=== PATIENT | female | born 1985 | race Caucasian/White ===

== ENCOUNTER 2019-04-22 07:46 | Outpatient (CLI) | payer MEDICAID, SELFPAY ==
--- NOTE | 2019-04-22 08:00 | MR_ITS ---
WS: [id number] MRI LUMBAR SPINE WITH CONTRAST TECHNIQUE: Sagittal T1, T2 and STIR imaging. Axial T1 and T2 imaging. Post gadolinium imaging was obt ained. CLINICAL INFORMATION: Low back pain COMPARISON: MRI March 15, 2016 FINDINGS: Mild lumbar curve. No acute compression. No high-grade central canal stenosis. Prior postoperative ch anges hemilaminectomy left L4-5. L1-L2: Normal. L2-L3: Normal. L3-L4: Mild annular bulging. Small right foraminal protrusion with mild right and no significant left foraminal narrowing. Mild facet arthropathy. L4-L5: Postoperative changes left L4-5 hemilaminectomy. Resection of the previously described disc ex trusion. Enhancing granulation tissue in the left subarticular recess. Residual peripheral enhancing minimal disc bulging slightly narrows the subarticular recess and traversing left L5 nerve root. Mild left foraminal narrowing. This has improved from previous. No significant recurrent disc extrusion. L5-S1: Mild annular bulging with slight effacement of ventral thecal sac. Narrowing of the subarticul ar recess bilaterally. Slight contact of the traversing S1 nerve roots. Mild central canal stenosis. Mild left and no significant right foraminal narrowing. Mild facet arthropathy. Visualized pelvic bony structures: Normal. Paravertebral soft tissues: Normal. MR/MR lumbar spine wo/w con [id number] IMPRESSION: 1. Interval resection of the left L4-5 disc extrusion with minimal residual na rrowing of the left subarticular recess. Slight encroachment traversing left L5 nerve root. Associated Enhancing granulation tissue. No significant recurrent disc extrusion. 2. Mild left L4-5 foraminal narrowing. 3. Mild central canal stenosis L5-S1 with broad-based shallow central disc pro trusion and tiny annular fissure. Slight contact of the S1 nerve roots. Mild le ft L5-S1 foraminal narrowing. 4. Small right foraminal protrusion L3-4 with mild right foraminal narrowing.
--- NOTE | 2019-04-22 08:45 | XR_ITS ---
WS: [id number] LUMBAR SPINE FLEXION AND EXTENSION TECHNIQUE: 3 views of the lumbar spine: Lateral neutral, flexion, and extension views. CLINICAL INFORMATION: low back pain COMPARISON: None. FINDINGS: Normal lumbar alignment on the neutral view. No instability on the flexion and extension views. Disc space narrowing worse at L4-L5 and L5-S1. XR/XR lumbar spine f/e only [id number] IMPRESSION: No instability on flexion-extension
== END 2019-04-22 07:47 | disposition home or self-care (01) ==
LOC: RADWPI 07:49
PROVIDERS: Family Provider Family Medicine; PCP Family Medicine; Visit Provider Licensed Practical Nurse
DX: M96.1 Postlaminectomy syndrome, not elsewhere classified (principal); M48.07 Spinal stenosis, lumbosacral region; M51.26 Other intervertebral disc displacement, lumbar region
CPT/HCPCS: 72120; 72158; A9579

== ENCOUNTER → 2019-05-21 07:43 | Outpatient (BNVA) | payer MEDICAID, SELFPAY | PROVIDERS: Family Provider Family Medicine; PCP Family Medicine; Referring Provider Licensed Practical Nurse; Visit Provider Psychiatry & Neurology Neurology | DX: M54.17 Radiculopathy, lumbosacral region (principal); F17.210 Nicotine dependence, cigarettes, uncomplicated | CPT/HCPCS: 95886; 95908 ==

== ENCOUNTER 2019-07-01 10:47 | Outpatient (RCR) | payer MEDICAID, SELFPAY | END 2019-07-13 23:59 | disposition home or self-care (01) | LOC: SPT 10:47 | PROVIDERS: PCP Family Medicine; Referring Provider Specialist; Visit Provider Specialist | DX: G89.29 Other chronic pain (principal); M54.9 Dorsalgia, unspecified | CPT/HCPCS: 97110; 97161 ==

== ENCOUNTER 2019-07-14 06:00 | Outpatient (RCR) | payer MEDICAID, SELFPAY | END 2019-08-12 23:59 | disposition home or self-care (01) | LOC: SPT 06:00 | PROVIDERS: PCP Family Medicine; Referring Provider Specialist; Visit Provider Specialist | DX: G89.29 Other chronic pain (principal); M54.9 Dorsalgia, unspecified | CPT/HCPCS: 97110 ==

== ENCOUNTER 2019-08-13 06:00 | Outpatient (RCR) | payer MEDICAID, SELFPAY | END 2019-09-12 23:59 | disposition home or self-care (01) | LOC: SPT 06:00 | PROVIDERS: PCP Family Medicine; Referring Provider Specialist; Visit Provider Specialist | DX: G89.29 Other chronic pain (principal); M54.9 Dorsalgia, unspecified | CPT/HCPCS: 97110 ==

== ENCOUNTER 2019-09-13 06:00 | Outpatient (RCR) | payer MEDICAID, SELFPAY | END 2019-10-10 12:00 | disposition home or self-care (01) | LOC: SPT 06:00 | PROVIDERS: PCP Family Medicine; Referring Provider Specialist; Visit Provider Specialist | DX: G89.29 Other chronic pain (principal); M54.9 Dorsalgia, unspecified | CPT/HCPCS: 97110 ==

== ENCOUNTER → 2019-10-22 11:24 | Outpatient (BNVA) | payer MEDICAID, SELFPAY | PROVIDERS: PCP Family Medicine; Visit Provider Nurse Practitioner Family | DX: J06.9 Acute upper respiratory infection, unspecified (principal); Z20.828 Contact with and (suspected) exposure to other viral communicable diseases | CPT/HCPCS: 87635 ==

== ENCOUNTER 2020-03-14 16:01 | Emergency (ER) | payer MEDICAID, SELFPAY ==
[2020-03-14 17:07] VITALS: BP 121/80; PULSE 114; RESP 16; TEMP 36.3; O2SAT 97; BMI 32.2
--- NOTE | 2020-03-14 17:12 | XRR_ITS ---
PROCEDURE INFORMATION: Exam: XR Lumbosacral Spine, 2 or 3 Views Exam date and time: 03/14/2020 5:13 PM Age: 35 years old Clinical indication: Injury or trauma; Fall; Blunt trauma (contusions or hematomas) TECHNIQUE: Imaging protocol: XR of the lumbosacral spine, 2 or 3 views. COMPARISON: CR Hip 2-3v LEFT wwo Pelv* [id number] 04/09/2014 1:21 PM FINDINGS: Bones/joints: No fractures. Unremarkable alignment. Severe disc height loss L4-L5 and L5-S1. Sclerosis of L5-S1 facet joints. Soft tissues: Unremarkable. XR/XR lumbar spine 2-3V* [id number] IMPRESSION: Negative for acute lumbar spine abnormality.
--- NOTE | 2020-03-14 19:12 | ED_ITS ---
HPI - Back Pain/Injury General: Chief Complaint: Back Pain/Injury Stated Complaint: Fall/Back Pain Time Seen by Provider: 03/14/20 19:02 Source: patient Mode of arrival: ambulatory Limitations: no limitations History of Present Illness: HPI Narrative: 35-year-old female who states she had a discectomy in her lumbar spine and January. She states that she fell in the bathtub last night and landed on her right lower back has had right lower back pain since then. States pain is worsened today. States it is worse with movement and improved with rest. States currently a 6 out of 10. She denies any bowel or bladder incontinence. Denies any fever. MD elicited complaint: back pain Associated symptoms: Deny abdominal pain, chills, dysuria, fever(s), nausea or vomiting Review of Systems Const: Denies: fever(s), chills, body aches or change in appetite Eyes: Denies: blurry vision or eye discomfort ENMT: Denies: throat pain or dental pain Card: Denies: chest pain Resp: Denies: dyspnea GI: Denies: abdominal pain, nausea, vomiting or diarrhea : Denies: dysuria Musc: Reports: back pain; Denies: neck pain Skin/Breast: Denies: rash Neuro: Denies: headache(s) Psych: Denies: depression Patricio/Lymph: Denies: easy bruising All/Imm: Denies: urticaria PFSH ED PFSH: Medical History Asthma Lumbar disc disease Lumbar post-laminectomy syndrome Surgical History History of adenoidectomy Tonsillectomy and adenoidectomy done at the age of 19 History of eye surgery Strabismus 2010 History of lumbar surgery 07/27/2016 left L4-L5 reexploration. 06/2010 Left L4-L5 History of tubal ligation 11/2014: precedure done via umbilicus. Performed in [place], [place]. Family History Father Hypertension Diabetes Mother Heart disease Social History Smoking and tobacco status: former smoker Alcohol intake: current Alcohol intake frequency: holidays/special occasions only Substance/Drug Use: never Marital status: Current occupational status: disabled History of recent travel: No Physical Exam Const: COMMON NORMALS: no acute distress, patient oriented x3 and healthy appearing HENMT: COMMON NORMALS: normocephalic and atraumatic HEAD & SCALP: normocephalic and atraumatic Eye: COMMON NORMALS: Equal, round and reactive pupils present and EOMs intact bilaterally PUPIL: Yes Equal, round and reactive pupils present Neck/C-Spine: COMMON NORMALS: full ROM and supple Chest: COMMONS NORMALS: normal inspection of the chest and normal palpation of entire chest wall Resp: COMMON NORMALS: normal respiratory effort, No retractions, No use of ac cessory muscles and clear to auscultation bilaterally AUSCULTATION: clear to auscultation bilaterally Cardio: COMMON NORMALS: regular rate, regular rhythm and No murmurs present (Cardio) RATE: regular rate RHYTHM: regular rhythm GI: COMMON NORMALS: Normal to inspection, nondistended, normoactive bowel sounds present, Soft to palpation, non-tender and no masses PALPATION: Yes Soft to palpation Back/Pelvis: OTHER: Tender over right lower back no midline tenderness no saddle anesthesia 5 out of 5 strength bilateral lower extremities Extremity: COMMON NORMALS: normal to inspection and full ROM Neuro: COMMON NORMALS: patient oriented x3, moves all extremities and no focal motor deficits Psych: COMMON NORMALS: mental status grossly normal, Normal thought process present and cooperative THOUGHT PROCESS: Normal thought process present Skin: COMMON NORMALS: no rashes or lesions noted and no wounds GENERAL SKIN EXAM: no rashes or lesions noted Course Vital Signs: Vital signs: Vital Signs Temperature 97.3 F L 03/14/20 17:07 Pulse Rate 114 H 03/14/20 17:07 Respiratory Rate 16 03/14/20 17:07 Blood Pressure 121/80 03/14/20 17:07 Pulse Oximetry 97 03/14/20 17:07 MDM - Back Pain/Injury MDM Narrative: Medical decision making narrative: Mandy presents with back pain likely contusion from her fall. Her x-ray here is normal and her exam is benign. She is following up with her neurosurgeon on Sunday and I feel she is stable for discharge and is to follow-up then. She is to take her pain meds at home and ice. She understands and agrees to plan. Imaging Data^: Other Xray: Radiologist's impression: [address] [place] [address] XRay Report Signed Patient: Mandy Turner Unit #: [id number] : [id number] Age/Sex: 35 / F ADM Date: 03/14/20 Loc: ER Room/Bed: Attending Dr: Ordering Provider/Ordering MD: Miguel Melchor Sr, [facility]- Date of Service: 03/14/20 Procedure(s): XR lumbar spine 2-3V* [id number] Accession Number(s): [id number] Report Number: [id number] PROCEDURE INFORMATION: Exam: XR Lumbosacral Spine, 2 or 3 Views Exam date and time: 03/14/2020 5:13 PM Age: 35 years old Clinical indication: Injury or trauma; Fall; Blunt trauma (contusions or hematomas) TECHNIQUE: Imaging protocol: XR of the lumbosacral spine, 2 or 3 views. COMPARISON: CR Hip 2-3v LEFT wwo Pelv* [id number] 04/09/2014 1:21 PM FINDINGS: Bones/joints: No fractures. Unremarkable alignment. Severe disc height loss L4-L5 and L5-S1. Sclerosis of L5-S1 facet joints. Soft tissues: Unremarkable. XR/XR lumbar spine 2-3V* [id number] IMPRESSION: Negative for acute lumbar spine abnormality. Discharge Plan Discharge Patient Disposition: Home Clinical Impression: Low back pain Qualifiers: Chronicity: acute Back pain laterality: right Sciatica presence: without sciatica Qualified Code(s): M54.5 - Low back pain Condition: Stable Prescriptions: No Action Excedrin Migraine 250-250-65 mg tablet 1 tab PO Q6H PRNRF: 0 hydrocodone-acetaminophen 10-325 mg tablet 1 tab PO BID PRNRF: 0 albuterol sulfate [ProAir HFA] 90 mcg/actuation HFA aerosol inhaler 2 puff INHALATION Q6H PRNRF: 0 pregabalin [Lyrica] 50 mg capsule 50 mg PO BID RF: 0 Discharge Orders: Discharge ED (Routine); Ordered 03/14/20 Ordered By: Flaco Gonzalez Referrals: Ludwin Watson MD [Primary Care Provider] - 1-3 days Discharge Diet: Advance as tolerated Discharge Activity: Resume usual activity Patient Instructions: Back Pain (ED) Coding Level of Care Code ED Insurance Account Specialist for Aubrie Cardona
[2020-03-14 19:57] VITALS: RESP 18
[2020-03-14] MEDS: morphine 4 mg/mL SDV 1 mL IM (19:57)
[2020-03-14 20:07] VITALS: BP 121/80; PULSE 106; RESP 20; O2SAT 97
== END 2020-03-14 20:08 | disposition home or self-care (01) ==
PROVIDERS: Emergency Provider Emergency Medicine; PCP Family Medicine
DX: M54.5 Low back pain (principal); Z87.891 Personal history of nicotine dependence
CPT/HCPCS: 12345; 72100; 96372; 99281; 99283; J2270

== ENCOUNTER 2020-06-16 08:25 | Outpatient (CLI) | payer MEDICAID, SELFPAY ==
[2020-06-29 05:40] LABS: Miscellaneous Test See Scanned Lab Rpt
== END 2020-06-16 08:26 | disposition home or self-care (01) ==
LOC: LAB 08:26
PROVIDERS: PCP Family Medicine; Visit Provider Specialist
DX: L72.0 Epidermal cyst (principal)
CPT/HCPCS: 87015; 87070; 87102; 87116; 87176; 87205; 87206; 87801; 88184; 88185; 88307

== ENCOUNTER 2020-06-22 19:50 | Emergency (ER) | payer MEDICAID, SELFPAY ==
--- NOTE | 2020-06-22 19:51 | XRR_ITS ---
PROCEDURE INFORMATION: Exam: XR Left Foot Exam date and time: 06/22/2020 7:53 PM Age: 35 years old Clinical indication: Pain; Foot; Left; Additional info: Injury TECHNIQUE: Imaging protocol: XR Left foot. Views: 3 or more views. COMPARISON: No relevant prior studies available. FINDINGS: Bones/joints: Normal. Soft tissues: Normal. XR/XR foot LT min 3V* [id number] IMPRESSION: No acute findings.
--- NOTE | 2020-06-22 19:51 | XRR_ITS ---
PROCEDURE INFORMATION: Exam: XR Left Ankle Exam date and time: 06/22/2020 7:53 PM Age: 35 years old Clinical indication: Pain; Ankle; Left; Additional info: Injury TECHNIQUE: Imaging protocol: XR Left ankle. Views: 3 or more views. COMPARISON: No relevant prior studies available. FINDINGS: Bones/joints: Normal. Soft tissues: Normal. XR/XR ankle LT min 3V* [id number] IMPRESSION: No acute findings.
[2020-06-22 19:55] VITALS: BP 127/81; PULSE 104; RESP 18; TEMP 36.8; O2SAT 99; BMI 32.8
[2020-06-22] MEDS: HYDROcodone-acetaminophen 5-325 mg Tablet 1 TAB PO (21:15)
--- NOTE | 2020-06-22 21:20 | W.ED.EXTPRO ---
HPI - Extremity Problem General: Chief complaint: Extremity Injury, Lower Stated complaint: right foot injury Time Seen by Provider: 06/22/20 20:16 History of Present Illness: Associated symptoms: Deny chest pain, fever(s) or rash Review of Systems Const: Denies: fever(s), chills, body aches, change in appetite, change in weight, fatigue, malaise or diaphoresis Eyes: Denies: change in vision, blurry vision, blind spots, photophobia, eye discomfort, eye discharge, eye redness, floaters or seeing flashes ENMT: Denies: throat pain, uvular edema, enlarged tonsils, odynophagia, hoarseness, mouth pain, swelling of lips/tongue, oral sores, bleeding gums, dental pain, dry mouth, ear or mastoid pain, ear discharge, change in hearing, tinnitus, disequilibrium, nasal discharge, nasal congestion, post nasal drip or sinus pain Card: Denies: chest pain, palpitations, irregular heart rhythm, edema, swelling of feet/ankles, lightheadedness, syncope, pre-syncope, dyspnea on exertion, orthopnea, leg pain with exertion or acrocyanosis Resp: Denies: dyspnea, productive cough, non-productive cough, wheezing, stridor, pain on inspiration, change in phlegm color, hemoptysis or chest congestion GI: Denies: abdominal pain, nausea, vomiting, hematemesis, dysphagia, diarrhea, constipation, GI cramping, change in bowel habits or rectal pain : Denies: flank pain, difficulty voiding, dysuria, urinary frequency, urinary urgency, urinary hesitancy or hematuria Musc: Reports: extremity pain; Denies: neck pain, back pain, extremity swelling, joint pain, joint swelling, joint redness, joint warmth or deformity Skin/Breast: Denies: rash, pruritus, erythema, sores, new lesions, changes in skin color or dry skin Neuro: Denies: headache(s), numbness in extremities, weakness in extremities, sensory changes, lack of coordination, difficulty walking, frequent falls, dizziness, vertigo, confusion, behavioral changes, Slurred speech present, difficulty communicating thoughts or seizure-like activity Psych: Denies: anxiety, depression, suicidal ideation or homicidal ideation Endo: Denies: polyuria, polydipsia, tired all the time, cold intolerance, excessive sweating, flushing, hot flashes or heat intolerance Patricio/Lymph: Denies: easy bruising, easy bleeding, petechiae, purpura, enlarged lymph nodes or tender lymph nodes All/Imm: Denies: urticaria, throat swelling, tongue swelling, facial swelling, acute wheezing or itchy eyes PFSH ED PFSH: Medical History Asthma Lumbar disc disease Lumbar post-laminectomy syndrome Surgical History History of adenoidectomy Tonsillectomy and adenoidectomy done at the age of 19 History of eye surgery Strabismus 2010 History of lumbar surgery 07/27/2016 left L4-L5 reexploration. 06/2010 Left L4-L5 History of tubal ligation 11/2014: precedure done via umbilicus. Performed in [place], [place]. Family History Father Hypertension Diabetes Mother Heart disease Social History Smoking and tobacco status: former smoker Alcohol intake: current Alcohol intake frequency: holidays/special occasions only Marital status: Current occupational status: disabled History of recent travel: No Physical Exam Const: COMMON NORMALS: no acute distress, average body habitus, patient oriented x3, no limitations, healthy appearing, alert and well nourished HENMT: THROAT: no uvular edema Extremity: LEFT LOWER EXTREMITY: Yes foot & digits (pain to 2nd and third digit pt is NVI no obvious deformity) Neuro: COMMON NORMALS: patient oriented x3 SENSORIUM/ORIENTATION: Yes alert Course Vital Signs: Vital signs: Vital Signs Temperature 98.2 F 06/22/20 19:55 Pulse Rate 104 H 06/22/20 19:55 Respiratory Rate 18 06/22/20 19:55 Blood Pressure 127/81 06/22/20 19:55 Pulse Oximetry 99 06/22/20 19:55 MDM - Extremity (Nontraumatic) MDM Narrative: Medical decision making narrative: Pt is well appearing non toxic and in no acute distress. pain to 2nd and third digit pt is NVI no obvious deformity xray does not reveal any acute fractures or dislocation 2nd 3rd digit ingris tapped. Pt was advised to wear hard sole shoes return precautions discussed Discharge Plan Discharge Patient Disposition: Home Clinical Impression: Sprain of toe Qualifiers: Encounter type: initial encounter Qualified Code(s): S93.509A - Unspecified sprain of unspecified toe(s), initial encounter Condition: Stable Prescriptions: No Action Excedrin Migraine 250-250-65 mg tablet 1 tab PO Q6H PRNRF: 0 hydrocodone-acetaminophen 10-325 mg tablet 1 tab PO BID PRNRF: 0 albuterol sulfate [ProAir HFA] 90 mcg/actuation HFA aerosol inhaler 2 puff INHALATION Q6H PRNRF: 0 pregabalin [Lyrica] 50 mg capsule 50 mg PO BID RF: 0 amoxicillin-pot clavulanate [Augmentin] 875-125 mg tablet 1 tab PO Q12H 7 Days Qty: 14 RF: 0 Discharge Orders: Discharge ED (Routine); Ordered 06/22/20 Ordered By: Delia Mcginnis Referrals: Ludwin Watson MD [Primary Care Provider] - Discharge Diet: Advance as tolerated Discharge Activity: Increase activity as tolerated Patient Instructions: Opioid Safety Activity Restrictions/Additional Instructions: Ingris tape as needed Return to er with any worsening of pain Coding Level of Care Code ED Extension Edger for Aubrie Cardona
--- NOTE | 2020-06-22 21:35 | PC.NURSE ---
Patient 2nd and 3rd toe on left foot ingris taped together.
[2020-06-22 21:39] VITALS: BP 106/59; PULSE 92; RESP 15; TEMP 36.8; O2SAT 96
== END 2020-06-22 21:40 | disposition home or self-care (01) ==
PROVIDERS: Emergency Provider Registered Nurse; PCP Family Medicine
DX: S93.509A Unspecified sprain of unspecified toe(s), initial encounter (principal); Z87.891 Personal history of nicotine dependence; X58.XXXA Exposure to other specified factors, initial encounter
CPT/HCPCS: 73610; 73630; 99283

== ENCOUNTER 2021-01-22 11:52 | Emergency (ER) | payer MEDICAID, SELFPAY ==
[2021-01-22 12:02] VITALS: BP 107/68; PULSE 90; RESP 18; TEMP 36.6; O2SAT 97; BMI 31.4
--- NOTE | 2021-01-22 12:07 | XRR_ITS ---
PROCEDURE INFORMATION: Exam: XR Left Ankle Exam date and time: 01/22/2021 12:07 PM Age: 36 years old Clinical indication: Injury or trauma; Other: Twisted; Sprain or strain; Ankle; Left TECHNIQUE: Imaging protocol: XR Left ankle. Views: 3 or more views. COMPARISON: CR (LOW EXM, ) 06/22/2020 8:18 PM FINDINGS: Bones/joints: Bones intact and normally aligned. Soft tissues: Normal. XR/XR ankle LT min 3V* [id number] IMPRESSION: No acute findings.
--- NOTE | 2021-01-22 12:09 | ED_ITS ---
HPI - Extremity Problem General: Chief complaint: Extremity Injury, Lower Stated complaint: L ANKLE SWELLING & PAIN Time Seen by Provider: 01/22/21 12:01 History of Present Illness: HPI Narrative: Complains of left ankle pain after stepping in a hole last night. Complaint: joint pain Onset (ago): hour(s) Pain Consistency: constant Location: left and lower extremity Severity scale (1-10): 2 Quality: aching Radiation: none Relieving factors: immobilization Exacerbating factors: range of motion and weight bearing Associated symptoms: Reports no associated symptoms; Deny fever(s) Review of Systems Const: Denies: fever(s) or chills Musc: Reports: joint pain (Left ankle) Psych: Denies: anxiety PFSH ED PFSH: Medical History (Updated 06/30/20 @ 00:00 by ) Asthma Lumbar disc disease Lumbar post-laminectomy syndrome Surgical History History of adenoidectomy Tonsillectomy and adenoidectomy done at the age of 19 History of eye surgery Strabismus 2010 History of lumbar surgery 07/27/2016 left L4-L5 reexploration. 06/2010 Left L4-L5 History of tubal ligation 11/2014: precedure done via umbilicus. Performed in [place], [place]. Family History Father Hypertension Diabetes Mother Heart disease Social History Smoking and tobacco status: former smoker Alcohol intake: current Alcohol intake frequency: holidays/special occasions only Marital status: Current occupational status: disabled History of recent travel: No Physical Exam 2 Const: COMMON NORMALS: no acute distress GENERAL APPEARANCE: cooperative Resp: COMMON NORMALS: normal respiratory effort Extremity: LEFT LOWER EXTREMITY: Yes ankle joint (Tenderness to lateral and medial aspect of the ankle. No swelling noted no ) Psych: COMMON NORMALS: mental status grossly normal Course Vital Signs: Vital signs: Vital Signs Temperature 97.8 F 01/22/21 12:02 Pulse Rate 90 01/22/21 12:02 Respiratory Rate 18 01/22/21 12:02 Blood Pressure 107/68 01/22/21 12:02 Pulse Oximetry 97 01/22/21 12:02 Discharge Plan Discharge Prescriptions: No Action Excedrin Migraine 250-250-65 mg tablet 1 tab PO Q6H PRNRF: 0 hydrocodone-acetaminophen 10-325 mg tablet 1 tab PO BID PRNRF: 0 albuterol sulfate [ProAir HFA] 90 mcg/actuation HFA aerosol inhaler 2 puff INHALATION Q6H PRNRF: 0 pregabalin [Lyrica] 50 mg capsule 50 mg PO BID RF: 0 amoxicillin-pot clavulanate [Augmentin] 875-125 mg tablet 1 tab PO Q12H 7 Days Qty: 14 RF: 0 Coding Level of Care Code ED Road Service Locksmith for Aubrie Cardona
== END 2021-01-22 13:11 | disposition home or self-care (01) ==
PROVIDERS: Emergency Provider Nurse Practitioner Family; PCP Family Medicine
DX: M25.572 Pain in left ankle and joints of left foot (principal); Z87.891 Personal history of nicotine dependence
CPT/HCPCS: 73610; 99282

== ENCOUNTER 2021-03-06 08:17 | Emergency (ER) | payer MEDICAID, SELFPAY ==
[2021-03-06 08:39] VITALS: BP 114/79; PULSE 92; RESP 18; TEMP 36.8; O2SAT 96; BMI 30.6
--- NOTE | 2021-03-06 08:49 | ED_ITS ---
HPI - Headache General: Chief Complaint: Headache Stated Complaint: headache Time Seen by Provider: 03/06/21 08:45 History of Present Illness: HPI Narrative: Patient complains of sinus headache. Has been taking Claritin which helped last few days and then feels like she is got pressure in sinuses now and is caused her to have a headache. She denies migrainous type symptoms. Denies fever chills cough cold or body aches either. MD elicited complaint: headache Onset (ago): hour(s) Onset description: gradually Location: frontal Severity: mild Quality & Timing: aching Associated symptoms: Reports no associated symptoms; Deny chest pain, fever(s), nausea, rash or vomiting Review of Systems Const: Denies: fever(s), chills or body aches Eyes: Denies: change in vision or blurry vision ENMT: Reports: sinus pain and other; Denies: throat pain or nasal congestion Card: Denies: chest pain or dyspnea on exertion Resp: Denies: dyspnea, productive cough or non-productive cough GI: Denies: abdominal pain, nausea or vomiting Musc: Denies: extremity pain Skin/Breast: Denies: rash Neuro: Reports: headache(s) Psych: Denies: anxiety or depression Patricio/Lymph: Denies: easy bruising PFSH ED PFSH: Medical History (Updated 03/06/21 @ 08:48 by BRET Eden) Asthma Lumbar disc disease Lumbar post-laminectomy syndrome Surgical History History of adenoidectomy Tonsillectomy and adenoidectomy done at the age of 19 History of eye surgery Strabismus 2010 History of lumbar surgery 07/27/2016 left L4-L5 reexploration. 06/2010 Left L4-L5 History of tubal ligation 11/2014: precedure done via umbilicus. Performed in [place], [place]. Family History Father Hypertension Diabetes Mother Heart disease Social History Smoking and tobacco status: former smoker Alcohol intake: current Alcohol intake frequency: holidays/special occasions only Marital status: Current occupational status: disabled History of recent travel: No Physical Exam Const: COMMON NORMALS: no acute distress, average body habitus and patient oriented x3 HENMT: COMMON NORMALS: normocephalic HEAD & SCALP: normal to inspection and normocephalic FACE & SINUS: sinus tenderness frontal, sphenoid, ethmoid and maxillary Eye: COMMON NORMALS: conjunctivae normal GENERAL EYE: appearance normal, both eyes and all related structures CONJUNCTIVA: Yes conjunctivae normal Neck/C-Spine: COMMON NORMALS: no JVD Chest: COMMONS NORMALS: normal inspection of the chest Resp: COMMON NORMALS: normal respiratory effort and clear to auscultation bilaterally AUSCULTATION: clear to auscultation bilaterally Cardio: COMMON NORMALS: no JVD, regular rate and regular rhythm RATE: regular rate RHYTHM: regular rhythm GI: COMMON NORMALS: Normal to inspection, nondistended, normoactive bowel sounds present Extremity: COMMON NORMALS: normal to inspection and full ROM Neuro: COMMON NORMALS: patient oriented x3 Course Vital Signs: Vital signs: Vital Signs Temperature 98.2 F 03/06/21 08:39 Pulse Rate 92 03/06/21 08:39 Respiratory Rate 18 03/06/21 08:39 Blood Pressure 114/79 03/06/21 08:39 Pulse Oximetry 96 03/06/21 08:39 Discharge Plan Discharge Patient Disposition: Home Clinical Impression: Sinus headache Condition: Stable Prescriptions: New Bactrim DS 800-160 mg tablet 1 tab PO BID 10 Days Qty: 20 RF: 0 Celebrex 100 mg capsule 100 mg PO BID Qty: 20 RF: 0 No Action Excedrin Migraine 250-250-65 mg tablet 1 tab PO Q6H PRNRF: 0 hydrocodone-acetaminophen 10-325 mg tablet 1 tab PO BID PRNRF: 0 albuterol sulfate [ProAir HFA] 90 mcg/actuation HFA aerosol inhaler 2 puff INHALATION Q6H PRNRF: 0 pregabalin [Lyrica] 50 mg capsule 50 mg PO BID RF: 0 amoxicillin-pot clavulanate [Augmentin] 875-125 mg tablet 1 tab PO Q12H 7 Days Qty: 14 RF: 0 Discharge Orders: Discharge ED (Routine); Ordered 03/06/21 Ordered By: Piotr Melchor Referrals: Ludwin Watson MD [Primary Care Provider] - Discharge Diet: Usual diet Discharge Activity: Increase activity as tolerated Activity Restrictions/Additional Instructions: Follow-up with medical provider as directed. Take medications as prescribed. Return to the ER or your medical provider if condition worsens. Please read and understand discharge instructions. If any questions ask please. Take the Bactrim DS for sinus infection. And take the Celebrex as needed for headache. And continue your Claritin that you have. Coding Level of Care Code ED Winding Operator for Aubrie Cardona
[2021-03-06 09:04] VITALS: BP 114/79; PULSE 92; RESP 18; TEMP 36.8; O2SAT 98
== END 2021-03-06 09:06 | disposition home or self-care (01) ==
LOC: ER 08:51
PROVIDERS: Emergency Provider Nurse Practitioner Family; PCP Family Medicine
DX: G44.89 Other headache syndrome (principal); Z87.891 Personal history of nicotine dependence
CPT/HCPCS: 99282

== ENCOUNTER 2021-04-12 19:41 | Emergency (ER) | payer MEDICAID, SELFPAY ==
[2021-04-12 20:07] VITALS: BP 136/92; PULSE 112; RESP 16; TEMP 36.8; O2SAT 99; BMI 27.4
--- NOTE | 2021-04-12 20:14 | ED_ITS ---
HPI - Extremity Problem General: Chief complaint: Extremity Injury, Lower Stated complaint: Pain Left Leg and Bottom Time Seen by Provider: 04/12/21 20:14 History of Present Illness: 36-year-old female comes in today with complaints of low back pain radiating into her left lower leg. Patient reports that usually she will have some low back pain with some mild radiation to her left lower extremity but it seems to have worsened. Patient does have a history of a surgery done 1 year ago to her low back. Patient is alert and oriented. Patient denies any falls or injury. Patient appears some mild pain. Review of Systems General: Reports: 10 or more systems reviewed and unremarkable except in HPI and below Musc: Reports: back pain [facility] ED PFSH: Medical History (Updated 04/12/21 @ 20:26 by BRET Vera) Asthma Lumbar disc disease Lumbar post-laminectomy syndrome Surgical History History of adenoidectomy Tonsillectomy and adenoidectomy done at the age of 19 History of eye surgery Strabismus 2010 History of lumbar surgery 07/27/2016 left L4-L5 reexploration. 06/2010 Left L4-L5 History of tubal ligation 11/2014: precedure done via umbilicus. Performed in [place], [place]. Family History Father Hypertension Diabetes Mother Heart disease Social History Smoking and tobacco status: former smoker Alcohol intake: current Alcohol intake frequency: holidays/special occasions only Marital status: Current occupational status: disabled History of recent travel: No Physical Exam Const: COMMON NORMALS: alert Neck/C-Spine: COMMON NORMALS: full ROM Resp: COMMON NORMALS: normal respiratory effort and clear to auscultation bilaterally AUSCULTATION: clear to auscultation bilaterally Cardio: COMMON NORMALS: regular rate and regular rhythm RATE: regular rate RHYTHM: regular rhythm Back/Pelvis: COMMON NORMALS: thoraco-lumbar ROM normal Extremity: RIGHT LOWER EXTREMITY: Yes lower leg Right lower leg: Yes inspection and Yes palpation LEFT LOWER EXTREMITY: Yes lower leg Left lower leg: Yes inspection and Yes palpation Neuro: SENSORIUM/ORIENTATION: Yes alert Psych: COMMON NORMALS: cooperative Course Vital Signs: Vital signs: Vital Signs Temperature 98.2 F 04/12/21 20:07 Pulse Rate 112 H 04/12/21 20:07 Respiratory Rate 16 04/12/21 20:07 Blood Pressure 136/92 04/12/21 20:07 Pulse Oximetry 99 04/12/21 20:07 MDM - Extremity (Nontraumatic) Medical Decision Making Patient comes in with pain radiating from her low back down her left extremity to her ankle. Patient has a history of a spinal fusion 1 year ago. Patient reports the pain been worse over the last 2 to 3 days. Patient reports this is new pain for her. On exam patient has no sign of redness or inflammation or swelling to the left lower extremity. Pulses are intact. Negative Homans' sign. Differential diagnosis includes lumbar radiculitis, muscle strain, DVT. No sign of DVT was noted. Believe the patient probably has some lumbar radiculopathy secondary to her chronic back pain. Patient was given a dose of ketorolac 30 mg, 10 mg of dexamethasone, and 60 mg orphenadrine. Patient was recommended to follow-up with primary care for further evaluation and treatment. Patient may also is to follow-up with her spinal surgeon. There was no signs of serious illness or injury noted today. No sign of cauda equina syndrome was noted today. Patient reported no problems with bowel or bladder movement. Discharge Plan Discharge Patient Disposition: Home Clinical Impression: Left lumbar radiculitis Condition: Stable Prescriptions: No Action Excedrin Migraine 250-250-65 mg tablet 1 tab PO Q6H PRN0RF hydrocodone-acetaminophen 10-325 mg tablet 1 tab PO BID PRN0RF albuterol sulfate [ProAir HFA] 90 mcg/actuation HFA aerosol inhaler 2 puff INHALATION Q6H PRN0RF pregabalin [Lyrica] 50 mg capsule 50 mg PO BID 0RF amoxicillin-pot clavulanate [Augmentin] 875-125 mg tablet 1 tab PO Q12H 7 Days Qty: 14 0RF Celebrex 100 mg capsule 100 mg PO BID Qty: 20 0RF Discharge Orders: Discharge ED (Routine); Ordered 04/12/21 Ordered By: Olu Rangel Referrals: Ludwin Watson MD [Primary Care Provider] - Discharge Diet: Usual diet Discharge Activity: Increase activity as tolerated Patient Instructions: Back Pain (ED), Opioid Safety Activity Restrictions/Additional Instructions: Continue with routine medications. Activity as tolerated. Drink plenty of water with medication. Follow-up with spinal surgeon for further evaluation and treatment. Return to ER for new concerns or worsening symptoms. Coding Level of Care Code ED Micropaleontologist for Aubrie Cardona
[2021-04-12] MEDS: dexamethasone 10 mg/mL INJ IM (20:40)
[2021-04-12 20:41] VITALS: PULSE 98; RESP 16; O2SAT 99
[2021-04-12] MEDS: ketorolac 30 mg/mL INJ IM (20:41)
[2021-04-12] MEDS: orphenadrine 30 mg/mL Inj 2 mL 60 MG IM (20:41)
== END 2021-04-12 20:43 | disposition home or self-care (01) ==
PROVIDERS: Emergency Provider Nurse Practitioner Family; PCP Family Medicine
DX: M54.16 Radiculopathy, lumbar region (principal); Z87.891 Personal history of nicotine dependence
CPT/HCPCS: 96372; 99283; J1100; J1885; J2360

== ENCOUNTER 2021-04-30 20:24 | Emergency (ER) | payer MEDICAID, SELFPAY ==
[2021-04-30 20:38] VITALS: BP 110/65; PULSE 97; RESP 18; TEMP 36.5; O2SAT 97; BMI 26.2
--- NOTE | 2021-04-30 20:58 | ED_ITS ---
HPI - Headache General: Chief Complaint: Headache Stated Complaint: Migraine Headache Time Seen by Provider: 04/30/21 20:42 History of Present Illness: Patient is a 36-year-old female comes to the ED with migraine. Patient has a history of migraines. She says this migraine is like all her past migraines. It started approximately 3 days ago. She endorses having nausea, but no episodes of emesis. Bright lights and loud noises make headache worse. She rates her current headache an 8 out of 10. Headache is located behind left eye and radiates to right side of head. She is taking Tylenol, Excedrin and ibuprofen to try to help headache over the past 3 days and headache did not improve. Denies any fever, head trauma, vision changes, numbness tingling or weakness to 1 side of her body or face. Associated symptoms: Reports nausea; Deny chest pain, fever(s), rash or vomiting Review of Systems Const: Denies: fever(s), chills or fatigue Eyes: Reports: photophobia; Denies: change in vision or eye discomfort ENMT: Denies: throat pain, odynophagia, nasal discharge or nasal congestion Card: Denies: chest pain, palpitations, edema, swelling of feet/ankles, dyspnea on exertion or orthopnea Resp: Denies: dyspnea, productive cough or non-productive cough GI: Reports: nausea; Denies: abdominal pain, vomiting, diarrhea, constipation or hematochezia : Denies: flank pain, dysuria or hematuria Musc: Denies: neck pain, back pain or extremity swelling Skin/Breast: Denies: rash or new lesions Neuro: Reports: headache(s); Denies: numbness in extremities or weakness in extremities PFSH ED PFSH: Medical History Asthma Lumbar disc disease Lumbar post-laminectomy syndrome Migraine Surgical History History of adenoidectomy Tonsillectomy and adenoidectomy done at the age of 19 History of eye surgery Strabismus 2010 History of lumbar surgery 07/27/2016 left L4-L5 reexploration. 06/2010 Left L4-L5 History of tubal ligation 11/2014: precedure done via umbilicus. Performed in [place], [place]. Family History Father Hypertension Diabetes Mother Heart disease Social History Smoking and tobacco status: former smoker Alcohol intake: current Alcohol intake frequency: holidays/special occasions only Marital status: Current occupational status: disabled History of recent travel: No Physical Exam Const: COMMON NORMALS: no acute distress, patient oriented x3 and alert GENERAL APPEARANCE: cooperative and comfortable HENMT: COMMON NORMALS: normocephalic HEAD & SCALP: normocephalic MOUTH: Normal oral and palatal mucosa present THROAT: posterior oropharynx normal and uvula midline Eye: COMMON NORMALS: Equal, round and reactive pupils present, EOMs intact bilaterally and conjunctivae normal CONJUNCTIVA: Yes conjunctivae normal PUPIL: Yes Equal, round and reactive pupils present Neck/C-Spine: COMMON NORMALS: supple GENERAL: Yes normal visual inspection Resp: COMMON NORMALS: normal respiratory effort, No retractions, No use of accessory muscles and clear to auscultation bilaterally AUSCULTATION: clear to auscultation bilaterally Cardio: COMMON NORMALS: regular rate, regular rhythm, S1 normal heart sound present, S2 normal heart sound present, No gallops present (Cardio), No clicks present (Cardio), No murmurs present (Cardio) and Peripheral pulses 2+ throughout RATE: regular rate RHYTHM: regular rhythm HEART SOUNDS: S1 normal heart sound present and S2 normal heart sound present PERIPHERAL PULSES: Peripheral pulses 2+ throughout GI: COMMON NORMALS: Normal to inspection, nondistended, normoactive bowel sounds present, Soft to palpation, non-tender and no masses PALPATION: Yes Soft to palpation : COMMON NORMALS: Yes no CVA tenderness BLADDER/KIDNEY EXAM: Yes no CVA tenderness Back/Pelvis: COMMON NORMALS: no CVA tenderness Extremity: COMMON NORMALS: normal to inspection Neuro: COMMON NORMALS: patient oriented x3, CN's II-XII intact bilaterally, moves all extremities, no focal motor deficits and no sensory deficits noted SENSORIUM/ORIENTATION: Yes alert COORDINATION/BALANCE: [id number] test normal SPEECH: speech normal SENSORY EXAM: Yes extremities (intact) MOTOR EXAM: 5/5 motor strength present throughout COORDINATION: [id number] test normal Skin: GENERAL SKIN EXAM: dry skin Course Reevaluation(s): Reevaluation #1: After patient received migraine meds her symptoms improved greatly. She says her migraine is now rated a 4 out of 10 and it is manageable. Patient is ready to be discharged home and rest. Time: 21:40 Vital Signs: Vital signs: Vital Signs Temperature 97.7 F 04/30/21 20:38 Pulse Rate 97 04/30/21 20:38 Respiratory Rate 18 04/30/21 20:38 Blood Pressure 110/65 04/30/21 20:38 Pulse Oximetry 97 04/30/21 20:38 MDM - Headache Medical Decision Making Patient is a 36-year-old female comes to the ED with a migraine. She has a history of migraines says this migraine is similar to all her previous migraines. Vital stable. Exam is benign. Patient was given IV migraine cocktail and her symptoms improved. Patient felt migraine was manageable and was ready to be discharged home. Patient diagnosed with migraine discharged home. Told to follow-up with her PCP in 7 to 10 days for reevaluation. Return to ED precautions given. Patient understood and agree with plan. Discharge Plan Discharge Patient Disposition: Home Clinical Impression: Migraine Qualifiers: Migraine type: without aura Status migrainosus presence: without status migrainosus Intractability: not intractable Qualified Code(s): G43.009 - Migraine without aura, not intractable, without status migrainosus Condition: Stable Prescriptions: No Action Excedrin Migraine 250-250-65 mg tablet 1 tab PO Q6H PRN0RF hydrocodone-acetaminophen 10-325 mg tablet 1 tab PO BID PRN0RF albuterol sulfate [ProAir HFA] 90 mcg/actuation HFA aerosol inhaler 2 puff INHALATION Q6H PRN0RF pregabalin [Lyrica] 50 mg capsule 50 mg PO BID 0RF amoxicillin-pot clavulanate [Augmentin] 875-125 mg tablet 1 tab PO Q12H 7 Days Qty: 14 0RF Celebrex 100 mg capsule 100 mg PO BID Qty: 20 0RF Discharge Orders: Discharge ED (Routine); Ordered 04/30/21 Ordered By: Blayne Crowder Referrals: Ludwin Watson MD [Primary Care Provider] - Discharge Diet: Regular Discharge Activity: Increase activity as tolerated Patient Instructions: Migraine Headache (ED) Activity Restrictions/Additional Instructions: Follow-up with medical provider as directed in the next 7 to 10 days reevaluation. Continue taking all home medications as previously prescribed. Return to the ER or your medical provider if condition worsens. Please read and understand discharge instructions. Thank you for choosing [facility] for your healthcare needs today. Please realize this is an emergency room and that we are providing you with a medical screening exam and this may not be complete and all inclusive of all the testing and or work up that you may need to determine your ailment or severity of your illness. It is very important that you follow up as instructed or that you return to the Emergency Department should you have concerns or if your condition changes or worsens in any way. Coding Level of Care Code ED Mold Construction Supervisor for Aubrie Cardona Exam Comprehensive
[2021-04-30] MEDS: metoclopramide 5 mg/mL SDV 2 mL 10 MG IVP (21:08)
[2021-04-30] MEDS: dexamethasone 10 mg/mL INJ IVP (21:08)
[2021-04-30] MEDS: ketorolac 30 mg/mL INJ IVP (21:08)
[2021-04-30] MEDS: diphenhydrAMINE 50 mg/mL SDV 1mL 25 MG IVP (21:09)
[2021-04-30] MEDS: sodium chloride 0.9% 500 ML 999 ML IV (21:09)
[2021-04-30 21:52] VITALS: BP 110/76; PULSE 83; RESP 16; O2SAT 96
== END 2021-04-30 21:53 | disposition home or self-care (01) ==
PROVIDERS: Emergency Provider Physician Assistant; PCP Family Medicine
DX: G43.009 Migraine without aura, not intractable, without status migrainosus (principal); Z87.891 Personal history of nicotine dependence
CPT/HCPCS: 96374; 96375; 99283; J1100; J1200; J1885; J2765; J7040

== ENCOUNTER 2021-05-21 19:51 | Emergency (ER) | payer MEDICAID, SELFPAY ==
[2021-05-21 19:59] VITALS: BP 124/87; PULSE 114; RESP 18; TEMP 36.8; O2SAT 98; BMI 31.1
--- NOTE | 2021-05-21 20:29 | W.ED.GENADLT ---
HPI - General Adult General: Chief complaint: Headache Stated complaint: headache Time Seen by Provider: 05/21/21 19:55 History of Present Illness: Patient is a 36-year-old female with history of migraines presenting to the emergency with complaints of left-sided headache x1 week. Patient says that the headache is gradual onset and since a week ago has been bringing progressively worse. Patient reports headache with neck pain on the left side. Patient reports photophobia, nausea one episode of vomiting. Patient denies any focal neurological deficits including weakness, facial droop, slurring of speech, amaurosis fugax, numbness, or difficulty walking. Since 3 days ago, patient also complaints of diffuse abdominal pain. Patient has been having cramping/sharp abdominal pain. Pain is not worse with p.o. intake. Patient denies any nausea or vomiting after eating. Patient has no other abdominal complaints including melena/hematochezia, or diarrhea. Patient denies any urinary complaints at this time. Patient denies any new vaginal discharge. Patient denies of this the worst headache that she has had in her life. Patient denies any sudden onset of headache or maximal intensity at onset or family hx of aneurysms. Onset:1 week of headache, 3 days of abd pain Duration:ongoing Location:home Severity:moderate Associated symptoms: Reports headache(s) and nausea; Deny chest pain, dyspnea, rash, palpitations or vomiting Review of Systems Const: Denies: fever(s) or chills Eyes: Denies: change in vision ENMT: Denies: mouth pain Card: Denies: chest pain or palpitations Resp: Denies: dyspnea or non-productive cough GI: Reports: abdominal pain and nausea; Denies: vomiting or diarrhea : Denies: dysuria Musc: Denies: extremity pain Skin/Breast: Denies: rash or new lesions Neuro: Reports: headache(s); Denies: weakness in extremities Psych: Reports: other (Normal mood) Patricio/Lymph: Denies: easy bruising PFSH ED PFSH: Medical History Asthma Lumbar disc disease Lumbar post-laminectomy syndrome Migraine Surgical History History of adenoidectomy Tonsillectomy and adenoidectomy done at the age of 19 History of eye surgery Strabismus 2010 History of lumbar surgery 07/27/2016 left L4-L5 reexploration. 06/2010 Left L4-L5 History of tubal ligation 11/2014: precedure done via umbilicus. Performed in [place], [place]. Family History Father Hypertension Diabetes Mother Heart disease Social History Smoking and tobacco status: former smoker Alcohol intake: current Alcohol intake frequency: holidays/special occasions only Marital status: Current occupational status: disabled History of recent travel: No Physical Exam Const: COMMON NORMALS: alert HENMT: COMMON NORMALS: atraumatic HEAD & SCALP: atraumatic MOUTH: moist mucous membranes not abnormal Eye: COMMON NORMALS: EOMs intact bilaterally and conjunctivae normal CONJUNCTIVA: Yes conjunctivae normal Neck/C-Spine: COMMON NORMALS: full ROM and supple OTHER: +no nuchal rigidity Resp: COMMON NORMALS: normal respiratory effort and clear to auscultation bilaterally AUSCULTATION: clear to auscultation bilaterally Cardio: RATE: tachycardic GI: COMMON NORMALS: Soft to palpation and non-tender PALPATION: Yes Soft to palpation OTHER: No focal TTP. NO guarding rebound, guarding, rigidity. No CVA tenderness to percussion. Neg Robles/Neg McBurney's point tenderness, no suprabupic tenderness to palpation. Extremity: COMMON NORMALS: full ROM Neuro: SENSORIUM/ORIENTATION: Yes alert MOTOR EXAM: No Abnormal motor strength present and Other motor observations present (no focal motor deficits) Psych: COMMON NORMALS: speech normal SPEECH: Yes normal speech MOOD & AFFECT: Yes euthymic mood Course Vital Signs: Vital signs: Vital Signs Temperature 98.1 F 05/21/21 22:54 Pulse Rate 98 05/21/21 22:54 Respiratory Rate 18 05/21/21 19:59 Blood Pressure 108/77 05/21/21 22:54 Pulse Oximetry 98 05/21/21 22:54 [facility] - General Adult Medical Decision Making 36-year-old female history migraine presenting to the emergency room with left-sided headache and neck pain. On exam, patient has no nuchal rigidity. Patient is afebrile, neuro exam is grossly intact. Abdominal exam is negative for any acute tenderness to palpation, involuntary guarding or rebound tenderness. Initially, patient was tachycardic however heart rate without any intervention. Given presentation I do not suspect a subarachnoid hemorrhage given presentation and symptoms. However, given patient's history of migraine, will treat empirically. In addition, will evaluate for any abdominal pathologies with blood work. Patient received Reglan, IVF, Tylenol, Benadryl, and magnesium sulfate with significant improvement in headache. Received GI cocktail with significant abdominal improvement. Patient is now able to tolerate p.o. without any difficulty. Considered intraabdominal pathologies but have no suspicion for other acute intra-abdominal pathology including SBO, biliary pathology, appendicitis, diverticulitis, or other emergent condition requiring surgery. Rx tylenol PRN abd pain, maalox/pepcid PRN dyspepsia, and zofran PRN nausea/vomiting Disposition: Discharge. Patient counseled regarding diagnostic impression, treatment plan. Patient given ED strict return precautions to return for continuation, worsening, or development of new symptoms. Instructed to f/u w/ PCP regarding symptoms today. Patient verbalized understanding. Lab Data : 05/21/21 21:17 05/21/21 21: Laboratory Results WBC 9.6 10^3/uL (4.0-10.0) 05/21/21: RBC 4.48 10^6/uL (4.1-5.3) 05/21/21 21: Hgb 13.2 g/dL (11.5-15.3) 05/21/21 21: Hct 40.0 % (37.0-47.0) 05/21/21: MCV 89.3 fl (81-99) 05/21/21 21: MCH 29.5 pg (28.0-34.0) 05/21/21 21: MCHC 33.0 g/dL (30.0-36.0) 05/21/21: RDW 13.8 % (12.1-15.1) 05/21/21 21: Plt Count 278 10^3/cmm (130-400) 05/21/21 21: MPV 10.2 fL (7.4-10.4) 05/21/21: Neut % (Auto) 75.8 % 05/21/21 21:17 Lymph % (Auto) 16.2 % 05/21/21 21:17 [place] % (Auto) 4.4 % 05/21/21 21:17 Eos % (Auto) 2.9 % 05/21/21 21:17 Baso % (Auto) 0.5 % 05/21/21 21:17 Neut # (Auto) 7.29 10^3/uL (1.8-7.7) 05/21/21 21:17 Lymph # (Auto) 1.6 10^3/uL (0.8-4.8) 05/21/21 21:17 [place] # (Auto) 0.4 10^3/uL (0.2-0.9) 05/21/21 21:17 Eos # (Auto) 0.3 10^3/uL (0.0-0.8) 05/21/21 21:17 Baso # (Auto) 0.1 10^3/uL (0.0-0.1) 05/21/21 21:17 Nucleated RBC % (auto) 0 % 05/21/21 21:17 Nucleated RBCs # 0.0 /100WBC 05/21/21 21:17 Sodium 136 mmol/L (136-145) 05/21/21 21:17 Potassium 3.7 mmol/L (3.5-5.1) 05/21/21 21:17 Chloride 102 mmol/L (98-107) 05/21/21 21:17 Carbon Dioxide 24 mmol/L (22-29) 05/21/21 21:17 Anion Gap 13.7 (5-19) 05/21/21 21:17 BUN 15 mg/dL (6-20) 05/21/21 21:17 Creatinine 0.5 mg/dL (0.5-0.9) 05/21/21 21:17 GFR Calculation 138.8 mL/min (90-130) H 05/21/21 21:17 Glucose 93 mg/dL (65-115) 05/21/21 21:17 Calculated Osmolality 283 mOsm/kg (285-295) L 05/21/21 21:17 Calcium 9.2 mg/dL (8.5-10.5) 05/21/21 21:17 Total Bilirubin 0.4 mg/dL (0.15-1.2) 05/21/21 21:17 AST 14 U/L (0-32) 05/21/21 21:17 ALT 13 U/L (0-33) 05/21/21 21:17 Alkaline Phosphatase 138 IU/L (35-105) H 05/21/21 21:17 Total Protein 7.2 g/dL (6.6-8.7) 05/21/21 21:17 Albumin 4.3 g/dL (3.5-5.2) 05/21/21 21:17 Globulin 2.9 g/dL (1.3-4.6) 05/21/21 21:17 Lipase 25 U/L (13-60) 05/21/21 21:17 HCG, Qual Negative (Negative) 05/21/21 21:17 Discharge Plan Discharge Clinical Impression: Abdominal pain, Headache, Nausea Condition: Stable Prescriptions: New acetaminophen 500 mg tablet 500 mg PO Q6H PRN (Reason: pain) 5 Days Qty: 20 0RF Pepcid 20 mg tablet 20 mg PO BID PRN (Reason: abdominal pain) 10 Days Qty: 20 0RF Reglan 5 mg tablet 5 mg PO BID PRN (Reason: nausea and vomiting) 5 Days Qty: 10 0RF Maalox Advanced 1,000-60 mg tablet,chewable 1 tab PO TID PRN (Reason: abdominal pain) 7 Days Qty: 21 0RF No Action Excedrin Migraine 250-250-65 mg tablet 1 tab PO Q6H PRN0RF hydrocodone-acetaminophen 10-325 mg tablet 1 tab PO BID PRN0RF albuterol sulfate [ProAir HFA] 90 mcg/actuation HFA aerosol inhaler 2 puff INHALATION Q6H PRN0RF pregabalin [Lyrica] 50 mg capsule 50 mg PO BID 0RF amoxicillin-pot clavulanate [Augmentin] 875-125 mg tablet 1 tab PO Q12H 7 Days Qty: 14 0RF Celebrex 100 mg capsule 100 mg PO BID Qty: 20 0RF Discharge Orders: Discharge ED (Routine); Ordered 05/21/21 Ordered By: Natali Garrido Referrals: Ludwin Watson MD [Primary Care Provider] - Discharge Diet: Advance as tolerated Discharge Activity: Increase activity as tolerated Patient Instructions: Acute Headache (ED), Abdominal Pain (ED) Activity Restrictions/Additional Instructions: Please come back to the emergency room you have any fever chills, worsening headache, focal weakness, nausea/vomiting, inability to perform daily activity, or any new concerning complaints. Please come back if you have any worsening abdominal pain, fever or chills, nausea or vomiting, diarrhea, blood in the stool, inability hold down liquid or solids, or any new concerning complaints. Coding Level of Care Code ED Floor Steward/Stewardess for Chg Fwd Exam Comprehensive
[2021-05-21 21:26] LABS: Basophils # 0.1 10^3/uL (0.0-0.1); Basophils % 0.5 %; Eosinophils # 0.3 10^3/uL (0.0-0.8); Eosinophils % 2.9 %; Hemoglobin 13.2 g/dL (11.5-15.3); Lymphocytes # 1.6 10^3/uL (0.8-4.8); Lymphocytes % 16.2 %; Mean Corpuscular Hemoglobin 29.5 pg (28.0-34.0); Mean Corpuscular Volume 89.3 fl (81-99); Mean Platelet Volume 10.2 fL (7.4-10.4); Monocytes # 0.4 10^3/uL (0.2-0.9); Monocytes % 4.4 %; Neutrophils # 7.29 10^3/uL (1.8-7.7); Neutrophils % 75.8 %; Nucleated Red Blood Cells % 0 %; Platelet Count 278 10^3/cmm (130-400); Red Blood Count 4.48 10^6/uL (4.1-5.3); Red Cell Distribution Width 13.8 % (12.1-15.1); White Blood Count 9.6 10^3/uL (4.0-10.0)
[2021-05-21] MEDS: acetaminophen 500 mg Tablet 1000 MG PO (21:34)
[2021-05-21] MEDS: lidocaine 2% viscous 15 ML, aluminum-mag hydrox-simethicon 30 ML, sucralfate oral liq 1 GM PO (21:35)
[2021-05-21] MEDS: sodium chloride 0.9% 1,000 ML 999 ML IV (21:42)
[2021-05-21] MEDS: metoclopramide 5 mg/mL SDV 2 mL IVP (21:43)
[2021-05-21 21:44] LABS: HCG, Serum Qual Negative (Negative)
[2021-05-21] MEDS: magnesium sulfate premix 2 GM/50 ML PIGGYBACK IV (21:44)
[2021-05-21] MEDS: diphenhydrAMINE 50 mg/mL SDV 1mL IVP (21:46)
[2021-05-21 21:51] LABS: Alanine Aminotransferase 13 U/L (0-33); Albumin Level 4.3 g/dL (3.5-5.2); Alkaline Phosphatase 138 IU/L (35-105); Anion Gap 13.7 (5-19); Aspartate Amino Transferase 14 U/L (0-32); Blood Urea Nitrogen 15 mg/dL (6-20); Calcium 9.2 mg/dL (8.5-10.5); Carbon Dioxide 24 mmol/L (22-29); Chloride 102 mmol/L (98-107); Globulin 2.9 g/dL (1.3-4.6); Glomerular Filtration Rate 138.8 mL/min (90-130); Glucose 93 mg/dL (65-115); Lipase 25 U/L (13-60); Osmolality Calculated 283 mOsm/kg (285-295); Potassium 3.7 mmol/L (3.5-5.1); Sodium 136 mmol/L (136-145); Total Bilirubin 0.4 mg/dL (0.15-1.2); Total Protein 7.2 g/dL (6.6-8.7)
[2021-05-21 22:47] VITALS: BP 94/66; PULSE 91; O2SAT 97
[2021-05-21 22:54] VITALS: BP 108/77; PULSE 98; TEMP 36.7; O2SAT 98
== END 2021-05-21 23:06 ==
PROVIDERS: Emergency Provider Emergency Medicine; PCP Family Medicine
DX: R51.9 Headache, unspecified (principal); R10.9 Unspecified abdominal pain; R11.0 Nausea; M54.2 Cervicalgia; Z86.69 Personal history of other diseases of the nervous system and sense organs; Z79.891 Long term (current) use of opiate analgesic; Z87.891 Personal history of nicotine dependence
CPT/HCPCS: 80053; 83690; 84703; 85025; 96365; 96375; 99284; J1200; J2765; J3475; J7030

== ENCOUNTER 2021-05-31 21:49 | Emergency (ER) | payer MEDICAID, SELFPAY ==
[2021-05-31 22:04] VITALS: BP 109/77; PULSE 86; RESP 18; TEMP 36.6; O2SAT 98; BMI 30.2
--- NOTE | 2021-05-31 22:20 | W.ED.NECK ---
HPI - Neck Pain/Injury General: Chief Complaint: Neck Pain/Injury Stated Complaint: Neck pain Time Seen by Provider: 05/31/21 22:17 History of Present Illness: 36-year-old female patient comes in with left-sided neck discomfort. Patient is very guarded with movement of the neck. 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 Since then patient had increasing pain and discomfort to the neck causing her to get headache. Patient does have a history of migraine headaches. Patient does have a history of chronic back pain. Patient had taken a dose of hydrocodone and a ibuprofen for her pain with minimal relief. Patient appears nontoxic. Patient appears in moderate pain. Associated symptoms: Reports headache(s) Review of Systems General: Reports: 10 or more systems reviewed and unremarkable except in HPI and below Card: Denies: chest pain Resp: Denies: dyspnea Musc: Reports: neck pain Skin/Breast: Denies: rash Neuro: Reports: headache(s) PFS ED PFSH: Medical History Asthma Lumbar disc disease Lumbar post-laminectomy syndrome Migraine Surgical History History of adenoidectomy Tonsillectomy and adenoidectomy done at the age of 19 History of eye surgery Strabismus 2010 History of lumbar surgery 07/27/2016 left L4-L5 reexploration. 06/2010 Left L4-L5 History of tubal ligation 11/2014: precedure done via umbilicus. Performed in [place], [place]. Family History Father Hypertension Diabetes Mother Heart disease Social History Smoking and tobacco status: former smoker Alcohol intake: current Alcohol intake frequency: holidays/special occasions only Marital status: Current occupational status: disabled History of recent travel: No Physical Exam Const: COMMON NORMALS: alert HENMT: COMMON NORMALS: atraumatic HEAD & SCALP: atraumatic Neck/C-Spine: CERVICAL SPINE: Yes Paracervical muscle tenderness Resp: COMMON NORMALS: normal respiratory effort Cardio: COMMON NORMALS: regular rate RATE: regular rate Extremity: COMMON NORMALS: normal to inspection Neuro: SENSORIUM/ORIENTATION: Yes alert Skin: COMMON NORMALS: no rashes or lesions noted GENERAL SKIN EXAM: no rashes or lesions noted Course Vital Signs: Vital signs: Vital Signs Temperature 97.8 F 05/31/21 22:04 Pulse Rate 86 05/31/21 22:04 Respiratory Rate 18 05/31/21 22:04 Blood Pressure 109/77 05/31/21 22:04 Pulse Oximetry 98 05/31/21 22:04 MDM - Neck Pain/Injury Medical Decision Making Patient comes in today with complaints of left-sided neck pain and discomfort. On exam there is muscle tightness and tenderness to the left neck. Respirations are even lungs are clear to auscultation. Patient moves all extremities well. Equal strength in bilateral hands. Differential diagnosis includes cervical strain, intervertebral disc disease, facet arthropathy. X-rays noted no fracture and some mild degeneration. Patient was given injections of medication including orphenadrine 60 mg, morphine 4 mg, Toradol 30 mg, and 10 mg of dexamethasone. Patient had improvement in pain and discomfort. Patient was instructed on further treatment and recommendations for follow-up. Patient reported understanding agreed to plan. Discharge Plan Discharge Patient Disposition: Home Clinical Impression: Acute neck pain Condition: Stable Prescriptions: New tizanidine 4 mg tablet 4 mg PO Q8H PRN (Reason: muscle spasticity) Qty: 14 0RF diclofenac sodium 75 mg tablet,delayed release (DR/EC) 75 mg PO BID Qty: 14 0RF No Action Excedrin Migraine 250-250-65 mg tablet 1 tab PO Q6H PRN0RF hydrocodone-acetaminophen 10-325 mg tablet 1 tab PO BID PRN0RF albuterol sulfate [ProAir HFA] 90 mcg/actuation HFA aerosol inhaler 2 puff INHALATION Q6H PRN0RF pregabalin [Lyrica] 50 mg capsule 50 mg PO BID 0RF amoxicillin-pot clavulanate [Augmentin] 875-125 mg tablet 1 tab PO Q12H 7 Days Qty: 14 0RF Celebrex 100 mg capsule 100 mg PO BID Qty: 20 0RF Discharge Orders: Discharge ED (Routine); Ordered 05/31/21 Ordered By: Olu Rangel Referrals: Ludwin Watson MD [Primary Care Provider] - Discharge Diet: Usual diet Discharge Activity: Increase activity as tolerated Patient Instructions: Neck Pain (ED), Opioid Safety Activity Restrictions/Additional Instructions: Drink plenty of water. Gentle stretching and range of motion exercises. Use muscle rub for further comfort. Activity as tolerated. Follow-up with primary care for further instruction. Take medications as directed. Return to ER for new concerns. Coding Level of Care Code ED Tanning Consultant for Aubrie Cardona Exam Detailed
--- NOTE | 2021-05-31 22:25 | XRR_ITS ---
PROCEDURE INFORMATION: Exam: XR Cervical Spine Exam date and time: 05/31/2021 10:28 PM Age: 36 years old Clinical indication: Patient HX: Sudden onset of neck pain today. No injury. TECHNIQUE: Imaging protocol: XR of the cervical spine. Views: 2 or 3 views. COMPARISON: CR Chest 2 views* [id number] 09/27/2015 2:10 PM FINDINGS: Bones/joints: Mild reversal of the cervical lordosis. The vertebral body stature is maintained. Disc space narrowing at C4-C5 and C5-C6 with mild degenerative endplate changes. The facets are intact. No fracture or subluxation. Soft tissues: Unremarkable. XR/XR cervical spine 3V* [id number] IMPRESSION: No acute finding.
[2021-05-31] MEDS: morphine 4 mg/mL SDV 1 mL IM (22:50)
[2021-05-31] MEDS: dexamethasone 10 mg/mL INJ IM (22:50)
[2021-05-31] MEDS: ketorolac 30 mg/mL INJ IM (22:50)
[2021-05-31] MEDS: orphenadrine 30 mg/mL Inj 2 mL 60 MG IM (22:51)
[2021-05-31 23:23] VITALS: BP 104/66; PULSE 80; RESP 18; TEMP 36.4; O2SAT 98
== END 2021-05-31 23:27 | disposition home or self-care (01) ==
PROVIDERS: Emergency Provider Nurse Practitioner Family; PCP Family Medicine
DX: M54.2 Cervicalgia (principal)
CPT/HCPCS: 72040; 96372; 99283; J1100; J1885; J2270; J2360

== ENCOUNTER 2021-08-16 14:52 | Outpatient (CLI) | payer MEDICAID, SELFPAY ==
--- NOTE | 2021-08-16 15:06 | MR_ITS ---
WS: [id number] MRI LUMBAR SPINE WITH AND WITHOUT CONTRAST. HISTORY: POSTLAMINECTOMY SYNDROME, LEFT leg pain for 4 to 5 months. COMPARISON: 04/22/2019 TECHNIQUE: Sagittal and axial multisequence imaging is submitted. Sagittal and axial T1 fat sat seque nces post-MultiHance 60 cc IV. Reversal of the normal cervical lordosis centered at C4-5. Mild contact on the ventral thecal sac as seen on the prior study with no change. Mild straightening of the normal lumbar lordosis similar to the prior study. Moderate disc space narr owing at L4-5 with small amount of reactive marrow edema in the endplates. No fractures. Conus terminates normally at L1. L1-L2: Normal. L2-L3: Normal. L3-L4: Mild annular disc bulging with mild ligamentum flavum and facet arthritis. Shallow RIGHT corrie inal disc protrusion similar to the prior study. Mild encroachment but no contact of the exiting RIGH T L3 nerve root. L4-L5: Diffuse moderate annular disc bulging. LEFT hemilaminectomy defect. Debridement of the LEFT li gamentum flavum. Very mild disc encroachment upon the ventral thecal sac and contacting the LEFT [place] ersing L5 nerve root. Less contact on the prior examination. There is mild LEFT foraminal stenosis. E nhancement of granulation tissue at the laminectomy site. L5-S1: Mild annular disc bulging. Ligamentum flavum hypertrophy and facet arthritis. Encroachment int o the thecal sac. Effacement of fat in the LEFT foramen. There is a focal LEFT foraminal disc protrus ion and possible osteophyte contacting the LEFT L5 and S1 nerve roots. Moderate to severe LEFT forami nal and subarticular recess stenosis. Mild RIGHT subarticular and foraminal stenosis. Visualized retroperitoneum is negative. MR/MR lumbar spine wo/w con [id number] IMPRESSION: 1. Stable postoperative changes at L4-5 with a LEFT hemilaminectomy defect. Mi ld disc encroachment upon the ventral thecal sac and contact on the LEFT elvia sing L5 nerve root. Less contact on the nerve roots as compared to the prior st udy. Mild central stenosis. 2. Progression of LEFT foraminal stenosis at L5-S1 with a new disc protrusion which is partially extruded and extends below the disc space. Disc protrusion c ontacts the LEFT L5 and S1 nerve root. Moderate to severe LEFT foraminal subart icular recess stenosis. 3. Mild RIGHT subarticular and foraminal stenosis at L5-S1 with mild disc cont acting the RIGHT S1 nerve root. 4. Unchanged shallow RIGHT foraminal disc protrusion at L3-4.
--- NOTE | 2021-08-16 15:15 | XRR_ITS ---
PROCEDURE INFORMATION: Exam: XR Lumbosacral Spine Exam date and time: 08/16/2021 3:16 PM Age: 36 years old Clinical indication: Low back pain; Prior surgery; Surgery date: 6+ months; Surgery type: L-spine x3; Additional info: Postlaminectomy syndrome, please comment on presence or absence of spinal instability TECHNIQUE: Imaging protocol: Radiologic exam of the lumbosacral spine. Views: 2 or 3 views. COMPARISON: CR XR lumbar spine 2-3V* [id number] 03/14/2020 6:07 PM FINDINGS: Bones/joints: Spinal alignment is normal. Vertebral body height is maintained. Moderate disc narrowing at L4-L5 and L5-S1. Mild lower lumbar facet spondylosis. No spondylolisthesis with flexion or extension. No acute fracture. Soft tissues: Unremarkable. XR/XR lumbar spine f/e only [id number] IMPRESSION: No sign of instability.
[2021-08-16] MEDS: gadobenate dimeglumine 20 mL vial IV (16:02)
== END 2021-08-16 14:53 | disposition home or self-care (01) ==
LOC: RAD 14:52
PROVIDERS: PCP Family Medicine; Visit Provider Anesthesiology Pain Medicine
DX: M96.1 Postlaminectomy syndrome, not elsewhere classified (principal)
CPT/HCPCS: 72120; 72158

== ENCOUNTER 2021-08-16 16:22 | Emergency (ER) | payer MEDICAID, SELFPAY ==
[2021-08-16 16:31] VITALS: BP 110/76; PULSE 87; RESP 18; TEMP 37; O2SAT 93; BMI 30.7
--- NOTE | 2021-08-16 16:43 | XRR_ITS ---
PROCEDURE INFORMATION: Exam: XR Left Elbow Exam date and time: 08/16/2021 4:48 PM Age: 36 years old Clinical indication: Pain; Elbow; Left; Patient HX: No injury documented by er provider; Additional info: Pain/injury TECHNIQUE: Imaging protocol: Radiologic exam of the Left elbow. Views: 3 or more views. COMPARISON: No relevant prior studies available. FINDINGS: Bones/joints: Alignment is normal. No acute fracture. No joint effusion. Soft tissues: Visible soft tissues are unremarkable. XR/XR elbow LT min 3V* [id number] IMPRESSION: No acute findings.
--- NOTE | 2021-08-16 16:53 | ED_ITS ---
HPI - Extremity Problem General: Chief complaint: Extremity Injury, Upper Stated complaint: Left elbow pain Time Seen by Provider: 08/16/21 16:51 History of Present Illness: 36-year-old female comes in today for complaints of injury to the left elbow. Patient reports yesterday she had hit her elbow twice against the counter and since then has had pain and discomfort with movement of the elbow. No obvious deformity is noted. No significant swelling is noted. Patient has a history of chronic back pain and bronchitis. Review of Systems General: Reports: 10 or more systems reviewed and unremarkable except in HPI and below Musc: Reports: extremity pain PFSH ED PFSH: Medical History Asthma Lumbar disc disease Lumbar post-laminectomy syndrome Migraine Surgical History History of adenoidectomy Tonsillectomy and adenoidectomy done at the age of 19 History of eye surgery Strabismus 2010 History of lumbar surgery 07/27/2016 left L4-L5 reexploration. 06/2010 Left L4-L5 History of tubal ligation 11/2014: precedure done via umbilicus. Performed in [place], [place]. Family History Father Hypertension Diabetes Mother Heart disease Social History Smoking and tobacco status: current every day smoker Alcohol intake: current Alcohol intake frequency: holidays/special occasions only Marital status: Current occupational status: disabled History of recent travel: No Physical Exam Const: COMMON NORMALS: alert HENMT: COMMON NORMALS: atraumatic HEAD & SCALP: atraumatic Neck/C-Spine: COMMON NORMALS: full ROM Resp: COMMON NORMALS: normal respiratory effort Cardio: COMMON NORMALS: regular rate RATE: regular rate Extremity: LEFT UPPER EXTREMITY: Yes elbow joint (No obvious deformity, swelling, ecchymosis. Normal cap refill distally) Left elbow: Yes inspection Neuro: SENSORIUM/ORIENTATION: Yes alert Course Vital Signs: Vital signs: Vital Signs Temperature 98.6 F 08/16/21 16:31 Pulse Rate 87 08/16/21 16:31 Respiratory Rate 18 08/16/21 16:31 Blood Pressure 110/76 08/16/21 16:31 Pulse Oximetry 93 08/16/21 16:31 MDM - Extremity (Nontraumatic) Medical Decision Making 36-year-old female comes in with injury to the left elbow. Patient reports blows to her elbow yesterday against a counter while at work. On exam patient has no swelling, guarded range of motion, distal cap refill intact. Differential diagnosis includes contusion, fracture, bursitis. No signs of bursitis or fracture was noted. X-ray was negative for fracture. Reviewed exam with patient recommended treatment for contusion and follow-up with primary care. Discharge Plan Discharge Patient Disposition: Home Clinical Impression: Contusion of elbow, left Qualifiers: Encounter type: initial encounter Qualified Code(s): S50.02XA - Contusion of left elbow, initial encounter Condition: Stable Prescriptions: No Action Excedrin Migraine 250-250-65 mg tablet 1 tab PO Q6H PRN0RF hydrocodone-acetaminophen 10-325 mg tablet 1 tab PO BID PRN0RF albuterol sulfate [ProAir HFA] 90 mcg/actuation HFA aerosol inhaler 2 puff INHALATION Q6H PRN0RF cetirizine [Zyrtec] 10 mg tablet 10 mg PO DAILY Qty: 30 0RF fluticasone propionate [Flonase Allergy Relief] 50 mcg/actuation spray,suspension 1 spray intranasal DAILY Qty: 16 0RF Rx Instructions: administer into each nostril escitalopram oxalate [Lexapro] 10 mg tablet 10 mg PO DAILY 0RF levofloxacin 750 mg tablet 750 mg PO DAILY 7 Days Qty: 7 0RF spjgdeixbeyegjj-cvvamkhkq-ZI [Bromfed DM] 2-30-10 mg/5 mL syrup 10 ml PO Q6H Qty: 5 0RF Discharge Orders: Discharge ED (Routine); Ordered 08/16/21 Ordered By: Olu Rangel Referrals: Ludwin Watson MD [Primary Care Provider] - Discharge Diet: Usual diet Discharge Activity: Increase activity as tolerated Patient Instructions: Musculoskeletal Pain (ED) Activity Restrictions/Additional Instructions: Activity as tolerated. Use ice packs, acetaminophen, or ibuprofen for pain. Follow-up with primary care in 1 week for recheck. Return to ER for new concerns. Coding Level of Care Code ED Hands Parter for Aubrie Cardona
== END 2021-08-16 17:24 | disposition home or self-care (01) ==
PROVIDERS: Emergency Provider Nurse Practitioner Family; PCP Family Medicine
DX: S50.02XA Contusion of left elbow, initial encounter (principal); F17.210 Nicotine dependence, cigarettes, uncomplicated; W22.09XA Striking against other stationary object, initial encounter
CPT/HCPCS: 73080; 99283

== ENCOUNTER 2021-09-29 20:36 | Emergency (ER) | payer MEDICAID, SELFPAY ==
[2021-09-29 21:14] VITALS: BP 112/67; PULSE 87; RESP 16; TEMP 36.6; O2SAT 97; BMI 28.3
[2021-09-29 22:10] LABS: Glucose Point of Care 135 mg/dL (70-110)
--- NOTE | 2021-09-29 22:11 | ECG_ITS ---
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 Measurements Intervals [place] Rate: 64 P: 71 MO: 215 QRS: 48 QRSD: 101 T: 44 QT: 380 QTc: 393 Interpretive Statements SINUS RHYTHM WITH FIRST DEGREE AV BLOCK POSSIBLE LEFT ATRIAL ENLARGEMENT [-0.1mV P-WAVE IN V1/V2] POSSIBLE RIGHT VENTRICULAR CONDUCTION DELAY [RSR (QR) IN V1/V2] No previous ECG available for comparison Electronically Signed On 09-29-2021 22:52:35 CDT by Jesus Alberto Solitario M.D. [id number]
--- NOTE | 2021-09-29 22:14 | W.ED.DIZZY ---
HPI - Dizziness General: Chief Complaint: Dizziness Stated Complaint: Dizzy/Legs hurt/N/V Time Seen by Provider: 09/29/21 22:11 Source: patient Mode of arrival: ambulatory Limitations: no limitations History of Present Illness: HPI Narrative: 36-year-old female states that today she started to feel lightheaded and dizzy states started checking her blood sugar and it ranged from 1 15-1 90. States she has been having these dizzy and near syncopal spells for 2 to 3 years states she seen her provider multiple times no never found any cause. She denies any headache denies passing out denies any chest pain denies any shortness of breath. Associated symptoms: Denies chills, nausea or vomiting Review of Systems Const: Denies: fever(s), chills, body aches or change in appetite Eyes: Denies: blurry vision or eye discomfort ENMT: Denies: throat pain or dental pain Card: Reports: pre-syncope Resp: Denies: dyspnea GI: Denies: abdominal pain, nausea, vomiting or diarrhea : Denies: dysuria Musc: Denies: neck pain or back pain Skin/Breast: Denies: rash Neuro: Reports: dizziness Psych: Denies: depression Patricio/Lymph: Denies: easy bruising All/Imm: Denies: urticaria PFSH ED PFSH: Medical History Asthma Lumbar disc disease Lumbar post-laminectomy syndrome Migraine Surgical History History of adenoidectomy Tonsillectomy and adenoidectomy done at the age of 19 History of eye surgery Strabismus 2010 History of lumbar surgery 07/27/2016 left L4-L5 reexploration. 06/2010 Left L4-L5 History of tubal ligation 11/2014: precedure done via umbilicus. Performed in [place], [place]. Family History Father Hypertension Diabetes Mother Heart disease Social History Smoking and tobacco status: current every day smoker Alcohol intake: current Alcohol intake frequency: holidays/special occasions only Marital status: Current occupational status: disabled History of recent travel: No Female Reproductive History: Date of last menstrual period: 08/31/21 Physical Exam Const: COMMON NORMALS: no acute distress, patient oriented x3 and healthy appearing HENMT: COMMON NORMALS: normocephalic and atraumatic HEAD & SCALP: normocephalic and atraumatic Eye: COMMON NORMALS: Equal, round and reactive pupils present and EOMs intact bilaterally PUPIL: Yes Equal, round and reactive pupils present Neck/C-Spine: COMMON NORMALS: full ROM and supple Chest: COMMONS NORMALS: normal inspection of the chest and normal palpation of entire chest wall Resp: COMMON NORMALS: normal respiratory effort, No retractions, No use of accessory muscles and clear to auscultation bilaterally AUSCULTATION: clear to auscultation bilaterally Cardio: COMMON NORMALS: regular rate, regular rhythm and No murmurs present (Cardio) RATE: regular rate RHYTHM: regular rhythm GI: COMMON NORMALS: Normal to inspection, nondistended, normoactive bowel sounds present, Soft to palpation, non-tender and no masses PALPATION: Yes Soft to palpation Extremity: COMMON NORMALS: normal to inspection and full ROM Neuro: COMMON NORMALS: patient oriented x3, moves all extremities and no focal motor deficits Psych: COMMON NORMALS: mental status grossly normal, Normal thought process present and cooperative THOUGHT PROCESS: Normal thought process present Skin: COMMON NORMALS: no rashes or lesions noted and no wounds GENERAL SKIN EXAM: no rashes or lesions noted Course Vital Signs: Vital signs: Vital Signs Temperature 97.9 F 09/29/21 21:14 Pulse Rate 87 09/29/21 21:14 Respiratory Rate 16 09/29/21 21:14 Blood Pressure 112/67 09/29/21 21:14 Pulse Oximetry 97 09/29/21 21:14 Oxygen Delivery Me thod 09/29/21 21:14 MDM - Dizziness Medical Decision Making Patient presents here with near syncopal event she is well-appearing here blood work here is normal she is stable for discharge she is to follow-up with PCP and return if worsening. Lab Data : 09/29/21 22:20 09/29/21 22:20 Radiology Impressions Chest X-Ray 09/29/21 22:25 IMPRESSION: Increased interstitial opacities in the mid lower hemithoraces may represent bilateral interstitial pneumonitis or atelectasis although mild pulmonary edema could have this appearance. Laboratory Results WBC 17.1 10^3/uL (4.0-10.0) H 09/29/21 22:20 RBC 4.60 10^6/uL (4.1-5.3) 09/29/21 22:20 Hgb 13.7 g/dL (11.5-15.3) 09/29/21 22:20 Hct 42.7 % (37.0-47.0) 09/29/21:20 MCV 92.8 fl (81-99) 09/29/21 22:20 MCH 29.8 pg (28.0-34.0) 09/29/21: MCHC 32.1 g/dL (30.0-36.0) 09/29/21:20 RDW 13.6 % (12.1-15.1) 09/29/21:20 Plt Count 323 10^3/cmm (130-400) 09/29/21:20 MPV 10.1 fL (7.4-10.4) 09/29/21 22:20 Neut % (Auto) 72.4 % 09/29/21 22:20 Lymph % (Auto) 17.1 % 09/29/21 22:20 [place] % (Auto) 8.0 % 09/29/21 22:20 Eos % (Auto) 1.3 % 09/29/21 22:20 Baso % (Auto) 0.8 % 09/29/21 22:20 Neut # (Auto) 12.36 10^3/uL (1.8-7.7) H 09/29/21 22:20 Lymph # (Auto) 2.9 10^3/uL (0.8-4.8) 09/29/21 22:20 [place] # (Auto) 1.4 10^3/uL (0.2-0.9) H 09/29/21 22:20 Eos # (Auto) 0.2 10^3/uL (0.0-0.8) 09/29/21 22:20 Baso # (Auto) 0.1 10^3/uL (0.0-0.1) 09/29/21 22:20 Nucleated RBC % (auto) 0 % 09/29/21 22:20 Nucleated RBCs # 0.0 /100WBC 09/29/21 22:20 Sodium 141 mmol/L (136-145) 09/29/21 22:20 Potassium 4.2 mmol/L (3.5-5.1) 09/29/21 22:20 Chloride 105 mmol/L (98-107) 09/29/21 22:20 Carbon Dioxide 26 mmol/L (22-29) 09/29/21 22:20 Anion Gap 14.2 (5-19) 09/29/21 22:20 BUN 12 mg/dL (6-20) 09/29/21 22:20 Creatinine 0.6 mg/dL (0.5-0.9) 09/29/21 22:20 GFR Calculation 112.5 mL/min (90-130) 09/29/21 22:20 Glucose 102 mg/dL (65-115) 09/29/21 22:20 POC Glucose 135 mg/dL (70-110) H 09/29/21 22:06 Calculated Osmolality 292 mOsm/kg (285-295) 09/29/21 22:20 Calcium 10.0 mg/dL (8.5-10.5) 09/29/21 22:20 Total Bilirubin 0.2 mg/dL (0.15-1.2) 09/29/21 22:20 AST 15 U/L (0-32) 09/29/21 22:20 ALT 11 U/L (0-33) 09/29/21 22:20 Alkaline Phosphatase 154 U/L (35-105) H 09/29/21 22:20 Total Protein 7.6 g/dL (6.6-8.7) 09/29/21 22:20 Albumin 4.4 g/dL (3.5-5.2) 09/29/21 22:20 Globulin 3.2 g/dL (1.3-4.6) 09/29/21 22:20 HCG, Qual Negative (Negative) 09/29/21 22:20 Urine Color Yellow (Yellow) 09/29/21 23:35 Urine Appearance Clear (CLEAR) 09/29/21 23:35 Urine pH 5 (5-7) 09/29/21 23:35 Ur Specific [place] 1.030 (1.005-1.030) 08/18/22 23:35 Urine Protein Neg (Negative) 09/29/21 23:35 Urine Glucose (UA) Norm (Normal) 09/29/21 23:35 Urine Ketones 1+ (Negative) H 09/29/21 23:35 Urine Blood 2+ (Negative) H 09/29/21 23:35 Urine Nitrate Negative (Negative) 09/29/21 23:35 Urine Bilirubin Neg (Negative) 09/29/21 23:35 Urine Urobilinogen Norm mg/dL (Negative) 09/29/21 23:35 Ur Leukocyte Esterase Negative (Negative) 09/29/21 23:35 Urine RBC 0-4 /hpf (0-2) H 09/29/21 23:35 Urine WBC 0-4 /hpf (0-5) H 09/29/21 23:35 Ur Squamous Epith Cells 5-10 /hpf (0-5) H 09/29/21 23:35 Amorphous Sediment Not Reportable 09/29/21 23:35 Urine Bacteria Trace /hpf (NONE) 09/29/21 23:35 Urine Mucus 3+ /hpf 09/29/21 23:35 EKG Data EKG 1: I personally reviewed and interpreted this EKG as follows: EKG interpretation date: 09/29/21 EKG interpretation time: 22:39 Interpretation: nsr hr [address] or t wave abnormalitie qrs 101 qtc 389 Discharge Plan Discharge Patient Disposition: Home Clinical Impression: Near syncope Condition: Stable Prescriptions: No Action Excedrin Migraine 250-250-65 mg tablet 1 tab PO Q6H PRN hydrocodone-acetaminophen 10-325 mg tablet 1 tab PO BID PRN albuterol sulfate [ProAir HFA] 90 mcg/actuation HFA aerosol inhaler 2 puff INHALATION Q6H PRN cetirizine [Zyrtec] 10 mg tablet 10 mg PO DAILY Qty: 30 0RF fluticasone propionate [Flonase Allergy Relief] 50 mcg/actuation spray,suspension 1 spray intranasal DAILY Qty: 16 0RF Rx Instructions: administer into each nostril escitalopram oxalate [Lexapro] 10 mg tablet 10 mg PO DAILY levofloxacin 750 mg tablet 750 mg PO DAILY 7 Days Qty: 7 0RF bcnukwzchzxmqcx-mussmcxqm-WI [Bromfed DM] 2-30-10 mg/5 mL syrup 10 ml PO Q6H Qty: 5 0RF Discharge Orders: Discharge ED (Routine); Ordered 09/29/21 Ordered By: Flaco Gonzalez Referrals: Ludwin Watson MD [Primary Care Provider] - Discharge Diet: Advance as tolerated Discharge Activity: Resume usual activity Patient Instructions: Near Syncope (ED) Coding Level of Care Code ED Yardage Control Operator Forming for Chg Fwd Exam Comprehensive
[2021-09-29 22:24] LABS: Basophils # 0.1 10^3/uL (0.0-0.1); Basophils % 0.8 %; Eosinophils # 0.2 10^3/uL (0.0-0.8); Eosinophils % 1.3 %; Hematocrit 42.7 % (37.0-47.0); Hemoglobin 13.7 g/dL (11.5-15.3); Lymphocytes # 2.9 10^3/uL (0.8-4.8); Lymphocytes % 17.1 %; Mean Corpuscular HGB Conc 32.1 g/dL (30.0-36.0); Mean Corpuscular Hemoglobin 29.8 pg (28.0-34.0); Mean Corpuscular Volume 92.8 fl (81-99); Mean Platelet Volume 10.1 fL (7.4-10.4); Monocytes # 1.4 10^3/uL (0.2-0.9); Neutrophils # 12.36 10^3/uL (1.8-7.7); Neutrophils % 72.4 %; Nucleated Red Blood Cells % 0 %; Platelet Count 323 10^3/cmm (130-400); Red Cell Distribution Width 13.6 % (12.1-15.1); White Blood Count 17.1 10^3/uL (4.0-10.0)
--- NOTE | 2021-09-29 22:25 | XRR_ITS ---
PROCEDURE INFORMATION: Exam: XR Chest Exam date and time: 09/29/2021 10:49 PM Age: 36 years old Clinical indication: Other: Syncope; Additional info: Near syncope TECHNIQUE: Imaging protocol: Radiologic exam of the chest. Views: 1 view. COMPARISON: CR Chest 2 views* [id number] 09/27/2015 2:10 PM FINDINGS: Lungs: There are increased interstitial opacities present in the mid lower hemithoraces bilaterally, findings that could represent an interstitial pneumonitis or atelectasis. Pulmonary edema could have this appearance. Pleural spaces: Unremarkable. No pleural effusion. No pneumothorax. Heart/Mediastinum: Unremarkable. No cardiomegaly. Bones/joints: Unremarkable. XR/XR chest 1V portable [id number] IMPRESSION: Increased interstitial opacities in the mid lower hemithoraces may represent bilateral interstitial pneumonitis or atelectasis although mild pulmonary edema could have this appearance.
[2021-09-29] MEDS: sodium chloride 0.9% 1,000 ML 999 ML IV (22:30)
[2021-09-29 22:46] LABS: HCG, Serum Qual Negative (Negative)
[2021-09-29 22:53] LABS: Alanine Aminotransferase 11 U/L (0-33); Albumin Level 4.4 g/dL (3.5-5.2); Alkaline Phosphatase 154 U/L (35-105); Anion Gap 14.2 (5-19); Aspartate Amino Transferase 15 U/L (0-32); Blood Urea Nitrogen 12 mg/dL (6-20); Carbon Dioxide 26 mmol/L (22-29); Chloride 105 mmol/L (98-107); Globulin 3.2 g/dL (1.3-4.6); Glomerular Filtration Rate 112.5 mL/min (90-130); Glucose 102 mg/dL (65-115); Osmolality Calculated 292 mOsm/kg (285-295); Potassium 4.2 mmol/L (3.5-5.1); Sodium 141 mmol/L (136-145); Total Bilirubin 0.2 mg/dL (0.15-1.2); Total Protein 7.6 g/dL (6.6-8.7)
--- NOTE | 2021-09-29 23:07 | ECG_ITS ---
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 Measurements Intervals [place] Rate: 61 P: 76 NM: 217 QRS: 54 QRSD: 103 T: 51 QT: 384 QTc: 387 Interpretive Statements SINUS RHYTHM WITH FIRST DEGREE AV BLOCK POSSIBLE RIGHT VENTRICULAR CONDUCTION DELAY [RSR (QR) IN V1/V2] Compared to ECG 09/29/2021 22:39:22 No significant changes Electronically Signed On 09-30-2021 17:48:27 CDT by Ciaran Harris M.D. [id number]
[2021-09-30 00:02] LABS: Urine Color Yellow (Yellow)
[2021-09-30 00:03] LABS: Add Urine Microscopic? YES; Bilirubin Urine Neg (Negative); Blood Urine 2+ (Negative); Glucose Urine UA Norm (Normal); Ketones Urine 1+ (Negative); Leukocyte Esterase Urine Negative (Negative); Nitrate Urine Negative (Negative); Protein Urine Neg (Negative); Urine Appearance Clear (CLEAR); Urobilinogen Urine Norm (Negative); pH Urine 5 (5-7)
[2021-09-30 00:04] LABS: RBC Urine 0-4 /hpf (0-2); WBC Urine 0-4 /hpf (0-5)
[2021-09-30 00:05] LABS: Add Urine Culture? No; Bacteria Urine TRACE /hpf; Mucus Urine 3+ /hpf
[2021-09-30 00:17] VITALS: RESP 16
== END 2021-09-30 00:17 | disposition home or self-care (01) ==
PROVIDERS: Emergency Provider Emergency Medicine; PCP Family Medicine
DX: R55 Syncope and collapse (principal); F17.210 Nicotine dependence, cigarettes, uncomplicated
CPT/HCPCS: 36416; 71045; 80053; 81001; 81003; 82962; 84703; 85025; 93005; 96360; 99285; J7030

== ENCOUNTER 2021-10-22 19:21 | Emergency (ER) | payer MEDICAID, SELFPAY ==
[2021-10-22 19:25] VITALS: BP 101/66; PULSE 97; RESP 16; TEMP 36.9; O2SAT 97; BMI 30.2
--- NOTE | 2021-10-22 19:37 | XRR_ITS ---
PROCEDURE INFORMATION: Exam: XR Left Elbow Exam date and time: 10/22/2021 7:48 PM Age: 36 years old Clinical indication: Pain; Elbow; Left; Patient HX: Fall x 1 month; Additional info: L elbow pain TECHNIQUE: Imaging protocol: Radiologic exam of the Left elbow. Views: 1 or 2 views. COMPARISON: No relevant prior studies available. FINDINGS: Bones/joints: Osseous structures are intact. Negative for fracture or dislocation. Joint spaces are preserved. Soft tissues: Normal. XR/XR elbow LT 2V [id number] IMPRESSION: Normal elbow radiograph.
--- NOTE | 2021-10-22 19:57 | W.ED.EXTPRO ---
HPI - Extremity Problem General: Chief complaint: Extremity Injury, Upper Stated complaint: left elbow pain Time Seen by Provider: 10/22/21 19:41 History of Present Illness: Patient is a 36-year-old female comes to the ED with left elbow pain. Patient says approximate month ago she fell in her flower garden and landed on her left elbow. She landed on some wood in her flower garden. Since her fall a month ago she has had increasing left elbow pain. Today she rates her pain an 8 out of 10. She has tried using ice and Motrin for pain and has not had any relief. It hurts whenever she extends and flexes her elbow. Associated symptoms: Deny chest pain, fever(s) or rash Review of Systems Const: Denies: fever(s), chills or fatigue Eyes: Denies: change in vision or eye discomfort ENMT: Denies: throat pain, odynophagia, nasal discharge or nasal congestion Card: Denies: chest pain, palpitations, edema, swelling of feet/ankles, dyspnea on exertion or orthopnea Resp: Denies: dyspnea, productive cough or non-productive cough GI: Denies: abdominal pain, nausea, vomiting, diarrhea, constipation or hematochezia : Denies: flank pain, dysuria or hematuria Musc: Reports: extremity pain (Left elbow); Denies: neck pain, back pain or extremity swelling Skin/Breast: Denies: rash or new lesions Neuro: Denies: headache(s), numbness in extremities or weakness in extremities PFS ED PFSH: Medical History Asthma Lumbar disc disease Lumbar post-laminectomy syndrome Migraine Surgical History History of adenoidectomy Tonsillectomy and adenoidectomy done at the age of 19 History of eye surgery Strabismus 2010 History of lumbar surgery 07/27/2016 left L4-L5 reexploration. 06/2010 Left L4-L5 History of tubal ligation 11/2014: precedure done via umbilicus. Performed in [place], [place]. Family History Father Hypertension Diabetes Mother Heart disease Social History Smoking and tobacco status: current every day smoker Alcohol intake: current Alcohol intake frequency: holidays/special occasions only Marital status: Current occupational status: disabled History of recent travel: No Female Reproductive History: Date of last menstrual period: 08/17/21 Physical Exam Const: COMMON NORMALS: no acute distress, patient oriented x3, healthy appearing and alert GENERAL APPEARANCE: cooperative and comfortable HENMT: COMMON NORMALS: normocephalic HEAD & SCALP: normocephalic MOUTH: Normal oral and palatal mucosa present THROAT: posterior oropharynx normal and uvula midline Neck/C-Spine: COMMON NORMALS: supple GENERAL: Yes normal visual inspection Resp: COMMON NORMALS: normal respiratory effort, No retractions, No use of accessory muscles and clear to auscultation bilaterally AUSCULTATION: clear to auscultation bilaterally Cardio: COMMON NORMALS: regular rate, regular rhythm, S1 normal heart sound present, S2 normal heart sound present, No gallops present (Cardio), No clicks present (Cardio), No murmurs present (Cardio) and Peripheral pulses 2+ throughout RATE: regular rate RHYTHM: regular rhythm HEART SOUNDS: S1 normal heart sound present and S2 normal heart sound present PERIPHERAL PULSES: Peripheral pulses 2+ throughout GI: COMMON NORMALS: Normal to inspection, nondistended, normoactive bowel sounds present, Soft to palpation, non-tender and no masses PALPATION: Yes Soft to palpation : COMMON NORMALS: Yes no CVA tenderness BLADDER/KIDNEY EXAM: Yes no CVA tenderness Back/Pelvis: COMMON NORMALS: no CVA tenderness Extremity: COMMON NORMALS: normal to inspection and full ROM NARRATIVE EXTREMITY EXAM: Patient has some mild tenderness throughout palpation of posterior left elbow. Neurovascular tact distally. Neuro: COMMON NORMALS: patient oriented x3 SENSORIUM/ORIENTATION: Yes alert GAIT: Yes Normal gait present Skin: GENERAL SKIN EXAM: dry skin Course Vital Signs: Vital signs: Vital Signs Temperature 98.7 F 10/22/21 21:39 Pulse Rate 92 10/22/21 21:39 Respiratory Rate 18 10/22/21 21:39 Blood Pressure 108/71 10/22/21 21:39 Pulse Oximetry 99 10/22/21 21:39 Oxygen Delivery Me thod 10/22/21 19:25 MDM - Extremity (Nontraumatic) Medical Decision Making Patient is a 36-year-old female comes to the ED with left elbow pain. Patient had a fall a month ago says her elbow has been bothering her ever since. Vitals are stable. Exam of patient has benign and she is neurovascular tact distally. X-ray of the left elbow shows no acute findings. Patient was given a dose of hydrocodone and then a shot of Toradol here in the ED. She was placed in a sling and told to follow-up with her PCP within the next week for reevaluation. She was discharged home with a prescription for ibuprofen 800 mg for pain. Patient understood and agreed with plan. Lab Data Radiology Impressions Elbow X-Ray 10/22/21 19:37 IMPRESSION: Normal elbow radiograph. Discharge Plan Discharge Patient Disposition: Home Clinical Impression: Elbow pain, left Condition: Stable Prescriptions: New ibuprofen 800 mg tablet 800 mg PO Q8H PRN (Reason: pain) Qty: 20 0RF No Action Excedrin Migraine 250-250-65 mg tablet 1 tab PO Q6H PRN hydrocodone-acetaminophen 10-325 mg tablet 1 tab PO BID PRN albuterol sulfate [ProAir HFA] 90 mcg/actuation HFA aerosol inhaler 2 puff INHALATION Q6H PRN cetirizine [Zyrtec] 10 mg tablet 10 mg PO DAILY Qty: 30 0RF fluticasone propionate [Flonase Allergy Relief] 50 mcg/actuation spray,suspension 1 spray intranasal DAILY Qty: 16 0RF Rx Instructions: administer into each nostril escitalopram oxalate [Lexapro] 10 mg tablet 10 mg PO DAILY levofloxacin 750 mg tablet 750 mg PO DAILY 7 Days Qty: 7 0RF [id number] [Bromfed DM] 2-30-10 mg/5 mL syrup 10 ml PO Q6H Qty: 5 0RF Discharge Orders: Discharge ED (Routine); Ordered 10/22/21 Ordered By: Blayne Crowder Referrals: Yessy Youssef PA [Primary Care Provider] - Discharge Diet: Regular Discharge Activity: Increase activity as tolerated Patient Instructions: Tendinitis (ED) Activity Restrictions/Additional Instructions: Follow-up with medical provider as directed in the next 5 to 7 days for reevaluation. Wear sling for the next 2 to 3 days to help with pain. Remember to remove arm from sling multiple times a day and do some range of motion exercises to prevent frozen shoulder. Take medications as prescribed. Return to the ER or your medical provider if condition worsens. Please read and understand discharge instructions. Thank you for choosing [facility] for your healthcare needs today. Please realize this is an emergency room and that we are providing you with a medical screening exam and this may not be complete and all inclusive of all the testing and or work up that you may need to determine your ailment or severity of your illness. It is very important that you follow up as instructed or that you return to the Emergency Department should you have concerns or if your condition changes or worsens in any way. Coding Level of Care Code ED Director Of [employer]ustainable [employer] for [employer] F[employer] Exam Comprehensive
[2021-10-22] MEDS: HYDROcodone-acetaminophen 5-325 mg Tablet 1 TAB PO (20:04)
[2021-10-22] MEDS: ketorolac 60 mg/2 mL INJ IM (21:26)
[2021-10-22 21:39] VITALS: BP 108/71; PULSE 92; RESP 18; TEMP 37.1; O2SAT 99
== END 2021-10-22 21:41 | disposition home or self-care (01) ==
PROVIDERS: Emergency Provider Physician Assistant; PCP Physician Assistant
DX: M25.522 Pain in left elbow (principal); W19.XXXA Unspecified fall, initial encounter; Y92.89 Other specified places as the place of occurrence of the external cause
CPT/HCPCS: 73070; 96372; 99284; J1885

== ENCOUNTER → 2022-02-16 14:28 | Outpatient (BNVA) | payer MEDICAID, SELFPAY | PROVIDERS: PCP Physician Assistant; Referring Provider Physician Assistant; Visit Provider Student in an Organized Health Care Education/Training Program | DX: M77.12 Lateral epicondylitis, left elbow (principal) | CPT/HCPCS: 73080; 99203 ==

== ENCOUNTER 2022-04-01 15:40 | Emergency (ER) | payer MEDICAID, SELFPAY ==
[2022-04-01 15:45] VITALS: BP 123/82; PULSE 99; RESP 18; TEMP 36.7; O2SAT 98
[2022-04-01] MEDS: orphenadrine 30 mg/mL Inj 2 mL 60 MG IM (16:14)
[2022-04-01] MEDS: ketorolac 60 mg/2 mL INJ IM (16:14)
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
[2022-04-01] MEDS: ofloxacin 0.3% Op Soln 5 mL Btl 10 DROP EAR-LEFT (16:42)
[2022-04-01 16:55] VITALS: BP 123/82; PULSE 99; RESP 18; TEMP 36.7; O2SAT 98
== END 2022-04-01 16:56 | disposition home or self-care (01) ==
PROVIDERS: Emergency Provider Nurse Practitioner; PCP Physician Assistant
DX: H66.92 Otitis media, unspecified, left ear (principal); H72.92 Unspecified perforation of tympanic membrane, left ear; F17.210 Nicotine dependence, cigarettes, uncomplicated
CPT/HCPCS: 96372; 99283; J1885; J2360

== ENCOUNTER 2022-09-19 13:12 | Emergency (ER) | payer MEDICAID, SELFPAY ==
[2022-09-19 13:38] VITALS: BP 124/83; PULSE 95; RESP 16; TEMP 36.6; O2SAT 98; BMI 29.2
--- NOTE | 2022-09-19 14:03 | ED_ITS ---
HPI - Fall General: Chief Complaint: Fall Stated Complaint: fall/ head pain Time Seen by Provider: 09/19/22 13:16 Source: patient Mode of arrival: ambulatory Limitations: no limitations History of Present Illness: Patient is a 37-year-old female who presents to the emergency department complaining of left-sided headache/neck pain onset 3 weeks ago. Patient states that 3 weeks ago she tripped and fell and struck the left side of her head. No LOC. Since then she has complained of a headache. Reports headache seems to worsen with movement of her neck. No midline neck pain. She has been seen by her primary care provider and was told to continue taking [id number] Tylenol and Excedrin as needed. She reports a history of migraines that have never been persistent as her current headache. She denies being prescribed any other abortive therapies or preventative therapies for migraines. She denies any sensitivity to light, nasal drainage, conjunctival injection, neurological deficit, or any other new symptoms. MD complaint: fall Onset (ago): week(s) Fall from: standing Fall witnessed: yes, by family Place fall occurred: home Loss of consciousness: None Prolonged down time: no Symptoms prior to fall: none Context: tripped/slipped Location of injury: head and neck Severity: severe Severity scale (1-10): 8 Quality: sharp and throbbing Associated symptoms-after fall: Reports headache(s) and neck pain; Denies abdominal pain, chest pain, confusion, difficulty walking, lightheadedness or vertigo Review of Systems Const: Reports: other (Reports fall); Denies: fever(s) or chills Eyes: Denies: change in vision or blurry vision Card: Denies: chest pain, palpitations, irregular heart rhythm, lightheadedness, syncope or dyspnea on exertion Resp: Denies: dyspnea, productive cough or pain on inspiration GI: Denies: abdominal pain, nausea, vomiting, heartburn or diarrhea : Denies: dysuria Musc: Reports: neck pain; Denies: back pain, joint pain or muscle weakness Skin/Breast: Denies: rash Neuro: Reports: headache(s); Denies: numbness in extremities, weakness in extremities, sensory changes, lack of coordination, difficulty walking, dizziness, vertigo, confusion or behavioral changes PFS ED PFSH: Medical History Asthma Lateral epicondylitis of elbow Lumbar disc disease Lumbar post-laminectomy syndrome Migraine Psychiatric care Surgical History History of adenoidectomy Tonsillectomy and adenoidectomy done at the age of 19 History of eye surgery Strabismus 2010 History of lumbar surgery 07/27/2016 left L4-L5 reexploration. 06/2010 Left L4-L5 History of tubal ligation 11/2014: precedure done via umbilicus. Performed in [place], [place]. Family History Father Hypertension Diabetes Mother Heart disease Social History Smoking and tobacco status: current every day smoker Alcohol intake: current Alcohol intake frequency: holidays/special occasions only Substance/Drug Use: never Marital status: Current occupational status: disabled Physical Exam Const: COMMON NORMALS: no acute distress, average body habitus, patient oriented x3, no limitations, healthy appearing, alert and well nourished GENERAL APPEARANCE: cooperative ORIENTATION/CONSCIOUSNESS: Yes awake, Yes oriented to person, Yes oriented to place and Yes oriented to time HENMT: COMMON NORMALS: normocephalic, atraumatic (Diffuse tenderness to palpation of the left scalp and face), hearing grossly normal bilaterally, external ears normal, EAC's normal and TM's normal bilaterally HEAD & SCALP: normal to inspection, normocephalic and atraumatic (Diffuse tenderness to palpation of the left scalp and face) FACE & SINUS: normal facial exam and sinuses nontender EXTERNAL EAR: Yes external ears normal EXTERNAL AUDITORY CANAL: EAC's normal TYMPANIC MEMBRANE: TM's normal bilaterally Eye: COMMON NORMALS: Equal, round and reactive pupils present, EOMs intact bilaterally and conjunctivae normal CONJUNCTIVA: Yes conjunctivae normal PUPIL: Yes Equal, round and reactive pupils present Neck/C-Spine: COMMON NORMALS: full ROM, no lymphadenopathy, supple and no meningeal signs GENERAL: Yes tender (L paraspinal/lateral neck) CERVICAL SPINE: Yes cervical ROM normal, No Cervical spine tenderness, No step off deformity, Yes Paracervical muscle tenderness, No Trapezius muscle tenderness and No Lhermitte's sign positive Resp: COMMON NORMALS: normal respiratory effort and clear to auscultation bilaterally AUSCULTATION: clear to auscultation bilaterally Cardio: COMMON NORMALS: regular rate and regular rhythm RATE: regular rate RHYTHM: regular rhythm Back/Pelvis: COMMON NORMALS: thoracic and lumbar spine normal to inspection, no thoracic nor lumbar tenderness and thoraco-lumbar ROM normal Extremity: COMMON NORMALS: normal to inspection GENERAL: Yes normal exam except as noted Neuro: YAKOV COMA SCALE: document GCS findings [place] coma scale eye opening: Spontaneous Yakov coma scale verbal response: Orientated [place] coma scale motor response: Obey commands Yakov coma scale total score: 15 COMMON NORMALS: patient oriented x3, CN's II-XII intact bilaterally, moves all extremities, no focal motor deficits and no sensory deficits noted SENSORIUM/ORIENTATION: Yes alert, Yes oriented to person, Yes oriented to place and Yes oriented to time MENINGEAL SIGNS: Yes no meningeal signs SPEECH: speech normal Skin: COMMON NORMALS: no rashes or lesions noted GENERAL SKIN EXAM: no rashes or lesions noted Course Vital Signs: Vital signs: Vital Signs Temperature 97.8 F 09/19/22 13:38 Pulse Rate 95 09/19/22 13:38 Respiratory Rate 16 09/19/22 13:38 Blood Pressure 124/83 09/19/22 13:38 Pulse Oximetry 98 09/19/22 13:38 Oxygen Delivery Me thod Room Air 09/19/22 13:38 MDM - Fall Medical Decision Making Patient here for left-sided neck pain and left-sided headache following a fall 3 weeks ago. Patient is tender to palpation of the left paraspinal cervical musculature and left lateral neck. She states pain in her neck and head seems to be worse with range of motion. She has no acute neurologic deficits. She has no visual changes, vomiting, or concerning symptoms for intracranial pathology. I do not any indication for emergent CT imaging at this time. Cervical XR negative. She can follow-up with her primary care provider if symptoms do not improve on muscle relaxers. She can continue OTC Tylenol/Ibuprofen for pain as well. Lab Data Radiology Impressions Cervical Spine X-Ray 09/19/22 14:34 IMPRESSION: Stable exam. No acute bony abnormalities. Discharge Plan Discharge Patient Disposition: Home Clinical Impression: Sprain of cervical neck Qualifiers: Encounter type: subsequent encounter Qualified Code(s): S13.9XXD - Sprain of joints and ligaments of unspecified parts of neck, subsequent encounter Condition: Stable Prescriptions: New cyclobenzaprine 10 mg tablet 10 mg PO TID Qty: 14 0RF No Action Excedrin Migraine 250-250-65 mg tablet 2 tab PO Q6H PRN (Reason: Migraine Headache) albuterol sulfate [ProAir HFA] 90 mcg/actuation HFA aerosol inhaler 2 puff INHALATION QID PRN (Reason: Shortness Of Breath) venlafaxine [Effexor XR] 75 mg capsule,extended release 24hr 75 mg PO QAM Rx Instructions: takes with 150mg venlafaxine 150 mg capsule,extended release 24hr 150 mg PO QAM Rx Instructions: takes with 75mg hydroxyzine HCl 25 mg tablet 25 mg PO DAILY PRN (Reason: Panic Attack(S)) Hair,Skin and Nails Tablet 1 tab PO DAILY Zyrtec 10 mg tablet 10 mg PO DAILY PRN (Reason: Allergy Symptoms) Discharge Orders: Discharge ED (Routine); Ordered 09/19/22 Ordered By: Latosha Bianchi Referrals: Yessy Youssef PA [Primary Care Provider] - Patient Instructions: Cervical Sprain (ED) Activity Restrictions/Additional Instructions: Take cyclobenzaprine 10 mg 3 times a day. Gentle range of motion exercises as tolerated. You may continue to take [id number] Tylenol as needed as well as anti-inflammatories. If symptoms do not improve, follow-up with your primary care provider in 2 weeks. Coding Level of Care Code ED Collection Advisor for Aubrie Cardona
--- NOTE | 2022-09-19 14:34 | XRR_ITS ---
PROCEDURE INFORMATION: Exam: XR Cervical Spine Exam date and time: 09/19/2022 2:41 PM Age: 37 years old Clinical indication: Pain and injury or trauma; Fall; Sprain or strain, cervical ligaments; Neck pain; Additional info: Fall, neck pain TECHNIQUE: Imaging protocol: Radiologic exam of the cervical spine. Views: 2 or 3 views. COMPARISON: CR XR cervical spine 3V* [id number] 05/31/2021 10:28 PM FINDINGS: Bones/joints: Mild reversal of cervical lordosis unchanged likely degenerative in nature. Alignment is otherwise unremarkable. Mild-moderate degenerative changes mid-lower cervical spine. No fracture, facet subluxation or dislocation. Soft tissues: Unremarkable. XR/XR cervical spine 3V* [id number] IMPRESSION: Stable exam. No acute bony abnormalities.
[2022-09-19] MEDS: dexamethasone 10 mg/mL INJ 8 MG IM (15:04)
[2022-09-19] MEDS: diphenhydrAMINE 50 mg/mL SDV 1mL IM (15:06)
[2022-09-19] MEDS: ketorolac 60 mg/2 mL INJ IM (15:08)
== END 2022-09-19 16:09 | disposition home or self-care (01) ==
PROVIDERS: Emergency Provider Physician Assistant; PCP Physician Assistant
DX: S13.9XXA Sprain of joints and ligaments of unspecified parts of neck, initial encounter (principal); J45.909 Unspecified asthma, uncomplicated; F17.200 Nicotine dependence, unspecified, uncomplicated; Z79.899 Other long term (current) drug therapy; W01.0XXA Fall on same level from slipping, tripping and stumbling without subsequent striking against object, initial encounter; Y92.009 Unspecified place in unspecified non-institutional (private) residence as the place of occurrence of the external cause
CPT/HCPCS: 72040; 96372; 99284; J1100; J1200; J1885

== ENCOUNTER 2023-01-22 19:15 | Emergency (ER) | payer MEDICAID, SELFPAY ==
[2023-01-22 19:30] VITALS: BP 122/82; PULSE 107; RESP 16; TEMP 36.6; O2SAT 98; BMI 31.2
--- NOTE | 2023-01-22 19:37 | XRR_ITS ---
PROCEDURE INFORMATION: Exam: XR Left Elbow Exam date and time: 01/22/2023 7:46 PM Age: 38 years old Clinical indication: Injury or trauma; Fall; Blunt trauma (contusions or hematomas); Elbow; Left TECHNIQUE: Imaging protocol: Radiologic exam of the left elbow. Views: 3 or more views. COMPARISON: No relevant prior studies available. FINDINGS: Bones/joints: Normal. Soft tissues: Normal. XR/XR elbow LT min 3V* [id number] IMPRESSION: No acute findings.
--- NOTE | 2023-01-22 19:37 | XRR_ITS ---
PROCEDURE INFORMATION: Exam: XR Left Knee Exam date and time: 01/22/2023 7:48 PM Age: 38 years old Clinical indication: Injury or trauma; Fall; Blunt trauma; Knee; Left TECHNIQUE: Imaging protocol: Radiologic exam of the left knee. Views: 3 views. COMPARISON: CR (LOW EXM, ) 06/22/2020 8:18 PM FINDINGS: Bones/joints: Normal. Soft tissues: Normal. XR/XR knee LT 3V* [id number] IMPRESSION: No acute findings.
--- NOTE | 2023-01-22 19:37 | XRR_ITS ---
PROCEDURE INFORMATION: Exam: XR Right Knee Exam date and time: 01/22/2023 7:53 PM Age: 38 years old Clinical indication: Injury or trauma; Fall; Blunt trauma; Knee; Right TECHNIQUE: Imaging protocol: Radiologic exam of the right knee. Views: 3 views. COMPARISON: No relevant prior studies available. FINDINGS: Bones/joints: Normal. Soft tissues: Normal. XR/XR knee RT 3V* [id number] IMPRESSION: No acute findings.
--- NOTE | 2023-01-22 20:18 | W.ED.EXTPRO ---
HPI - Extremity Problem General: Chief complaint: Extremity Injury, Upper Stated complaint: Fall\Knees and Elbow Time Seen by Provider: 01/22/23 19:56 Source: patient Mode of arrival: ambulatory Limitations: no limitations History of Present Illness: 38-year-old female states that it was her birthday yesterday and she was intoxicated and fell. States she had felt at home she states she landed on her knees and her left elbow. States her main pain is in her left elbow she does have a contusion she rates pain a 5 out of 10 she has been ambulatory she denies hitting her head denies any other injuries. Associated symptoms: Deny chest pain, fever(s) or rash Review of Systems Const: Denies: fever(s), chills, body aches or change in appetite ENMT: Denies: throat pain or dental pain Card: Denies: chest pain Resp: Denies: dyspnea GI: Denies: abdominal pain, nausea, vomiting or diarrhea Musc: Reports: extremity pain; Denies: neck pain or back pain Skin/Breast: Denies: rash Neuro: Denies: headache(s) PFSH ED PFSH: Medical History Psychiatric care Lateral epicondylitis of elbow Migraine Lumbar disc disease Asthma Lumbar post-laminectomy syndrome Surgical History History of tubal ligation 11/2014: precedure done via umbilicus. Performed in [place], [place]. History of adenoidectomy Tonsillectomy and adenoidectomy done at the age of 19 History of eye surgery Strabismus 2010 History of lumbar surgery 07/27/2016 left L4-L5 reexploration. 06/2010 Left L4-L5 Family History Father Hypertension Diabetes Mother Heart disease Social History Smoking and tobacco/nicotine status: current every day tobacco/nicotine user Alcohol intake: current Alcohol intake frequency: holidays/special occasions only Substance/Drug Use: never Marital status: Current occupational status: disabled Female Reproductive History: Date of last menstrual period: 01/22/23 Physical Exam Const: COMMON NORMALS: no acute distress, patient oriented x3 and healthy appearing HENMT: COMMON NORMALS: normocephalic and atraumatic HEAD & SCALP: normocephalic and atraumatic Eye: COMMON NORMALS: Equal, round and reactive pupils present and EOMs intact bilaterally PUPIL: Yes Equal, round and reactive pupils present Neck/C-Spine: COMMON NORMALS: full ROM and supple Chest: COMMONS NORMALS: normal inspection of the chest Resp: COMMON NORMALS: normal respiratory effort Extremity: COMMON NORMALS: full ROM NARRATIVE EXTREMITY EXAM: Slight tenderness to bilateral knees no obvious deformities she does have a contusion left elbow with tenderness to touch Neuro: COMMON NORMALS: patient oriented x3, moves all extremities and no focal motor deficits Psych: COMMON NORMALS: mental status grossly normal, Normal thought process present and cooperative THOUGHT PROCESS: Normal thought process present Skin: COMMON NORMALS: no rashes or lesions noted and no wounds GENERAL SKIN EXAM: no rashes or lesions noted Course Vital Signs: Vital signs: Vital Signs Temperature 97.9 F 01/22/23 19:30 Pulse Rate 107 H 01/22/23 19:30 Respiratory Rate 16 01/22/23 19:30 Blood Pressure 122/82 01/22/23 19:30 Pulse Oximetry 98 01/22/23 19:30 Oxygen Delivery Me thod Room Air 01/22/23 19:30 MDM - Extremity (Nontraumatic) Medical Decision Making Patient presents here with elbow pain knee pain from a fall her x-rays here show no fractures likely contusion she is well-appearing otherwise stable for discharge. Medical Records I reviewed the patient's medical records. Lab Data I reviewed the patient's lab results. Radiology Impressions Elbow X-Ray 01/22/23 19:37 IMPRESSION: No acute findings. Knee X-Ray 01/22/23 19:37 IMPRESSION: No acute findings. All radiology interpretation(s) finalized by discharge Discharge Plan Discharge Patient Disposition: Home Clinical Impression: Fall Qualifiers: Encounter type: initial encounter Qualified Code(s): W19.XXXA - Unspecified fall, initial encounter Contusion of elbow, left Qualifiers: Encounter type: initial encounter Qualified Code(s): S50.02XA - Contusion of left elbow, initial encounter Condition: Stable Prescriptions: New naproxen [Naprosyn] 500 mg tablet 500 mg PO BID PRN (Reason: pain) Qty: 20 0RF No Action Excedrin Migraine 250-250-65 mg tablet 2 tab PO Q6H PRN (Reason: Migraine Headache) albuterol sulfate [ProAir HFA] 90 mcg/actuation HFA aerosol inhaler 2 puff INHALATION QID PRN (Reason: Shortness Of Breath) venlafaxine [Effexor XR] 75 mg capsule,extended release 24hr 75 mg PO QAM Rx Instructions: takes with 150mg venlafaxine 150 mg capsule,extended release 24hr 150 mg PO QAM Rx Instructions: takes with 75mg hydroxyzine HCl 25 mg tablet 25 mg PO DAILY PRN (Reason: Panic Attack(S)) Hair,Skin and Nails Tablet 1 tab PO DAILY Zyrtec 10 mg tablet 10 mg PO DAILY PRN (Reason: Allergy Symptoms) cyclobenzaprine 10 mg tablet 10 mg PO TID Qty: 14 0RF Discharge Orders: Discharge ED (Routine); Ordered 01/22/23 Ordered By: Flaco Gonzalez Referrals: Yessy Youssef PA [Primary Care Provider] - 1-3 days Discharge Diet: Advance as tolerated Discharge Activity: Resume usual activity Patient Instructions: Contusion in Adults (ED) Coding Level of Care Code ED Mechanical Inspector for Aubrie Cardona
[2023-01-22] MEDS: HYDROcodone-acetaminophen 5-325 mg Tablet 1 TAB PO (20:38)
[2023-01-22 20:39] VITALS: BP 122/82; PULSE 107; RESP 16; TEMP 36.6; O2SAT 98
== END 2023-01-22 20:42 | disposition home or self-care (01) ==
PROVIDERS: Emergency Provider Emergency Medicine; PCP Physician Assistant
DX: S50.02XA Contusion of left elbow, initial encounter (principal); Z72.0 Tobacco use; W19.XXXA Unspecified fall, initial encounter
CPT/HCPCS: 73080; 73562; 99284

== ENCOUNTER 2023-05-14 17:34 | Emergency (ER) | payer MEDICAID, SELFPAY ==
[2023-05-14 17:45] VITALS: BP 116/76; PULSE 121; RESP 16; TEMP 36.4; O2SAT 96; BMI 30.2
--- NOTE | 2023-05-14 17:56 | XRR_ITS ---
PROCEDURE INFORMATION: Exam: XR Lumbosacral Spine Exam date and time: 05/14/2023 6:19 PM Age: 38 years old Clinical indication: Injury or trauma; Fall; Blunt trauma (contusions or hematomas); Additional info: Low back pain S/P fall TECHNIQUE: Imaging protocol: Radiologic exam of the lumbosacral spine. Views: 2 or 3 views. COMPARISON: MR lumbar spine wo/w con [id number] 08/16/2021 3:29 PM FINDINGS: Bones/joints: Moderate to severe L4-L5 and L5-S1 disc space narrowing productive degenerative endplate changes. Soft tissues: Unremarkable. XR/XR lumbar spine 2-3V* [id number] IMPRESSION: 1. Negative for fracture or dislocation 2. Moderate to severe L4-L5 and L5-S1 disc space narrowing productive degenerative endplate changes.
--- NOTE | 2023-05-14 17:56 | XRR_ITS ---
PROCEDURE INFORMATION: Exam: XR Thoracic Spine Exam date and time: 05/14/2023 6:13 PM Age: 38 years old Clinical indication: Injury or trauma; Fall; Blunt trauma (contusions or hematomas); Additional info: Mid back pain S/P fall TECHNIQUE: Imaging protocol: Radiologic exam of the thoracic spine. Views: 3 views. COMPARISON: CR XR cervical spine 3V* [id number] 09/19/2022 2:41 PM FINDINGS: Bones/joints: T9, T10 and T11 minimal compression deformity suspected on the lateral view, consider correlation with a CT scan. Thoracic spine dextrocurvature. Soft tissues: Unremarkable. XR/XR thoracic spine 3V* [id number] IMPRESSION: 1. T9, T10 and T11 minimal compression deformity suspected on the lateral view, consider correlation with a CT scan. 2. Thoracic spine dextrocurvature.
--- NOTE | 2023-05-14 17:57 | W.ED.BACK ---
Documented by User: TED Cesar 05/14/23 21:23 HPI - Back Pain/Injury General: Chief Complaint: Back Pain/Injury Stated Complaint: fall 2 days ago, back pain Time Seen by Provider: 05/14/23 17:45 Source: patient Mode of arrival: ambulatory Limitations: no limitations History of Present Illness: Patient is a 38-year-old female presenting to the emergency department complaining of back pain status post fall 2 days ago. Patient notes the fall occurred at home and she fell down carpeted stairs, she does not specify how many stairs she fell down. She notes history of prior back surgeries in which she had a couple of lumbar decompressions performed. She notes that she has recently been taken Tylenol and ibuprofen, but that this has done nothing for pain. She states that the pain is along the spinous process, however she is not reporting any numbness weakness or tingling down distal extremities. She further denies any bowel or bladder incontinence or saddle anesthesia. The pain is steadily gotten worse, and she notes pain with range of motion in all directions as well as with ambulation. MD elicited complaint: back pain Pertinent past history: back surgery Onset (ago): day(s) (2) Severity: moderate Similar Symptoms Previously: Yes Location: lumbar spine and thoracic spine Radiation: none Exacerbating factors: movement and walking Relieving factors: none Context: fall Associated symptoms: Reports no associated symptoms; Deny abdominal pain, chills, dysuria, fatigue, fever(s), nausea or vomiting Treatments prior to arrival: NSAIDS and acetaminophen Work related injury: No Review of Systems General: Reports: 10 or more systems reviewed and unremarkable except in HPI and below Const: Denies: fever(s), chills or fatigue Eyes: Denies: change in vision ENMT: Denies: throat pain, ear or mastoid pain or nasal discharge Card: Denies: chest pain, palpitations, swelling of feet/ankles or lightheadedness Resp: Denies: dyspnea, productive cough or wheezing GI: Denies: abdominal pain, nausea, vomiting, diarrhea or constipation : Denies: flank pain, difficulty voiding, dysuria or urinary frequency Musc: Reports: back pain; Denies: neck pain, extremity pain or joint pain Skin/Breast: Denies: rash Neuro: Denies: headache(s), numbness in extremities or weakness in extremities PFSH ED PFSH: Medical History Psychiatric care Lateral epicondylitis of elbow Migraine Lumbar disc disease Asthma Lumbar post-laminectomy syndrome Surgical History History of tubal ligation 11/2014: precedure done via umbilicus. Performed in [place], [place]. History of adenoidectomy Tonsillectomy and adenoidectomy done at the age of 19 History of eye surgery Strabismus 2010 History of lumbar surgery 07/27/2016 left L4-L5 reexploration. 06/2010 Left L4-L5 Family History Father Hypertension Diabetes Mother Heart disease Social History Smoking and tobacco/nicotine status: current every day tobacco/nicotine user Alcohol intake: current Alcohol intake frequency: holidays/special occasions only Substance/Drug Use: never Marital status: Current occupational status: disabled Physical Exam Const: COMMON NORMALS: no acute distress, patient oriented x3 and no limitations GENERAL APPEARANCE: cooperative, comfortable and well developed ORIENTATION/CONSCIOUSNESS: Yes awake, Yes oriented to person, Yes oriented to place and Yes oriented to time HENMT: COMMON NORMALS: normocephalic, atraumatic and hearing grossly normal bilaterally HEAD & SCALP: normocephalic and atraumatic Eye: COMMON NORMALS: Equal, round and reactive pupils present, EOMs intact bilaterally and conjunctivae normal CONJUNCTIVA: Yes conjunctivae normal PUPIL: Yes Equal, round and reactive pupils present Neck/C-Spine: COMMON NORMALS: full ROM, supple and no JVD Resp: COMMON NORMALS: normal respiratory effort, No retractions, No use of accessory muscles and clear to auscultation bilaterally AUSCULTATION: clear to auscultation bilaterally Cardio: COMMON NORMALS: no JVD, regular rate, regular rhythm, No clicks present (Cardio), No murmurs present (Cardio) and No rub (Cardio) RATE: regular rate RHYTHM: regular rhythm : COMMON NORMALS: Yes no CVA tenderness BLADDER/KIDNEY EXAM: Yes no CVA tenderness Back/Pelvis: COMMON NORMALS: no CVA tenderness and thoracic and lumbar spine normal to inspection THORACIC SPINE/UPPER BACK: Yes normal to inspection, Yes ROM limited, Yes pain with ROM, Yes thoracic spinal tenderness and No paraspinal muscle tenderness LUMBAR SPINE/LOWER BACK: Yes ROM limited, Yes pain with ROM, Yes lumbar spinal tenderness and No paraspinal muscle tenderness OTHER: Healed surgical scar to lumbar spine Extremity: COMMON NORMALS: normal to inspection, full ROM and capillary refill normal Neuro: COMMON NORMALS: patient oriented x3, moves all extremities, no focal motor deficits, no sensory deficits noted and deep tendon reflexes 2+ bilaterally SENSORIUM/ORIENTATION: Yes oriented to person, Yes oriented to place and Yes oriented to time Psych: COMMON NORMALS: mental status grossly normal and Normal thought process present THOUGHT PROCESS: Normal thought process present Skin: COMMON NORMALS: no rashes or lesions noted GENERAL SKIN EXAM: no rashes or lesions noted Course Vital Signs: Vital signs: Vital Signs Temperature 97.6 F 05/14/23 17:45 Pulse Rate 100 05/14/23 19:27 Respiratory Rate 16 05/14/23 17:45 Blood Pressure 105/69 05/14/23 19:27 Pulse Oximetry 96 05/14/23 19:27 Oxygen Delivery Me thod Room Air 05/14/23 18:53 MDM - Back Pain/Injury Medical Decision Making Patient seen and evaluated due to back pain over the past 2 days since the fall. Patient notes history of chronic back pain with multiple decompression surgeries of the lumbar spine. On arrival patient's vitals unremarkable. On exam she did have an antalgic gait and states pain was only controlled while sitting. She had some thoracic and lumbar tenderness to palpation, with limited range of motion due to pain. Thoracic x-ray showed some minimal compression deformity of T9-T11. Lumbar x-ray was negative for acute fractures or dislocations however did confirm some moderate to severe degenerative disc disease, which I confirmed she has had for a while. I will refer her to orthopedic/spine for further imaging/evaluation. She also states that she would not have came in today if she was in pain control, so I will refer her for that as well. Otherwise she did not exhibit any red flag back symptoms, however I communicated to her that she needs to return for reevaluation if she does have these. Other return precautions given. Labs Radiology Impressions Lumbar Spine X-Ray 05/14/23 17:56 IMPRESSION: 1. Negative for fracture or dislocation 2. Moderate to severe L4-L5 and L5-S1 disc space narrowing productive degenerative endplate changes. Thoracic Spine X-Ray 05/14/23 17:56 IMPRESSION: 1. T9, T10 and T11 minimal compression deformity suspected on the lateral view, consider correlation with a CT scan. 2. Thoracic spine dextrocurvature. All radiology interpretation(s) finalized by discharge Discharge Plan Discharge Patient Disposition: Home Clinical Impression: Degenerative disc disease, lumbar Condition: Stable Prescriptions: New ketorolac 10 mg tablet 10 mg PO Q8H PRN (Reason: pain) Qty: 30 0RF No Action Excedrin Migraine 250-250-65 mg tablet 2 tab PO Q6H PRN (Reason: Migraine Headache) albuterol sulfate [ProAir HFA] 90 mcg/actuation HFA aerosol inhaler 2 puff INHALATION QID PRN (Reason: Shortness Of Breath) tramadol 50 mg tablet 50 mg PO Q8H PRN (Reason: pain) Qty: 90 0RF venlafaxine [Effexor XR] 75 mg capsule,extended release 24hr 75 mg PO QAM Rx Instructions: takes with 150mg Naprosyn 500 mg tablet 500 mg PO BID PRN (Reason: pain) Qty: 20 0RF venlafaxine 150 mg capsule,extended release 24hr 150 mg PO QAM Rx Instructions: takes with 75mg hydroxyzine HCl 25 mg tablet 25 mg PO DAILY PRN (Reason: Panic Attack(S)) Hair,Skin and Nails Tablet 1 tab PO DAILY Zyrtec 10 mg tablet 10 mg PO DAILY PRN (Reason: Allergy Symptoms) cyclobenzaprine 10 mg tablet 10 mg PO TID Qty: 14 0RF Discharge Orders: Discharge ED (Routine); Ordered 05/14/23 Ordered By: Kurtis Newberry Referrals: Yessy Youssef PA [Primary Care Provider] - Discharge Diet: Usual diet Discharge Activity: Increase activity as tolerated Patient Instructions: Degenerative Disc Disease (ED) Activity Restrictions/Additional Instructions: Follow-up with orthopedics and pain management as discussed. Take medications as prescribed. Gentle range of motion exercises as tolerated. Return with any new or concerning symptoms. 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 Performed in [place], [place]. History of adenoidectomy Tonsillectomy and adenoidectomy done at the age of 19 History of eye surgery Strabismus 2010 History of lumbar surgery 07/27/2016 left L4-L5 reexploration. 06/2010 Left L4-L5 Family History Father Hypertension Diabetes Mother Heart disease Social History Smoking and tobacco/nicotine status: current every day tobacco/nicotine user Alcohol intake: current Alcohol intake frequency: holidays/special occasions only Substance/Drug Use: never Marital status: Current occupational status: disabled Course Vital Signs: Vital signs: Vital Signs Temperature 97.6 F 05/14/23 17:45 Pulse Rate 100 05/14/23 19:27 Respiratory Rate 16 05/14/23 17:45 Blood Pressure 105/69 05/14/23 19:27 Pulse Oximetry 96 05/14/23 19:27 Oxygen Delivery Me thod Room Air 05/14/23 18:53 MDM - Back Pain/Injury Medical Decision Making Patient seen and evaluated due to back pain over the past 2 days since the fall. Patient notes history of chronic back pain with multiple decompression surgeries of the lumbar spine. On arrival patient's vitals unremarkable. On exam she did have an antalgic gait and states pain was only controlled while sitting. She had some thoracic and lumbar tenderness to palpation, with limited range of motion due to pain. Thoracic x-ray showed some minimal compression deformity of T9-T11. Lumbar x-ray was negative for acute fractures or dislocations however did confirm some moderate to severe degenerative disc disease, which I confirmed she has had for a while. I will refer her to orthopedic/spine for further imaging/evaluation. She also states that she would not have came in today if she was in pain control, so I will refer her for that as well. Otherwise she did not exhibit any red flag back symptoms, however I communicated to her that she needs to return for reevaluation if she does have these. Other return precautions given. Chart reviewed Labs Radiology Impressions Lumbar Spine X-Ray 05/14/23 17:56 IMPRESSION: 1. Negative for fracture or dislocation 2. Moderate to severe L4-L5 and L5-S1 disc space narrowing productive degenerative endplate changes. Thoracic Spine X-Ray 05/14/23 17:56 IMPRESSION: 1. T9, T10 and T11 minimal compression deformity suspected on the lateral view, consider correlation with a CT scan. 2. Thoracic spine dextrocurvature. Discharge Plan Discharge Patient Disposition: Home Clinical Impression: Degenerative disc disease, lumbar Condition: Stable Prescriptions: New ketorolac 10 mg tablet 10 mg PO Q8H PRN (Reason: pain) Qty: 30 0RF No Action Excedrin Migraine 250-250-65 mg tablet 2 tab PO Q6H PRN (Reason: Migraine Headache) albuterol sulfate [ProAir HFA] 90 mcg/actuation HFA aerosol inhaler 2 puff INHALATION QID PRN (Reason: Shortness Of Breath) tramadol 50 mg tablet 50 mg PO Q8H PRN (Reason: pain) Qty: 90 0RF venlafaxine [Effexor XR] 75 mg capsule,extended release 24hr 75 mg PO QAM Rx Instructions: takes with 150mg Naprosyn 500 mg tablet 500 mg PO BID PRN (Reason: pain) Qty: 20 0RF venlafaxine 150 mg capsule,extended release 24hr 150 mg PO QAM Rx Instructions: takes with 75mg hydroxyzine HCl 25 mg tablet 25 mg PO DAILY PRN (Reason: Panic Attack(S)) Hair,Skin and Nails Tablet 1 tab PO DAILY Zyrtec 10 mg tablet 10 mg PO DAILY PRN (Reason: Allergy Symptoms) cyclobenzaprine 10 mg tablet 10 mg PO TID Qty: 14 0RF Discharge Orders: Discharge ED (Routine); Ordered 05/14/23 Ordered By: Kurtis Newberry Referrals: Yessy Youssef PA [Primary Care Provider] - Discharge Diet: Usual diet Discharge Activity: Increase activity as tolerated Patient Instructions: Degenerative Disc Disease (ED) Activity Restrictions/Additional Instructions: Follow-up with orthopedics and pain management as discussed. Take medications as prescribed. Gentle range of motion exercises as tolerated. Return with any new or concerning symptoms. 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
[2023-05-14] MEDS: ketorolac 60 mg/2 mL INJ IM (18:02)
[2023-05-14] MEDS: dexamethasone 10 mg/mL INJ 8 MG IM (18:03)
[2023-05-14 18:53] VITALS: BP 97/51; PULSE 102; O2SAT 95
[2023-05-14 19:27] VITALS: BP 105/69; PULSE 100; O2SAT 96
--- NOTE | 2023-05-15 12:20 | DCPLANNER ---
Message sent to Ortho and Pain management
== END 2023-05-14 19:28 | disposition home or self-care (01) ==
PROVIDERS: Emergency Provider Physician Assistant; PCP Physician Assistant
DX: M51.36 Other intervertebral disc degeneration, lumbar region (principal); Z72.0 Tobacco use
CPT/HCPCS: 72072; 72100; 96372; 99284; J1100; J1885

== ENCOUNTER → 2023-05-17 15:44 | Outpatient (BNVA) | payer MEDICAID, SELFPAY | PROVIDERS: PCP Physician Assistant; Referring Provider Physician Assistant; Visit Provider Orthopaedic Surgery | DX: T14.8XXA Other injury of unspecified body region, initial encounter (principal); X58.XXXA Exposure to other specified factors, initial encounter; M54.9 Dorsalgia, unspecified | CPT/HCPCS: 72110; 99204 ==

== ENCOUNTER 2023-07-05 09:23 | Outpatient (CLI) | payer MEDICAID, SELFPAY ==
--- NOTE | 2023-07-05 09:30 | MR_ITS ---
WS: [id number] MRI LUMBAR SPINE NONCONTRAST TECHNIQUE: Sagittal T1, T2 and STIR imaging. Axial T1 and T2 imaging. CLINICAL INFORMATION: back pain COMPARISON: MRI 08/16/2021 FINDINGS: Mild lumbar curve. No acute compression. Disc narrowing worse at L4-5. Prior postoperative changes L4 -5 and L5-S1 LEFT hemilaminectomy. L1-L2: Normal. L2-L3: No significant disc bulging. Mild facet arthropathy. Spinal canal and foramen are patent. L3-L4: Mild annular bulging with mild central canal stenosis. Impingement on the RIGHT subarticular r ecess. RIGHT foraminal protrusion impinges the exiting RIGHT L3 nerve root with moderate RIGHT forami nal narrowing. LEFT foramen is patent. Mild facet arthropathy. Recommend correlation for RIGHT L3 ner ve root symptoms. L4-L5: Prior LEFT hemilaminectomy. Mild disc bulging with narrowing of the subarticular recess bilate rally. Mild LEFT and no significant RIGHT foraminal narrowing. L5-S1: Prior postoperative changes LEFT hemilaminectomy and partial discectomy. Moderate facet arthro clarita. Moderate LEFT and no significant RIGHT foraminal narrowing. Spinal canal appears patent. Visualized pelvic bony structures: Normal. Paravertebral soft tissues: Normal. Small RIGHT renal cyst. Mild central canal stenosis in the cervical spine key account manager imaging with reversal of the normal cervical lordosis. MR/MR lumbar spine wo con* [id number] IMPRESSION: 1. Prominent RIGHT foraminal protrusion L3-4 impinges the exiting RIGHT L3 ner ve root. This appears slightly progressed compared to previous. Recommend corre lation for RIGHT L3 nerve root symptoms. 2. Disc bulging L3-4 with impingement RIGHT subarticular recess with mild cent ral canal stenosis appears progressed compared to previous. 3. Prior LEFT hemilaminectomies at L4-L5 and L5-S1. 4. Moderate LEFT L5-S1 foraminal narrowing appears unchanged.
== END 2023-07-05 09:24 | disposition home or self-care (01) ==
LOC: RAD 09:23
PROVIDERS: PCP Physician Assistant; Visit Provider Orthopaedic Surgery
DX: M51.36 Other intervertebral disc degeneration, lumbar region (principal); M99.63 Osseous and subluxation stenosis of intervertebral foramina of lumbar region; M99.64 Osseous and subluxation stenosis of intervertebral foramina of sacral region
CPT/HCPCS: 72148

== ENCOUNTER → 2023-07-12 08:35 | Outpatient (BNVA) | payer MEDICAID, SELFPAY | PROVIDERS: PCP Physician Assistant; Visit Provider Orthopaedic Surgery | DX: M54.9 Dorsalgia, unspecified (principal); M48.062 Spinal stenosis, lumbar region with neurogenic claudication | CPT/HCPCS: 99214 ==

== ENCOUNTER 2023-08-14 09:53 | Emergency (ER) | payer MEDICAID, SELFPAY ==
[2023-08-14 10:05] VITALS: BP 131/93; PULSE 111; RESP 14; TEMP 37.2; O2SAT 97
--- NOTE | 2023-08-14 10:08 | W.ED.BACK ---
HPI - Back Pain/Injury General: Chief Complaint: Back Pain/Injury Stated Complaint: low back pain Time Seen by Provider: 08/14/23 10:03 Source: patient and family Mode of arrival: wheelchair Limitations: no limitations History of Present Illness: Patient is a 38-year-old female presents to ED today with complaints of acute on chronic lower back pain. Patient has a longstanding history of back pain. She has already underwent 3 previous back surgeries. Patient had an MRI of her lumbar spine back in June with results as follows: IMPRESSION: 1. Prominent RIGHT foraminal protrusion L3-4 impinges the exiting RIGHT L3 nerve root. This appears slightly progressed compared to previous. Recommend correlation for RIGHT L3 nerve root symptoms. 2. Disc bulging L3-4 with impingement RIGHT subarticular recess with mild central canal stenosis appears progressed compared to previous. 3. Prior LEFT hemilaminectomies at L4-L5 and L5-S1. 4. Moderate LEFT L5-S1 foraminal narrowing appears unchanged. Patient has followed up with Dr. Bailey who is offered her an L4-S1 fusion but she declined wanting to avoid additional surgery if possible. She was referred to pain management for injections. Patient states she just received paperwork from Dr. Valle for this and is planning on seeing him. Patient states over the past 2 to 3 days she feels like her baseline back pain has been worse. No new injury or trauma. She chronically has some radicular discomforts into her left lower extremity that are unchanged. She has no new neurologic deficits today. She states she normally takes Tylenol and Ibuprofen and up until about a month ago was taking Tramadol as well. MD elicited complaint: back pain Pertinent past history: prior back pain and back surgery Onset (ago): day(s) Timing: constant Severity: severe Pain scale (0-10): 9 Similar Symptoms Previously: Yes Location: lumbar spine and left lower back Radiation: buttocks and left leg below the knee Exacerbating factors: movement, walking and lifting Relieving factors: none Associated symptoms: Reports no associated symptoms and difficulty walking (secondary to back pain); Deny abdominal pain, dysuria, fever(s) or hematuria Treatments prior to arrival: NSAIDS and acetaminophen Work related injury: No Review of Systems Const: Denies: fever(s) Card: Denies: chest pain Resp: Denies: dyspnea GI: Denies: abdominal pain : Denies: flank pain, dysuria or hematuria Musc: Reports: back pain; Denies: neck pain, extremity pain, extremity swelling, joint pain or joint swelling Skin/Breast: Denies: rash Neuro: Reports: difficulty walking (secondary to back pain); Denies: headache(s), numbness in extremities, weakness in extremities or sensory changes PFSH ED PFSH: Medical History Lateral epicondylitis of elbow Migraine Lumbar disc disease Asthma Lumbar post-laminectomy syndrome Surgical History History of tubal ligation 11/2014: precedure done via umbilicus. Performed in [place], [place]. History of adenoidectomy Tonsillectomy and adenoidectomy done at the age of 19 History of eye surgery Strabismus 2010 History of lumbar surgery 07/27/2016 left L4-L5 reexploration. 06/2010 Left L4-L5 Family History Father Hypertension Diabetes Mother Heart disease Social History Smoking and tobacco/nicotine status: current every day tobacco/nicotine user Alcohol intake: current Alcohol intake frequency: holidays/special occasions only Substance/Drug Use: never Marital status: Current occupational status: disabled Physical Exam Const: COMMON NORMALS: no acute distress, patient oriented x3, no limitations and alert GENERAL APPEARANCE: cooperative ORIENTATION/CONSCIOUSNESS: Yes awake, Yes oriented to person, Yes oriented to place and Yes oriented to time Neck/C-Spine: COMMON NORMALS: full ROM CERVICAL SPINE: No pain with cervical ROM and No Cervical spine tenderness Resp: COMMON NORMALS: normal respiratory effort and clear to auscultation bilaterally AUSCULTATION: clear to auscultation bilaterally Cardio: COMMON NORMALS: regular rhythm RATE: tachycardic RHYTHM: regular rhythm GI: COMMON NORMALS: Normal to inspection, nondistended, normoactive bowel sounds present, non-tender and no masses : COMMON NORMALS: Yes no CVA tenderness BLADDER/KIDNEY EXAM: Yes no CVA tenderness Back/Pelvis: COMMON NORMALS: no CVA tenderness THORACIC SPINE/UPPER BACK: No thoracic spinal tenderness, No paraspinal muscle tenderness and No paraspinal muscle spasm LUMBAR SPINE/LOWER BACK: Yes ROM limited, Yes pain with ROM, Yes lumbar spinal tenderness, Yes paraspinal muscle tenderness Lumbar paraspinal muscle tenderness: left, No paraspinal muscle spasm and Yes straight leg raise positive left SACROILIAC JOINTS: Yes SI joint(s) abnormal SI joint details: tender to palpation (left) SACRUM: no tenderness COCCYX: no tenderness Extremity: COMMON NORMALS: normal to inspection, capillary refill normal, no clubbing, cyanosis or edema, no calf tenderness and no pedal edema NARRATIVE EXTREMITY EXAM: normal distal pulses/cap refill/sensation GENERAL: Yes normal exam except as noted Neuro: COMMON NORMALS: patient oriented x3, moves all extremities, no focal motor deficits and no sensory deficits noted SENSORIUM/ORIENTATION: Yes alert, Yes oriented to person, Yes oriented to place and Yes oriented to time Skin: COMMON NORMALS: no rashes or lesions noted GENERAL SKIN EXAM: no rashes or lesions noted Course Vital Signs: Vital signs: Vital Signs Temperature 99.0 F 08/14/23 10:05 Pulse Rate 104 H 08/14/23 10:09 Respiratory Rate 18 08/14/23 10:09 Blood Pressure 103/80 08/14/23 10:09 Pulse Oximetry 98 08/14/23 10:09 Oxygen Delivery Me thod Room Air 08/14/23 10:05 MDM - Back Pain/Injury Medical Decision Making Patient reportedly feeling better after IM medications given here. She has no red flag symptoms on history or physical exam. Recommend continuing OTC analgesics and will add steroids and muscle relaxers. Continue current plan to follow-up with pain management. Return to ED precautions given. Differential Diagnosis Likely lumbar radiculopathy, sciatica and strain of lumbar region Medical Records I reviewed the patient's medical records. No radiology studies performed this visit Discharge Plan Discharge Patient Disposition: Home Clinical Impression: Acute exacerbation of chronic low back pain Condition: Stable Prescriptions: New methocarbamol 500 mg tablet 1,000 mg PO Q8H Qty: 30 0RF Medrol (John) 4 mg tablets,dose pack See Rx Instructions .ROUTE .COMPLEX Qty: 21 0RF Rx Instructions: orally per package directions No Action Excedrin Migraine 250-250-65 mg tablet 2 tab PO Q6H PRN (Reason: Migraine Headache) tramadol 50 mg tablet 50 mg PO Q8H PRN (Reason: pain) Qty: 90 0RF venlafaxine 150 mg capsule,extended release 24hr 150 mg PO QAM Rx Instructions: ALONG WITH 75MG TO =225 MG TOTAL hydroxyzine HCl 25 mg tablet 25 mg PO DAILY PRN (Reason: Panic Attack(S)) cetirizine [Zyrtec] 10 mg tablet 10 mg PO DAILY PRN (Reason: Allergy Symptoms) venlafaxine 75 mg capsule,extended release 24hr 75 mg PO DAILY Rx Instructions: ALONG WITH 150MG [id number] TOTAL Discharge Orders: Discharge ED (Routine); Ordered 08/14/23 Ordered By: Latosha Bianchi Referrals: Yessy Youssef PA [Primary Care Provider] - Coding Level of Care Code ED 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
[2023-08-14 10:09] VITALS: BP 103/80; PULSE 104; RESP 18; O2SAT 98
[2023-08-14] MEDS: orphenadrine 30 mg/mL Inj 2 mL 60 MG IM (10:39)
[2023-08-14] MEDS: ketorolac 60 mg/2 mL INJ IM (10:39)
[2023-08-14] MEDS: dexamethasone 10 mg/mL INJ 8 MG IM (10:39)
[2023-08-14 11:38] VITALS: BP 100/69; PULSE 97; O2SAT 99
== END 2023-08-14 11:39 | disposition home or self-care (01) ==
PROVIDERS: Emergency Provider Physician Assistant; PCP Physician Assistant
DX: G89.29 Other chronic pain (principal); M54.50 Low back pain, unspecified; Z72.0 Tobacco use
CPT/HCPCS: 96372; 99284; J1100; J1885; J2360

== ENCOUNTER 2023-09-09 13:27 | Emergency (ER) | payer MEDICAID, SELFPAY ==
[2023-09-09 13:29] VITALS: BP 117/77; PULSE 103; RESP 16; TEMP 37.1; O2SAT 97
--- NOTE | 2023-09-09 13:35 | ED_ITS ---
HPI - Ear Problem General: Chief complaint: Ear Stated complaint: right ear pain Time Seen by Provider: 09/09/23 13:31 History of Present Illness: 38-year-old female comes in today with c omplaints of right ear pain. Patient reports symptoms started 2 days ago. Patient appears nontoxic. Patient reports occasional cough and right-sided throat pain. Patient has a history of mental health disorder, and chronic back pain. Associated symptoms: Reports ear or mastoid pain Review of Systems General: Reports: 10 or more systems reviewed and unremarkable except in HPI and below ENMT: Reports: throat pain and ear or mastoid pain PFSH ED PFSH: Medical History Lateral epicondylitis of elbow Migraine Lumbar disc disease Asthma Lumbar post-laminectomy syndrome Surgical History History of tubal ligation 11/2014: precedure done via umbilicus. Performed in [place], [place]. History of adenoidectomy Tonsillectomy and adenoidectomy done at the age of 19 History of eye surgery Strabismus 2010 History of lumbar surgery 07/27/2016 left L4-L5 reexploration. 06/2010 Left L4-L5 Family History Father Hypertension Diabetes Mother Heart disease Social History Smoking and tobacco/nicotine status: current every day tobacco/nicotine user Alcohol intake: current Alcohol intake frequency: holidays/special occasions only Substance/Drug Use: never Marital status: Current occupational status: disabled Physical Exam Const: COMMON NORMALS: alert HENMT: COMMON NORMALS: normocephalic HEAD & SCALP: normocephalic TYMPANIC MEMBRANE: TM abnormal TM laterality: right Details: bulging, dull and erythematous and left Details: bulging THROAT: posterior oropharynx abnormal erythema Neck/C-Spine: COMMON NORMALS: full ROM and no meningeal signs Lymph: OTHER: Tender right side anterior cervical lymph nodes Resp: COMMON NORMALS: normal respiratory effort Cardio: COMMON NORMALS: regular rate and regular rhythm RATE: regular rate RHYTHM: regular rhythm GI: COMMON NORMALS: Soft to palpation and non-tender PALPATION: Yes Soft to palpation Back/Pelvis: COMMON NORMALS: thoracic and lumbar spine normal to inspection Extremity: COMMON NORMALS: full ROM Neuro: SENSORIUM/ORIENTATION: Yes alert MENINGEAL SIGNS: Yes no meningeal signs Skin: COMMON NORMALS: turgor normal GENERAL SKIN EXAM: turgor normal Course Vital Signs: Vital signs: Vital Signs Temperature 98.8 F 09/09/23 13:29 Pulse Rate 103 H 09/09/23 13:29 Respiratory Rate 16 09/09/23 13:29 Blood Pressure 117/77 09/09/23 13:29 Pulse Oximetry 97 09/09/23 13:29 Oxygen Delivery Me thod Room Air 09/09/23 13:29 MDM - Ear Medical Decision Making 38-year-old female comes in today for complaints of right ear pain. On exam tympanic membrane is erythematous and dull. Patient has a mild erythema to the throat. Lungs are clear to auscultation. Vital signs normal except for some mild elevation differential diagnosis includes but not limited to otitis media, upper respiratory infection, viral syndrome. Reviewed exam with patient with recommendation for treatment and follow-up. Patient reported understanding agreed to plan. Patient was given a dose of dexamethasone to help with pain and inflammation around the ear. Patient was written for some amoxicillin 500 mg 3 times a day for 7 days. Suspect more likely a viral infection versus a bacterial infection. Will cover with antibiotic due to the increased pain. No radiology studies performed this visit Discharge Plan Discharge Patient Disposition: Home Clinical Impression: Otitis media Qualifiers: Otitis media type: suppurative Chronicity: acute Laterality: right Recurrence: not specified as recurrent Spontaneous tympanic membrane rupture: without spontaneous rupture Qualified Code(s): H66.001 - Acute suppurative otitis media without spontaneous rupture of ear drum, right ear Condition: Stable Prescriptions: New amoxicillin 500 mg tablet 500 mg PO TID Qty: 21 0RF No Action Excedrin Migraine 250-250-65 mg tablet 2 tab PO Q6H PRN (Reason: Migraine Headache) tramadol 50 mg tablet 50 mg PO Q8H PRN (Reason: pain) Qty: 90 0RF venlafaxine 150 mg capsule,extended release 24hr 150 mg PO QAM Rx Instructions: ALONG WITH 75MG TO =225 MG TOTAL hydroxyzine HCl 25 mg tablet 25 mg PO DAILY PRN (Reason: Panic Attack(S)) cetirizine [Zyrtec] 10 mg tablet 10 mg PO DAILY PRN (Reason: Allergy Symptoms) venlafaxine 75 mg capsule,extended release 24hr 75 mg PO DAILY Rx Instructions: ALONG WITH 150MG [id number] TOTAL methocarbamol 500 mg tablet 1,000 mg PO Q8H Qty: 30 0RF Medrol (John) 4 mg tablets,dose pack See Rx Instructions .ROUTE .COMPLEX Qty: 21 0RF Rx Instructions: orally per package directions Discharge Orders: Discharge ED (Routine); Ordered 09/09/23 Ordered By: Olu Rangel Referrals: Yessy Youssef PA [Primary Care Provider] - Discharge Diet: Usual diet Discharge Activity: Increase activity as tolerated Patient Instructions: Earache (ED) Activity Restrictions/Additional Instructions: Use acetaminophen and/or ibuprofen to help with pain. Use warm packs for further pain relief. Take antibiotics as directed. Follow-up with primary care for further instructions. Coding Level of Care Code ED Route Service Manager for Aubrie Cardona
[2023-09-09] MEDS: amoxicillin 500 mg Capsule PO (13:52)
[2023-09-09] MEDS: dexamethasone 10 mg/mL INJ IM (13:53)
[2023-09-09 13:55] VITALS: BP 118/76; PULSE 95; O2SAT 97
[2023-09-09 14:18] VITALS: BP 117/73; PULSE 84; RESP 17; O2SAT 96
== END 2023-09-09 14:18 | disposition home or self-care (01) ==
PROVIDERS: Emergency Provider Nurse Practitioner Family; PCP Physician Assistant
DX: H66.001 Acute suppurative otitis media without spontaneous rupture of ear drum, right ear (principal); Z72.0 Tobacco use
CPT/HCPCS: 96372; 99284; J1100

== ENCOUNTER 2023-12-05 18:49 | Emergency (ER) | payer MEDICAID, SELFPAY ==
[2023-12-05 18:57] VITALS: BP 122/82; PULSE 99; RESP 16; TEMP 36.7; O2SAT 97
--- NOTE | 2023-12-05 19:17 | ED_ITS ---
HPI - Headache General: Chief Complaint: Headache Stated Complaint: left side headache ear drum feels pressure Time Seen by Provider: 12/05/23 18:58 Source: patient Mode of arrival: ambulatory Limitations: no limitations History of Present Illness: Patient is a 38-year-old female presents to the ED today along with a headache and a left earache. She states her ear feels muffled. She states she is prone to ear infections . She states she also suffers from migraine headaches. She states her headache today feels identical to previous migraines apart from the earache component. She is currently rating her headache at a 7/10. She is not having any nausea or vomiting. Denies hearing loss or tinnitus. She is not having any dizziness. MD elicited complaint: headache, migraine and other (L earache) Onset (ago): hour(s) Location: left Severity: moderate Pain scale (0-10): 7 Exacerbating factors: none Relieving factors: nothing Associated symptoms: Deny fever(s), malaise, nausea, pre-syncope, rash, syncope or vomiting Treatments prior to arrival: none Related Data Home Medications Medication Instructions Recorded Confirmed [id number] 250 2 tab PO Q6H PRN Migraine Headache 03/17/19 08/14/23 mg-250 mg-65 mg tablet (Excedrin Migraine) cetirizine 10 mg tablet (Zyrtec) 10 mg PO DAILY PRN Allergy Symptoms 09/19/22 08/14/23 hydroxyzine HCl 25 mg tablet 25 mg PO DAILY PRN Panic Attack(S) 09/19/22 08/14/23 venlafaxine 150 mg 150 mg PO QAM 09/19/22 08/14/23 capsule,extended release 24 hr venlafaxine 75 mg capsule,extended 75 mg PO DAILY 08/14/23 08/14/23 release 24 hr Previous Rx's Medication Instructions Recorded methocarbamol 500 mg tablet 1,000 mg (2 x 500 mg) PO Q8H #30 08/14/23 tabs methylprednisolone 4 mg tablets in See Rx Instructions PO .COMPLEX 08/14/23 a dose pack (Medrol (John)) #21 ea amoxicillin 500 mg tablet 500 mg PO TID #21 tabs 09/09/23 tramadol 50 mg tablet 50 mg PO Q8H PRN pain #90 tabs 10/18/23 Allergies Allergy/AdvReac Type Severity Reaction Status Date / Time No Known Allergies Allergy Verified 09/09/23 13:33 Review of Systems Const: Denies: fever(s), chills, body aches, fatigue or malaise Eyes: Denies: change in vision, photophobia, floaters or seeing flashes ENMT: Reports: ear or mastoid pain; Denies: throat pain, odynophagia, ear discharge, change in hearing, tinnitus, disequilibrium, nasal discharge, nasal congestion or sinus pain Card: Denies: syncope or pre-syncope GI: Denies: nausea or vomiting Musc: Denies: neck pain Skin/Breast: Denies: rash Neuro: Reports: headache(s); Denies: dizziness or vertigo PFSH ED PFSH: Medical History Lateral epicondylitis of elbow Migraine Lumbar disc disease Asthma Lumbar post-laminectomy syndrome Surgical History History of tubal ligation 11/2014: precedure done via umbilicus. Performed in [place], [place] History of adenoidectomy Tonsillectomy and adenoidectomy done at the age of 19 History of eye surgery Strabismus 2010 History of lumbar surgery 07/27/2016 left L4-L5 reexploration. 06/2010 Left L4-L5 Family History Father Hypertension Diabetes Mother Heart disease Social History Smoking and tobacco/nicotine status: current every day tobacco/nicotine user Alcohol intake: current Alcohol intake frequency: holidays/special occasions only Substance/Drug Use: never Marital status: Current occupational status: disabled Physical Exam Const: COMMON NORMALS: no acute distress, average body habitus, patient oriented x3, no limitations, healthy appearing, alert and well nourished GENERAL APPEARANCE: cooperative ORIENTATION/CONSCIOUSNESS: Yes awake, Yes oriented to person, Yes oriented to place and Yes oriented to time HENMT: COMMON NORMALS: normocephalic, atraumatic, hearing grossly normal bilaterally, external ears normal and EAC's normal HEAD & SCALP: normal to inspection, normocephalic and atraumatic FACE & SINUS: normal facial exam and face symmetric EXTERNAL EAR: Yes external ears normal EXTERNAL AUDITORY CANAL: EAC's normal TYMPANIC MEMBRANE: TM normal on the right and TM abnormal TM laterality: left (serous otitis ) Eye: GENERAL EYE: appearance normal, both eyes and all related structures and normal light reflex DIRECT OPHTHALMOSCOPY: Yes normal light reflex Neck/C-Spine: COMMON NORMALS: no meningeal signs Neuro: COMMON NORMALS: patient oriented x3, CN's II-XII intact bilaterally and gait normal SENSORIUM/ORIENTATION: Yes alert, Yes oriented to person, Yes oriented to place and Yes oriented to time MENINGEAL SIGNS: Yes no meningeal signs Skin: COMMON NORMALS: no rashes or lesions noted GENERAL SKIN EXAM: no rashes or lesions noted Course Vital Signs: Vital signs: Vital Signs Temperature 98.1 F 12/05/23 18:57 Pulse Rate 84 12/05/23 19:30 Respiratory Rate 16 12/05/23 18:57 Blood Pressure 116/89 12/05/23 19:30 Pulse Oximetry 95 12/05/23 19:30 Oxygen Delivery Me thod Room Air 12/05/23 18:57 MDM - Headache Medical Decision Making Headache gone after IV medications. She is stable to go home from an emergency standpoint. Return to ED precautions given. Medical Records I reviewed the patient's medical records. No radiology studies performed this visit Discharge Plan Discharge Patient Disposition: Home Clinical Impression: Migraine headache Qualifiers: Migraine type: unspecified Status migrainosus presence: without status migrai nosus Intractability: not intractable Qualified Code(s): G43.909 - Migraine, unspecified, not intractable, without status migrainosus Acute serous otitis media Qualifiers: Laterality: left Recurrence: non-recurrent Qualified Code(s): H65.02 - Acute serous otitis media, left ear Condition: Stable Prescriptions: No Action Excedrin Migraine 250-250-65 mg tablet 2 tab PO Q6H PRN (Reason: Migraine Headache) tramadol 50 mg tablet 50 mg PO Q8H PRN (Reason: pain) Qty: 90 0RF venlafaxine 150 mg capsule,extended release 24hr 150 mg PO QAM Rx Instructions: ALONG WITH 75MG TO =225 MG TOTAL hydroxyzine HCl 25 mg tablet 25 mg PO DAILY PRN (Reason: Panic Attack(S)) cetirizine [Zyrtec] 10 mg tablet 10 mg PO DAILY PRN (Reason: Allergy Symptoms) venlafaxine 75 mg capsule,extended release 24hr 75 mg PO DAILY Rx Instructions: ALONG WITH 150MG [id number] TOTAL methocarbamol 500 mg tablet 1,000 mg PO Q8H Qty: 30 0RF Medrol (John) 4 mg tablets,dose pack See Rx Instructions .ROUTE .COMPLEX Qty: 21 0RF Rx Instructions: orally per package directions amoxicillin 500 mg tablet 500 mg PO TID Qty: 21 0RF Discharge Orders: Discharge ED (Routine); Ordered 12/05/23 Ordered By: Latosha Bianchi Referrals: Yessy Youssef PA [Primary Care Provider] - Coding Level of Care Code ED Rn Disease Management for Aubrie Cardona
[2023-12-05 19:30] VITALS: BP 116/89; PULSE 84; O2SAT 95
[2023-12-05] MEDS: dexamethasone 10 mg/mL INJ 8 MG IVP (19:33)
[2023-12-05] MEDS: diphenhydrAMINE 50 mg/mL SDV 1mL 25 MG IVP (19:34)
[2023-12-05] MEDS: ketorolac 60 mg/2 mL INJ 30 MG IVP (19:36)
[2023-12-05] MEDS: ondansetron 2 mg/ML SDV 2 mL 4 MG IVP (19:38)
[2023-12-05 20:00] VITALS: BP 116/89; PULSE 99; O2SAT 100
[2023-12-05 20:32] VITALS: BP 100/64; PULSE 94; O2SAT 98
== END 2023-12-05 20:33 | disposition home or self-care (01) ==
PROVIDERS: Emergency Provider Physician Assistant; PCP Physician Assistant
DX: G43.909 Migraine, unspecified, not intractable, without status migrainosus (principal); H65.02 Acute serous otitis media, left ear
CPT/HCPCS: 96374; 96375; 99284; J1100; J1200; J1885; J2405

== ENCOUNTER → 2024-01-31 13:18 | Outpatient (BNVA) | payer MEDICAID, SELFPAY | PROVIDERS: PCP Physician Assistant; Visit Provider Orthopaedic Surgery | DX: M48.062 Spinal stenosis, lumbar region with neurogenic claudication (principal) | CPT/HCPCS: 99214 ==

== ENCOUNTER 2024-02-11 18:01 | Emergency (ER) | payer MEDICAID, SELFPAY ==
[2024-02-11 18:14] VITALS: BP 130/83; PULSE 106; RESP 18; TEMP 36.7; O2SAT 98; BMI 29.9
--- NOTE | 2024-02-11 20:10 | ED_ITS ---
HPI - Skin/Abscess/Foreign Bdy General: Chief complaint: Skin/Abscess/Foreign Body Stated complaint: rash, neck pain Time Seen by Provider: 02/11/24 18:42 History of Present Illness: 39-year-old female [facility] with complaint of a rash that began 2 days ago was a tingling sensations on her back extending down her arm. She has not noticed it anywhere else. No fever sweats or chills Related Data Home Medications Medication Instructions Recorded Confirmed [id number] 250 2 tab PO Q6H PRN Migraine Headache 03/17/19 01/31/24 mg-250 mg-65 mg tablet (Excedrin Migraine) cetirizine 10 mg tablet (Zyrtec) 10 mg PO DAILY PRN Allergy Symptoms 09/19/22 01/31/24 albuterol sulfate 90 mcg/actuation 2 puff inhalation Q6H PRN 12/10/23 01/31/24 aerosol inhaler buspirone 7.5 mg tablet 7.5 mg PO BID 12/10/23 01/31/24 fluticasone propionate 50 1 spray intranasal BID PRN 12/10/23 01/31/24 mcg/actuation nasal spray,suspension (Flonase Allergy Relief) Previous Rx's Medication Instructions Recorded sulfamethoxazole 800 1 tab PO Q12H #14 tabs 12/10/23 mg-trimethoprim 160 mg tablet (Bactrim DS) valacyclovir 1 gram tablet 1,000 mg PO TID 7 days #21 tabs 02/11/24 Allergies Allergy/AdvReac Type Severity Reaction Status Date / Time No Known Allergies Allergy Verified 02/11/24 18:18 Review of Systems Skin/Breast: Reports: rash and erythema PFSH ED PFSH: Medical History Lateral epicondylitis of elbow Migraine Lumbar disc disease Asthma Lumbar post-laminectomy syndrome Surgical History History of tubal ligation 11/2014: precedure done via umbilicus. Performed in [place], [place]. History of adenoidectomy Tonsillectomy and adenoidectomy done at the age of 19 History of eye surgery Strabismus 2010 History of lumbar surgery 07/27/2016 left L4-L5 reexploration. 06/2010 Left L4-L5 Family History Father Hypertension Diabetes Mother Heart disease Social History Smoking and tobacco/nicotine status: current every day tobacco/nicotine user Alcohol intake: current Alcohol intake frequency: holidays/special occasions only Substance/Drug Use: never Marital status: Current occupational status: disabled Physical Exam Skin: OTHER: Patient has dermatomal rash extending from the midline to the posterior aspect of the upper arm on the left. There is early vesicular changes. No lesions have deroofed at this point Course Vital Signs: Vital signs: Vital Signs Temperature 98.0 F 02/11/24 18:14 Pulse Rate 106 H 02/11/24 18:14 Respiratory Rate 18 02/11/24 18:14 Blood Pressure 130/83 02/11/24 18:14 Pulse Oximetry 98 02/11/24 18:14 Oxygen Delivery Me thod Room Air 02/11/24 18:14 MDM - Skin/Abscess/Foreign Bdy Medicial Decision Making Rash consistent with varicella-zoster. Started on valacyclovir 1 tablet 3 times a day for 7 days. Discussed with the patient the typical course of varicella. No radiology studies performed this visit Discharge Plan Discharge Patient Disposition: Home Clinical Impression: Varicella Condition: Stable Prescriptions: New valacyclovir 1 gram tablet 1,000 mg PO TID 7 Days Qty: 21 0RF No Action Excedrin Migraine 250-250-65 mg tablet 2 tab PO Q6H PRN (Reason: Migraine Headache) albuterol sulfate 90 mcg/actuation HFA aerosol inhaler 2 puff inhalation Q6H PRN buspirone 7.5 mg tablet 7.5 mg PO BID fluticasone propionate [Flonase Allergy Relief] 50 mcg/actuation spray,suspension 1 spray intranasal BID PRN Rx Instructions: administer into each nostril sulfamethoxazole-trimethoprim [Bactrim DS] 800-160 mg tablet 1 tab PO Q12H Qty: 14 0RF cetirizine [Zyrtec] 10 mg tablet 10 mg PO DAILY PRN (Reason: Allergy Symptoms) Discharge Orders: Discharge ED (Routine); Ordered 12/30/24 Ordered By: Lowell Sahu Referrals: Yessy Youssef PA [Primary Care Provider] - Discharge Diet: Usual diet Discharge Activity: Increase activity as tolerated Patient Instructions: Shingles (ED), Opioid Safety, Pain Management Activity Restrictions/Additional Instructions: Thank you for choosing [facility] for your healthcare needs today. It is very important that you follow up as instructed or that you return to the Emergency Department should you have concerns or if your condition changes or worsens in any way. You were seen in the emergency room with onset of rash after 2 days. Your rash is dermatomal pattern with some early vesicular changes consistent with varicella (shingles). Start valacyclovir 1 g 3 times daily x 7 days. Follow-up with your primary care doctor. The antivirals slow the infection but they do not completely stop it when you finish this medication you will still have some rash. Even after starting the medication the rash will progress some including developing some blisters and a dark scab after the blisters opened up. It is not unusual for the discomfort from shingles to the last for months sometimes even up to a year after the initial rashes began to resolve Coding Level of Care Code ED President Sales And Marketing for Aubrie Cardona
[2024-02-11 20:34] VITALS: BP 134/88; PULSE 88; RESP 16; O2SAT 97
== END 2024-02-11 20:35 | disposition home or self-care (01) ==
PROVIDERS: Emergency Provider Family Medicine; PCP Physician Assistant
DX: B01.9 Varicella without complication (principal); Z72.0 Tobacco use
CPT/HCPCS: 99283

== ENCOUNTER 2024-03-17 15:20 | Outpatient (CLI) | payer MEDICAID, SELFPAY ==
[2024-03-17 16:07] LABS: Basophils # 0.1 10^3/uL (0.0-0.1); Basophils % 0.7 %; Bilirubin Urine Negative (Negative); Blood Urine Non-haemolysed trace (Negative); Eosinophils # 0.4 10^3/uL (0.0-0.8); Eosinophils % 3.2 %; Glucose Urine UA Negative (Normal); Hematocrit 40.3 % (36-47); Ketones Urine Negative (Negative); Leukocyte Esterase Urine Negative (Negative); Lymphocytes # 3.8 10^3/uL (0.8-4.8); Mean Corpuscular HGB Conc 33.7 g/dL (30-55); Mean Corpuscular Hemoglobin 30.3 pg (27-33); Mean Corpuscular Volume 89.8 fl (85-98); Mean Platelet Volume 9.5 fL (7.4-10.4); Monocytes # 0.6 10^3/uL (0.2-0.9); Monocytes % 5.6 %; Neutrophils # 6.28 10^3/uL (1.8-7.7); Neutrophils % 56.3 %; Nitrate Urine Negative (Negative); Nucleated Red Blood Cells % 0 %; Platelet Count 363 10^3/cmm (157-399); Protein Urine Trace (Negative); Red Blood Count 4.49 10^6/uL (3.85-5.65); Red Cell Distribution Width 14.1 % (12.1-15.1); Specific Gravity, Urine 1.018 (1.005-1.030); Urine Appearance Clear (CLEAR); Urine Color Yellow (Yellow); Urobilinogen Urine 0.2 mg/dL (Negative); White Blood Count 11.17 10^3/uL (3.29-11.43); pH Urine 6.5 (5-7)
[2024-03-17 16:09] LABS: Add Urine Microscopic? YES; Bacteria Urine None Seen /hpf; Squamous Epithelial Cell Urine 0-5 /hpf (0-5); WBC Urine 0-5 /hpf (0-5)
[2024-03-17 16:40] LABS: Alanine Aminotransferase 18 U/L (0-33); Albumin Level 4.3 g/dL (3.5-5.2); Alkaline Phosphatase 126 U/L (35-105); Aspartate Amino Transferase 19 U/L (0-32); Blood Urea Nitrogen 9 mg/dL (6-20); Calcium 9.6 mg/dL (8.5-10.5); Carbon Dioxide 25 mmol/L (22-29); Chloride 104 mmol/L (98-107); Globulin 2.8 g/dL (1.3-4.6); Glomerular Filtration Rate 110.7 mL/min (90-130); Glucose 112 mg/dL (65-115); Osmolality Calculated 287 mOsm/kg (285-295); Sodium 139 mmol/L (136-145); Total Bilirubin 0.2 mg/dL (0.15-1.2); Total Protein 7.1 g/dL (6.6-8.7)
== END 2024-03-17 15:21 | disposition home or self-care (01) ==
LOC: LAB 15:24
PROVIDERS: PCP Physician Assistant; Visit Provider Orthopaedic Surgery
DX: M48.062 Spinal stenosis, lumbar region with neurogenic claudication (principal)
CPT/HCPCS: 36415; 80053; 81001; 85025

== ENCOUNTER → 2024-04-15 08:09 | Outpatient (BNVA) | payer MEDICAID, SELFPAY | PROVIDERS: PCP Physician Assistant; Visit Provider Family Medicine | DX: Z01.818 Encounter for other preprocedural examination (principal) | CPT/HCPCS: 81003; 87086 ==

== ENCOUNTER 2024-04-21 14:20 | Observation (INO) | payer MEDICAID, SELFPAY ==
[2024-04-21] VITALS (22 sets, daily range): BP systolic 101–146; BP diastolic 62–92; PULSE 98–118; RESP 15–18; TEMP 36.1–36.8; O2SAT 91–99; BMI 29.4
[2024-04-21 08:30] LABS: Bilirubin Urine Negative (Negative); Blood Urine 1+ (Negative); Glucose Urine UA Negative (Normal); Ketones Urine 3+ (Negative); Leukocyte Esterase Urine Negative (Negative); Nitrate Urine Negative (Negative); Protein Urine 2+ (Negative); Urine Appearance Clear (CLEAR); Urine Color Yellow (Yellow); pH Urine 5.5 (5-7)
[2024-04-21 08:35] LABS: Add Urine Microscopic? YES; Bacteria Urine None Seen /hpf; Hyaline Casts Urine 4.11 /lpf; Squamous Epithelial Cell Urine 0-5 /hpf (0-5); WBC Urine 0-5 /hpf (0-5)
[2024-04-21 08:39] LABS: Add Urine Culture? No
[2024-04-21] MEDS: sodium chloride 0.9% 1,000 ML 30 ML IV (08:53)
[2024-04-21 09:12] LABS: OR HCG Qualitative Urine Negative (Negative)
--- NOTE | 2024-04-21 10:28 | W.PM.OPSFHP ---
Same Day Surgery H&P Indication for Procedure/HPI DATE OF PROCEDURE: April 21, 2024 CHIEF COMPLAINT/INDICATIONFOR SURGICAL PROCEDURE: Back pain and left leg pain PREOP DIAGNOSIS: Lumbar stenosis with neurogenic claudication PLANNED PROCEDURE: Operation Date: 04/21/24 10:20 Proposed Procedures p Spinal Fusion PSF(Not Applicable) - Suhail Bailey, DO s Posterior Lumbar Interbody Fusion PLIF(Not Applicable) - Suhail Bailey, DO Medications/Allergies* Home Medications ?Medication ?Instructions ?Recorded ?Confirmed ?Type ykuetye-yscxopqreqlds-fuznchdq 250 2 tab PO Q6H PRN Migraine Headache 03/17/19 04/17/24 History mg-250 mg-65 mg tablet (Excedrin Migraine) albuterol sulfate 90 mcg/actuation 2 puff inhalation Q6H PRN 12/10/23 04/21/24 History aerosol inhaler Shortness Of Breath quetiapine 50 mg tablet 50 mg PO .qhs 04/15/24 04/21/24 History Allergies/Adverse Reactions Allergy/AdvReac Type Severity Reaction Status Date / Time No Known Allergies Allergy Verified 04/21/24 08:41 Current Medications: Generic Name Dose Route Start Last Admin Trade Name Freq PRN Reason Stop Dose Admin Sodium Chloride 1,000 mls @ 30 mls/hr 04/21/24 08:30 04/21/24 08:53 Sodium Chloride 0.9% IV 04/22/24 08:29 30 mls/hr .Q24H FABIOLA Administration Pertinent History/Comorbid Conditions* Medical History (Updated 02/19/24 @ 00:00 by IQRA Quintana) Lateral epicondylitis of elbow Migraine Lumbar disc disease Asthma Lumbar post-laminectomy syndrome Surgical History (Updated 05/22/19 @ 08:22 by Shan Lerner MD) History of tubal ligation 11/2014: precedure done via umbilicus. Performed in [place], [place]. History of adenoidectomy Tonsillectomy and adenoidectomy done at the age of 19 History of eye surgery Strabismus 2010 History of lumbar surgery 07/27/2016 left L4-L5 reexploration. 06/2010 Left L4-L5 Family History (Updated 03/14/19 @ 11:08 by Rosalia Goodwin LPN) Diabetes Father Heart disease Mother Hypertension Father Social History Smoking and tobacco/nicotine status: current every day tobacco/nicotine user Alcohol intake: current Alcohol intake frequency: holidays/special occasions only Substance/Drug Use: never Marital status: Current occupational status: disabled Pertinent Exam Findings alert, oriented x 3 and procedure specific exam findings Recommendations Surgery/Procedure today Coding Level of Care Code Acute Code for Chg Fwtwin
--- NOTE | 2024-04-21 10:29 | P.ANESASSM_ITS ---
Pre-Anesthetic Assessment Height/Weight: Height 1.6 m Weight 75.296 kg Temp Pulse Resp BP Pulse Ox O2 Del Method 97.8 F 103 H 18 114/81 99 Room Air 04/21/24 08:20 04/21/24 08:20 04/21/24 08:20 04/21/24 08:20 04/21/24 08:20 04/21/24 08:20 Preop Diagnosis: Lumbar stenosis with neurogenic claudication Operation Date: 04/21/24 10:20 Proposed Procedures p Spinal Fusion PSF(Not Applicable) - Suhail Bailey DO s Posterior Lumbar Interbody Fusion PLIF(Not Applicable) - Suhail Bailey DO Familial anesthetic complications: None Was Beta Bee taken within 24 hours: N/A Was Clonidine taken within 24 hours: N/A Last intake: Intake Last Liquid Date 04/20/24 Last Liquid Time 22:00 Last Solid Date 04/20/24 Last Solid Time 20:00 Social Tobacco and No alcohol V Exam alert, oriented x 3, clear to auscultation bilaterally and regular rate & rhythm Airway Dentition: other (none) Pulmonary Asthma Musc/skel Lupus Neuropsych Seizure (last seizure over a year ao) f Anesthetic Plan ASA status: 2 Anesthesia: General Risk of > 500 ml blood loss (7ml/kg in children): No Medications/Allergies Home Medications ?Medication ?Instructions ?Recorded ?Confirmed ?Last Taken ?Type tsjlrnq-vcsqrpiunjyly-rcnhrcgs 250 2 tab PO Q6H PRN Mi graine Headache 03/17/19 04/17/24 09/19/22 History mg-250 mg-65 mg tablet (Excedrin 2 ta bs Migraine) albuterol sulfate 90 mcg/actuation 2 puff inhalation Q 6H PRN 12/10/23 04/21/24 04/21/24 History aerosol inhaler Shortness Of Breath Bone Growth Stimulator #1 ea 04/08/24 Unknown Rx quetiapine 50 mg tablet 50 mg PO .qhs 04/15/2404/2104/20/24 History Allergies Allergy/AdvReac Type Severity Reaction Status Date / Time No Known Allergies Allergy Verified 04/21/24 08:41 Current Medications Generic Name Dose Route Start Last Admin Trade Name Freq PRN Reason Stop Dose Admin Sodium Chloride 1,000 mls @ 30 mls/hr 04/21/24 08:30 04/21/24 08:53 Sodium Chloride 0.9% IV 04/22/24 08:29 30 mls/hr .Q24H FABIOLA Administration PFSH Anesthesia Medical History Lateral epicondylitis of elbow Migraine Lumbar disc disease Asthma Lumbar post-laminectomy syndrome Surgical History History of tubal ligation 11/2014: precedure done via umbilicus. Performed in [place] History of adenoidectomy Tonsillectomy and adenoidectomy done at the age of 19 History of eye surgery Strabismus 2010 History of lumbar surgery 07/27/2016 left L4-L5 reexploration. 06/2010 Left L4-L5 Family History Father Hypertension Diabetes Mother Heart disease Social History Smoking and tobacco/nicotine status: current every day tobacco/nicotine user Alcohol intake: current Alcohol intake frequency: holidays/special occasions only Substance/Drug Use: never Marital status: Current occupational status: disabled Data Anesthesia Urine 04/21/24 Range/Units 08:20 Urine Color Yellow (Yellow) Urine Appearance Clear (CLEAR) Urine pH 5.5 (5-7) Ur Specific [place] 1.030 (1.005-1.030) Urine Protein 2+ A (Negative) Urine Glucose (UA) Negative (Normal) Urine Ketones 3+ H (Negative) Urine Nitrate Negative (Negative) Urine Bilirubin Negative (Negative) Ur Leukocyte Esterase Negative (Negative) Urine RBC 3-5 (0-2) /hpf Urine WBC 0-5 (0-5) /hpf Blood Bank 04/21/24 08:37 Blood Type A Positive Rho(D) Type Rh positive Antibody Screen Negative Cardiac Studies: No Data to Display
[2024-04-21] MEDS: ceFAZolin 2,000 mg SDV 2000 MG IVP ×2 (10:52→19:23)
[2024-04-21] MEDS: lidocaine-epi 1% PF 1:200,000 30 mL SDV INJECTION (11:20)
[2024-04-21] MEDS: heparin, porcine 1,000 unit/mL INJ 10 mL 10000 UNIT IRRIGATION (11:20)
[2024-04-21] MEDS: vancomycin 1,000 MG SDV 1000 MG XX (11:48)
[2024-04-21] MEDS: fentaNYL 50 mcg/mL INJ 2mL IVP ×2 (14:03→14:26)
--- NOTE | 2024-04-21 14:14 | P.OP_ITS ---
Operative Report Date of procedure: April 21, 2024 Pre-op diagnosis: Lumbar stenosis with neurogenic claudication Post-op diagnosis: same Procedure done: 1. L4-S1 posterior lateral fusion 2. L4-S1 instrumentation posterior 3. L4-5 laminectomy with facetectomy 4. L5-S1 laminectomy with facetectomy 5. Use of computer navigation for spine 6. Bone marrow aspirate from right iliac crest 7. Use of autograft from same incision 8. Use of allograft Surgeon: Suhail Bailey DO Estimated blood loss (mL): 200 Procedure: 1. L4-S1 posterior lateral fusion 2. L4-S1 instrumentation posterior 3. L4-5 laminectomy with facetectomy 4. L5-S1 laminectomy with facetectomy 5. Use of computer navigation for spine 6. Bone marrow aspirate from right iliac crest 7. Use of autograft from same incision 8. Use of allograft Patient was brought to the operative suite after undergoing anesthesia was placed in the prone position. All areas impingement well-padded. Patient's prepped and draped normal sterile fashion. Subperiosteal dissection was made from L4 down to S1 going down the spinous processes out to the facet joints. Care was made on the left side because of previous laminectomies. Transverse processes were dissected out bilaterally. Next tension was brought to obtain the bone marrow aspirate from right iliac crest. Next tension was brought to obtain the bone marrow aspirate from right iliac crest. The [employer] cell bone marrow aspiration kit was used the bone marrow was abstracted and used with the bone graft. Next tension was placed in the fiducial for the spinal navigation. The 2 pins were placed in the right iliac crest which were later moved into the case. The fiducial was attached and the C-arm was brought in and spun around the patient information the C-arm was then loaded into the computer and later used for placing the pedicle screws. Next attention was brought to placing the pedicle screws. This was done by using the gearshift probe linked to computer navigation followed by the pedicle 4. Followed by placing the screw under computer navigation. This was done at L4 bilaterally, L5 bilaterally and S1 bilaterally. Attention was then brought to the L5-S1 level. Lamina was taken down with a high-speed bur. Medially to the facet joint there was significant scar tissue from previous laminectomy. As the bur was taken down then the curette would be used followed by the [place] rongeur. Near the root of the L5 nerve root there was a small dural tear. This was later repaired by using Gelfoam to hold the nerve roots in and then a piece of DuraGen and DuraSeal were placed. The tear was small and in the axilla of the root so was not possible to put a stitch in. There was minimal no CSF fluid present. The L5 nerve was traced out the L5-S1 facet was removed completely as the nerve was completely freed up. And the S1 nerve was traced around the S1 pedicle. Next attention was brought to the L4-5 level. Limb was taken down with a high- speed bur the facet was taken down with a high-speed bur there was almost a complete facetectomy was done prior to the case with severe amount of scar tissue. The L4 nerve root was completely freed up and the L5 nerve root was completely freed up as a 1 around the pedicle of L5. Due to the amount of scarring both of the L4-5 and the L5-S1 level and elected not to proceed with any type of cages. Attention was then brought to placing the rods on the L4-S1 screws. The high- speed bur was used to decorticate the transverse processes. The bone graft was then packed into the lateral gutters bilaterally. Vancomycin powder was placed deep drain was placed and wound was closed in a layered fashion with 0 Vicryl 2- 0 Vicryl Monocryl suture. Sterile dressings were applied and patient is transferred to the PACU in stable condition.
--- NOTE | 2024-04-21 14:45 | ANE.PACU2 ---
Inpatient post-anesthesia follow up: Airway intact: Yes Vital signs: Temperature 97.7 F Pulse Rate 107 Respiratory Rate 16 Blood Pressure 118/72 Pulse Oximetry 96 Oxygen Delivery Me thod Nasal Cannula Oxygen Flow Rate 2 Fraction of Inspir ed Oxygen Hydration adequate: Yes Nausea and vomiting: No Pain level: 1 Mental status: Baseline
[2024-04-21] MEDS: lactated ringers 1,000 ML 90 ML IV (15:13)
[2024-04-21] MEDS: ketorolac 30 mg/mL INJ IVP (15:13)
[2024-04-21] MEDS: morphine 4 mg/mL SDV 1 mL 2 MG IVP ×3 (15:13→23:21)
--- NOTE | 2024-04-21 16:40 | XR_ITS ---
WS: [id number] Lumbar spine, C-arm fluoroscopy views, 04/21/2024 Clinical Data: or pic, Comparison: Lumbar spine, 05/17/2023 Findings: Dr. Bailey performed a posterior lumbosacral fusion. XR/XR lumbar spine 2-3V* [id number] Impression: Posterior lumbosacral fusion.
[2024-04-21] MEDS: docusate sodium 100 mg Capsule PO (16:42)
[2024-04-21] MEDS: HYDROcodone-acetaminophen 5-325 mg Tablet PO ×2 (16:44→21:02)
[2024-04-21] MEDS: quetiapine 25 mg Tablet 50 MG PO (21:02)
[2024-04-22] VITALS (11 sets, daily range): BP systolic 92–132; BP diastolic 62–81; PULSE 84–116; RESP 16–18; TEMP 36.3–36.6; O2SAT 92–99; BMI 29.4
[2024-04-22] MEDS: ketorolac 30 mg/mL INJ IVP ×2 (00:56→10:05)
[2024-04-22] MEDS: ceFAZolin 2,000 mg SDV 2000 MG IVP ×2 (02:14→10:58)
[2024-04-22] MEDS: HYDROcodone-acetaminophen 5-325 mg Tablet PO ×4 (02:14→17:10)
[2024-04-22] MEDS: lactated ringers 1,000 ML 90 ML IV ×2 (02:15→14:15)
[2024-04-22] MEDS: morphine 4 mg/mL SDV 1 mL 2 MG IVP ×3 (03:39→14:14)
[2024-04-22] MEDS: acetaminophen 325 mg Tablet 650 MG PO (05:14)
[2024-04-22] MEDS: docusate sodium 100 mg Capsule PO ×2 (08:10→17:15)
--- NOTE | 2024-04-22 09:23 | PC.CHAP ---
Pastoral Care Encounter/Spiritual Assessment Type of Contact [] Declined security alarm technician visit [] Patient/Family/Request visit [] Outpatient visit [] Follow-up visit [] Physician referral [] Code/Alert [x] Routine visit [] Staff referral [] Actively dying [] Patient sleeping [x] Family support [] [] Out of room [] Palliative care [] [] Receiving care in room [] Pre-surgical visit [] Trauma [] Long length of stay [] ICU visit [] Other: Relational/Emotional Strength [x] Patient feels connected with others/family/visitors/staff [] Distress [] Loneliness/isolation [] Abandonment Spirituality of Patient [x] Person of [place] [] Attends Mosque of their [place] [x] Believes in Prayer [] Reads Bible or Evangelical materials [] There are Spiritual issues to be addressed [employer] Interventions [x] Prayer [x] Active listening [] Non-anxious presence [x] Spiritual/emotional support [] Crisis/trauma care [] Spiritual counseling [] Bereavement support [] Provided bereavement packet [] Provided Bible/devotional materials [] Provided toy/stuffed animal, coloring book to patient or family member [] Provided Communion [] Anointing/[place] [] Salvation [x] Completed spiritual assessment [] Other: Impact on Illness or Injury [] Angry [] Fearful [] Anxious [] Often cries [] Exhaustion [] Unable to work [] Unable to attend jewish [] Unable to walk/stand [] Unable to read [] Unable to drive [] Unable to eat/drink [] Unable to sleep [] Unable to be with family [] Patient intubated [] Other: Summary Time spent with patient 5 min
--- NOTE | 2024-04-22 12:59 | PM.PN ---
Subjective Subjective: Patient is laying flat at this point we will start to set her up to see if she gets any headaches. If she does not we will get her up walking. Vitals/I&O/Wt Last Vital Signs Temp 97.6 F 04/22/24 11:37 Pulse 107 H 04/22/24 11:37 Resp 16 04/22/24 11:37 BP 108/75 04/22/24 11:37 Pulse Ox 97 04/22/24 11:37 O2 Del Method Room Air 04/22/24 11:37 O2 Flow Rate 2 04/21/24 14:35 04/21/24 04/22/24 04/22/24 22:59 06:59 14:59 Intake Total 1200.5 / 2000.5 993 / 2993.5 720 / 720 Output Total 950 / 1150 2500 / 3650 1350 / 1350 Balance 250.5 / 850.5 -1507 / -656.5 -630 / -630 Weight last 48 hrs Weight 166 lb Weight 166 lb Weight 166 lb Physical Exam Narrative: For exam she has 5-5 strength she states that the pain in her legs improved cells pain in her foot. Urinary Catheter Management: Tanner: Cath Placed During This Visit: yes Reason for Continuing Indwelling Catheter: Perioperative Use in Selected Surgeries Urinary Catheter Date of Insertion: 04/21/24 Urinary Catheter Time of Insertion: 11:00 A&P Assessment and plan (1) Status post lumbar spinal fusion: Plan Patient is postop day #1 lumbar fusion at this point we will set her up in bed and see if her headaches is not she does not have any headaches we will get her up walking. Possible discharge today if she is able to ambulate. PDMP PDMP Reviewed: Not Reviewed Attestations Medical Necessity Statement*: Pain control Coding Level of Care Code Acute Code for Chg Fwd Diagnoses Status post lumbar spinal fusion Z98.1
--- NOTE | 2024-04-22 15:42 | P.DS_ITS ---
Discharge Providers Date of Admission: 04/21/24 14:20 Date of Discharge: April 22, 2024 Attending Provider at Admission: Suhail Bailey DO Attending Provider at Discharge: Suhail Bailey DO Primary Care Provider: Yessy Youssef Diagnoses at Discharge Discharge Diagnosis (1) Status post lumbar spinal fusion: Status: Acute Reason for Visit Reason for Visit: M48.062 Physical Exam Narrative: Patient is up ambulating at this time no headaches. No drainage from the Hemovac. Urinary Catheter Management: Tanner: Cath Placed During This Visit: yes Reason for Continuing Indwelling Catheter: Perioperative Use in Selected Surgeries Urinary Catheter Date of Insertion: 04/21/24 Urinary Catheter Time of Insertion: 11:00 Discharge Data Studies Completed and Pending Pending at discharge Category Date Time Status XR lumbar spine 2-3V* [id number] Routine Exams 04/21/24 16:40 Taken Laboratory Results Urine Color Yellow (Yellow) 04/21/24 08:20 Urine Appearance Clear (CLEAR) 04/21/24 08:20 Urine pH 5.5 (5-7) 04/21/24 08:20 Ur Specific [place] 1.030 (1.005-1.030) 04/21/24 08:20 Urine Protein 2+ (Negative) A 04/21/24 08:20 Urine Glucose (UA) Negative (Normal) 04/21/24 08:20 Urine Ketones 3+ (Negative) H 04/21/24 08:20 Urine Blood 1+ (Negative) A 04/21/24 08:20 Urine Nitrate Negative (Negative) 04/21/24 08:20 Urine Bilirubin Negative (Negative) 04/21/24 08:20 Urine Urobilinogen 1.0 mg/dL (Negative) 04/21/24 08:20 Ur Leukocyte Esterase Negative (Negative) 04/21/24 08:20 Urine RBC 3-5 /hpf (0-2) 04/21/24 08:20 Urine WBC 0-5 /hpf (0-5) 04/21/24 08:20 Ur Squamous Epith Cells 0-5 /hpf (0-5) 04/21/24 08:20 Amorphous Sediment Not Reportable 04/21/24 08:20 Urine Bacteria None seen /hpf (NONE) 04/21/24 08:20 Hyaline Casts 4.11 /lpf 04/21/24 08:20 Urine HCG, Qual Negative (Negative) 04/21/24 09:09 Blood Type A Positive 04/21/24 08:37 Rho(D) Type Rh positive 04/21/24 08:37 Antibody Screen Negative 04/21/24 08:37 Vitals Last Vital Signs Temp 97.6 F 04/22/24 11:37 Pulse 107 H 04/22/24 11:37 Resp 18 04/22/24 14:14 BP 108/75 04/22/24 11:37 Pulse Ox 97 04/22/24 11:37 O2 Del Method Room Air 04/22/24 11:37 O2 Flow Rate 2 04/21/24 14:35 Discharge Plan Discharge Patient Disposition: Home Condition: Stable Prescriptions: New hydrocodone-acetaminophen 5-325 mg tablet 1 - 2 tab PO .Q4-6H Qty: 40 0RF Continued Excedrin Migraine 250-250-65 mg tablet 2 tab PO Q6H PRN (Reason: Migraine Headache) albuterol sulfate 90 mcg/actuation HFA aerosol inhaler 2 puff inhalation Q6H PRN (Reason: Shortness Of Breath) quetiapine 50 mg tablet 50 mg PO .qhs (DME) Bone Growth Stimulator See Rx Instructions .Route .MEDSUPPLY Qty: 1 0RF Rx Instructions: As directed Referrals: Suhail Bailey DO [Physician] - 05/06/24 8:00 am Discharge Diet: Advance as tolerated Discharge Activity: Limit activity as instructed Patient Instructions: Acute Wound Care (DC), Opioid Safety, Post Anesthesia Care Activity Restrictions/Additional Instructions: Thank you for [facility] for your care! The following is a list of instructions, from your provider, to follow upon your discharge to ensure you have the optimal recovery from your recent injury orsurgery. Follow-up care is a vinson part of your treatment and safety. Be sure to make and go to all appointments, and call your doctor if you are having problems. If you do not already have a follow-up appointment made, call Dr. Bailey office in the next 1-3 days to make follow up appointment for 1 weeks at [phone]. It is also a good idea to know your test results and keep a list of the medicines you take. Medications will be prescribed for you at your provider's discretion. These medications are to be used as instructed; if they are taken more often that prescribed they will not be refilled early and in most cases will not be refilled at all. > When a refill is needed,you should contact lashae elena 2-3 business days before your prescription runs out. Medications will NOT be refilled by director airport operations providers after hours! > Many pain medications contain Tylenol (Acetaminophen). Do not consume more than 4,000 mg of Tylenol per day in total with any combination ofmedications. > Pain medications can cause constipation. Please use an over the counter stool softener as directed, while taking pain medications. Consulty our local pharmacist with questions or recommendations on stool softeners. If constipation persists, contact our office or your primary care provider. > While under our care,you are not to receive pain medications or other controlled substances from any other provider unless our office is notified and approves. Any attempts to do so will result in refusal to prescribe any further pain medications and possible dismissal from our practice. ? Keep dressing clean and dry and on for 1 week. Will see her back in 1 week ? Walking is essential for the healing process after surgery. We would like you to slowly advance your walking. This should be done on relatively flat clear ground (inside or out) or can be done on a treadmill. Remember this goal does not have to happen all at once, slowly increase your distance and duration. This can be broken into more more than one walk per day as tolerated. Patients who walk as directed after surgery rarely require Physical Therapy. In the unlikely event this issue arises your provider will direct hospital staff to make the appropriate arrangements. ? No lifting over 5 pounds {a gallon of milk) or bending/twisting until further notice. Each of these activities places an unnecessary amount of stress onto the body and can impede the delicate healing process. > Instead of bending at the waist, keep your back straight and bend at the knees. > Instead of twisting your torso, keep your back straight and turn your entire body with your feet. ? You may sleep in any position which makes you comfortable. Many patients find comfort sleeping in a reclining chair. It is not abnormal to have difficulty sleeping for the first several weeks following your surgery. We recommend trying Benadry! or Tylenol PM as directed to help with your sleeping difficulties. Both medications are over the counter and available withoutprescription. ? NO SMOKING!!! Smoking dramatically increases the probability of developing postoperative wound infections. ? Common complaints after lumbar and/or thoracic spine surgery include, but are not limited to: numbness and/or tingling in the legs, pain around the incision and surrounding tissues, muscle spasms, or stiffness of the middle to low back. Contact our office if these symptoms persist or if an acute change occurs. ? No driving for the first 3-5days, and not while taking narcotics [] until seen at your follow-up appointment and cleared. There are no restrictions for riding on short trips, however if you take a longer trip, arrangements should be made to make regular stops to get out of the vehicle and stretch . ? Swelling is an unfortunate event that will take place with any surgery and is the primary source of your postoperative discomfort. While walking and regular approved activities helps control inflammation, there are additional steps you can take to minimizeswelling. > Place ice over the surgical site and surrounding tissue for twenty minutes, followed by applying a low/medium heat (heating pad) for an additional twenty minutes every 1-2 hours as needed for painrelief. > You may use of over the counter anti-inflammatory medications (Ibuprofen, Motrin, Aleve, Advil, etc) as directed on the package label. These types of medicines wm significantly reduce the amount of discomfort you experience after surgery from swelling. It should be noted that if you have and allergy to any of these medications, or a history of ulcers or kidney disease you should consult you primary care provider prior to starting these medications. Discharge Attestations Time Spent in Discharge Care*: less than 30 min Quality Metrics Clinical Quality Measures [ No reported AMI, CVA or VTE this stay] Coding Level of Care Code Acute Code for Chg Fwd Diagnoses Status post lumbar spinal fusion Z98.1
== END 2024-04-22 18:24 | disposition home or self-care (01) ==
LOC: MEDSURG 14:21
PROVIDERS: Anesthesiology; Admitting Provider Orthopaedic Surgery; PCP Physician Assistant; Visit Provider Orthopaedic Surgery
PROC: (CPT 22612; principal; 2024-04-21 10:00)
PROC: (CPT 22612; 2024-04-21 10:00)
DX: M48.062 Spinal stenosis, lumbar region with neurogenic claudication (principal); G97.41 Accidental puncture or laceration of dura during a procedure; Z79.82 Long term (current) use of aspirin; Z79.899 Other long term (current) drug therapy; F17.200 Nicotine dependence, unspecified, uncomplicated
CPT/HCPCS: 22612; 22614; 20939; 22840; 20930; 20936; 36415; 51702; 72100; 76000; 81001; 81025; 86850; 86900; 97116; 97161; 97530; C1713; C9358; C9359; G0378; J0330; J0690; J1100; J1171; J1644; J1885; J2250; J2270; J2405; J2704; J3010; J3370; J3490; J7030; J7120

== ENCOUNTER 2024-04-26 19:08 | Observation (INO) | payer MEDICAID, SELFPAY ==
[2024-04-26 19:11] VITALS: BP 124/83; PULSE 118; RESP 16; TEMP 36.7; O2SAT 97; BMI 29.4
--- NOTE | 2024-04-26 19:38 | CTR_ITS ---
PROCEDURE INFORMATION: Exam: CT Lumbar Spine Without Contrast Exam date and time: 04/26/2024 8:23 PM Age: 39 years old Clinical indication: Low back pain; Prior surgery; Surgery date: 3-7 days post-operative; C/O worsening post op pain since lumbar fusion 04/21/2024. TECHNIQUE: Imaging protocol: Computed tomography of the lumbar spine without contrast. Radiation optimization: All CT scans at this facility use at least one of these dose optimization techniques: automated exposure control; mA and/or kV adjustment per patient size (includes targeted exams where dose is matched to clinical indication); or iterative reconstruction. COMPARISON: MR lumbar spine wo con* [id number] 07/05/2023 10:00 AM RADIATION DOSE METRICS: Total DLP (mGy-cm): 1174.03 FINDINGS: Bones/joints: Laminectomies and posterior instrumentation noted from L4 through S1. Reproductive: Structure adjacent to uterus on the right has internal density suggesting cystic change; ovarian cyst favored and would not require specific follow-up. Soft tissues: Small collections of air/gas seen in the fat just lateral to left psoas musculature and there is also stranding and small intermediate density collection measuring 2.5 cm greatest dimension in this region that may represent hematoma or infection; nodule other etiology difficult to exclude though considered less likely. CT/CT lumbar spine wo con* [id number] IMPRESSION: Surgical changes L4-S1. Changes in the intra-abdominal fat lateral to left psoas muscle raise question of hemorrhage or infectious process
[2024-04-26] MEDS: ketorolac 30 mg/mL INJ IM (19:57)
[2024-04-26] MEDS: diazePAM 5 mg Tablet PO (19:57)
[2024-04-26] MEDS: dexamethasone 10 mg/mL INJ IM (19:58)
[2024-04-26 20:53] VITALS: BP 98/65; PULSE 100; O2SAT 96
[2024-04-26 21:01] VITALS: BP 92/68; PULSE 98; RESP 18; O2SAT 97
--- NOTE | 2024-04-26 22:49 | W.ED.BACK ---
Documented by User: SHANTEL Gaona 04/27/24 00:49 HPI - Back Pain/Injury General: Chief Complaint: Back Pain/Injury Stated Complaint: back pain post op Time Seen by Provider: 04/26/24 19:18 History of Present Illness: Mandy Turner is a 39-year-old female that is status post L4 S1 PLIF with Dr. Bailey on 04/21/2024. Patient arrives today with complaints of lumbar back pain that is not relieved by her prescription pain medication. Patient is tearful, anxious. She denies fever or chills Denies falls or injuries She denies new pain numbness or tingling in lower extremities. Does have radicular symptoms, right greater than left, that are unchanged from baseline. Related Data Home Medications ?Medication ?Instructions ?Recorded ?Confirmed [id number] 250 2 tab PO Q6H PRN Migraine Headache 03/17/19 04/17/24 mg-250 mg-65 mg tablet (Excedrin Migraine) albuterol sulfate 90 mcg/actuation 2 puff inhalation Q6H PRN 12/10/23 04/21/24 aerosol inhaler Shortness Of Breath quetiapine 50 mg tablet 50 mg PO .qhs 04/15/24 04/21/24 Previous Rx's ?Medication ?Instructions ?Recorded Bone Growth Stimulator #1 ea 04/08/24 hydrocodone 5 mg-acetaminophen 325 1 - 2 tab PO .Q4-6H #40 tabs 04/22/24 mg tablet Allergies Allergy/AdvReac Type Severity Reaction Status Date / Time adhesive Allergy ALGY-Bliste Verified 04/26/24 19:22 r Review of Systems General: Reports: 10 or more systems reviewed and unremarkable except in HPI and below PFSH ED PFSH: Medical History Lateral epicondylitis of elbow Migraine Lumbar disc disease Asthma Lumbar post-laminectomy syndrome Surgical History History of tubal ligation 11/2014: precedure done via umbilicus. Performed in [place], [place] History of adenoidectomy Tonsillectomy and adenoidectomy done at the age of 19 History of eye surgery Strabismus 2010 History of lumbar surgery 07/27/2016 left L4-L5 reexploration. 06/2010 Left L4-L5 Family History Father Hypertension Diabetes Mother Heart disease Social History Smoking and tobacco/nicotine status: current every day tobacco/nicotine user Alcohol intake: current Alcohol intake frequency: holidays/special occasions only Substance/Drug Use: never Marital status: Current occupational status: disabled Physical Exam Const: COMMON NORMALS: no acute distress, patient oriented x3 and alert GENERAL APPEARANCE: cooperative ORIENTATION/CONSCIOUSNESS: Yes awake, Yes oriented to person, Yes oriented to place and Yes oriented to time Chest: COMMONS NORMALS: normal inspection of the chest Breast/axilla inspection: Yes no chest deformity, asymmetry, normal contours, no nodules, masses, tenderness Resp: COMMON NORMALS: normal respiratory effort, No retractions, No use of accessory muscles and clear to auscultation bilaterally EFFORT & INSPECTION: Yes able to speak in complete sentences and Yes symmetric chest movement AUSCULTATION: clear to auscultation bilaterally Cardio: COMMON NORMALS: regular rate, regular rhythm and Peripheral pulses 2+ throughout RATE: regular rate RHYTHM: regular rhythm PERIPHERAL PULSES: Peripheral pulses 2+ throughout GI: COMMON NORMALS: Normal to inspection, nondistended, normoactive bowel sounds present, Soft to palpation, non-tender and No hepatosplenomegaly present INSPECTION: Yes normal to inspection AUSCULTATION: Yes normoactive bowel sounds PALPATION: Yes Soft to palpation and Yes No hepatosplenomegaly present RECTAL EXAM: deferred Back/Pelvis: OTHER: Lumbar back pain. Surgical site dressing taken down. Steri-Strips over incision. Dried blood. Appears to be well-approximated. Surgical dressing reapplied. Patient is describing lower lumbar back pain. She has 5/5 strength bilateral hip flexor, quad, gastroc, FHL/EHL Sensation intact to light touch throughout all distributions. Antalgic gait Extremity: COMMON NORMALS: normal to inspection GENERAL: Yes normal exam except as noted Neuro: COMMON NORMALS: patient oriented x3 SENSORIUM/ORIENTATION: Yes alert, Yes oriented to person, Yes oriented to place and Yes oriented to time CRANIAL NERVES: Yes CN normal except as noted Psych: COMMON NORMALS: mental status grossly normal, Normal thought process present, cooperative, activity/motor behavior normal, denies homicidal ideation and denies suicidal ideation THOUGHT PROCESS: Normal thought process present Skin: COMMON NORMALS: no rashes or lesions noted, no wounds and turgor normal GENERAL SKIN EXAM: no rashes or lesions noted and turgor normal Course Vital Signs: Vital signs: Vital Signs Temperature 98.1 F 04/26/24 19:11 Pulse Rate 106 H 04/27/24 00:01 Respiratory Rate 18 04/26/24 21:01 Blood Pressure 95/69 04/27/24 00:01 Pulse Oximetry 98 04/27/24 00:01 Oxygen Delivery Me thod Room Air 04/27/24 00:01 MDM - Back Pain/Injury Medical Decision Making Patient evaluated in the emergency department today for complaints of lumbar back pain. Appears to be acute postop pain. I treated her pain with hemorrhoids, Toradol, Valium but her symptoms did not seem to improve at all. He was given a 2 mg dose of Dilaudid without much relief in her symptoms. We did obtain a CT of her lumbar spine which revealed changes in the intra-abdominal fat lateral to the left psoas muscle which is concerning for hemorrhage versus infectious process. Patient was given 2 mg more of Dilaudid but IV was initiated, labs were sent including a CBC CMP and lactic. And a CT abdomen and pelvis with contrast was ordered. Dr. Gaming was updated on patient's progression as he will be following for possible admission.. Laboratory studies reveal a mild leukocytosis but no anemia or significant electrolyte abnormality. Lactic acid normal The CT of the abdomen and pelvis reveals asymmetric densities and small gas in the fat lateral to the left psoas muscle again noted. There is haziness and edema that extends into the upper pelvis adjacent to the iliac us musculature. There is also small bladder gas present. Her urinalysis revealed no evidence of infectious process. I talked with general surgery, Dr. Capps. He reviewed findings and does not recommend any surgical intervention. I talked with Dr. Bailey who will be happy to see the patient but does not believe the CT findings correlate with his surgical intervention. I spoke with Dr. Garcia who will admit the patient. Antibiotic orders placed. Labs 04/26/24 22:52 04/26/24 22:52 Radiology Impressions Lumbar Spine CT 04/26/24 19:38 IMPRESSION: Surgical changes L4-S1. Changes in the intra-abdominal fat lateral to left psoas muscle raise question of hemorrhage or infectious process Abdomen/Pelvis CT 04/26/24 22:56 IMPRESSION: Asymmetric densities and small air/gas in the fat lateral to left psoas muscle again noted and is without significant change. Haziness/edema extends into the upper pelvis adjacent to iliacus musculature. Small bladder gas can be correlated with any recent instrumentation or urinalysis abnormality. Laboratory Results WBC 12.90 10^3/uL (3.29-11.43) H 04/26/24 22:52 RBC 3.80 10^6/uL (3.85-5.65) L 04/26/24 22:52 Hgb 11.00 g/dL (11.27-16.99) L 04/26/24 22:52 Hct 34.5 % (36-47) L 04/26/24 22:52 MCV 90.8 fl (85-98) 04/26/24 22:52 MCH 28.9 pg (27-33) 04/26/24 22:52 MCHC 31.9 g/dL (30-55) 04/26/24 22:52 RDW 13.9 % (12.1-15.1) 04/26/24 22:52 Plt Count 385 10^3/cmm (157-399) 04/26/24 22:52 MPV 9.6 fL (7.4-10.4) 04/26/24 22:52 Neut % (Auto) 80.9 % 04/26/24 22:52 Lymph % (Auto) 14.3 % 04/26/24 22:52 Alcorn % (Auto) 2.3 % 04/26/24 22:52 Eos % (Auto) 1.5 % 04/26/24 22:52 Baso % (Auto) 0.5 % 04/26/24 22:52 Neut # (Auto) 10.42 10^3/uL (1.8-7.7) H 04/26/24 22:52 Lymph # (Auto) 1.9 10^3/uL (0.8-4.8) 04/26/24 22:52 Alcorn # (Auto) 0.3 10^3/uL (0.2-0.9) 04/26/24 22:52 Eos # (Auto) 0.2 10^3/uL (0.0-0.8) 04/26/24 22:52 Baso # (Auto) 0.1 10^3/uL (0.0-0.1) 04/26/24 22:52 Nucleated RBC % (auto) 0 % 04/26/24 22:52 Nucleated RBCs # 0.0 /100WBC 04/26/24 22:52 Sodium 138 mmol/L (136-145) 04/26/24 22:52 Potassium 4.1 mmol/L (3.5-5.1) 04/26/24 22:52 Chloride 103 mmol/L (98-107) 04/26/24 22:52 Carbon Dioxide 23 mmol/L (22-29) 04/26/24 22:52 Anion Gap 16.1 (5-19) 04/26/24 22:52 BUN 8 mg/dL (6-20) 04/26/24 22:52 Creatinine 0.5 mg/dL (0.5-0.9) 04/26/24 22:52 GFR Calculation 136.6 mL/min (90-130) H 04/26/24 22:52 Glucose 119 mg/dL (65-115) H 04/26/24 22:52 Calculated Osmolality 285 mOsm/kg (285-295) 04/26/24 22:52 Lactic Acid 1.0 mmol/L (0.5-2.2) 04/26/24 22:52 Calcium 9.4 mg/dL (8.5-10.5) 04/26/24 22:52 Total Bilirubin 0.2 mg/dL (0.15-1.2) 04/26/24 22:52 AST 71 U/L (0-32) H 04/26/24 22:52 ALT 53 U/L (0-33) H 04/26/24 22:52 Alkaline Phosphatase 129 U/L (35-105) H 04/26/24 22:52 Total Protein 7.2 g/dL (6.6-8.7) 04/26/24 22:52 Albumin 3.9 g/dL (3.5-5.2) 04/26/24 22:52 Globulin 3.3 g/dL (1.3-4.6) 04/26/24 22:52 Procalcitonin 0.04 ng/mL (0-0.5) 04/26/24 22:52 Urine Color Yellow (Yellow) 04/27/24 00:25 Urine Appearance Clear (CLEAR) 04/27/24 00:25 Urine pH 8.0 (5-7) A 04/27/24 00:25 Ur Specific Tony 1.033 (1.005-1.030) H 04/27/24 00:25 Urine Protein Negative (Negative) 04/27/24 00:25 Urine Glucose (UA) Negative (Normal) 04/27/24 00:25 Urine Ketones 1+ (Negative) H 04/27/24 00:25 Urine Blood Trace (Negative) A 04/27/24 00:25 Urine Nitrate Negative (Negative) 04/27/24 00:25 Urine Bilirubin Negative (Negative) 04/27/24 00:25 Urine Urobilinogen 0.2 mg/dL (Negative) 04/27/24 00:25 Ur Leukocyte Esterase Negative (Negative) 04/27/24 00:25 Urine RBC 0-2 /hpf (0-2) 04/27/24 00:25 Urine WBC 0-5 /hpf (0-5) 04/27/24 00:25 Ur Squamous Epith Cells 0-5 /hpf (0-5) 04/27/24 00:25 Amorphous Sediment Not Reportable 04/27/24 00:25 Urine Bacteria None seen /hpf (NONE) 04/27/24 00:25 Hyaline Casts 0-4 /lpf H 04/27/24 00:25 All radiology interpretation(s) finalized by discharge Discharge Plan Discharge Patient Disposition: Admitted As Inpatient Clinical Impression: Intractable back pain, Status post lumbar spinal fusion, Intra-abdominal fluid collection Condition: Stable Coding Level of Care Code ED Outdoor Recreation Specialist for Chg Fwd Documented by User: Andrea Gaming DO 04/27/24 01:30 HPI - Back Pain/Injury General: Chief Complaint: Back Pain/Injury Stated Complaint: back pain post op Time Seen by Provider: 04/26/24 19:18 Related Data Home Medications ?Medication ?Instructions ?Recorded ?Confirmed [id number] 250 2 tab PO Q6H PRN Migraine Headache 03/17/19 04/17/24 mg-250 mg-65 mg tablet (Excedrin Migraine) albuterol sulfate 90 mcg/actuation 2 puff inhalation Q6H PRN 12/10/23 04/21/24 aerosol inhaler Shortness Of Breath quetiapine 50 mg tablet 50 mg PO .qhs 04/15/24 04/21/24 Previous Rx's ?Medication ?Instructions ?Recorded Bone Growth Stimulator #1 ea 04/08/24 hydrocodone 5 mg-acetaminophen 325 1 - 2 tab PO .Q4-6H #40 tabs 04/22/24 mg tablet Allergies Allergy/AdvReac Type Severity Reaction Status Date / Time adhesive Allergy ALGY-Bliste Verified 04/26/24 19:22 r PFSH ED PFSH: Medical History Lateral epicondylitis of elbow Migraine Lumbar disc disease Asthma Lumbar post-laminectomy syndrome Surgical History History of tubal ligation 11/2014: precedure done via umbilicus. Performed in [place], [place] History of adenoidectomy Tonsillectomy and adenoidectomy done at the age of 19 History of eye surgery Strabismus 2010 History of lumbar surgery 07/27/2016 left L4-L5 reexploration. 06/2010 Left L4-L5 Family History Father Hypertension Diabetes Mother Heart disease Social History Smoking and tobacco/nicotine status: current every day tobacco/nicotine user Alcohol intake: current Alcohol intake frequency: holidays/special occasions only Substance/Drug Use: never Marital status: Current occupational status: disabled Course Vital Signs: Vital signs: Vital Signs Temperature 98.1 F 04/26/24 19:11 Pulse Rate 106 H 04/27/24 00:01 Respiratory Rate 18 04/26/24 21:01 Blood Pressure 95/69 04/27/24 00:01 Pulse Oximetry 98 04/27/24 00:01 Oxygen Delivery Me thod Room Air 04/27/24 00:01 MDM - Back Pain/Injury Medical Records I reviewed the patient's medical records. Patient is discussed with nurse practitioner and the patient will be admitted in the hospital for concerns of infectious or inflammatory changes postsurgically. Labs 04/26/24 22:52 04/26/24 22:52 Radiology Impressions Lumbar Spine CT 04/26/24 19:38 IMPRESSION: Surgical changes L4-S1. Changes in the intra-abdominal fat lateral to left psoas muscle raise question of hemorrhage or infectious process Abdomen/Pelvis CT 04/26/24 22:56 IMPRESSION: Asymmetric densities and small air/gas in the fat lateral to left psoas muscle again noted and is without significant change. Haziness/edema extends into the upper pelvis adjacent to iliacus musculature. Small bladder gas can be correlated with any recent instrumentation or urinalysis abnormality. Laboratory Results WBC 12.90 10^3/uL (3.29-11.43) H 04/26/24 22:52 RBC 3.80 10^6/uL (3.85-5.65) L 04/26/24 22:52 Hgb 11.00 g/dL (11.27-16.99) L 04/26/24 22:52 Hct 34.5 % (36-47) L 04/26/24 22:52 MCV 90.8 fl (85-98) 04/26/24 22:52 MCH 28.9 pg (27-33) 04/26/24 22:52 MCHC 31.9 g/dL (30-55) 04/26/24 22:52 RDW 13.9 % (12.1-15.1) 04/26/24 22:52 Plt Count 385 10^3/cmm (157-399) 04/26/24 22:52 MPV 9.6 fL (7.4-10.4) 04/26/24 22:52 Neut % (Auto) 80.9 % 04/26/24 22:52 Lymph % (Auto) 14.3 % 04/26/24 22:52 Alcorn % (Auto) 2.3 % 04/26/24 22:52 Eos % (Auto) 1.5 % 04/26/24 22:52 Baso % (Auto) 0.5 % 04/26/24 22:52 Neut # (Auto) 10.42 10^3/uL (1.8-7.7) H 04/26/24 22:52 Lymph # (Auto) 1.9 10^3/uL (0.8-4.8) 04/26/24 22:52 Alcorn # (Auto) 0.3 10^3/uL (0.2-0.9) 04/26/24:52 Eos # (Auto) 0.2 10^3/uL (0.0-0.8) 04/26/24 22:52 Baso # (Auto) 0.1 10^3/uL (0.0-0.1) 04/26/24: Nucleated RBC % (auto) 0 % 04/26/24: Nucleated RBCs # 0.0 /100WBC 04/26/24 22:52 Sodium 138 mmol/L (136-145) 04/26/24:52 Potassium 4.1 mmol/L (3.5-5.1) 04/26/24:52 Chloride 103 mmol/L (98-107) 04/26/24:52 Carbon Dioxide 23 mmol/L (22-29) 04/26/24:52 Anion Gap 16.1 (5-19) 04/26/24 22:52 BUN 8 mg/dL (6-20) 04/26/24 22:52 Creatinine 0.5 mg/dL (0.5-0.9) 04/26/24 22:52 GFR Calculation 136.6 mL/min (90-130) H 04/26/24 22:52 Glucose 119 mg/dL (65-115) H 04/26/24 22:52 Calculated Osmolality 285 mOsm/kg (285-295) 04/26/24:52 Lactic Acid 1.0 mmol/L (0.5-2.2) 04/26/24:52 Calcium 9.4 mg/dL (8.5-10.5) 04/26/24 22:52 Total Bilirubin 0.2 mg/dL (0.15-1.2) 04/26/24 22:52 AST 71 U/L (0-32) H 04/26/24 22:52 ALT 53 U/L (0-33) H 04/26/24 22:52 Alkaline Phosphatase 129 U/L (35-105) H 04/26/24 22:52 Total Protein 7.2 g/dL (6.6-8.7) 04/26/24 22:52 Albumin 3.9 g/dL (3.5-5.2) 04/26/24 22:52 Globulin 3.3 g/dL (1.3-4.6) 04/26/24 22:52 Procalcitonin 0.04 ng/mL (0-0.5) 04/26/24 22:52 Urine Color Yellow (Yellow) 04/27/24 00:25 Urine Appearance Clear (CLEAR) 04/27/24 00:25 Urine pH 8.0 (5-7) A 04/27/24 00:25 Ur Specific Tony 1.033 (1.005-1.030) H 04/27/24 00:25 Urine Protein Negative (Negative) 04/27/24 00:25 Urine Glucose (UA) Negative (Normal) 04/27/24 00:25 Urine Ketones 1+ (Negative) H 04/27/24 00:25 Urine Blood Trace (Negative) A 04/27/24 00:25 Urine Nitrate Negative (Negative) 04/27/24 00:25 Urine Bilirubin Negative (Negative) 04/27/24 00:25 Urine Urobilinogen 0.2 mg/dL (Negative) 04/27/24 00:25 Ur Leukocyte Esterase Negative (Negative) 04/27/24 00:25 Urine RBC 0-2 /hpf (0-2) 04/27/24 00:25 Urine WBC 0-5 /hpf (0-5) 04/27/24 00:25 Ur Squamous Epith Cells 0-5 /hpf (0-5) 04/27/24 00:25 Amorphous Sediment Not Reportable 04/27/24 00:25 Urine Bacteria None seen /hpf (NONE) 04/27/24 00:25 Hyaline Casts 0-4 /lpf H 04/27/24 00:25 Discharge Plan Discharge Patient Disposition: Admitted As Inpatient Clinical Impression: Intractable back pain, Status post lumbar spinal fusion, Intra-abdominal fluid collection Condition: Stable Coding Level of Care Code ED Outdoor Recreation Specialist for Jennig Dulce
--- NOTE | 2024-04-26 22:56 | CTR_ITS ---
PROCEDURE INFORMATION: Exam: CT Abdomen And Pelvis With Contrast Exam date and time: 04/26/2024 11:09 PM Age: 39 years old Clinical indication: Other: Abnormal lumbar CT; Prior surgery; Surgery date: 3-7 days post-operative; Surgery type: Lumbar fusion 04/21/2024; Left juan r psoas fluid collection noted on lumbar CT. Concern for infection vs hemorrhage. ; Additional info: Intra-abdominal findings concerning for infection v hemorrag TECHNIQUE: Imaging protocol: Computed tomography of the abdomen and pelvis with contrast. Radiation optimization: All CT scans at this facility use at least one of these dose optimization techniques: automated exposure control; mA and/or kV adjustment per patient size (includes targeted exams where dose is matched to clinical indication); or iterative reconstruction. Contrast material: OMNI 350; Contrast volume: 100 ml; Contrast route: INTRAVENOUS (IV); COMPARISON: CT lumbar spine wo con* [id number] 04/26/2024 8:23 PM RADIATION DOSE METRICS: Total DLP (mGy-cm): 1142.97 FINDINGS: Liver: Normal. No mass. Gallbladder and biliary ducts: Normal. No calcified stones. No ductal dilation. Pancreas: Normal. No ductal dilation. Spleen: Spleen shows calcified granulomatous change. Normal size. Adrenal glands: Normal. No mass. Kidneys and ureters: Normal. No hydronephrosis. Stomach and bowel: Unremarkable. No obstruction. No mucosal thickening. Appendix: No evidence of appendicitis. Intraperitoneal space: Unremarkable. No free air. No significant fluid collection. Vasculature: Unremarkable. No abdominal aortic aneurysm. Lymph nodes: Unremarkable. No enlarged lymph nodes. Urinary bladder: Small bladder gas can be correlated with any recent instrumentation or urinalysis abnormality. Reproductive: Unremarkable as visualized. Bones/joints: Lumbosacral spinal hardware noted. Soft tissues: Asymmetric densities and small air/gas in the fat lateral to left psoas muscle again noted and is without significant change. Haziness/edema extends into the upper pelvis adjacent to iliacus musculature. No discrete rim enhancing collections. CT/CT abdomen pelvis w con* [id number] IMPRESSION: Asymmetric densities and small air/gas in the fat lateral to left psoas muscle again noted and is without significant change. Haziness/edema extends into the upper pelvis adjacent to iliacus musculature. Small bladder gas can be correlated with any recent instrumentation or urinalysis abnormality.
[2024-04-26 23:01] VITALS: BP 120/81
[2024-04-26 23:09] LABS: Basophils # 0.1 10^3/uL (0.0-0.1); Basophils % 0.5 %; Eosinophils # 0.2 10^3/uL (0.0-0.8); Eosinophils % 1.5 %; Hematocrit 34.5 % (36-47); Lymphocytes # 1.9 10^3/uL (0.8-4.8); Lymphocytes % 14.3 %; Mean Corpuscular HGB Conc 31.9 g/dL (30-55); Mean Corpuscular Hemoglobin 28.9 pg (27-33); Mean Corpuscular Volume 90.8 fl (85-98); Mean Platelet Volume 9.6 fL (7.4-10.4); Monocytes # 0.3 10^3/uL (0.2-0.9); Monocytes % 2.3 %; Neutrophils # 10.42 10^3/uL (1.8-7.7); Neutrophils % 80.9 %; Nucleated Red Blood Cells % 0 %; Platelet Count 385 10^3/cmm (157-399); Red Cell Distribution Width 13.9 % (12.1-15.1)
[2024-04-26] MEDS: iohexol 350 mg/mL 500 mL Btl (per mL) 100 ML IV (23:13)
[2024-04-26] MEDS: sodium chloride 0.9% 1,000 ML 999 ML IV (23:23)
[2024-04-26 23:37] LABS: Alanine Aminotransferase 53 U/L (0-33); Albumin Level 3.9 g/dL (3.5-5.2); Alkaline Phosphatase 129 U/L (35-105); Aspartate Amino Transferase 71 U/L (0-32); Blood Urea Nitrogen 8 mg/dL (6-20); Calcium 9.4 mg/dL (8.5-10.5); Carbon Dioxide 23 mmol/L (22-29); Chloride 103 mmol/L (98-107); Creatinine Clr Calc Pharmacy 145.3462; Globulin 3.3 g/dL (1.3-4.6); Glomerular Filtration Rate 136.6 mL/min (90-130); Glucose 119 mg/dL (65-115); Osmolality Calculated 285 mOsm/kg (285-295); Sodium 138 mmol/L (136-145); Total Bilirubin 0.2 mg/dL (0.15-1.2); Total Protein 7.2 g/dL (6.6-8.7)
[2024-04-26 23:38] LABS: Anion Gap 16.1 (5-19); Potassium 4.1 mmol/L (3.5-5.1)
[2024-04-27] VITALS (9 sets, daily range): BP systolic 94–113; BP diastolic 58–81; PULSE 98–115; RESP 16–20; TEMP 36.7–36.9; O2SAT 94–98
--- NOTE | 2024-04-27 00:27 | P.HP_ITS ---
Providers/Chief Complaint 2 Primary Care Provider: Yessy Youssef Chief Complaint: back pain post op History of Present Illness Mandy Turner is a 39 year old female postop day 6 status post L4 S1 PLIF with Dr. Bailey 04/21 presenting for worsening of lower back pain. Patient is stating that she has been using a walker now after surgery, she has not noticed any fever nausea vomiting. Since surgery her first bowel movement was on 04/26. Stating that her pain has gotten worse after surgery. CT scan of lumbar pelvic area showed asymmetrical densities air/gas left psoas muscle extending into upper pelvis adjacent to iliac us, possible hematoma versus phlegmon 2.5 cm left psoas musculature. Patient is stating that her pain is not well-controlled with the opioids that she was getting at home. She had 1 shot of alcohol yesterday, she smokes on daily basis as well. Review of Systems 2 Const: Denies: fever(s) Eyes: Denies: change in vision ENMT: Denies: throat pain Card: Denies: chest pain Musc: Reports: back pain Medications/Allergies Home Medications ?Medication ?Instructions ?Recorded ?Confirmed ?Last Taken ?Type iyvcyni-aqnrpjukuzaxg-jluajxys 250 2 tab PO Q6H PRN Mi graine Headache 03/17/19 04/17/24 09/19/22 History mg-250 mg-65 mg tablet (Excedrin 2 ta bs Migraine) albuterol sulfate 90 mcg/actuation 2 puff inhalation Q 6H PRN 12/10/23 04/21/24 04/21/24 History aerosol inhaler Shortness Of Breath Bone Growth Stimulator #1 ea 04/08/24 04/22/24 Unkn own Rx quetiapine 50 mg tablet 50 mg PO .qhs 04/15/2404/2104/20/24 History hydrocodone 5 mg-acetaminophen 325 1 - 2 tab PO .Q4-6H #40 tabs 04/22/24 Unknown Rx mg tablet Allergies Allergy/AdvReac Type Severity Reaction Status Date / Time adhesive Allergy ALGY-Bliste Verified 04/26/24 19:22 r PFSH Acute 2 PFSH: Medical History Lateral epicondylitis of elbow Migraine Lumbar disc disease Asthma Lumbar post-laminectomy syndrome Surgical History History of tubal ligation 11/2014: precedure done via umbilicus. Performed in [place], [place]. History of adenoidectomy Tonsillectomy and adenoidectomy done at the age of 19 History of eye surgery Strabismus 2010 History of lumbar surgery 07/27/2016 left L4-L5 reexploration. 06/2010 Left L4-L5 Family History Father Hypertension Diabetes Mother Heart disease Social History Smoking and tobacco/nicotine status: current every day tobacco/nicotine user Alcohol intake: current Alcohol intake frequency: holidays/special occasions only Substance/Drug Use: never Marital status: Current occupational status: disabled Vitals/I&O/Wt Last Vital Signs Temp 98.1 F 04/26/24 19:11 Pulse 106 H 04/27/24 00:01 Resp 18 04/26/24 21:01 BP 95/69 04/27/24 00:01 Pulse Ox 98 04/27/24 00:01 O2 Del Method Room Air 04/27/24 00:01 Weight last 48 hrs Weight 75.296 kg Physical Exam 2 Narrative: No active signs of cauda equina Complaining of back pain She was able to get up walk to the bathroom Hemodynamic stable GCS 15 Blood pressure 95/extremity with marked Patient is not dizzy Awake and alert Dressing intact No active drainage noted around the dressing Patient seems very anxious S1, S2 Tachycardia related to pain Afebrile Data 04/26/24 22:52 04/26/24 22:52 A&P Assessment and plan (1) Lumbar post-laminectomy syndrome: (2) History of lumbar surgery: (3) Intractable back pain: (4) Nicotine dependence, cigarettes, uncomplicated: Plan Intractable back pain Postop day 6 1 bowel movement 04/26 Continue opioids, received ketorolac in the ER as well Secondary to low blood pressure I will keep her on low maintenance fluid normal saline Added bowel regimen Dr. Bailey to evaluate in the morning No active fever, 2.5 cm left psoas musculature density phlegmon versus hematoma, hemoglobin stable for now, I will give her dose of vancomycin and Zosyn Cardiac diet DVT prophylaxis: SCDs avoiding anticoagulating agent in case patient has development of hematoma postoperatively. Hemoglobin stable for now, monitor vitals overnight Admit to [facility] Full code PDMP PDMP Reviewed: Not Reviewed Attestations 2 Medical Necessity Statement*: Anticipate discharge within 24 to 48 hours Diagnoses Lumbar post-laminectomy syndrome M96.1 History of lumbar surgery Z98.890 Intractable back pain M54.9 Nicotine dependence, cigarettes, uncomplicated F17.210
[2024-04-27 00:39] LABS: Bilirubin Urine Negative (Negative); Blood Urine Trace (Negative); Glucose Urine UA Negative (Normal); Ketones Urine 1+ (Negative); Leukocyte Esterase Urine Negative (Negative); Nitrate Urine Negative (Negative); Protein Urine Negative (Negative); Urine Appearance Clear (CLEAR); Urine Color Yellow (Yellow); Urobilinogen Urine 0.2 mg/dL (Negative)
[2024-04-27 00:43] LABS: Specific Gravity, Urine 1.033 (1.005-1.030)
[2024-04-27 00:44] LABS: Add Urine Microscopic? YES; Bacteria Urine None Seen /hpf; Hyaline Casts Urine 0-4 /lpf; RBC Urine 0-2 /hpf (0-2); Squamous Epithelial Cell Urine 0-5 /hpf (0-5); WBC Urine 0-5 /hpf (0-5)
[2024-04-27 00:57] LABS: Procalcitonin 0.04 ng/mL (0-0.5)
[2024-04-27] MEDS: HYDROmorphone 0.5 MG/0.5 ML INJ 0.4 MG IVP ×4 (02:21→20:50)
[2024-04-27] MEDS: sodium chloride 0.9% 1,000 ML 75 ML IV (02:21)
[2024-04-27] MEDS: piperacillin-tazobactam 3.375 GM in sodium chloride 0.9% (plus) 50 ML IV ×3 (02:23→18:09)
[2024-04-27] MEDS: vancomycin 1,750 MG/350 ML PIGGYBACK 175 MG IV (03:19)
[2024-04-27 05:14] LABS: Basophils % 0.3 %; Eosinophils % 0.1 %; Hematocrit 32.6 % (36-47); Lymphocytes # 1.3 10^3/uL (0.8-4.8); Lymphocytes % 11.8 %; Mean Corpuscular HGB Conc 32.2 g/dL (30-55); Mean Corpuscular Volume 90.1 fl (85-98); Mean Platelet Volume 9.3 fL (7.4-10.4); Monocytes # 0.1 10^3/uL (0.2-0.9); Monocytes % 1.1 %; Neutrophils # 9.74 10^3/uL (1.8-7.7); Neutrophils % 85.3 %; Nucleated Red Blood Cells % 0 %; Platelet Count 371 10^3/cmm (157-399); Red Blood Count 3.62 10^6/uL (3.85-5.65); Red Cell Distribution Width 13.7 % (12.1-15.1)
[2024-04-27 05:35] LABS: Anion Gap 16.2 (5-19); Blood Urea Nitrogen 7 mg/dL (6-20); Calcium 8.9 mg/dL (8.5-10.5); Carbon Dioxide 20 mmol/L (22-29); Chloride 104 mmol/L (98-107); Glomerular Filtration Rate 176.8 mL/min (90-130); Glucose 143 mg/dL (65-115); Osmolality Calculated 282 mOsm/kg (285-295); Potassium 4.2 mmol/L (3.5-5.1); Sodium 136 mmol/L (136-145)
--- NOTE | 2024-04-27 07:50 | PHA.VACGOAL ---
Vancomycin Goal - Goal Vancomycin Goal:: 15-20 mg/L Vancomycin Indication:: Other - Therapy Current therapy:: Pip/Tazo Day of therpy:: Day 1 of [] Actual body weight (kg): 175 lb - Data Labs: WBC 11.40 10^3/uL (3.29-11.43) 04/27/24 05:02 RBC 3.62 10^6/uL (3.85-5.65) L 04/27/24 05:02 Hgb 10.50 g/dL (11.27-16.99) L 04/27/24 05:02 Hct 32.6 % (36-47) L 04/27/24 05:02 MCV 90.1 fl (85-98) 04/27/24 05:02 MCH 29.0 pg (27-33) 04/27/24 05:02 MCHC 32.2 g/dL (30-55) 04/27/24 05:02 RDW 13.7 % (12.1-15.1) 04/27/24 05:02 Sodium 136 mmol/L (136-145) 04/27/24 05:02 Potassium 4.2 mmol/L (3.5-5.1) 04/27/24 05:02 Chloride 104 mmol/L (98-107) 04/27/24 05:02 Carbon Dioxide 20 mmol/L (22-29) L 04/27/24 05:02 Anion Gap 16.2 (5-19) 04/27/24 05:02 BUN 7 mg/dL (6-20) 04/27/24 05:02 Creatinine 0.4 mg/dL (0.5-0.9) L 04/27/24 05:02 GFR Calculation 176.8 mL/min (90-130) H 04/27/24 05:02 Last dialysis session:: N/A Treatment plan:: new consult Regimen:: TELEPHARMACY: LOADING DOSE OF 1750 MG GIVEN. MAINTENANCE DOSE OF 1250 MG Q12H. Follow up:: WILL OBTAIN TROUGH PRIOR TO 4TH MAINTENANCE DOSE. CONTINUE TO MONITOR AND FOLLOW UP DAILY.
[2024-04-27] MEDS: lactated ringers 500 ML 999 ML IV (09:12)
[2024-04-27] MEDS: sennosides-docusate Tablet 1 TAB PO (09:14)
[2024-04-27] MEDS: HYDROcodone-acetaminophen 5-325 mg Tablet PO ×3 (12:58→21:48)
--- NOTE | 2024-04-27 13:08 | MRR_ITS ---
PROCEDURE INFORMATION: Exam: MR Lumbar Spine Without Contrast Exam date and time: 04/27/2024 3:10 PM Age: 39 years old Clinical indication: Low back pain; Prior surgery; Surgery date: 3-7 days post-operative; Surgery type: Lumbar fusion; Additional info: Postop TECHNIQUE: Imaging protocol: Magnetic resonance imaging of the lumbar spine without contrast. COMPARISON: CT lumbar spine wo con* [id number] 04/26/2024 8:23 PM FINDINGS: Bones/joints: Post posterior L4-S1 instrumentation with mild susceptibility artifact at these levels. There is a collection at the posterior aspect of the right L3-L4 facet joint measuring 1.4 x 2.8 cm. Spinal cord: Visualized cord, conus medullaris and cauda equina are unremarkable without compression. L1-L2: No significant disc bulge or herniation. No severe spinal canal stenosis. No significant neural foraminal narrowing. L2-L3: No significant disc bulge or herniation. No severe spinal canal stenosis. No significant neural foraminal narrowing. L3-L4: Posterior osteophyte disc complex causing mild thecal sac compression and mild narrowing of bilateral neural foramina. L4-L5: Posterior disc bulge causing mild thecal sac compression and mild narrowing of both neural foramina. L5-S1: Limited assessment of the neural foramina due to artifact. No significant thecal sac compression. Soft tissues: Partially included hematomas in the retroperitoneum extending to the space between the left psoas and left iliacus muscle. There is a 2 x 1.3 cm collection in the posterior aspect of the right psoas muscle. There is a collection in the surgical bed measuring 5.1 x 1.1 x 2.1 cm. MR/MR lumbar spine wo con* [id number] IMPRESSION: 1. Multiple collections in the surgical bed at the level of the decompression between L4-L5 and in the retroperitoneum between the left psoas and left iliacus muscle and to a lesser extent posterior to the right psoas, likely postop hematomas/seromas. 2. No significant thecal sac compression.
--- NOTE | 2024-04-27 13:10 | P.CONIM_ITS ---
Providers/Reason For Consult 2 Consulting Physician/Specialty*: Hospitalist Reason for Consult*: Back pain and pain rating to her leg right greater than left Attending Physician: Haresh Escoto MD Primary Care Provider: Yessy Youssef History of Present Illness History of Present Illness Mandy Turner is a 39 year old female is postop day 6 from a L4-S1 fusion and decompression patient is complaining of back pain and pain radiating to her right leg. Review of Systems 2 Const: Denies: fever(s) Eyes: Denies: change in vision ENMT: Denies: throat pain Card: Denies: chest pain Musc: Reports: back pain Medications/Allergies Home Medications ?Medication ?Instructions ?Recorded ?Confirmed ?Last Taken ?Type kwteaun-aeaeyahygocjt-rdbwqbog 250 2 tab PO Q6H PRN Mi graine Headache 03/17/19 04/27/24 09/19/22 History mg-250 mg-65 mg tablet (Excedrin 2 ta bs Migraine) albuterol sulfate 90 mcg/actuation 2 puff inhalation Q 6H PRN 12/10/23 04/27/24 04/21/24 History aerosol inhaler Shortness Of Breath Bone Growth Stimulator #1 ea 04/08/24 04/27/24 Unkn own Rx quetiapine 50 mg tablet 50 mg PO .qhs 04/15/2404/2704/20/24 History hydrocodone 5 mg-acetaminophen 325 1 - 2 tab PO .Q4-6H #40 tabs 04/22/24 04/27/24 Unknown Rx mg tablet Allergies Allergy/AdvReac Type Severity Reaction Status Date / Time adhesive Allergy ALGY-Bliste Verified 04/26/24 19:22 r Current Medications Generic Name Dose Route Start Last Admin Trade Name Freq PRN Reason Stop Dose Admin Hydrocodone Bitart/Acetaminophen 1 - 2 tab 04/27/24 12:48 04/27/24 12:58 Hydrocodone-Acetaminophen 5-325 Mg Tablet PO 2 tab Q4H PRN Administration MODERATE TO SEVERE PAIN Hydromorphone HCl 0.4 mg 04/27/24 00:30 04/27/24 09:13 Hydromorphone 0.5 Mg/0.5 Ml Inj IVP 0.4 mg Q4H PRN Administration Back pain Piperacillin Sod/Tazobactam 50 mls @ 12.5 mls/hr 04/27/24 09:00 04/27/24 09:08 Sod 3.375 gm/ Sodium Chloride IV 12.5 mls/hr Q8H FABIOLA Administration Senna/Docusate Sodium 1 tab 04/27/24 09:00 04/27/24 09:14 Sennosides-Docusate Tablet PO 1 tab DAILY FABIOLA Administration PFSH Acute 2 PFSH: Medical History Lateral epicondylitis of elbow Migraine Lumbar disc disease Asthma Lumbar post-laminectomy syndrome Surgical History History of tubal ligation 11/2014: precedure done via umbilicus. Performed in [place], [place]. History of adenoidectomy Tonsillectomy and adenoidectomy done at the age of 19 History of eye surgery Strabismus 2010 History of lumbar surgery 07/27/2016 left L4-L5 reexploration. 06/2010 Left L4-L5 Family History Father Hypertension Diabetes Mother Heart disease Social History Smoking and tobacco/nicotine status: current every day tobacco/nicotine user Alcohol intake: current Alcohol intake frequency: holidays/special occasions only Substance/Drug Use: never Marital status: Current occupational status: disabled Vitals/I&O/Wt Last Vital Signs Temp 98.4 F 04/27/24 10:00 Pulse 107 H 04/27/24 10:00 Resp 17 04/27/24 10:00 BP 99/64 04/27/24 10:00 Pulse Ox 97 04/27/24 10:00 O2 Del Method Room Air 04/27/24 10:00 04/26/24 04/27/24 04/27/24 22:59 06:59 14:59 Intake Total 1693.75 / 1693.75 740 / 740 Output Total 650 / 650 1300 / 1300 Balance 1043.75 / 1043.75 -560 / -560 Weight last 48 hrs Weight 175 lb Weight 175 lb 3 oz Weight 166 lb Physical Exam 2 Narrative: Dressing is taken down wound looks clean dry and intact. Patient is complaining of pain in both legs right greater. Urinary Catheter Management: Tanner: Cath Placed During This Visit: yes Reason for Continuing Indwelling Catheter: Other Urinary Catheter Date of Insertion: 04/27/24 Urinary Catheter Time of Insertion: 02:18 Data 04/27/24 05:02 04/27/24 05:02 A&P Assessment and plan (1) History of lumbar surgery: Will plan to get an MRI of her lumbar spine to further evaluate was going on. Of note CT scan showed: Asymmetric densities and small air/gas in the fat lateral to left psoas muscle again noted and is without significant change. Haziness/edema extends into the upper pelvis adjacent to iliacus musculature. Small bladder gas can be correlated with any recent instrumentation or urinalysis abnormality. Will evaluate tomorrow will see what MRI shows. PDMP PDMP Reviewed: Not Reviewed Consult Attestations 2 Medical Necessity Statement: Pain control Coding Level of Care Code Acute Code for Chg Fwd Diagnoses History of lumbar surgery Z98.890
[2024-04-27] MEDS: vancomycin 1,250 MG/250 ML PIGGYBACK 166.67 MG IV (14:18)
--- NOTE | 2024-04-27 14:23 | P.PN_ITS ---
Subjective 2 Subjective: Patient was seen this morning, she is alert awake, following all commands, complaining of low back pain, no urine incontinence, no bowel incontinence, no saddle perineal anesthesia, she tells me that when she got home from her surgery she felt better, but yesterday she thought she might of done too much, overexerted herself,, denies any fevers, denies any chills, she tells me she chronically has a low blood pressure and usually that is an issue when she gets pain medications, currently is in moderate to severe pain, denies any saddle perineal anesthesia, no urinary or bowel incontinence Vitals/I&O/Wt Last Vital Signs Temp 98.4 F 04/27/24 10:00 Pulse 107 H 04/27/24 10:00 Resp 17 04/27/24 10:00 BP 99/64 04/27/24 10:00 Pulse Ox 97 04/27/24 10:00 O2 Del Method Room Air 04/27/24 10:00 04/26/24 04/27/24 04/27/24 22:59 06:59 14:59 Intake Total 1693.75 / 1693.75 1290 / 1290 Output Total 650 / 650 1300 / 1300 Balance 1043.75 / 1043.75 -10 / -10 Weight last 48 hrs Weight 79.379 kg Weight 79.379 kg Weight 79.464 kg Weight 75.296 kg Physical Exam 2 Const: COMMON NORMALS: no acute distress and patient oriented x3 Resp: COMMON NORMALS: normal respiratory effort, No retractions, No use of accessory muscles and clear to auscultation bilaterally AUSCULTATION: clear to auscultation bilaterally Cardio: COMMON NORMALS: regular rate, regular rhythm, S1 normal heart sound present and S2 normal heart sound present RATE: regular rate RHYTHM: r egular rhythm HEART SOUNDS: S1 normal heart sound present and S2 normal heart sound present GI: COMMON NORMALS: Normal to inspection, nondistended, normoactive bowel sounds present and non-tender Extremity: COMMON NORMALS: no pedal edema Neuro: COMMON NORMALS: patient oriented x3, CN's II-XII intact bilaterally, moves all extremities and no focal motor deficits OTHER: Good and equal strength in bilateral extremities Psych: COMMON NORMALS: mental status grossly normal Urinary Catheter Management: Tanner: Cath Placed During This Visit: yes Reason for Continuing Indwelling Catheter: Other Urinary Catheter Date of Insertion: 04/27/24 Urinary Catheter Time of Insertion: 02:18 Data 04/27/24 05:02 04/27/24 05:02 A&P Assessment and plan (1) Lumbar post-laminectomy syndrome: (2) History of lumbar surgery: (3) Intractable back pain: (4) Nicotine dependence, cigarettes, uncomplicated: Plan Patient's status post lumbar L4/S1 fusion, postop operative day 6, with complaints of increased pain in her lower back, is able to ambulate CT scan lumbar spine CT/CT lumbar spine wo con* [id number] IMPRESSION: Surgical changes L4-S1. Changes in the intra-abdominal fat lateral to left psoas muscle raise question of hemorrhage or infectious process CT abdomen pelvis CT/CT abdomen pelvis w con* [id number] IMPRESSION: Asymmetric densities and small air/gas in the fat lateral to left psoas muscle again noted and is without significant change. Haziness/edema extends into the upper pelvis adjacent to iliacus musculature. Small bladder gas can be correlated with any recent instrumentation or urinalysis abnormality. -No fever, -CRP 109, Pro-Reynaldo within normal limits -Etiology left psoas musculature density phlegmon versus hematoma -Surgical site, hematoma versus infection Plan -MRI lumbar spine ordered -Hold off on Lovenox for now, SCDs for DVT prophylaxis -Continue Decadron -Vancomycin -Continue Zosyn -Monitor hemoglobin -Dr. Bailey on consult -Soft blood pressures, with history of chronic low blood pressures, fluid therapy, -Dilaudid 0.5 mg every 4 hours as needed for pain Continue opioids, received ketorolac in the ER as well DVT prophylaxis: SCDs avoiding anticoagulating agent in case patient has development of hematoma postoperatively. Full code Intractable back pain as above PDMP PDMP Reviewed: Not Reviewed Attestations 2 Medical Necessity Statement*: Patient requires hospitalization for intractable back pain, postop day 6 from L4/S1 fusion, with findings of left psoas musculature phlegmon versus hematoma Diagnoses Lumbar post-laminectomy syndrome M96.1 History of lumbar surgery Z98.890 Intractable back pain M54.9 Nicotine dependence, cigarettes, uncomplicated F17.210
[2024-04-27] MEDS: dexamethasone 10 mg/mL INJ 6 MG IVP (18:12)
[2024-04-27] MEDS: HYDROcodone-acetaminophen 5-325 mg Tablet 1 TAB PO (23:41)
[2024-04-28 00:04] VITALS: BP 98/63; PULSE 100; RESP 18; TEMP 36.8; O2SAT 95
[2024-04-28] MEDS: piperacillin-tazobactam 3.375 GM in sodium chloride 0.9% (plus) 50 ML IV ×2 (01:04→08:10)
[2024-04-28] MEDS: HYDROmorphone 0.5 MG/0.5 ML INJ 0.4 MG IVP ×2 (01:09→09:57)
[2024-04-28] MEDS: HYDROcodone-acetaminophen 5-325 mg Tablet PO ×2 (01:56→06:04)
[2024-04-28] MEDS: vancomycin 1,250 MG/250 ML PIGGYBACK 166.67 MG IV (03:11)
[2024-04-28 04:11] VITALS: BP 103/69; PULSE 90; RESP 17; TEMP 36.6; O2SAT 96
[2024-04-28] MEDS: acetaminophen 500 mg Tablet PO (04:18)
[2024-04-28 05:37] LABS: Basophils % 0.1 %; Lymphocytes # 1.9 10^3/uL (0.8-4.8); Lymphocytes % 14.8 %; Mean Corpuscular HGB Conc 32.4 g/dL (30-55); Mean Corpuscular Hemoglobin 28.6 pg (27-33); Mean Corpuscular Volume 88.2 fl (85-98); Mean Platelet Volume 9.5 fL (7.4-10.4); Monocytes # 0.6 10^3/uL (0.2-0.9); Neutrophils # 10.16 10^3/uL (1.8-7.7); Neutrophils % 79.2 %; Nucleated Red Blood Cells % 0 %; Platelet Count 446 10^3/cmm (157-399); Red Blood Count 3.74 10^6/uL (3.85-5.65); Red Cell Distribution Width 13.3 % (12.1-15.1); White Blood Count 12.83 10^3/uL (3.29-11.43)
[2024-04-28 05:59] LABS: Anion Gap 15.5 (5-19); Blood Urea Nitrogen 11 mg/dL (6-20); Calcium 9.4 mg/dL (8.5-10.5); Carbon Dioxide 24 mmol/L (22-29); Chloride 102 mmol/L (98-107); Creatinine Clr Calc Pharmacy 147.1029; Glomerular Filtration Rate 136.6 mL/min (90-130); Glucose 124 mg/dL (65-115); Osmolality Calculated 285 mOsm/kg (285-295); Potassium 4.5 mmol/L (3.5-5.1); Sodium 137 mmol/L (136-145)
[2024-04-28 07:51] VITALS: BP 96/67; PULSE 82; RESP 16; TEMP 36.7; O2SAT 95
[2024-04-28] MEDS: sennosides-docusate Tablet 1 TAB PO (08:10)
--- NOTE | 2024-04-28 09:38 | P.PN_ITS ---
Subjective 2 Subjective: Please continue to have the right hip and leg pain. Vitals/I&O/Wt Last Vital Signs Temp 98.1 F 04/28/24 07:51 Pulse 82 04/28/24 07:51 Resp 16 04/28/24 07:51 BP 96/67 04/28/24 07:51 Pulse Ox 95 04/28/24 07:51 O2 Del Method Room Air 04/28/24 07:51 04/27/24 04/28/24 04/28/24 22:59 06:59 14:59 Intake Total 980 / 2364.446 520.000 / 2884.446 Output Total 1360 / 2660 700 / 3360 Balance -380 / -295.554 -180.000 / -475.554 Weight last 48 hrs Weight 170 lb 1.6 oz Weight 175 lb Weight 175 lb Weight 175 lb 3 oz Weight 166 lb Physical Exam 2 Narrative: Continues to have the leg pain she is resting bed when she is laying there and she is comfortable. MRIs reviewed looks like there is no compression of the nerves there is fluid in the iliac area this is likely from either bone marrow aspirate that was done or possibly from the pins are placed into her pelvis for the fiducial for the computer navigation. Urinary Catheter Management: Tanner: Cath Placed During This Visit: yes Reason for Continuing Indwelling Catheter: Required Immobilization for Trauma or Surgery or Anesthesia Urinary Catheter Date of Insertion: 04/27/24 Urinary Catheter Time of Insertion: 02:18 Data 04/28/24 04:32 04/28/24 04:32 A&P Assessment and plan (1) Status post lumbar spinal fusion: Patient MRIs reviewed looks like she may have a hematoma from where the pins were placed for the fiducial for the computer navigation. Or possibly from where the bone marrow aspiration was taken. At this point is likely a hematoma. Do not feel this is infection. I increase her pain meds from hydrocodone 5 to hydrocodone 10 She can likely discharge today from an orthopedic standpoint PDMP PDMP Reviewed: Not Reviewed Attestations 2 Medical Necessity Statement*: Per primary service Coding Level of Care Code Acute Code for Chg Fwd Diagnoses Status post lumbar spinal fusion Z98.1
--- NOTE | 2024-04-28 09:53 | PC.CHAP ---
Pastoral Care Encounter/Spiritual Assessment Type of Contact [] Declined gas worker visit [] Patient/Family/Request visit [] Outpatient visit [] Follow-up visit [] Physician referral [] Code/Alert [x] Routine visit [] Staff referral [] Actively dying [] Patient sleeping [] Family support [] [] Out of room [] Palliative care [] [x] Receiving care in room [] Pre-surgical visit [] Trauma [] Long length of stay [] ICU visit [] Other: Relational/Emotional Strength [] Patient feels connected with others/family/visitors/staff [] Distress [] Loneliness/isolation [] Abandonment Spirituality of Patient [] Person of [place] [] Attends Holiness of their [place] [] Believes in Prayer [] Reads Bible or Sikh materials [] There are Spiritual issues to be addressed 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 [x] Prayer [] Active listening [] Non-anxious presence [] Spiritual/emotional support [] Crisis/trauma care [] Spiritual counseling [] Bereavement support [] Provided bereavement packet [] Provided Bible/devotional materials [] Provided toy/stuffed animal, coloring book to patient or family member [] Provided Communion [] Anointing/[place] [] Salvation [] Completed spiritual assessment [] Other: Impact on Illness or Injury [] Angry [] Fearful [] Anxious [] Often cries [] Exhaustion [] Unable to work [] Unable to attend pentecostalism [] Unable to walk/stand [] Unable to read [] Unable to drive [] Unable to eat/drink [] Unable to sleep [] Unable to be with family [] Patient intubated [] Other: Summary Time spent with patient
[2024-04-28 11:29] VITALS: BP 120/76; PULSE 96; RESP 18; TEMP 36.6; O2SAT 96
--- NOTE | 2024-04-28 12:49 | PM.DCS ---
Discharge Providers Date of Admission: 04/27/24 01:07 Date of Discharge: April 28, 2024 Attending Provider at Admission: Adebayo Garcia MD Attending Provider at Discharge: Eduardo Welch MD Consults: Orthopedics: Dr. Bailey Primary Care Provider: Yessy Youssef Diagnoses at Discharge Discharge Diagnosis (1) Status post lumbar spinal fusion: Status: Acute Reason for Visit Reason for Visit: back pain post op Brief History: History as per HPI: Mandy Turner is a 39 year old female postop day 6 status post L4 S1 PLIF with Dr. Bailey 04/21 presenting for worsening of lower back pain. Patient is stating that she has been using a walker now after surgery, she has not noticed any fever nausea vomiting. Since surgery her first bowel movement was on 04/26. Stating that her pain has gotten worse after surgery. CT scan of lumbar pelvic area showed asymmetrical densities air/gas left psoas muscle extending into upper pelvis adjacent to iliac us, possible hematoma versus phlegmon 2.5 cm left psoas musculature. Patient is stating that her pain is not well-controlled with the opioids that she was getting at home. She had 1 shot of alcohol yesterday, she smokes on daily basis as well. Hospital Course Hospital Course Patient was admitted to the hospital further evaluation and management of significant pain. Recent lumbar laminectomy. Orthopedic surgery was consulted. There is a concern for phlegmon versus hematoma due to collection in the left psoas muscle. MRI was done which was consistent with hematoma. As patient did not have any fever during hospitalization and as per the MRI images it is believed that patient has hematoma and no concerns for abscess. She has been discharged in hemodynamically stable condition on pain medication as per orthopedic team with advised to follow-up with primary care provider within next 1 week and orthopedic team in 2 weeks. Physical Exam Const: COMMON NORMALS: no acute distress and patient oriented x3 Resp: COMMON NORMALS: normal respiratory effort, No retractions, No use of accessory muscles and clear to auscultation bilaterally AUSCULTATION: clear to auscultation bilaterally Cardio: COMMON NORMALS: regular rate, regular rhythm, S1 normal heart sound present and S2 normal heart sound present RATE: regular rate RHYTHM: regular rhythm HEART SOUNDS: S1 normal heart sound present and S2 normal heart sound present GI: COMMON NORMALS: Normal to inspection, nondistended, normoactive bowel sounds present and non-tender Extremity: COMMON NORMALS: no pedal edema Neuro: COMMON NORMALS: patient oriented x3, CN's II-XII intact bilaterally, moves all extremities and no focal motor deficits OTHER: Good and equal strength in bilateral extremities Psych: COMMON NORMALS: mental status grossly normal Urinary Catheter Management: Tanner: Cath Placed During This Visit: yes Reason for Continuing Indwelling Catheter: Required Immobilization for Trauma or Surgery or Anesthesia Urinary Catheter Date of Insertion: 04/27/24 Urinary Catheter Time of Insertion: 02:18 Discharge Data Studies Completed and Pending Completed Studies During Hospitalization Category Date Time Status CT abdomen pelvis w con* [id number] Stat Cat Scan 04/26/24 22:[address] lumbar spine wo con* [id number] Stat Cat Scan 04/26/24 19:38 Completed MR lumbar spine wo con* [id number] Routine MRI 04/27/24 13:08 Completed Pending at discharge Category Date Time Status Basic Metabolic Panel AM LABS Lab 04/29/24 04:00 Ordered Basic Metabolic Panel AM LABS Lab 04/30/24 04:00 Ordered Complete Blood Count w/Auto AM LABS Lab 04/29/24 04:00 Ordered Complete Blood Count w/Auto AM LABS Lab 04/30/24 04:00 Ordered Vancomycin Trough Timed Lab 04/29/24 02:00 Ordered Radiology Impressions Lumbar Spine CT 04/26/24 19:38 IMPRESSION: Surgical changes L4-S1. Changes in the intra-abdominal fat lateral to left psoas muscle raise question of hemorrhage or infectious process Abdomen/Pelvis CT 04/26/24 22:56 IMPRESSION: Asymmetric densities and small air/gas in the fat lateral to left psoas muscle again noted and is without significant change. Haziness/edema extends into the upper pelvis adjacent to iliacus musculature. Small bladder gas can be correlated with any recent instrumentation or urinalysis abnormality. Lumbar Spine MRI 04/27/24 13:08 IMPRESSION: 1. Multiple collections in the surgical bed at the level of the decompression between L4-L5 and in the retroperitoneum between the left psoas and left iliacus muscle and to a lesser extent posterior to the right psoas, likely postop hematomas/seromas. 2. No significant thecal sac compression. Laboratory Results WBC 12.83 10^3/uL (3.29-11.43) H 04/28/24 04:32 RBC 3.74 10^6/uL (3.85-5.65) L 04/28/24 04:32 Hgb 10.70 g/dL (11.27-16.99) L 04/28/24 04:32 Hct 33.0 % (36-47) L 04/28/24 04:32 MCV 88.2 fl (85-98) 04/28/24 04:32 MCH 28.6 pg (27-33) 04/28/24 04:32 MCHC 32.4 g/dL (30-55) 04/28/24 04:32 RDW 13.3 % (12.1-15.1) 04/28/24 04:32 Plt Count 446 10^3/cmm (157-399) H 04/28/24 04:32 MPV 9.5 fL (7.4-10.4) 04/28/24 04:32 Neut % (Auto) 79.2 % 04/28/24 04:32 Lymph % (Auto) 14.8 % 04/28/24 04:32 [place] % (Auto) 5.0 % 04/28/24 04:32 Eos % (Auto) 0.0 % 04/28/24 04:32 Baso % (Auto) 0.1 % 04/28/24 04:32 Neut # (Auto) 10.16 10^3/uL (1.8-7.7) H 04/28/24 04:32 Lymph # (Auto) 1.9 10^3/uL (0.8-4.8) 04/28/24 04:32 [place] # (Auto) 0.6 10^3/uL (0.2-0.9) 04/28/24 04:32 Eos # (Auto) 0.0 10^3/uL (0.0-0.8) 04/28/24 04:32 Baso # (Auto) 0.0 10^3/uL (0.0-0.1) 04/28/24 04:32 Nucleated RBC % (auto) 0 % 04/28/24 04:32 Nucleated RBCs # 0.0 /100WBC 04/28/24 04:32 Sodium 137 mmol/L (136-145) 04/28/24 04:32 Potassium 4.5 mmol/L (3.5-5.1) 04/28/24 04:32 Chloride 102 mmol/L (98-107) 04/28/24 04:32 Carbon Dioxide 24 mmol/L (22-29) 04/28/24 04:32 Anion Gap 15.5 (5-19) 04/28/24 04:32 BUN 11 mg/dL (6-20) 04/28/24 04:32 Creatinine 0.5 mg/dL (0.5-0.9) 04/28/24 04:32 GFR Calculation 136.6 mL/min (90-130) H 04/28/24 04:32 Glucose 124 mg/dL (65-115) H 04/28/24 04:32 Calculated Osmolality 285 mOsm/kg (285-295) 04/28/24 04:32 Lactic Acid 1.0 mmol/L (0.5-2.2) 04/26/24 22:52 Calcium 9.4 mg/dL (8.5-10.5) 04/28/24 04:32 Magnesium 2.0 mg/dL (1.7-2.3) 04/28/24 04:32 Total Bilirubin 0.2 mg/dL (0.15-1.2) 04/26/24 22:52 AST 71 U/L (0-32) H 04/26/24 22:52 ALT 53 U/L (0-33) H 04/26/24 22:52 Alkaline Phosphatase 129 U/L (35-105) H 04/26/24 22:52 C-Reactive Protein 109.0 mg/L (0.0-4.9) H 04/27/24 05:02 Total Protein 7.2 g/dL (6.6-8.7) 04/26/24 22:52 Albumin 3.9 g/dL (3.5-5.2) 04/26/24 22:52 Globulin 3.3 g/dL (1.3-4.6) 04/26/24 22:52 Procalcitonin 0.04 ng/mL (0-0.5) 04/26/24 22:52 Urine Color Yellow (Yellow) 04/27/24 00:25 Urine Appearance Clear (CLEAR) 04/27/24 00:25 Urine pH 8.0 (5-7) A 04/27/24 00:25 Ur Specific [place] 1.033 (1.005-1.030) H 04/27/24 00:25 Urine Protein Negative (Negative) 04/27/24 00:25 Urine Glucose (UA) Negative (Normal) 04/27/24 00:25 Urine Ketones 1+ (Negative) H 04/27/24 00:25 Urine Blood Trace (Negative) A 04/27/24 00:25 Urine Nitrate Negative (Negative) 04/27/24 00:25 Urine Bilirubin Negative (Negative) 04/27/24 00:25 Urine Urobilinogen 0.2 mg/dL (Negative) 04/27/24 00:25 Ur Leukocyte Esterase Negative (Negative) 04/27/24 00:25 Urine RBC 0-2 /hpf (0-2) 04/27/24 00:25 Urine WBC 0-5 /hpf (0-5) 04/27/24 00:25 Ur Squamous Epith Cells 0-5 /hpf (0-5) 04/27/24 00:25 Amorphous Sediment Not Reportable 04/27/24 00:25 Urine Bacteria None seen /hpf (NONE) 04/27/24 00:25 Hyaline Casts 0-4 /lpf H 04/27/24 00:25 Vitals Last Vital Signs Temp 97.9 F 04/28/24 11:29 Pulse 96 04/28/24 11:29 Resp 18 04/28/24 11:29 BP 120/76 04/28/24 11:29 Pulse Ox 96 04/28/24 11:29 O2 Del Method Room Air 04/28/24 11:29 Discharge Plan Discharge Patient Disposition: Home Condition: Stable Prescriptions: No Action Excedrin Migraine 250-250-65 mg tablet 2 tab PO Q6H PRN (Reason: Migraine Headache) albuterol sulfate 90 mcg/actuation HFA aerosol inhaler 2 puff inhalation Q6H PRN (Reason: Shortness Of Breath) quetiapine 50 mg tablet 50 mg PO .qhs (DME) Bone Growth Stimulator See Rx Instructions .Route .MEDSUPPLY Qty: 1 0RF Rx Instructions: As directed hydrocodone-acetaminophen 5-325 mg tablet 1 - 2 tab PO .Q4-6H Qty: 40 0RF Discharge Orders: Discharge Order (Routine); Ordered 04/28/24 Ordered By: Eduardo Welch Referrals: Yessy Youssef PA [Primary Care Provider] - 7-10 days Suhail Bailey DO [Physician] - 2 weeks Discharge Diet: Regular Discharge Activity: Resume usual activity and Increase activity as tolerated Patient Instructions: Opioid Safety Discharge Attestations Time Spent in Discharge Care*: greater than 30 min Specific Discharge Activities: educating patient, discussing with pcp/other providers, discussing with director case management/social workers/dc planners, documenting/other paperwork and evaluating patient/reviewing data Status at Discharge: Cognitive status at discharge: cognitively intact, Behavioral status at discharge: cooperative, Functional status at discharge: independent ambulation, Overall status at discharge: patient is back to baseline Quality Metrics Clinical Quality Measures [ No reported AMI, CVA or VTE this stay] Coding Level of Care Code 66164 Total time (in minutes) for Discharge: 50 Diagnoses Status post lumbar spinal fusion Z98.1
[2024-04-28] MEDS: HYDROcodone-acetaminophen 10-325 mg Tablet PO (13:05)
[2024-04-28 15:56] VITALS: BP 94/61; PULSE 94; RESP 18; TEMP 36.6; O2SAT 99
[2024-04-28 16:06] VITALS: BP 94/61; PULSE 91; RESP 18; TEMP 36.6; O2SAT 91
== END 2024-04-28 15:45 | disposition home or self-care (01) ==
LOC: ER 04-27 00:48 → MEDSURG 04-27 02:23
PROVIDERS: Family Medicine; Admitting Provider Internal Medicine; Emergency Provider Nurse Practitioner; PCP Physician Assistant; Visit Provider Student in an Organized Health Care Education/Training Program
DX: G89.18 Other acute postprocedural pain (principal); Z98.1 Arthrodesis status; M25.551 Pain in right hip; M79.604 Pain in right leg; F17.210 Nicotine dependence, cigarettes, uncomplicated
CPT/HCPCS: 36415; 51702; 72131; 72148; 74177; 80048; 80053; 81001; 83605; 83735; 84145; 85025; 86140; 96372; G0378; J1100; J1171; J1885; J2543; J3370; J3372; J7030; J7120; J9999; Q9967

== ENCOUNTER → 2024-05-06 07:52 | Outpatient (BNVA) | payer MEDICAID, SELFPAY | PROVIDERS: PCP Physician Assistant; Visit Provider Orthopaedic Surgery | DX: Z98.1 Arthrodesis status (principal) | CPT/HCPCS: 99024 ==

== ENCOUNTER → 2024-06-03 08:45 | Outpatient (BNVA) | payer MEDICAID, SELFPAY | PROVIDERS: PCP Physician Assistant; Visit Provider Orthopaedic Surgery | DX: Z98.1 Arthrodesis status (principal) | CPT/HCPCS: 72100; 99024 ==

== ENCOUNTER → 2024-07-15 08:48 | Outpatient (BNVA) | payer MEDICAID, SELFPAY | PROVIDERS: PCP Physician Assistant; Visit Provider Orthopaedic Surgery | DX: Z98.1 Arthrodesis status (principal) | CPT/HCPCS: 72100; 99024 ==

== ENCOUNTER → 2024-08-28 07:41 | Outpatient (BNVA) | payer MEDICAID, SELFPAY | PROVIDERS: PCP Physician Assistant; Referring Provider Physician Assistant; Visit Provider Specialist | DX: R56.9 Unspecified convulsions (principal) | CPT/HCPCS: 95819 ==

== ENCOUNTER 2024-10-01 15:26 | Emergency (ER) | payer MEDICAID, SELFPAY ==
--- OUTSIDE RECORDS SUMMARY | 2023-12-09 04:00 | XMS_ITS ---
Author Organization [facility] Address [address] [place] [address] Care Team Providers Care Trade Clerk Name Role Phone DARIEN LYNN Jr, MD Primary Care Provider Unav ailable German Lizarraga Unavailable [phone] Migration, Provider Unavailable Unavailable REASON FOR VISIT EMR-Matthew Encounters Encounter Location Date Provider Diagnosis Migrated_Facility 0 0 12/09/2023 Provider Migration Plan Of Treatment No Information Progress Notes * Mandy TURNER YDOB: [birth year] (39 yo F)Acc No.[id number]:12/09/2023 Patient: Mandy LEE :1985 A ge:38 Y S ex:Female Address:[address] [place] [address], [phone] Subjective: * Chief Complaints: * E MR-Matthew * * Date:
--- OUTSIDE RECORDS SUMMARY | 2024-02-12 05:40 | XMS_ITS ---
Author Organization [facility] Address [address] [place] [address] Care Team Providers Care Tankage Grinder Operator Name Role Phone DARIEN LYNN Jr, MD Primary Care Provider Unacm LizarragaGerman Unavailable [phone] Almita Escalera Unavailable [phone] REASON FOR VISIT Procedure f/u Medications Medication [...] Status Risk Notes Problem Chronic pain syndrome (997844503) Chronic pain syndrome (G89.4) Active confirmed Problem Lumbosacral radiculopathy (2165991) Radiculopathy, lumbosacral region (M54.17) Active confirmed Encounters Encounter Location Date Provider Diagnosis [facility] Management [address] [phone] [facility] Chronic pain syndrome G89.4 ; [...] Drug Screen None- N o meds prescribed [place] Pres[place] Monitoring [place] reviewed- 10/18/23 [...] * Mandy TURNERDOB: [birth year] (39 yo F)Acc No.[id number]:02/12/2024 Progress Notes Patient: Mandy Amezcua Provider: Miguel Escalera MD :1985 A ge:39 Y S ex:Female Date:02/12/2024 Address:[address] [place], [place] [id number] Pcp:DARIEN LYNN Jr, MD Subjective: * Chief [...] Drug Screen N one- No meds prescribed. [place] Prescription Monitoring Program [place] PDMP reviewed- [...] Electronic signature of Nancy Escalera MD on 10/01/2024 at 03:33 PM CDT Sign off status: Pending * Provider: Miguel Escalera MD Date: 1 Generated for Jerad chapin/Law/Alisia on: 0 10/01/2024 03:33 PM CDT
[2024-10-01 15:30] VITALS: BP 119/79; PULSE 100; RESP 16; O2SAT 97
--- OUTSIDE RECORDS SUMMARY | 2024-10-01 15:33 | XMS_ITS | Encounter Summary ---
Author Organization [facility] Address [address] [facility] [place] [address] Care Team Providers Care Secondary Connector Armature Name Role Phone Remberto Keith MD Primary Care Provider [phone] Encounter Details Date Type Department Care Team (Late st Contact Info) Description 09/27/2009 Emergency [facility] Emergency Department [address] [place] [address] Olu Alfredo MD Unspecified Site of Sacroiliac Region Sprain and Strain (Primary Dx) Social History Tobacco Use Types Packs/Day Years Used Date Smoking Tobacco: Never Assessed Comments Unknown Sex and Gender Information Value Date Recorded Sex Assigned at Not on file Legal Sex Female 11:09 AM MANAGER CALL Gender Identity Not on file Sexual Orientation Not on file documented as of this encounter Plan of Treatment Not on file documented as of this encounter Visit Diagnoses Diagnosis Sprain of unspecified site of sacroiliac region- Primary documented in this encounter Care Teams Secondary Connector Armature Relationship Specialty Start Date End Date Remberto Keith MD [address] [place] [address] PCP - General 04/16/15 documented as of this encounter
--- OUTSIDE RECORDS SUMMARY | 2024-10-01 15:33 | XMS_ITS | Clinical Summary ---
Author Organization [facility] Address [address] [facility] Attn: Epic Prelude ADT DEANNA MARTINEZ [address] Care Team Providers Care Manager Enterprise Name Role Phone Remberto Keith MD Primary Care Provider [phone] Allergies Active Allergy Reactions Criticality Noted Date Comments Amoxicillin Hives High 07/01/2013 Active Problems Problem Noted Date Diagnosed Date Small bowel obstruction 01/30/2013 Family History Medical History Relation Name Comments Unknown Father Depression Mother Heart Disease Mother Hypertension Mother Relation Name Status Comments Father Mother Social History Tobacco Use Types Packs/Day Years Used Date Smoking Tobacco: Every Day Cigarettes Smokeless Tobacco: Former Alcohol Use Standard Drinks/Week Comments No 0 (1 standard drink = 0.6 oz pur e alcohol) Comments Unknown Sex and Gender Information Value Date Recorded Sex Assigned at Not on file Legal Sex Female 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 Gender Identity Not on file Sexual Orientation Not on file Plan of Treatment Health Maintenance Due Date Last Done Comments HPV VACCINES (1 - 3-dose series) 01/21/1999 DTAP/TDAP/TD VACCINES (1 - Tdap) 01/21/2003 HEPATITIS B VACCINES (1 of 3 - 19+ 3-dose series) 01/12 HPV/Cotest (21-29) 01/21/2005 CERVICAL CANCER SCREENING 01/21/2014 HPV/Cotest (30-65) 01/21/2014 PAP SMEAR 01/21/2014 BREAST CANCER SCREENING 2024 INFLUENZA VACCINE (#1) 2024 Care Teams Manager Enterprise Relationship Specialty Start Date End Date Remberto Keith MD [address] [place] [phone] [facility] - General 04/16/15
--- OUTSIDE RECORDS SUMMARY | 2024-10-01 15:33 | XMS_ITS | Clinical Summary ---
Author Organization [facility] Address [address] [facility] [place] [address] Care Team Providers Care Physical Medicine Specialist Name Role Phone Remberto Keith MD Primary Care Provider [phone] Allergies Active Allergy Reactions Criticality Noted Date Comments Amoxicillin Hives High 07/01/2013 Medications gabapentin (NEURONTIN) 300 mg Oral tablet Take 300 mg by mouth 3 times daily. Active SUMAtriptan (IMITREX) 50 mg Oral tablet Take 50 mg by mouth every 2 hours as needed. may repeat in 2 hours; max dose 200mg in 24 hours Active albuterol (PROVENTIL,VENT KAILEY) 90 mcg/Actuation Inhalation HFAA Take 1 Puff by inhalation one time only. Active loratadine (CLARITIN) 10 mg Oral tablet Take 10 mg by mouth daily. Active QUEtiapine (SEROQUEL) 100 mg Oral tablet Take 100 mg by mouth 2 times daily. Active buPROPion (WELLBUTRIN) 100 mg Oral tablet Take 50 mg by mouth 2 times daily. Active traZODone (DESYREL) 100 mg tablet Take 100 mg by mouth 2 times daily. Active sertraline (ZOLOFT) 100 mg tablet Take 100 mg by mouth daily. Active budesonide-form oterol (SYMBICORT) 160-4.5 mcg/actuation HFA Aerosol Inhaler Take 2 Puffs by inhalation 2 times daily. Active omeprazole (PRILOSEC) 20 mg Capsule, Delayed Release(E.C.) Take 20 mg by mouth daily. Active ondansetron (ZOFRAN) 4 mg Tablet Take 1 Tab by mouth every 8 hours as needed for Nausea/Emesis. 12 Tab None 4 Active Active Problems Problem Noted Date Diagnosed Date Small bowel obstruction 01/30/2013 Family History Medical History Relation Name Comments Unknown Father Depression Mother Heart Disease Mother Hypertension Mother Relation Name Status Comments Father Mother Social History Tobacco Use Types Packs/Day Years Used Date Smoking Tobacco: Every Day Cigarettes Smokeless Tobacco: Former Tobacco Cessation:Ready to Q uit: No; Counseling Given: Yes Alcohol Use Standard Drinks/Week Comments No 0 (1 standard drink = 0.6 oz pur e alcohol) Comments No Sex and Gender Information Value Date Recorded Sex Assigned at Not on file 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 Gender Identity Not on file Sexual Orientation Not on file Occupation Industry Job Start Date Job End Date Not on file Not on file Not on file Not on file Not on file Not on file Not on file Not on file Last Filed Vital Signs Vital Sign Reading Time Taken Comments Blood Pressure 93/53 07/01/2013 7:17 PM CDT Pulse 88 07/01/2013 7:17 PM CDT Temperature 36.7 C (98 F) 07/01/2013 7:17 PM CDT Respiratory Rate 20 07/01/2013 7:17 PM CDT Oxygen Saturation 98% 07/01/2013 7:17 PM CDT Inhaled Oxygen Concentration - - Weight 59 kg (130 lb) 07/01/2013 7:17 PM CDT Height 152.4 cm (5') 07/01/2013 7:17 PM CDT Body Mass Index 25.39 07/01/2013 7:17 PM CDT Plan of Treatment Health Maintenance Due Date Last Done Comments HPV VACCINES (1 - 3-dose series) 01/21/1999 DTAP/TDAP/TD VACCINES (1 - Tdap) 01/21/2003 HEPATITIS B VACCINES (1 of 3 - 19+ 3-dose series) 01/12 HPV/Cotest (21-29) 01/21/2005 CERVICAL CANCER SCREENING 01/21/2014 HPV/Cotest (30-65) 01/21/2014 PAP SMEAR 01/21/2014 BREAST CANCER SCREENING 2024 INFLUENZA VACCINE (#1) 2024 Insurance MEDICAID [place] Care Teams Physical Medicine Specialist Relationship Specialty Start Date End Date Remberto Keith MD [address] [phone] PCP - General 04/16/15
--- OUTSIDE RECORDS SUMMARY | 2024-10-01 15:33 | XMS_ITS | Encounter Summary ---
Author Organization [facility] Address [address] [place] [address] Care Team Providers Care Front Desk Clerk Name Role Phone Remberto Keith MD Primary Care Provider [phone] Encounter Details Date Type Department Care Team (Late st Contact Info) Description 09/01/2009 Emergency [facility] Emergency Department [address] [place] [phone] [address] [address] [place] [address] Lumbago (Primary Dx) Social History Tobacco Use Types Packs/Day Years Used Date Smoking Tobacco: Never Assessed Comments Unknown Sex and Gender Information Value Date Recorded Sex Assigned at Not on file Legal Sex Female 11:09 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
--- OUTSIDE RECORDS SUMMARY | 2024-10-01 15:34 | XMS_ITS | Patient Health Record ---
Author Organization [facility] Address [address] [place] [address] Care Team Providers Care Movie Shot Camera Operator Name Role Phone DARIEN LYNN Jr, MD Primary Care Provider Unav ailable ZiaGerman douglas Unavailable [phone] Migration, Provider Unavailable Unavailable Almita Escalera Unavailable Allergies No Known Allergies Results Component Value Reference Range Notes Fluoro Needle For Placement - Spine 60457 Reviewed date:01/16/2024 06:15:14 PM Interpretation: Performing Lab: Notes/Report: Reason For Referral No Information Medications Medication SIG (Take, Route, Frequency, Duration) [...] vaping and is trying to stop. 0 patient reports quit using c igarettes. Is currently vaping and is trying to stop. patient reports quit using c igarettes. Is currently vaping and is trying to stop. patient reports quit using c igarettes. Is currently vaping and is trying to stop. 0 patient reports quit using c igarettes. Is currently vaping and is trying to stop. 0 patient reports quit using c igarettes. Is currently vaping and is trying to stop. 0 patient reports quit using c igarettes. Is currently vaping and is trying to stop. 0 patient reports quit using c igarettes. Is currently vaping and is trying to stop. 0 Problems Problem Type SNOMED Code ICD Code Onset Dates Problem Status W/U Status Risk Notes Problem Chronic pain syndrome (885726091) Chronic pain syndrome (G89.4) Active confirmed Problem Lumbosacral radiculopathy (7990826) Radiculopathy, lumbosacral region (M54.17) Active confirmed Problem Lumbar radiculopathy (686067027) Lumbar radiculopathy (M54.16) Active confirmed Problem Migraine without aura, not refractory (250823484) Migraine without aura and without status migrainosus, not intractable (G43.009) Active confirmed Problem Displacement of lumbar intervertebral disc without myelopathy (59960415) Herniated nucleus pulposus of lumbosacral region (M51.27) Active confirmed Problem Bipolar affective disorder, currently depressed, moderate (095392556) Bipolar I disorder, most recent episode (or current) depressed, moderate (296.52) 019 Active confirmed [id number] 911- Problem Bipolar affective disorder, currently manic, moderate (792599089) Bipolar I disorder, most recent episode (or current) manic, moderate (296.42) 017 Problem resolved confirmed [id number] 911- Problem Bipolar affective disorder, currently depressed, mild (669162584) Bipolar I disorder, most recent episode (or current) depressed, mild (296.51) 015 Problem resolved confirmed [id number] 911- Problem Hypercalcemia (73363001) Hypercalcemia (275.42) 017 Problem resolved confirmed [id number] 911- Problem Posttraumatic stress disorder (57435856) Posttraumatic stress disorder (309.81) 015 Problem resolved confirmed [id number] 911- Problem Acute pharyngitis (109575287) Acute pharyngitis (462) 015 Problem resolved confirmed Matthew-985 911- Problem Female stress incontinence (43115290) Female stress incontinence (625.6) 019 Problem resolved confirmed Matthew-985 911- Problem Impetigo (36900198) Impetigo (684) 015 Problem resolved confirmed Matthew-985 911- Problem Headache (10906108) Headache (784.0) 11/0 04/13 016 Problem resolved confirmed Matthew-985 911- Problem Shortness of breath (041210761) Shortness of breath (786.05) 016 Problem resolved confirmed Matthew-985 911- Problem Cough (04796780) Cough (786.2) 017 Problem resolved confirmed Matthew-985 911- Problem Low back pain (694504992) Low back pain (724.2) 015 Problem resolved confirmed Matthew-985 911- Problem Headache (40065432) Headache (307.81) 017 Problem resolved confirmed Matthew-985 911- Problem (46792187) (V22.1) 08/12 015 Problem resolved confirmed Matthew-985 911- Problem Osteopenia (441236686) Osteopenia (733.90) 017 Problem resolved confirmed Matthew-985 911- Problem Pustular acne (36406834) Pustular acne (706.1) 017 Problem resolved confirmed Matthew-985 911- Problem Disorder of hematopoietic system (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) Other abnormal findings on blood examination (790.99) 017 Problem resolved confirmed Matthew-985 911- Problem Convulsion (23975503) Seizure(s); other (780.39) 016 Problem resolved confirmed Matthew-985 911- Problem Tobacco dependence (16171616) Tobacco dependence (305.1) 017 Problem resolved confirmed Matthew-985 911- Problem Tobacco user (348374106) Cigarette smoking (305.1) 018 Problem resolved confirmed Matthew-985 911- Problem Furuncle (792186911) Furuncle (680.9) 015 Problem resolved confirmed Matthew-985 911- Problem Insomnia (117339297) Insomnia (307.41) 018 Problem resolved confirmed Matthew-985 911- Problem Missed period (41370600) Missed period (626.4) 015 Problem resolved confirmed Matthew-985 911- Problem test positive (663712781) Positive test (V22.1) 015 Problem resolved confirmed Matthew-985 911- Problem Sinus tachycardia (67690182) Sinus tachycardia (427.89) 015 Problem resolved confirmed Matthew-985 911- Problem Otitis externa (9305306) Otitis externa (380.10) 016 Problem resolved confirmed Matthew-985 911- Problem Supraventricular tachycardia (0776513) SVT (427.0) 016 Problem resolved confirmed Matthew-985 911- Problem Tobacco user (808064501) Tobacco abuse affecting health (305.1) 015 Problem resolved confirmed Matthew-985 911- Problem Needs influenza immunization (077649498) Vaccination against other viral diseases, Influenza (V04.81) 017 Problem resolved confirmed Matthew-985 911- Problem Common migraine (45900906) Common migraine (346.10) Problem resolved confirmed Matthew-985 911- Problem Bipolar I disorder, most recent episode (or current) depressed (296.5) Problem resolved confirmed Matthew-985 911- Problem Asthma without status asthmaticus (63597987) Asthma, NOS (493.90) 018 Problem resolved confirmed Matthew-985 911- Problem Knee pain (1962645665) Knee pain (719.46) 015 Problem resolved confirmed Matthew-985 911- Problem Chest discomfort (999080823) Chest discomfort (786.59) Problem resolved confirmed Matthew-985 911- Problem Vitamin D deficiency (19077767) Vitamin D deficiency, unspecified (268.9) 017 Problem resolved confirmed Matthew-985 911- Problem Hip pain (91458651) Hip pain (719.45) 015 Problem resolved confirmed Matthew-985 911- Problem Genital warts (783288336) Genital warts (078.11) 016 Problem resolved confirmed Matthew-985 911- Problem Syncope (755692601) Syncope (780.2) 10/23 Problem resolved confirmed Matthew-985 911- Procedures Procedure Date Ordered Date Performed Result Body Sit e Epidural, Transforaminal, Matilda mbar/Sacral, 2 or more levels - 87475, 32387 01/16/2024 01/16/2024 N/A Encounters Encounter Location Date Provider Diagnosis [facility] [place] [address] [place] [address] 11/20/2023 Almita [facility] [address] [place] [address] 01/16/2024 Almita Bow[facility] Lumbar radiculopathy M54.16 Migrated_Facility 0 0 12/08/2023 Provider Migration Migrated_Facility 0 0 12/09/2023 Provider Migration Assessments Encounter Date Diagnosis (ICD Code) Assessment Notes Treatment Notes Treatment Clinical Notes Section Notes 01/16/2024 Lumbar radiculopathy (ICD-10 - M54.16) Plan Of Treatment Pending Test Test Name Order Date Prothrombin Time 40395 01/19/2020 Basic Metabolic Panel (BMP) 05055 2019 CBC w\ Auto Diff 67114 01/19/2020 Partial Thromboplastin Time 30408 2019 Chest PA/Lat-95991 01/19/2020 Chest PA/Lat-04079 01/19/2020 Lumbosacral Spine AP/Lat-95755 0 Lumbosacral Spine AP/Lat-12845 0 zzzFluoro >1h4 01/21/2020 COVID 19 PCR--36295 01/19/2020 zzzMRI Outside CD 04/22/2019 zzzMRI Outside CD 04/22/2019 Insurance Providers Payer Name Payer Address Payer Phone Subscriber Number Group Number Insured Name Patient Relationship to Insured Coverage Start Date Coverage End Date [place] [address] [place] [address] [phone] [id number] Mandy Cali Self - patient is the insured Medical (General) History Medical History History ICD Code Asthma Sinus tachycardia Female stress incontinence Acne Migraine headaches Seizure disorder Bipolar disorder Generalized anxiety disorder Depression Insomnia PTSD Osteoarthritis Osteopenia Vitamin D deficiency GERD GYNECOLOGICAL HISTORY LMP- 04/2019 control- tubal ligation Back surgery 01/20/21; Dr. Lizarraga Surgical History Surgery Date(Month/Year) Tonsillectomy 2008 Eye surgery; bilateral 2012 Tubal ligation 2015 Back surgery x 2 2009, 2016 Cyst removal; left cheek Abdominal surgery lumbar microdiscectomy 01/2020 Left L4/5 & L5/S1 TFESI with sedation- M [facility] 01/16/2024 Hospitalization History Reason Date(Month/Year) Abdominal surgery Child ; tubal ligation
--- NOTE | 2024-10-01 16:57 | CTR_ITS ---
PROCEDURE INFORMATION: Exam: CT Thoracic Spine Without Contrast Exam date and time: 10/01/2024 5:35 PM Age: 39 years old Clinical indication: Injury or trauma; Fall; Blunt trauma (contusions or hematomas); Additional info: Fall with contusion to spine with previous hardware in back TECHNIQUE: Imaging protocol: Computed tomography of the thoracic spine without contrast. Radiation optimization: All CT scans at this facility use at least one of these dose optimization techniques: automated exposure control; mA and/or kV adjustment per patient size (includes targeted exams where dose is matched to clinical indication); or iterative reconstruction. COMPARISON: CR XR thoracic spine 3V* [id number] 05/14/2023 6:13 PM RADIATION DOSE METRICS: Total DLP (mGy-cm): 444 FINDINGS: Bones/joints: No acute fracture. Normal alignment. No significant disc bulge or herniation. No severe spinal canal stenosis. No significant neural foraminal narrowing. Soft tissues: Unremarkable. CT/CT thoracic spin wo con* [id number] IMPRESSION: No acute thoracic spine fracture.
--- NOTE | 2024-10-01 16:57 | CTR_ITS ---
PROCEDURE INFORMATION: Exam: CT Lumbar Spine Without Contrast Exam date and time: 10/01/2024 5:35 PM Age: 39 years old Clinical indication: Injury or trauma; Fall; Blunt trauma (contusions or hematomas); Prior surgery; Surgery date: 6+ months; Surgery type: Lumbar fusion; Additional info: Fall with contusion to spine with previous hardware in back TECHNIQUE: Imaging protocol: Computed tomography of the lumbar spine without contrast. Radiation optimization: All CT scans at this facility use at least one of these dose optimization techniques: automated exposure control; mA and/or kV adjustment per patient size (includes targeted exams where dose is matched to clinical indication); or iterative reconstruction. COMPARISON: MR lumbar spine wo con* [id number] 04/27/2024 3:10 PM RADIATION DOSE METRICS: Total DLP (mGy-cm): 444 FINDINGS: Bones/joints: L4-S1 instrumented posterior spinal fusion. Hardware is unchanged in alignment. Normal alignment of the lumbar spine. No lumbar spine fracture. No significant disc bulge. There is mild spinal canal narrowing at the L4-L5 level. There has been posterior decompression at this level. Soft tissues: Unremarkable. CT/CT lumbar spine wo con* [id number] IMPRESSION: No acute lumbar spine fracture.
--- NOTE | 2024-10-01 16:58 | W.ED.BACK ---
HPI - Back Pain/Injury General: Chief Complaint: Back Pain/Injury Stated Complaint: Back pain/Lleg fell Time Seen by Provider: 10/01/24 16:22 History of Present Illness: Fall backwards on porch and off the porch approximately 2-1/2 feet. This happened on Sunday, 09/27. Patient has had ongoing continuous pain with radiation to her left SI and to her left hip. Denies any sensation changes. No numbness to the groin. No dysuria. No incontinence. Associated symptoms: Deny abdominal pain, chills, fever(s), nausea or vomiting Related Data Home Medications ?Medication ?Instructions ?Recorded ?Confirmed qpsabjf-ftchwebmonswg-bdflkmbz 250 2 tab PO Q6H PRN Migraine Headache 03/17/19 08/28/24 mg-250 mg-65 mg tablet (Excedrin Migraine) albuterol sulfate 90 mcg/actuation 2 puff inhalation Q6H PRN 12/10/23 08/28/24 aerosol inhaler Shortness Of Breath quetiapine 50 mg tablet 50 mg PO .qhs 04/15/24 08/28/24 Previous Rx's ?Medication ?Instructions ?Recorded Bone Growth Stimulator #1 ea 04/08/24 hydrocodone 10 mg-acetaminophen 1 tab PO Q4H pain 7 days #42 tabs 07/01/24 325 mg tablet hydrocodone 5 mg-acetaminophen 325 1 tab PO Q6H pain 30 days #120 tabs 07/15/24 mg tablet diclofenac sodium 75 mg 75 mg PO BID PRN pain #30 tabs 10/01/24 tablet,delayed release methocarbamol 500 mg tablet 500 mg PO Q8H PRN muscle spasm #30 10/01/24 tabs methylprednisolone 4 mg tablets in See Rx Instructions PO .COMPLEX 10/01/24 a dose pack (Medrol (John)) #21 ea Allergies Allergy/AdvReac Type Severity Reaction Status Date / Time adhesive Allergy ALGY-Bliste Verified 08/28/24 07:43 r Review of Systems General: Reports: 10 or more systems reviewed and unremarkable except in HPI and below Const: Denies: fever(s), chills or body aches Eyes: Denies: change in vision ENMT: Denies: throat pain or swelling of lips/tongue Card: Denies: chest pain, dyspnea on exertion or orthopnea Resp: Denies: dyspnea, productive cough or wheezing GI: Denies: abdominal pain, nausea or vomiting Musc: Reports: back pain, extremity pain and joint stiffness; Denies: neck pain, extremity swelling, joint pain, joint swelling, joint warmth or limited range of motion Skin/Breast: Denies: changes in skin color or dry skin Neuro: Denies: numbness in extremities or weakness in extremities Psych: Denies: anxiety or depression Patricio/Lymph: Denies: easy bruising or easy bleeding PFSH ED PFSH: Medical History (Updated 10/01/24 @ 18:21 by TED Lopez) Lateral epicondylitis of elbow Migraine Lumbar disc disease Asthma Lumbar post-laminectomy syndrome Surgical History History of tubal ligation 11/2014: precedure done via umbilicus. Performed in [place], [place]. History of adenoidectomy Tonsillectomy and adenoidectomy done at the age of 19 History of eye surgery Strabismus 2010 History of lumbar surgery 07/27/2016 left L4-L5 reexploration. 06/2010 Left L4-L5 Family History Father Hypertension Diabetes Mother Heart disease Social History Smoking and tobacco/nicotine status: former use of tobacco/nicotine Alcohol intake: current Alcohol intake frequency: holidays/special occasions only Substance/Drug Use: never Marital status: Current occupational status: disabled Physical Exam Const: COMMON NORMALS: no acute distress, patient oriented x3 and alert GENERAL APPEARANCE: cooperative ORIENTATION/CONSCIOUSNESS: Yes awake, Yes oriented to person, Yes oriented to place and Yes oriented to time Chest: COMMONS NORMALS: normal inspection of the chest Breast/axilla inspection: Yes no chest deformity, asymmetry, normal contours, no nodules, masses, tenderness Resp: COMMON NORMALS: normal respiratory effort, No retractions, No use of accessory muscles and clear to auscultation bilaterally EFFORT & INSPECTION: Yes able to speak in complete sentences and Yes symmetric chest movement AUSCULTATION: clear to auscultation bilaterally Cardio: COMMON NORMALS: regular rate, regular rhythm and Peripheral pulses 2+ throughout RATE: regular rate RHYTHM: regular rhythm PERIPHERAL PULSES: Peripheral pulses 2+ throughout GI: COMMON NORMALS: Normal to inspection, nondistended, normoactive bowel sounds present, Soft to palpation, non-tender and No hepatosplenomegaly present INSPECTION: Yes normal to inspection AUSCULTATION: Yes normoactive bowel sounds PALPATION: Yes Soft to palpation and Yes No hepatosplenomegaly present RECTAL EXAM: deferred : COMMON NORMALS: Yes no CVA tenderness BLADDER/KIDNEY EXAM: Yes no CVA tenderness Back/Pelvis: COMMON NORMALS: no CVA tenderness and thoracic and lumbar spine normal to inspection LUMBAR SPINE/LOWER BACK: Yes normal to inspection, Yes lumbar ROM normal, Yes pain with ROM and No lumbar spinal tenderness SACROILIAC JOINTS: Yes SI joint(s) abnormal SI joint details: tender to palpation (left) OTHER: Left SI joint tenderness. Extremity: COMMON NORMALS: normal to inspection GENERAL: Yes normal exam except as noted Neuro: COMMON NORMALS: patient oriented x3 SENSORIUM/ORIENTATION: Yes alert, Yes oriented to person, Yes oriented to place and Yes oriented to time CRANIAL NERVES: Yes CN normal except as noted Psych: COMMON NORMALS: mental status grossly normal, Normal thought process present, cooperative, activity/motor behavior normal, denies homicidal ideation and denies suicidal ideation THOUGHT PROCESS: Normal thought process present Skin: COMMON NORMALS: no rashes or lesions noted, no wounds and turgor normal GENERAL SKIN EXAM: no rashes or lesions noted and turgor normal Course Vital Signs: Vital signs: Vital Signs Pulse Rate 100 10/01/24 15:30 Respiratory Rate 16 10/01/24 15:30 Blood Pressure 119/79 10/01/24 15:30 Pulse Oximetry 97 10/01/24 15:30 Oxygen Delivery Me thod Room Air 10/01/24 15:30 MDM - Back Pain/Injury Medical Decision Making Patient is a 39-year-old female that reports to ED after a fall to her back, pain on left leg and radiation. She has midline tenderness and previous hardware in lumbar spine, therefore with this being a thoracic and lumbar concern, CT of the thoracic, lumbar, pelvis was obtained. This appears to be no acute findings. I do suspect a left sciatica. She will be given dexamethasone, Norflex, Toradol, and methocarbamol, Medrol Dosepak was sent to the pharmacy. All questions answered to her satisfaction Labs Radiology Impressions Lumbar Spine CT 10/01/24 16:57 IMPRESSION: No acute lumbar spine fracture. Thoracic Spine CT 10/01/24 16:57 IMPRESSION: No acute thoracic spine fracture. Pelvis CT 10/01/24 16:59 IMPRESSION: No acute pelvic fracture. All radiology interpretation(s) finalized by discharge Discharge Plan Discharge Patient Disposition: Home Clinical Impression: Sciatica Qualifiers: Laterality: left Qualified Code(s): M54.32 - Sciatica, left side Condition: Stable Prescriptions: New methocarbamol 500 mg tablet 500 mg PO Q8H PRN (Reason: muscle spasm) Qty: 30 0RF diclofenac sodium 75 mg tablet,delayed release (DR/EC) 75 mg PO BID PRN (Reason: pain) Qty: 30 0RF methylprednisolone [Medrol (John)] 4 mg tablets,dose pack See Rx Instructions .ROUTE .COMPLEX Qty: 21 0RF Rx Instructions: for 6 days No Action Excedrin Migraine 250-250-65 mg tablet 2 tab PO Q6H PRN (Reason: Migraine Headache) albuterol sulfate 90 mcg/actuation HFA aerosol inhaler 2 puff inhalation Q6H PRN (Reason: Shortness Of Breath) quetiapine 50 mg tablet 50 mg PO .qhs hydrocodone-acetaminophen 5-325 mg tablet 1 tab PO Q6H 30 Days Qty: 120 0RF (DME) Bone Growth Stimulator See Rx Instructions .Route .MEDSUPPLY Qty: 1 0RF Rx Instructions: As directed hydrocodone-acetaminophen 10-325 mg tablet 1 tab PO Q4H 7 Days Qty: 42 0RF Discharge Orders: Discharge ED (Routine); Ordered 10/01/24 Ordered By: Xi Savage Referrals: Yessy Youssef PA [Primary Care Provider, [facility]] Patient Instructions: Sciatica (ED), Patient Portal & Krishna Instructions Activity Restrictions/Additional Instructions: Do not lift over 10 pounds x 1 week. Ice and heat as well as Tylenol can help as well with pain. Take your muscle relaxers, methocarbamol been sent to the pharmacy, and diclofenac anti-inflammatory/pain as directed. Caution on sedation with methocarbamol. Call your primary care physician to make an appointment follow-up. Luckily you did not have a bleed, or fracture to this area. You do appear to have musculoskeletal spasming that will be addressed as noted above. Please return to ED with worsening pain, fever greater than 100.4 ?F. Print Language: Hebrew Coding Level of Care Code ED Manager Interventional for Aubrie Cardona
--- NOTE | 2024-10-01 16:59 | CTR_ITS ---
PROCEDURE INFORMATION: Exam: CT Pelvis Without Contrast, Skeleton Exam date and time: 10/01/2024 5:35 PM Age: 39 years old Clinical indication: Injury or trauma; Fall; Blunt trauma (contusions or hematomas); Bilateral; Sacrum and coccyx; Prior surgery; Surgery date: 6+ months; Surgery type: Lumbar; Additional info: Fall with contusion to spine with previous hardware in back TECHNIQUE: Imaging protocol: Computed tomography of the pelvis without contrast. Exam focused on the skeleton. Radiation optimization: All CT scans at this facility use at least one of these dose optimization techniques: automated exposure control; mA and/or kV adjustment per patient size (includes targeted exams where dose is matched to clinical indication); or iterative reconstruction. COMPARISON: CT abdomen pelvis w con* [id number] 04/26/2024 11:09 PM RADIATION DOSE METRICS: Total DLP (mGy-cm): 352.6 FINDINGS: Bones/joints: Unremarkable. No acute fracture. No dislocation. Partially visualized lumbosacral spinal fusion hardware, described on the concurrently performed CT lumbar spine. Soft tissues: Unremarkable. CT/CT bony pelvis [id number] IMPRESSION: No acute pelvic fracture.
[2024-10-01] MEDS: orphenadrine 30 mg/mL Inj 2 mL 60 MG IM (17:20)
== END 2024-10-01 18:44 | disposition home or self-care (01) ==
PROVIDERS: Emergency Provider Physician Assistant; PCP Physician Assistant
DX: M54.32 Sciatica, left side (principal); Z87.891 Personal history of nicotine dependence
CPT/HCPCS: 72128; 72131; 72192; 96372; 99284; J1100; J1885; J2360

== ENCOUNTER → 2024-10-21 13:09 | Outpatient (BNVA) | payer MEDICAID, SELFPAY | PROVIDERS: PCP Physician Assistant; Visit Provider Orthopaedic Surgery | DX: Z98.1 Arthrodesis status (principal) | CPT/HCPCS: 72100; 99213 ==

== ENCOUNTER → 2024-11-18 10:43 | Outpatient (BNVA) | payer MEDICAID, SELFPAY | PROVIDERS: PCP Physician Assistant; Visit Provider Orthopaedic Surgery | DX: Z47.89 Encounter for other orthopedic aftercare (principal); Z98.1 Arthrodesis status | CPT/HCPCS: 99213 ==

== ENCOUNTER 2024-11-19 11:21 | Outpatient (CLI) | payer MEDICAID, SELFPAY ==
--- NOTE | 2024-11-19 11:20 | MM_ITS ---
WS: [id number] BILATERAL 3D TOMOSYNTHESIS DIGITAL SCREENING MAMMOGRAPHY WITH CAD CLINICAL INFORMATION: SCREENING HISTORY: Screening mammogram. No current complaints. COMPARISON: Baseline TECHNIQUE: Bilateral CC and MLO views. FINDINGS: The breasts are composed of heterogeneous fibroglandular density tissue, which can limit the detection of small underlying mass lesions. Irregular asymmetric density measuring 11 mm anterior lateral LEFT breast only well seen on the MLO view. Recommend further evaluation LEFT breast diagnostic mammography and ultrasound if persistent. Unremarkable RIGHT breast MM/MM [facility] tomosynthesis [id number] IMPRESSION: DENSITY: The breasts are heterogeneously dense, which may obscure small masses. BI-RADS: 0 - Incomplete: Need additional imaging evaluation FOLLOW UP: Need Additional Imaging Recommend further evaluation LEFT breast diagnostic mammography and ultrasound if persistent.
== END 2024-11-19 11:22 | disposition home or self-care (01) ==
LOC: MOBLMAM 11:22
PROVIDERS: PCP Physician Assistant; Visit Provider Physician Assistant
DX: Z12.31 Encounter for screening mammogram for malignant neoplasm of breast (principal); R92.323 Mammographic fibroglandular density, bilateral breasts; R92.333 Mammographic heterogeneous density, bilateral breasts; N64.89 Other specified disorders of breast
CPT/HCPCS: 77063; 77067

== ENCOUNTER 2024-12-11 10:52 | Outpatient (CLI) | payer MEDICAID, SELFPAY ==
--- NOTE | 2024-12-11 11:05 | MM_ITS ---
WS: [id number] LEFT 3D TOMOSYNTHESIS DIGITAL MAMMOGRAPHY WITH CAD CLINICAL INFORMATION: ABNORMAL MAMMOGRAM HISTORY: Additional views COMPARISON: 11/19/2024 TECHNIQUE: 3 views of the left breast were obtained. FINDINGS: The left breast is composed of heterogeneous fibroglandular density tissue, which can limit the detection of small underlying mass lesions. Again seen is the ovoid asymmetric density 11 mm anterior lateral LEFT breast upper outer quadrant. Ultrasound described below. ULTRASOUND BREAST LEFT TECHNIQUE: Ultrasound left breast focused area of concern. CLINICAL INFORMATION: ABNORMAL MAMMOGRAM FINDINGS: Ultrasound upper outer quadrant LEFT breast. At the 12 position is an incidental cyst measuring 4 x 10 x 4 mm. At the 3 o'clock position 3 cm from the nipple is an ovoid slightly elongated hypoechoic lesion measuring 8 x 7 x 3 mm. This may represent a complex cyst or dense band of tissue. This is probably benign and recommend 6-month follow-up LEFT breast diagnostic mammography and ultrasound to confirm stability MM/MM diag LT tomosynthesis [id number] IMPRESSION: DENSITY: The breasts are heterogeneously dense, which may obscure small masses. BI-RADS: 3 - Probably Benign FOLLOW UP: 6 Month Follow-up Recommend 6-month follow-up LEFT breast diagnostic mammography and ultrasound w ith attention to the 3:00 lesion
== END 2024-12-11 10:53 | disposition home or self-care (01) ==
PROVIDERS: PCP Physician Assistant; Visit Provider Physician Assistant
DX: R92.8 Other abnormal and inconclusive findings on diagnostic imaging of breast (principal); R92.322 Mammographic fibroglandular density, left breast; R92.332 Mammographic heterogeneous density, left breast; N64.89 Other specified disorders of breast; N63.25 Unspecified lump in the left breast, overlapping quadrants
CPT/HCPCS: 76642; 77061; 77063

== ENCOUNTER 2024-12-17 19:29 | Emergency (ER) | payer MEDICAID, SELFPAY ==
--- OUTSIDE RECORDS SUMMARY | 2023-12-08 03:00 | XMS_ITS ---
Author Organization [facility] Address [address] [place] [address] Care Team Providers Care Fire And Safety Helper Name Role Phone DARIEN LYNN Jr, MD Primary Care Provider Unav ailable German Lizarraga Unavailable [phone] Migration, Provider Unavailable Unavailable REASON FOR VISIT EMR-Matthew Encounters Encounter Location Date Provider Diagnosis Migrated_Facility 0 0 12/08/2023 Provider Migration Plan Of Treatment No Information Progress Notes * Mandy TURNER YDOB: [birth year] (39 yo F)Acc No.[id number]:12/08/2023 Patient: Mandy LEE :1985 A ge:38 Y S ex:Female Address:[address] [place] [address], [phone] Subjective: * Chief Complaints: * E MR-Matthew * * Date:
--- OUTSIDE RECORDS SUMMARY | 2023-12-09 03:00 | XMS_ITS ---
Author Organization [facility] Address [address] [place] [address] Care Team Providers Care Industrial Ecologist Name Role Phone DARIEN LYNN Jr, MD Primary Care Provider Unav ailable German Lizarraga Unavailable [phone] Migration, Provider Unavailable Unavailable REASON FOR VISIT EMR-Matthew Encounters Encounter Location Date Provider Diagnosis Migrated_Facility 0 0 12/09/2023 Provider Migration Plan Of Treatment No Information Progress Notes * Mandy TURNER YDOB: [birth year] (39 yo F)Acc No.[id number]:12/09/2023 Patient: Mandy LEE :1985 A ge:38 Y S ex:Female Address:[address] [place] [address], [id number] Subjective: * Chief Complaints: * E MR-Matthew * * Date:
--- OUTSIDE RECORDS SUMMARY | 2024-02-12 04:40 | XMS_ITS ---
Author Organization [facility] Address [address] [place] [address] Care Team Providers Care Automation Design Engineer Name Role Phone DARIEN LYNN Jr, MD Primary Care Provider Unacm LizarragaGerman Unavailable [phone] Almita Escalera Unavailable REASON FOR VISIT Procedure f/u Medications Medication SIG (Take, Route, Frequency, Duration) Notes Start Date End Date Status HYDROcodone-Acetam inophen 10-325 MG Tablet 1 tablet as needed Orally every [address] Peters at pain management Active Amoxicillin 875 MG Tablet 1 tablet Orally Twice a day; Duration: 5 day(s) continuation of amoxicillin Not-Taking Propranolol HCl 80 MG Tablet 1 tablet Orally Twice a day; Duration: 30 Not-Taking ProAir HFA 108 (90 Base) MCG/ACT Aerosol Solution 2 puffs as needed Inhalation every 4 hrs; Duration: 30 days 05/16/2019 Active Lyrica 100 MG Capsule 1 capsule Orally twice daily Dr. Peters at pain management Not-Taking Cetirizine HCl 10 MG Tablet 1 tablet Orally Once a day; Duration: 30 day(s) 05/16/2019 Not-Taking Social History Tobacco Use: Social History Observation Description Date Details (start date - stop date) Former Smoker NA - NA Social History Depression Screening Social Info Question Answer Notes PHQ-9 Little interest or pleasure in doing thin gs Not at all Feeling down, depressed, or hopeless Not at all Trouble falling or staying asleep, or sleeping t oo much Not at all Feeling tired or having little energy Not at all Poor appetite or overeating Not at all Feeling bad about yourself, or that you are a failure, or have let yourself or your family down Not at all Trouble concentrating on thi ngs, such as reading the newspaper or watching television Not at all Moving or speaking so slowly that other people could have noticed. Or the opposite ? being so fidgety or restless that you have been moving around a lot more than usual Not at all Thoughts that you would be b shanika off , or of hurting yourself in some way Not at all Total Score 0 Drugs/Alcohol: Social Info Question Answer Notes Alcohol Screen (Audit-C) Did you have a drink containing alcohol in the past year? Yes How often did you have a drink containing alcohol in the past year? Monthly or less (1 point) Points 1 Interpretation Negative Drugs Have you used drugs other than those for medical reasons in the past 12 months? No Tobacco Use: Social Info Question Answer Notes xTobacco Use/Smoking Are you a former smoker Additional Findings: Tobacco User e-Cigarette Additional Details Category Social Info Options Details Drugs/Alcohol: Do you smoke marijuana? De nies Section Notes: patient reports quit using c igarettes. Is currently vaping and is trying to stop. 0 Problems Problem Type SNOMED Code ICD Code Onset Dates Problem Status W/U Status Risk Notes Problem Chronic pain syndrome (116400371) Chronic pain syndrome (G89.4) Active confirmed Problem Lumbosacral radiculopathy (5408619) Radiculopathy, lumbosacral region (M54.17) Active confirmed Encounters Encounter Location Date Provider Diagnosis [facility] [address] [id number] [facility] pain syndrome G89.4 ; Impaired mobility and activities of daily living Z74.09 ; Radiculopathy, lumbosacral region M54.17 ; Myalgia, other site M79.18 and Low back pain M54.50 Assessments Encounter Date Diagnosis (ICD Code) Assessment Notes Treatment Notes Treatment Clinical Notes Section Notes 02/12/2024 Chronic pain syndrome (ICD-10 - G89.4) 02/12/2024 Impaired mobility and activities of daily living (ICD-10 - Z74.09) 02/12/2024 Radiculopathy, lumbosacral region (ICD-10 - M54.17) 02/12/2024 Myalgia, other site (ICD-10 - M79.18) 02/12/2024 Low back pain (ICD-10 - M54.50) Plan Of Treatment No Information History and Physical Notes * HPI (History of Present Illness) Category Sub-Category Detail Notes Category Not es Provider Note Original HPI: Patient presents today for lower back pain with no inciting event going on for many, many years. Pain can be 8/10, but today it is 5/10. The lower back pain goes down the posterior aspect of her left leg. Described as numb, stabbing, pins and needles, sharp, shooting, and tingling. Epidurals have improved her symptoms in the past. Pain is aggravated by just doing a lot, but mostly daily tasks sometimes. She reports she's had multiple back surgeries. She is a current smoker. She is currently utilizing Tramadol 50 mg up to three times a day prescribed by Dr. Bailey, her neurosurgeon. X-ray available to me of the lumbar spine dated 05/17/2023. Findings include the pedicles and the bone density are intact. There is curvature on today's study with convexity to the left and apex at L1. There is a mild degree of rotation. The lumbar vertebral body heights are maintained. There is no anterior wedging or compression no dominant subluxation is identified. There is dominant L4-5 degenerative disc disease with narrowing of the disc space along with posterior and anterior osteophytes. Facet arthropathy is identified in the mid and lower lumbar back. MRI L-sphine dated 07/05/2023. Mild lumbar curve. No acute compression. Disc narrowing worse at L4-5. Prior postoperative changes L4-5 and L5-S1 left hemilaminectomy. L1-2: Normal. L2-3: No significant disc bulging. Mild facet arthropathy. Spinal canal and foramen are patent. L3-4: Mild annular bulging with mild central canal stenosis. Impingement on the right subarticular recess. Right foraminal protrusion impinges the exiting right L3 nerve root with moderate right foraminal narrowing. Left foramen is patent. Mild facet arthropathy. Recommend correlation for right L3 nerve root symptoms. L4-5: Prior left hemilaminectomy. Mild disc bulging with narrowing of the subarticular recess bilaterally. Mild left and no significant right foraminal narrowing. L5-S1: Prior postoperative changes left hemilaminectomy and partial discectomy. Moderate facet arthropathy. Moderate left and no significant right foraminal narrowing. Spinal canal appears patent. Pain Details Pain Location : Duration Onset Frequency of Pain Severity of pain at its worst : Severity of pain at its best : Severity of average pain : Worsening factors Relieving factors Associated symptoms Severity of pain on medication : When did you last take your pain medicin e : Medication Details Do you have a lock b ox or safe place for medication away from minors and/or others? Yes Do you have any leftover pain medication building up at your house? No Do you understand that pain medication c an be addicting and can cause overdose? Yes Do you feel you can REDUCE the amount of medication you take today? No Opioid Assessment Tools Last Urine Drug Screen None- N o meds prescribed [place] Prescription Monitoring Program [place] PDMP reviewed- 10/18/23 Tramadol 50 mg #90- DO MATEUSZ Figueroa (Current Opioid Misuse Measure) : Treatment History Test undergone in the past 06/13 05/05 L spine MRI- 05/17/23 L spine XR Past medication you have taken No Meds Treatments you have had 01/16/24 Left L4/ 5 & L5/S1 TFESI with sedation Progress Notes * Mandy TURNERDOB: [birth year] (39 yo F)Acc No.[id number]:02/12/2024 Progress Notes Patient: Mandy Amezcua Provider: Miguel Escalera MD :1985 A ge:39 Y S ex:Female Date:02/12/2024 Address:[address] [place], [place] [id number] Pcp:DARIEN LYNN Jr, MD Subjective: * Chief Complaints: * P rocedure f/u * HPI: P ain Details: Pain Location : . Severity of pain at its worst : . Severity of pain at its best : . Severity of pain on medication : . Severity of average pain : . When did you last take your pain medicine : . M edication Details: Do you have a lock box or safe place for medication away from minors and/or others? Y es. Do you have any leftover pain medication building up at your house? N o. Do you understand that pain medication can be addicting and can cause overdose? Y es. Do you feel you can REDUCE the amount of medication you take today? N o. O pioid Assessment Tools: COMM (Current Opioid Misuse Measure) : . Last Urine Drug Screen N one- No meds prescribed. [place] Prescription Monitoring Program [place] reviewed- 10/18/23 Tramadol 50 mg #90- DO. Miguel Figueroa Note: Consent for chronic opioid therapy/clinic policies: CHIARA: pending Physical Therapy: yes Sleep (difficulty going to sleep or staying asleep): pain can interfere with sleep Bowel/bladder incontinence - Denies. Original HPI: Miguel woods presents today for lower back pain with no inciting event going on for many, many years. Pain can be 8/10, but today it is 5/10. The lower back pain goes down the posterior aspect of her left leg. Described as numb, stabbing, pins and needles, sharp, shooting, and tingling. Epidurals have improved her symptoms in the past. Pain is aggravated by just doing a lot, but mostly daily tasks sometimes. She reports she's had multiple back surgeries. She is a current smoker. She is currently utilizing Tramadol 50 mg up to three times a day prescribed by Dr. Bailey, her neurosurgeon. X-ray available to me of the lumbar spine dated 05/17/2023. Findings include the pedicles and the bone density are intact. There is curvature on today's study with convexity to the left and apex at L1. There is a mild degree of rotation. The lumbar vertebral body heights are maintained. There is no anterior wedging or compression no dominant subluxation is identified. There is dominant L4-5 degenerative disc disease with narrowing of the disc space along with posterior and anterior osteophytes. Facet arthropathy is identified in the mid and lower lumbar back. MRI L-sphine dated 07/05/2023. Mild lumbar curve. No acute compression. Disc narrowing worse at L4-5. Prior postoperative changes L4-5 and L5-S1 left hemilaminectomy. L1-2: Normal. L2-3: No significant disc bulging. Mild facet arthropathy. Spinal canal and foramen are patent.? L3-4: Mild annular bulging with mild central canal stenosis. Impingement on the right subarticular recess. Right foraminal protrusion impinges the exiting right L3 nerve root with moderate right foraminal narrowing. Left foramen is patent. Mild facet arthropathy. Recommend correlation for right L3 nerve root symptoms. L4-5: Prior left hemilaminectomy. Mild disc bulging with narrowing of the subarticular recess bilaterally. Mild left and no significant right foraminal narrowing. L5-S1: Prior postoperative changes left hemilaminectomy and partial discectomy. Moderate facet arthropathy. Moderate left and no significant right foraminal narrowing. Spinal canal appears patent. T reatment History: Test undergone in the past L spine MRI- 05/17/23 L spine XR. Past medication you have taken N o Meds. Treatments you have had 1 03/18/23 Left L4/5 & L5/S1 TFESI with sedation. * Medical History: Asthma Sinus tachycardia Female stress incontinence Acne Migraine headaches Seizure disorder Bipolar disorder Generalized anxiety disorder Depression Insomnia PTSD Osteoarthritis Osteopenia Vitamin D deficiency GERD GYNECOLOGICAL HISTORY LMP- 04/2019 control- tubal ligation Back surgery 01/20/21; Dr. Lizarraga * Surgical History: Tonsillectomy 2007 Eye surgery; bilateral 2012 Tubal ligation 2015 Back surgery x 2 2009, 2016 Cyst removal; left cheek Abdominal surgery lumbar microdiscectomy 01/2020 Left L4/5 & L5/S1 TFESI with sedation- MLP 01/16/2024 * Hospitalization/Major Diagno stic Procedure: Child ; tubal ligation Abdominal surgery * Family History: F ather: Hypertension. M other: Type 2 diabetes. * Social History: T obacco Use: x Tobacco Use/Smoking A re you a f ormer smoker A dditional Findings: Tobacco User e -Cigarette D rugs/Alcohol: D rugs H ave you used drugs other than those for medical reasons in the past 12 months? N o Alcohol Screen (Audit-C) D id you have a drink containing alcohol in the past year? Y es H ow often did you have a drink containing alcohol in the past year? M onthly or less (1 point) P oints 1 I nterpretation N egative Do you smoke marijuana?: Denies. D epression Screening: P HQ-9 L ittle interest or pleasure in doing things?Not at all F eeling down, depressed, or hopeless N ot at all T rouble falling or staying asleep, or sleeping too much N ot at all F eeling tired or having little energy N ot at all P oor appetite or overeating N ot at all F eeling bad about yourself, or that you are a failure, or have let yourself or your family down N ot at all T rouble concentrating on things, such as reading the newspaper or watching television N ot at all M oving or speaking so slowly that other people could have noticed. Or the opposite ? being so fidgety or restless that you have been moving around a lot more than usual N ot at all T houghts that you would be better off , or of hurting yourself in some way N ot at all T otal Score 0 p atient reports quit using cigarettes. Is currently vaping and is trying to stop. 0. * Medications: T akingHYDROcodone-Acetaminophen 10-325 MG Tablet 1 tablet as needed Orally every 6 hrs , Notes to Pharmacist: Dr. Peters at pain managementProAir HFA 108 (90 Base) MCG/ACT Aerosol Solution 2 puffs as needed Inhalation every 4 hrs Taking HYDROcodone-Acetaminophen 10-325 MG Tablet 1 tablet as needed Orally every 6 hrs , Notes to Pharmacist: Dr. Peters at pain managementTaking ProAir HFA 108 (90 Base) MCG/ACT Aerosol Solution 2 puffs as needed Inhalation every 4 hrs Not-TakingAmoxicillin 875 MG Tablet 1 tablet Orally Twice a day , Notes to Pharmacist: continuation of amoxicillinCetirizine HCl 10 MG Tablet 1 tablet Orally Once a day Lyrica 100 MG Capsule 1 capsule Orally twice daily , Notes to Pharmacist: Dr. Peters at pain managementPropranolol HCl 80 MG Tablet 1 tablet Orally Twice a day Not-Taking Amoxicillin 875 MG Tablet 1 tablet Orally Twice a day , Notes to Pharmacist: continuation of amoxicillinNot-Taking Cetirizine HCl 10 MG Tablet 1 tablet Orally Once a day Not-Taking Lyrica 100 MG Capsule 1 capsule Orally twice daily , Notes to Pharmacist: Dr. Peters at pain managementNot-Taking Propranolol HCl 80 MG Tablet 1 tablet Orally Twice a day Assessment: * Assessment: 1. C hronic pain syndrome - G89.4 (Primary) 2 . I mpaired mobility and activities of daily living - Z74.09 3 . R adiculopathy, lumbosacral region - M54.17? 4. M yalgia, other site - M79.18 5 . L ow back pain - M54.50 Billing Information: * Procedure Codes: Care Plan Details* * Electronic signature of Nancy Escalera MD on 12/17/2024 at 07:33 PM ELECTRICAL APPRENTICE Sign off status: Pending * Provider: Miguel Escalera MD Date: Generated for Jerad chapin/Law/Alisia on: 02/17/2024 07:33 PM ELECTRICAL APPRENTICE
[2024-12-17 19:32] VITALS: BP 117/88; PULSE 112; RESP 17; TEMP 36.7; O2SAT 97; BMI 29.0
--- OUTSIDE RECORDS SUMMARY | 2024-12-17 19:33 | XMS_ITS | Clinical Summary ---
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 Gender Identity Not on file Sexual Orientation [...] Health Maintenance Due Date Last Done Comments DTAP/TDAP/TD VACCINES (1 - Tdap) 01/21/2003 HEPATITIS B VACCINES (1 of 3 - 19+ 3-dose series) 01/12 HPV/Cotest (21-29) 01/21/2005 HPV VACCINES (1 - 3-dose SCDM series) 01/21/2011 CERVICAL CANCER SCREENING 01/21/2014 HPV/Cotest (30-65) 01/21/2014 PAP SMEAR 01/21/2014 BREAST CANCER SCREENING 2024 INFLUENZA VACCINE (#1) 2024 Insurance MEDICAID [place] Care Teams Computer Service Technician Relationship Specialty Start Date End Date Remberto Keith MD [address] [id number] PCP - General 04/16/15
--- OUTSIDE RECORDS SUMMARY | 2024-12-17 19:33 | XMS_ITS | Patient Health Record ---
Author Organization [facility] Address [address] [place] [address] Care Team Providers Care Oil Well Perforator Operator Name Role Phone DARIEN LYNN Jr, MD Primary Care Provider Unav ailable German Lizarraga Unavailable [phone] JwAlmita Unavailable Allergies No Known Allergies Results Component Value Reference Range Notes Fluoro Needle For Placement - Spine [id number] Reviewed date:01/16/2024 06:15:14 PM Interpretation: Performing Lab: [...] Status Risk Notes Problem Chronic pain syndrome (217139410) Chronic pain syndrome (G89.4) Active confirmed Problem Lumbosacral radiculopathy (2349605) Radiculopathy, lumbosacral region (M54.17) Active confirmed Problem Lumbar radiculopathy (247199733) Lumbar radiculopathy (M54.16) Active confirmed Problem Migraine without aura, not refractory (279652818) Migraine without aura and without status migrainosus, not intractable (G43.009) Active confirmed Problem Displacement of lumbar intervertebral disc without myelopathy (14078790) Herniated nucleus pulposus of lumbosacral region (M51.27) Active confirmed Problem Syncope (045526305) Syncope (780.2) 10/23 017 Problem resolved confirmed [id number] 911- Problem Genital warts (937174386) Genital warts (078.11) 016 Problem resolved confirmed Matthew-985 911- Problem Hip pain (09126423) Hip pain (719.45) 015 Problem resolved confirmed Matthew-985 911- Problem Vitamin D deficiency (72658237) Vitamin D deficiency, unspecified (268.9) 017 Problem resolved confirmed Matthew-985 911- Problem Chest discomfort (677859262) Chest discomfort (786.59) 015 Problem resolved confirmed Matthew-985 911- Problem Knee pain (1414326599) Knee pain (719.46) 015 Problem resolved confirmed Matthew-985 911- Problem Asthma without status asthmaticus (96928007) Asthma, NOS (493.90) 018 Problem resolved confirmed Matthew-985 911- Problem Bipolar I disorder, most recent episode (or current) depressed (296.5) 017 Problem resolved confirmed Matthew-985 911- Problem Common migraine (13914875) Common migraine (346.10) 017 Problem resolved confirmed Matthew-985 911- Problem Needs influenza immunization (712460332) Vaccination against other viral diseases, Influenza (V04.81) 017 Problem resolved confirmed Matthew-985 911- Problem Tobacco user (051499073) Tobacco abuse affecting health (305.1) 015 Problem resolved confirmed Matthew-985 911- Problem Supraventricular tachycardia (9696665) SVT (427.0) 016 Problem resolved confirmed Matthew-985 911- Problem Otitis externa (9893613) Otitis externa (380.10) 016 Problem resolved confirmed Matthew-985 911- Problem Sinus tachycardia (06614119) Sinus tachycardia (427.89) 015 Problem resolved confirmed Matthew-985 911- Problem test positive (770968693) Positive test (V22.1) 015 Problem resolved confirmed Matthew-985 911- Problem Missed period (93841299) Missed period (626.4) 015 Problem resolved confirmed Matthew-985 911- Problem Insomnia (532186964) Insomnia (307.41) 018 Problem resolved confirmed Matthew-985 911- Problem Furuncle (523294363) Furuncle (680.9) 015 Problem resolved confirmed Matthew-985 911- Problem Tobacco user (912073270) Cigarette smoking (305.1) 018 Problem resolved confirmed Matthew-985 911- Problem Tobacco dependence (99914348) Tobacco dependence (305.1) 017 Problem resolved confirmed Matthew-985 911- Problem Convulsion (76349365) Seizure(s); other (780.39) 016 Problem resolved confirmed Matthew-985 911- Problem Disorder of hematopoietic system (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) Other abnormal findings on blood examination (790.99) 017 Problem resolved confirmed Matthew-985 911- Problem Pustular acne (35057923) Pustular acne (706.1) 017 Problem resolved confirmed Matthew-985 911- Problem Osteopenia (445613680) Osteopenia (733.90) 017 Problem resolved confirmed Matthew-985 911- Problem (82786309) (V22.1) 08/12 015 Problem resolved confirmed Matthew-985 911- Problem Headache (25931348) Headache (307.81) 017 Problem resolved confirmed Amtthew-985 911- Problem Low back pain (956006257) Low back pain (724.2) 015 Problem resolved confirmed Matthew-985 911- Problem Cough (04312079) Cough (786.2) 017 Problem resolved confirmed Matthew-985 911- Problem Shortness of breath (552482145) Shortness of breath (786.05) 016 Problem resolved confirmed Matthew-985 911- Problem Headache (22975011) Headache (784.0) 11/0 04/13 016 Problem resolved confirmed Matthew-985 911- Problem Impetigo (64549070) Impetigo (684) 015 Problem resolved confirmed Matthew-985 911- Problem Female stress incontinence (59003992) Female stress incontinence (625.6) 019 Problem resolved confirmed Matthew-985 911- Problem Acute pharyngitis (337915949) Acute pharyngitis (462) 015 Problem resolved confirmed Matthew-985 911- Problem Posttraumatic stress disorder (60500894) Posttraumatic stress disorder (309.81) 015 Problem resolved confirmed Matthew-985 911- Problem Hypercalcemia (97023122) Hypercalcemia (275.42) 017 Problem resolved confirmed Matthew-985 911- Problem Bipolar affective disorder, currently depressed, mild (833887638) Bipolar I disorder, most recent episode (or current) depressed, mild (296.51) 015 Problem resolved confirmed Matthew-985 911- Problem Bipolar affective disorder, currently manic, moderate (184704399) Bipolar I disorder, most recent episode (or current) manic, moderate (296.42) 017 Problem resolved confirmed Matthew-985 911- Problem Bipolar affective disorder, currently depressed, moderate (934436787) Bipolar I disorder, most recent episode (or current) depressed, moderate (296.52) 019 Active confirmed Matthew-985 911- Procedures Procedure Date Ordered Date Performed Result Body Sit e Epidural, Transforaminal, Matilda mbar/Sacral, 2 or more levels - 98527, 16474 01/16/2024 01/16/2024 N/A Encounters Encounter Location Date Provider Diagnosis [facility] [address] [place] [address] [facility] M54.16 Assessments Encounter Date Diagnosis (ICD Code) Assessment Notes Treatment Notes Treatment Clinical Notes Section Notes 01/16/2024 Lumbar radiculopathy (ICD-10 - M54.16) Plan Of Treatment No Information Insurance Providers Payer Name Payer Address Payer Phone Subscriber Number Group Number Insured Name Patient Relationship to Insured Coverage Start Date Coverage End Date [place] Medicaid [address] [place] [id number] [phone] [id number] Mandy Cali Self - patient is the insured Medical (General) History Medical History History ICD Code Asthma Sinus tachycardia Female stress incontinence Acne Migraine headaches Seizure disorder Bipolar disorder Generalized anxiety disorder Depression Insomnia PTSD Osteoarthritis Osteopenia Vitamin D deficiency GERD GYNECOLOGICAL HISTORY LMP- 04/2019 control- tubal ligation Back surgery 01/20/21; Dr. Lizarraga Surgical History Surgery Date(Month/Year) Left L4/5 & L5/S1 TFESI with sedation- M LP 01/16/2024 lumbar microdiscectomy 01/2020 Abdominal surgery Cyst removal; left cheek Back surgery x 2 2009, 2015 Tubal ligation 2015 Eye surgery; bilateral 2012 Tonsillectomy 2007 Hospitalization History Reason Date(Month/Year) Abdominal surgery Child ; tubal ligation
--- OUTSIDE RECORDS SUMMARY | 2024-12-17 19:33 | XMS_ITS | Encounter Summary ---
Author Organization [facility] Address [address] [place] [address] Care Team Providers Care Burnishing Machine Operator Name Role Phone Remberto Keith MD Primary Care Provider [phone] Encounter Details Date Type Department Care Team (Late st Contact Info) Description 09/27/2009 Emergency [facility] Emergency Department [address] [address] Olu Alfredo MD Unspecified Site of Sacroiliac Region Sprain and Strain (Primary Dx) Social History Tobacco Use Types Packs/Day Years Used Date Smoking Tobacco: Never Assessed Comments Unknown Sex and Gender Information Value Date Recorded Sex Assigned at Not on file Legal Sex Female 11:09 AM SLUBBER HAND Gender Identity Not on file Sexual Orientation Not on file documented as of this encounter Plan of Treatment Not on file documented as of this encounter Visit Diagnoses Diagnosis Sprain of unspecified site of sacroiliac region- Primary documented in this encounter Care Teams Burnishing Machine Operator Relationship Specialty Start Date End Date Remberto Keith MD [address] [place] [address] PCP - General 04/16/15 documented as of this encounter
--- OUTSIDE RECORDS SUMMARY | 2024-12-17 19:33 | XMS_ITS | Encounter Summary ---
Author Organization [facility] Address [address] [place] [address] Care Team Providers Care Stripper Black And White Name Role Phone Remberto Keith MD Primary Care Provider [phone] Encounter Details Date Type Department Care Team (Late st Contact Info) Description 09/01/2009 Emergency [facility] Emergency Department [address] [place] [id number] Robbie Guard[address] [address] [place] [address] Lumbago (Primary Dx) Social History Tobacco Use Types Packs/Day Years Used Date Smoking Tobacco: Never Assessed Comments Unknown Sex and Gender Information Value Date Recorded Sex Assigned at Not on file Legal Sex Female 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
--- OUTSIDE RECORDS SUMMARY | 2024-12-17 19:34 | XMS_ITS | Data Portability ---
Author Organization [facility] [place] [facility] Address [address] [address] Care Team Providers Care Dramatic Teacher Name Role Phone YESSY SALGADO Primary Care Provider Unavailabl e Assessment Encounter Date Assessment Date Assessment LastModified by Organization Details LastModified Time 10/17/2024 10/17/2024 Patient presented for medication refill. Patient tolerating medication well at current dose without adverse effects. Refilled as below. Discussed plan with , who expressed understanding . Follow up as noted below. [email or web address] Not available 10/17/2024 11:36:40 Plan of Treatment Reminders Order Date Submit Date Provider Last Modified By Organization Details Last Modified Time Details Appointments ANNUAL2 0 2024 10:20A M YESSY SALGADO PA-C Not available Not available Not available Lab CMP, serum or plasma 2024 025 [facility], [address], [place], [address], 07/15/2024 13:39:43 CBC 2024 025 [facility], [address], [address], [place], [address], 07/15/2024 12:40:14 thyrotr opin, QN, serum or plasma 2024 025 [facility], [address], [place], [address], 07/15/2024 13:44:08 vitamin B12, serum 2024 025 [facility], [address] [facility], [place], [address], 07/16/2024 07:41:52 Referral neurolo gist referra l [address] [facility], [address] [place] [address], [address], 08/04/2024 15:53:24 Procedures None recorde d. Surgeries None recorde d. Imaging MAMMO, screeni ng, digital , bilater al 2024 025 [facility], [address] [place] [address], [id number], 11/04/2024 14:54:19 electro encepha logram [address] Imaging Orders, [address] [place] [address], [id number], 07/18/2024 14:11:16 MRI, brain, w/wo contras t [address] Imaging Orders, [address] [place] [address], [address], 07/18/2024 12:51:41 Medication Orders Zepboun d 2.5 mg/0.5 mL subcuta neous pen injecto r 2024 025 [facility] [place], [address] [place] [address], [address], 11/07/2024 12:59:45 Zepboun d 5 mg/0.5 mL subcuta neous pen injecto r 2024 025 [facility] [place], [facility] [place], [address], 12/01/2024 18:08:45 ondanse basilio 8 mg disinte grating tablet [address], [address], 11/20/2024 17:51:49 quetiap ine 100 mg tablet [address], [address], 11/20/2024 17:51:23 pantopr azole 40 mg tablet, delayed release [address], [address], 11/20/2024 17:51:24 Seroque l 100 mg tablet [address], [address], 08/19/2024 18:25:25 Seroque l 50 mg tablet [address], [address], 10/17/2024 12:51:40 cetiriz ine 10 mg tablet [address], [address], 10/17/2024 13:01:48 Flonase Allergy Relief 50 mcg/act uation nasal spray,s uspensi on [address], [address], 06/11/2024 15:00:25 ProAir HFA 90 mcg/act uation aerosol inhaler 2024 025 [facility] [place], [facility] [place], [address], 06/11/2024 15:00:22 prednis one 20 mg tablet 2024 025 [facility], [facility] [place], [address], 03/11/2024 11:43:43 hydroco done 5 mg-acet aminoph en 325 mg tablet 2024 [email or web address] [place] [address], [address] [place] [address], [address], 10/17/2024 11:41:30 Seroque l 50 mg tablet 2024 [email or web address] [place] [address], [address] [place] [address], [address], 10/17/2024 11:42:37 Patient TargetsNo targets recorded. Patient InstructionsNo instructions recorded. Reason for Referral Neurologist Referral for Sei zure disorder Referring Physician: Yessy Salgado, Family Medicine, Encounter Date: 07/15/2024 Results Created Date Observation Date Name Description Value Unit Range Abnormal Flag Note LastModifiedBy Organization Detail LastModifiedTime 07/16/1907/15/2024 CBC WBC 11.4 x10 4.0-10 .5 high Not Available [facility] [address] [facility], [place], [address], 07/15/2024 12:40:14 07/16/19 25 07/15/2024 CBC RBC 4.82 x10 3.50-5 .50 Not Available [facility] [address] [facility], [place], [address], 07/15/2024 12:40:14 07/16/19 25 07/15/2024 CBC HGB 14.0 g/dL 12.0-1 6.0 Not Available [facility] [address] [facility] [facility] [address], [place], [address], 07/15/2024 12:40:14 07/16/19 25 07/15/2024 CBC HCT 42.8 % 37.0-4 7.0 Not Available [facility] [address] [facility], [place], [address], 07/15/2024 12:40:14 07/16/19 25 07/15/2024 CBC MCV 88.7 fL 80.0-9 9.9 Not Available [facility] [address] [facility], [place], [address], 07/15/2024 12:40:14 07/16/19 25 07/15/2024 CBC MCH 29.0 pg 27.0-3 2.0 Not Available [facility] [address] [facility], [place], [address], 07/15/2024 12:40:14 07/16/19 25 07/15/2024 CBC MCHC 32.6 g/dL 32.0-3 6.0 Not Available [facility] [address] [facility], [place], [address], 07/15/2024 12:40:14 07/16/19 25 07/15/2024 CBC RDW 14.2 % 11.5-1 4.5 Not Available [facility] [address] [facility], [place], [address], 07/15/2024 12:40:14 07/16/1907/15/2024 CBC plt 310.1 x10 140.0- 451.0 Not Available [facility] [address] [facility], [place], [address], 07/15/2024 12:40:14 07/16/19 25 07/15/2024 CBC lymphocytes % 29.4 % 20.0-5 0.0 Not Available [facility] [address] [place] [facility], [place], [address], 07/15/2024 12:40:14 07/16/19 25 07/15/2024 CBC granulcytes % 61.9 % 30.0-7 0.0 Not Available [facility] [address] [place] [facility], [place], [address], 07/15/2024 12:40:14 07/16/19 25 07/15/2024 CBC monocytes % 5.9 % 2.0-16 .0 Not Available [facility] [address] [place] [facility], [place], [address], 07/15/2024 12:40:14 07/16/19 25 07/15/2024 CBC granulcytes# 7.0 x10 Not Leanne ilable [facility] [address] [place] [facility], [place], [address], 07/15/2024 12:40:14 07/16/19 25 07/15/2024 CBC lymphocytes # 3.3 x10 Not Available [facility] [address] [place] [facility], [place], [address], 07/15/2024 12:40:14 07/16/19 25 07/15/2024 CBC monocytes # 0.7 x10 Not Avai lable [facility] [address] [place] [facility], [place], [address], 07/15/2024 12:40:14 07/16/19 25 07/15/2024 CMP (FEMA LE) glucose 115.0 mg/dL 60.0-9 9.0 high Not Available [facility] [address] [place] [facility], [place], [address], 07/15/2024 13:39:43 07/16/19 25 07/15/2024 CMP (FEMA LE) BUN (blood urea nitrogen) 12.0 mg/dL 10.0-2 6.0 Not Available [facility] [address] [facility], [place], [address], 07/15/2024 13:39:43 07/16/19 25 07/15/2024 CMP (FEMA LE) creatinine (serum) 0.7 mg/dL 0.4-1. 5 Not Available [facility] [address] [facility], [place], [address], 07/15/2024 13:39:43 07/16/19 25 07/15/2024 CMP (FEMA LE) BUN/creatini ne ratio 17.14 ratio Not Available [facility] [address] [facility], [place], [address], 07/15/2024 13:39:43 07/16/19 25 07/15/2024 CMP (FEMA LE) eGFR calculated 98.5 Not Available [facility] [address] [address], [place], [address], 07/15/2024 13:39:43 07/16/19 25 07/15/2024 CMP (FEMA LE) total protein 7.5 g/dL 6.0-8. 5 Not Available [facility] [address] [address], [place], [address], 07/15/2024 13:39:43 07/16/19 25 07/15/2024 CMP (FEMA LE) total bilirubin 0.3 mg/dL 0.2-1. 3 Not Available [facility] [address] [address], [place], [address], 07/15/2024 13:39:43 07/16/19 25 07/15/2024 CMP (FEMA LE) albumin 4.5 g/dL 3.5-5. 5 Not Available [facility] [address] [place] [facility], [place], [address], 07/15/2024 13:39:43 07/16/19 25 07/15/2024 CMP (FEMA LE) globulin 3.0 calc Not Available [facility] [address] [facility] 1, [place], [address], 07/15/2024 13:39:43 07/16/19 25 07/15/2024 CMP (FEMA LE) AST (SGOT) 18.0 U/L 0.0-46 .0 Not Available [facility] [address] [facility], [place], [address], 07/15/2024 13:39:43 07/16/19 25 07/15/2024 CMP (FEMA LE) altv (SGPT) 16.0 U/L 13.0-6 9.0 normal Not Available [facility] [address] [facility] 1, [place], [address], 07/15/2024 13:39:43 07/16/19 25 07/15/2024 CMP (FEMA LE) A/G ratio 1.5 ratio Not Available [facility] [address] [facility] 1, [place], [address], 07/15/2024 13:39:43 07/16/19 25 07/15/2024 CMP (FEMA LE) ALP phos 105.0 U/L 30.0-1 40.0 normal Not Available [facility] [address] [facility], [place], [address], 07/15/2024 13:39:43 07/16/19 25 07/15/2024 CMP (FEMA LE) calcium 10.2 mg/dL 8.4-10 .5 Not Available [facility] [address] [facility], [place], [address], 07/15/2024 13:39:43 07/16/19 25 07/15/2024 CMP (FEMA LE) sodium 141.0 mmol/ L 136.0- 145.0 Not Available [facility] [place] [address] [place] [facility], [place], [address], 07/15/2024 13:39:43 07/16/19 25 07/15/2024 CMP (FEMA LE) potassium 3.7 mmol/ L 3.5-5. 1 Not Available [facility] [place] [facility] [address] [place] [facility], [place], [address], 07/15/2024 13:39:43 07/16/19 25 07/15/2024 CMP (FEMA LE) chloride 106.0 mmol/ L 98.0-1 10.0 normal Not Available [facility] [place] [facility] [address] [place] [facility], [place], [address], 07/15/2024 13:39:43 07/16/19 25 07/15/2024 CMP (FEMA LE) C02 27.0 mmol/ L 22.0-3 1.0 Not Available [facility] [place] [address] [place] [facility], [place], [address], 07/15/2024 13:39:43 07/16/19 25 07/15/2024 CMP (FEMA LE) anion gap 8.0 calc Not Available [facility] [address] [place] [facility], [place], [address], 07/15/2024 13:39:43 07/16/19 25 07/15/2024 CMP (FEMA LE) osmolality 291.8 calc Not Available [facility] [place] [address] [place] [facility], [place], [address], 07/15/2024 13:39:43 07/16/19 25 07/15/2024 TSH TSH 1.80 uIU/m L 0.49-3 .82 Not Available [facility] [address] [facility] [address], [place], [address], 07/15/2024 13:44:07 07/16/19 25 07/16/2024 VITAM IN B12 vitamin B12 274 pg/mL 200-11 00 normal Pleas e Note: Altho ugh the refer ence range for vitam in B12 is 200-1 100 pg/mL , it has been repor josee that betwe en 5 and 10% of patie nts with value s betwe en 200 and 400 pg/mL may exper ience neuro psych iatri c and hemat ologi c abnor malit ies due to occul t B12 defic iency ; less than 1% of patie nts with value s above 400 pg/mL will have sympt oms. Not Available [facility] [address] [place], [address], 07/16/2024 07:41:52 11/20/1911/19/2024 MAMMO , scree antony, digit al, bilat eral No observ ation record ed. [facility] [address] [place], [address], 11/24/2024 11:49:31 12/12/1912/11/2024 US, breas t, unila teral No observ ation record ed. [facility] [address] [place], [address], 12/11/2024 14:13:52 12/12/1912/11/2024 MAMMO , diagn ostic , digit al, unila teral No observ ation record ed. [facility] [address] [place], [address], 12/15/2024 09:19:48 Result Notes None recorded. Problems Name Problem SNOMED Code Status Onset Date Resolution Date Notes Provider Name and Address Organization Details Recorded Time Bipolar disorder 86005004 Active 2021 Bipolar by depressio n; 2 6:30AM by Anayeli Hargrove LPN, Office Visit; Promoted; acuity set as *; ANAYELI hercules [facility], L.LAnkurCAnkur 5 21:05:53 Seizure 53233888 Completed 202104/28/2024 Seizure; 2 6:30AM by Anayeli Hargrove LPN, Office Visit; Promoted; acuity set as *; Removal Reason: [facility] Louise.LOswald 5 21:06:25 Obesity 360445087 Active 2021 OBESITY (BMI 30-39.9); Recorded 2 6:31AM by Anayeli Hargrove LPN, Office Visit; Promoted; acuity set as *; ANAYELI hercules [facility], Louise.LAnkurCAnkur 5 21:06:00 Asthma 231956854 Active 2021 Asthma; 2 6:30AM by Anayeli Hargrove LPN, Office Visit; Promoted; acuity set as *; ANAYELI hercules [facility], L.LAnkurCAnkur 5 21:05:47 Attentio n deficit hyperact ivity disorder 395555111 Active 2021 ADHD; 2 6:30AM by Anayeli Hargrove LPN, Office Visit; Promoted; acuity set as *; ANAYELI hercules 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, René 13:42:05 Mammogra phy abnormal 310491347 Active [address] [facility], René 17:07:42 Notes:My autsitic son scratc hed himself and told dfs that I did it and they took him away on 04-06-22 trying to get him back. Problem Notes None recorded. Procedures Surgical History Date Name Laterality Status Provider Name and Address Organization Details Recorded Time 04/21/2024 lumbar spinal fusion completed YESSY SALGADO PA-C [address] [place] [address], [id number], [facility], René 05/08/2024 10:34:13 Imaging Results None recorded. Procedure Notes None recorded. Medical Equipment None Reported. Allergies No known drug allergies Medications Name Sig Start Date Stop Date Status Note LastModified by Organization Details LastModified Time celecoxib 200 mg capsule take 1 capsule BY MOUTH TWICE DAILY active Not Available Not Available No t Available methocarb amy 500 mg tablet TAKE 1 TABLET BY MOUTH EVERY 8 HOURS NEEDED FOR MUSCLE SPASMS active Not Available Not Available No t Available buspirone 5 mg tablet TAKE 1 TABLET BY MOUTH TWICE DAILY DIRECTED FOR 30 DAYS 12/31 completed Not Available Not Available Not Available venlafaxi ne ER 75 mg capsule,e xtended release 24 hr take 1 capsule BY MOUTH EVERY DAY 10/29 completed Not Available Not Available Not Available cetirizin e 10 mg tablet TAKE 1 TABLET BY MOUTH EVERY DAY 10/17 completed Not Available Not Available Not Available ofloxacin 0.3 % eye drops instill 10 drops in ear EVERY DAY 05/03 completed Not Available Not Available Not Available hydrocodo ne 5 mg-acetam inophen 325 mg tablet TAKE 1 TABLET BY MOUTH EVERY 6 HOURS FOR PAIN FOR 30 DAYS 10/17 completed Not Available Not Available Not Available famotidin e 40 mg tablet TAKE 1 TABLET BY MOUTH EVERY DAY FOR 30 DAYS 10/17 completed Not Available Not Available Not Available prednison e 20 mg tablet Take 2 tablets every day by oral route for 5 days. 03/11 completed Not Available Not Available Not Available venlafaxi ne ER 150 mg capsule,e xtended release 24 hr take 1 capsule BY MOUTH EVERY DAY with 75mg DOSE need TO see doctor 10/29 completed Not Available Not Available Not Available sulfameth oxazole 800 mg-trimet hoprim 160 mg tablet TAKE 1 TABLET BY MOUTH TWICE DAILY FOR THREE DAYS 05/12 completed Not Available Not Available Not Available hydrocodo ne 10 mg-acetam inophen 325 mg tablet TAKE 1 TABLET BY MOUTH EVERY 4 HOURS FOR PAIN for 7 days 10/17 completed Not Available Not Available Not Available tramadol 50 mg tablet TAKE 1 TABLET BY MOUTH EVERY 8 HOURS NEEDED FOR PAIN 02/13 completed Not Available Not Available Not Available quetiapin e 100 mg tablet TAKE 1 TABLET BY MOUTH EVERY DAY AT BEDTIME active Not Available Not Available No t Available acetamino phen 500 mg tablet TAKE 1 TABLET BY MOUTH EVERY 6 HOURS NEEDED 07/06 completed Not Available Not Available Not Available triamcino lone acetonide 0.1 % topical cream APPLY TO THE AFFECTED AREA(S) TWICE DAILY 05/03 completed Not Available Not Available Not Available amoxicill in 500 mg tablet TAKE 1 TABLET BY MOUTH THREE TIMES DAILY 10/29 completed Not Available Not Available Not Available ondansetr on 8 mg disintegr ating tablet DISSOLVE ONE TABLET BY MOUTH TWICE DAILY FOR 10 DAYS 2024 active Not Available Not Available Not Avai lable ketorolac 10 mg tablet TAKE 1 TABLET BY MOUTH EVERY 8 HOURS NEEDED FOR PAIN 10/29 completed Not Available Not Available Not Available famotidin e 20 mg tablet TAKE 1 TABLET BY MOUTH TWICE DAILY NEEDED FOR ABDOMINA L PAIN. 07/06 completed Not Available Not Available Not Available metoclopr amide 5 mg tablet TAKE 1 TABLET BY MOUTH TWICE DAILY NEEDED FORNAUSE A AND VOMITING 05/03 completed Not Available Not Available Not Available meclizine 25 mg tablet TAKE 1 TABLET BY MOUTH TWICE DAILY NEEDED FOR vertigo 05/03 completed Not Available Not Available Not Available pantopraz ole 40 mg tablet,de layed release TAKE 1 TABLET BY MOUTH EVERY DAY FOR 30 DAYS 2024 active Not Available Not Available Not Avai lable buspirone 10 mg tablet TAKE 1 TABLET BY MOUTH TWICE DAILY FOR 30 DAYS 12/31 completed Not Available Not Available Not Available diclofena c sodium 75 mg tablet,de layed release TAKE 1 TABLET BY MOUTH TWICE DAILY NEEDED FOR PAIN 10/17 completed Not Available Not Available Not Available hydroxyzi ne HCl 25 mg tablet TAKE 1 TABLET BY MOUTH EVERY DAY NEEDED FOR PANIC 10/29 completed Not Available Not Available Not Available levofloxa raymond 750 mg tablet TAKE 1 TABLET BY MOUTH ONCE DAILY FOR 7 DAYS 05/03 completed Not Available Not Available Not Available methylpre dnisolone 4 mg tablets in a dose pack Take as directed on package for 6 days 10/17 completed Not Available Not Available Not Available brompheni ramine-ps eudoephed rine-DM 2 mg-30 mg-10 mg/5 mL oral syrup TAKE 10 ML BY MOUTH EVERY 6 HOURS NEEDED 07/06 completed Not Available Not Available Not Available fluticaso ne propionat e 50 mcg/actua tion nasal spray,kris pension USE 2 SPRAYS intranas al EVERY DAY active Not Available Not Available No t Available naproxen 500 mg tablet TAKE 1 TABLET BY MOUTH TWICE DAILY NEEDED FOR PAIN 10/29 completed Not Available Not Available Not Available Vitamin B-12 1,000 mcg tablet Take 1 tablet every day by oral route. 2024 active Not Available Not Available Not Avai lable Ventolin HFA 90 mcg/actua tion aerosol inhaler USE TWO puffs BY MOUTH FOUR TIMES DAILY NEEDED active Not Available Not Available No t Available escitalop kala 10 mg tablet TAKE 1 TABLET BY MOUTH EVERY DAY 05/03 completed Not Available Not Available Not Available Lexapro 20 mg tablet Take 1 tablet every day by oral route as directed for 90 days. 05/03 completed Not Available Not Available Not Available meclizine two times daily, as needed 10/29 completed Recorded 10/26/19 6:31AM by Anayeli Hargrove LPN, Office Visit; Refill Quantity : 0; Not Available Not Available Not Available Lexapro daily 10/29 completed vo KM/dh; [address]; Recorded 11/02/19 12:05PM by Anayeli Hargrove LPN (Authori barbara through Yessy Salgado PA-C), Refill Request; Refill Quantity : 30; Tablet; Not Available Not Available Not Available Hydrocodo ne W/Acetami nophen every four hours, as needed 10/[address] [facility]; 0; Recorded 10/26/19 6:31AM by Anayeli Hargrove LPN, Office Visit; Not Available Not Available Not Available quetiapin e 50 mg tablet TAKE 1 TABLET BY MOUTH EVERY DAY 10/17 completed Not Available Not Available Not Available ProAir RespiClic k 2 puffs q 4 hours prn 05/03 completed Not Available Not Available Not Available Zepbound 5 mg/0.5 mL subcutane ous pen injector Inject 5 mg every week by subcutan eous route for 28 days. 2024 active Not Available Not Available Not Avai lable Zepbound 2.5 mg/0.5 mL subcutane ous pen injector inject 2.5mg SUBCUTAN EOUSLY every week FOR 28 DAYS active Not Available Not Available No t Available Vitals Date Recorded Body height Body mass index (BMI) Body weight Oxygen saturation Oxygen saturation in Arterial blood by Pulse oximetry Heart rate Respiratory rate Body temperature Systolic And Diastolic Provider Name and Address Organization Details Last Updated DateTime 5 149.86 cm 34.1 kg/m2 07123.1 1 g 97 % 97 % 78 /min 20 /min 97 [degF] 136/80 mm[Hg] [facility] 5 15:02:35 Date Recorded Body height Body mass index (BMI) Body weight Oxygen saturation Oxygen saturation in Arterial blood by Pulse oximetry Heart rate Respiratory rate Body temperature Systolic And Diastolic Provider Name and Address Organization Details Last Updated DateTime 5 149.86 cm 34.1 kg/m2 45082.1 1 g 96 % 96 % 72 /min 18 /min 97 [degF] 136/80 mm[Hg] [facility] 10:10[facility]12 Date Recorded Body height Body mass index (BMI) Body weight Oxygen saturation Oxygen saturation in Arterial blood by Pulse oximetry Heart rate Respiratory rate Body temperature Systolic And Diastolic Provider Name and Address Organization Details Last Updated DateTime 149.86 cm 33.4 kg/m2 90925.4 4 g 97 % 97 % 76 /min 18 /min 97 [degF] 128/70 mm[Hg] ANAYELI HARGROVE [facility], René 11:28:41 Date Recorded Body height Body mass index (BMI) Body weight Oxygen saturation Oxygen saturation in Arterial blood by Pulse oximetry Heart rate Respiratory rate Body temperature Systolic And Diastolic Provider Name and Address Organization Details Last Updated DateTime 149.86 cm 32.4 kg/m2 64634.2 2 g 98 % 98 % 104 /min 16 /min 97.4 [degF] 88/50 mm[Hg] Stefani Alvarez [facility], René 11:38:25 Date Recorded Body mass index (BMI) Body weight Provider Name and Address Organization Details Last Updated DateTime 11/07/2024 32.3 kg/m2 09878.78 g YESSY SALGADO PA-C [address] [place] [address], [id number], [facility], René 11/07/2024 12:15:49 Date Recorded Body height Oxygen saturation Oxygen saturation in Arterial blood by Pulse oximetry Heart rate Respiratory rate Body temperature Systolic And Diastolic Provider Name and Address Organization Details Last Updated DateTime 149.86 cm 98 % 98 % 70 /min 18 /min 98 [degF] 110/70 mm[Hg] ANAYELI HARGROVE [facility] 11:38:41 Social History Question Answer Notes LastModified by Organizat ion Details LastModified Time Tobacco Smoking Status Current Every Day Smoker [facility]fani [facility]varez [facility] 10/17/2024 11:43:26 What Is Your Level Of Caffeine Consumption? Heavy [email or web address] Information not available 10/17/2024 What Type Of Marijuana Have You Used? Edibles [email or web address] Information not available 10/17/2024 Do You Or Have You Ever Used Marijuana? Current Every Day User [email or web address] Information not available 10/17/2024 What Was The Date Of Your Most Recent Tobacco Screening? 10/17/2024 [email or web address] Information not available 10/17/2024 At What Age Did You Start Smoking Tobacco? 4 [email or web address] Information not available 10/17/2024 How Much Tobacco Do You Smoke? 0.5 PPD [email or web address] Information not available 10/17/2024 Sex: Unknown Functional Status Question Answer Note LastModified by Organizat ion Details LastModified Time Do you use any illicit or recreational drugs? No Information not available 10/17/2024 What is your level of alcohol consumption? Occasional [email or web address] Information not available 10/17/2024 Mental Status None recorded. Family History Nothing Reported. Medical History No medical history recorded. Gynecological HistoryNo gynecological history recorded. Obstetrics History GPAL:G 0 P 0 0 0 0 Immunizations Vaccine Type Date Status Note Provider Nam e and Address Organization Details Recorded Time Influenza, split virus, trivalent, preservative 10/15/19 22 completed Not Available [facility] 11/14/2022 12:38:06 Influenza, split virus, trivalent, PF 10/18/19 25 cancelled product out of stock YESSY SALGADO PA-C [address] [place], [address], [facility] 11/14/2024 16:47:54 Influenza, split virus, quadrivalent, PF 01/31/20 21 completed YESSY SALGADO PA-C [address] [place], [address], [facility] 07/06/2022 09:56:51 Influenza, split virus, trivalent, PF 11/30/19 24 completed YESSY SALGADO PA-C [address] [place], [address], [facility] 11/30/2023 15:41:30 Past Encounters Encounter ID Performer Location Encounter Start Date Encounter Closed Date Diagnosis/Indication Diagnosis SNOMED-CT Code Diagnosis ICD10 Code Diagnosis IMO Codes Diagnosis Note [id number] YESSY SALGADO PA-C [facility] ([facility]) [address] [place] [address] 05/03/2022 14:43:06 05/09/2022 11:54:48 Mixed anxiety and depressive disorder 108073209 F41.8 [id number] YESSY SALGADO PA-C [facility] ([facility]) [address] [place] [phone] 05/23/2022 14:13:55 05/29/2022 16:29:25 Mixed anxiety and depressive disorder 829936180 F41.8 will increase dose today but overall happy with the improvemen t [place] seeing [id number] YESSY SALGADO PA-C [facility] ([facility]) [address] [place] [phone] 07/06/2022 09:22:59 07/06/2022 15:27:10 Generalized anxiety disorder 28719308 F41.1 pt declined counseling [id number] YESSY SALGADO PA-C [facility] ([facility]) [address] [place] [address] 09/04/2022 14:14:32 09/04/2022 14:59:06 Generalized anxiety disorder 62474621 F41.1 no med changes today.Citlalli chapin a [facility] consult for DFS soon.f/u in 3 months. [id number] YESSY SALGADO PA-C [facility] ([facility]) [address] [place] [phone] 11/14/2022 12:37:57 12/07/2022 04:05:35 Administration of influenza vaccine 51032023 Z23 Prophylact ic immunotherapy 530888943 Z29.11 [id number] YESSY SALGADO PA-C [facility] ([facility]) [address] [place] [phone] 10/30/2023 10:41:29 10/30/2023 13:09:13 Generalized anxiety disorder 11233561 F41.1 Seasonal a llergic rhinitis 437764626 J30.2 [id number] YESSY SALGADO PA-C [facility] ([facility]) [address] [place], [place] [phone] 11/30/2023 09:33:11 11/30/2023 15:57:31 Generalized anxiety disorder 23400082 F41.1 Administra tion of influenza vaccine 19456681 Z23 [id number] YESSY SALGADO PA-C [facility] ([facility]) [address] [place], [place] [address] 01/01/2024 11:36:51 01/01/2024 12:59:52 Generalized anxiety disorder 07856541 F41.1 30 min spent with ptStop the buspar . start the seroquel Post-traum atic stress disorder 66149239 F43.10 [id number] YESSY SLAGADO PA-C [facility] ([facility]) [address] [place] [address] 5 02/14/2024 14:47:04 02/14/2024 16:15:34 Herpes zoster 1676141 B02.9 already on Vatrex from [facility]. Generalize d anxiety disorder 06083909 F41.1 doing well on the seroquel. helping wiht irritabili ty and sleep. [id number] YESSY SALGADO PA-C [facility] ([facility]) [address] [place] [id number] 05/08/2024 10:02:21 05/08/2024 10:53:54 Generalized anxiety disorder 41325288 F41.1 doing well on the seroquel. helping with irritabili ty and sleep. History of lumbar fusion 9387404501 9106 Z98.1 s/p 2 week surgery 04/21/24 Seasonal a llergic rhinitis 586650456 J30.2 [id number] YESSY SALGADO PA-C [facility] ([facility]) [address] [place] [address] 07/15/2024 11:23:27 07/15/2024 12:18:24 Seizure disorder 409670406 G40.909 [id number] MRI needed to due new seizure. rule out lesions that may cause as well has CVA or increased fluid on the brain. Generalize d anxiety disorder 38521197 F41.1 doing well on the seroquel. helping with irritabili ty and sleep. [id number] YESSY SALGADO PA-C [facility] ([facility]) [address] [place] [phone] 10/17/2024 11:16:34 10/17/2024 12:42:55 Generalized anxiety disorder 10039618 F41.1 doing well on the seroquel. helping with irritabili ty and sleep. Gastroesop hageal reflux disease 461824246 K21.9 69859466 Nausea and vomiting 1693 2000 R11.2 Requires i nfluenza virus vaccination 789655256 Z23 139619 Screening mammography 24 745165 Z12.31 [id number] YESSY SALGADO PA-C [facility] ([facility]) [address] [place] [phone] 11/07/2024 11:14:32 11/07/2024 12:47:23 Obesity 809134525 E66.9 68696747 Pt has tried and failed a 3 month at home weight loss program of counting calories and tracking food.I recommend starting a GLP1 wt lossI explained how GLP1 help to lose weight. We discussed possible SE of nausea, vomiting, bloating and constipati on. Showed how to use self injection pen. All questions were answered to satisfacti on Body mass index 30+ - obesity 079020317 Z68.32 336273 Health Concerns Section Related Observation LastModified by Organization Detai ls LastModified Time None Recorded Concern Status LastModified by Organization Details LastModified Time None Recorded Advance Directives Directive None Recorded Payers Insurance Date Sequence Insurance Name Policy Number Policy De Luna Covered Member ID De Luna Member ID Guarantor Name 10/14/2024 1 [place] Mandy Turner [id number] Mandy Turner 11/13/2024 [place] [facility] Mandy Turner [id number] Mandy Turner Notes Date Note Type Note Provider Name and Address Organization Details Recorded Time 02/13/19 25 text/htm l Anxiety/DepressionReported by PatientHPIFor severity, patient reportsdenies suicidal ideations,able to maintain relationships, anddoes not interfere with activities of daily living. For duration, patient reportschronic. For onset/timing, patient reportsgradual. For modifying factors, patient reportsmedications as directed. For associated symptoms, patient reportsdenies homicidal ideations,no significant weight gain,no significant weight loss,no visual/auditory hallucinations,no delusions,no shortness of breath,appetite good,no feelings of worthlessness, andable to concentrate. For context, (ptsd). Rash/Skin LesionReported by PatientHPIFor quality, patient reportsitchyandpainful. For location, patient reportsback. For severity, patient reportsmoderate. For duration, patient reportshas noted for <1 week. For timing, patient reportsabrupt. For aggravating factors, patient reportsclothing,exercise,bathing ,stress, andcontact irritant. er follow up 02-11-24 YESSY herron PA-C [address] [place], [address], [facility] 02/14/2024 15:59:49 05/09/19 25 text/htm l Anxiety/DepressionReported by PatientHPIFor severity, patient reportsincreased anxietybut reportsdenies suicidal ideations,able to maintain relationships, anddoes not interfere with activities of daily living. For context, patient reportsrecent medical event. For associated symptoms, patient reportsposttraumatic stress disorderbut reportsdenies homicidal ideations,no significant weight gain,no significant weight loss,no visual/auditory hallucinations,no delusions,no shortness of breath,no isolation, andno leaden paralysis. For duration, patient reportschronic. For onset/timing, patient reportsgradual. For modifying factors, patient reportsmedications as directed. hospital follow up 05-06-24 hematoma at surgical site healing up. I need refills on my seroquel YESSY SALGADO PA-C [address] [place], [address], [facility] 05/08/2024 10:52:29 07/16/19 25 text/htm l SeizureReported by PatientHPIFor associated symptoms, patient reportstongue biting,postictal fatigue/tiredness, andweaknessbut reportsno incontinence. For onset/timing, patient reportsage/date of onset: 1andmax frequency: 2 year. For quality, patient reportswarningsandgeneralized seizure. For duration, patient reportslength of seizure: ___. For context, patient reportshistory of status epilepticusandfamily history of seizures. For aggravating factors, patient reportstriggers. 2 weeks ago. occured in middle of night. up getting a sandwich. then not sure what happened. remembers seening aura. woke up on the floor then went back to bed. Not witnessed HAd a large gash in her tongue Hx of seizre disorder. Dx at age 1. took meds throughout childhood. Stopped meds in her teens. Has been on meds aon and off the last decade. She feels meds have med worse in the past. Usually has 2-3 a year. But thinks her last seizure was 2 yrs ago. BAck surgery 3 months ago and doing well. Not on Tramadol or cyclobenzaprine. YESSY SALGADO PA-C [address] [place], [address], [facility] 07/15/2024 12:13:11 10/18/19 25 text/htm l Anxiety/DepressionReported by PatientHPIFor severity, patient reportsinterference with activities of daily livingbut reportsdenies suicidal ideationsandable to maintain relationships. For context, patient reportsrelationship stress(special needs son). For modifying factors, patient reportscounselling. For associated symptoms, patient reportsdenies homicidal ideationsandno shortness of breath. flu on medication increase, she is tolerating medication, dose is controlling her symptoms better. she continues to get irritable easily YESSY SALGADO PA-C [address] [place], [address], [facility] 11/14/2024 16:51:36 11/08/19 25 text/htm l ObesityReported by PatientHPIFor diagnosis summary, patient reportsage at start of weight gain 2014. For context, patient reportschronic illness. For comorbidities, patient reportsdepression. For lifestyle changes, patient reportsmotivated to continue lifestyle changes,motivated to make lifestyle changes,losing weight, andexercising more. For nutrition, patient reportslow-fat diet yes,low-carbohydrate diet yes,balanced low-calorie diet yes,high-protein diet yes,very low calorie diet yes, andintermittent fasting yes. For physical activity, patient [id number] minutes of moderate exercise per weekandweekly screen time (electronics) : 10 hours. For medication education, patient reportsverbalizes understanding of potential medication side effects yes,verbalizes understanding of medication administration yes, andverbalizes understanding of role of diet as primary therapy yes. discuss zepboundhx of back pain with surgery YESSY SALGADO PA-C [address] [place] [address], [address], [facility], René 11/07/2024 12:32:09 OBGyn Episode No OBEpisode recorded.
--- OUTSIDE RECORDS SUMMARY | 2024-12-17 19:34 | XMS_ITS | Clinical Summary ---
Author Organization [facility] Address [address] [facility] Attn: Epic Prelude ADT DEANNA MARTINEZ [address] Care Team Providers Care Crime Specialist Name Role Phone Remberto Keith MD Primary Care Provider Allergies Active Allergy Reactions Criticality Noted Date [...] on file Legal Sex Female 7:11 AM [employer] Gender Identity Not on file Sexual Orientation [...] 2024 INFLUENZA VACCINE (#1) 2024 Care Teams Crime Specialist Relationship Specialty Start Date End Date Remberto Keith MD [address] [phone] [facility] - General 04/16/15
[2024-12-17 22:09] LABS: Hematocrit 41.7 % (36-47); Hemoglobin 14.00 g/dL (11.27-16.99); Mean Corpuscular HGB Conc 33.6 g/dL (30-55); Mean Corpuscular Hemoglobin 29.4 pg (27-33); Mean Corpuscular Volume 87.4 fl (85-98); Nucleated Red Blood Cells % 0 %; Platelet Count 301 10^3/cmm (157-399); Red Blood Count 4.77 10^6/uL (3.85-5.65); White Blood Count 12.04 10^3/uL (3.29-11.43)
[2024-12-17 22:26] LABS: Alanine Aminotransferase 14 U/L (0-33); Albumin Level 4.8 g/dL (3.5-5.2); Alkaline Phosphatase 123 U/L (35-105); Anion Gap 15.6 (5-19); Aspartate Amino Transferase 16 U/L (0-32); Blood Urea Nitrogen 12 mg/dL (6-20); Calcium 10.1 mg/dL (8.5-10.5); Carbon Dioxide 24 mmol/L (22-29); Chloride 104 mmol/L (98-107); Creatinine Clr Calc Pharmacy 91.6347; Globulin 2.9 g/dL (1.3-4.6); Glucose 92 mg/dL (65-115); Lipase 22 U/L (13-60); Osmolality Calculated 289 mOsm/kg (285-295); Potassium 3.6 mmol/L (3.5-5.1); Sodium 140 mmol/L (136-145); Total Protein 7.7 g/dL (6.6-8.7)
--- NOTE | 2024-12-17 22:26 | ED_ITS ---
HPI - General Adult 2 General: Chief complaint: Nausea/Vomiting/Diarrhea Stated complaint: stomach problems believes med reaction Time Seen by Provider: 12/17/24 20:54 History of Present Illness: Patient is a 39-year-old female with a history of chronic back pain, asthma, PTSD, recently started on Zepbound and celecoxib presents w/ stomach upset, nausea and vomiting. She states that she has she has been taking celecoxib, approximately 1 hour after she starts experiencing an upset stomach and occasionally has vomited. She came into the emergency department today because she vomited at least 5 times. Patient has not had a fever. She denies shortness of breath, chest pain, cough or hemoptysis. She does not feel lightheaded. Patient states that she is not experiencing any abdominal pain or abdominal pain with eating. She denies blood in stool though she does state that she has had diarrhea since she started taking celecoxib. She denies pelvic pain, abnormal vaginal discharge, dysuria or hematuria. She has a h/o tubal ligation. Patient does not drink alcohol. She is a smoker. Related Data Home Medications ?Medication ?Instructions ?Recorded ?Confirmed umvrgls-[id number] 250 2 tab PO Q6H PRN Mi graine Headache 03/17/19 11/18/24 mg-250 mg-65 mg tablet (Excedrin Migraine) albuterol sulfate 90 mcg/actuation 2 puff inhalation Q 6H PRN 12/10/23 11/18/24 aerosol inhaler Shortness Of Breath quetiapine 50 mg tablet 50 mg PO .qhs 04/15/2411/18 tirzepatide (weight loss) 2.5 mg SUBCUT 11/18/2411/18 mg/0.5 mL subcutaneous pen injector (Zepbound) Previous Rx's ?Medication ?Instructions ?Recorded Bone Growth Stimulator #1 ea 04/08/24 hydrocodone 10 mg-acetaminophen 1 tab PO Q4H pain 7 da ys #42 tabs 07/01/24 325 mg tablet hydrocodone 5 mg-acetaminophen 325 1 tab PO Q6H pain 3 0 days #120 tabs 07/15/24 mg tablet diclofenac sodium 75 mg 75 mg PO BID PRN pain #30 ta bs 10/01/24 tablet,delayed release methocarbamol 500 mg tablet 500 mg PO Q8H PRN muscle s pasm #30 10/01/24 tabs methylprednisolone 4 mg tablets in See Rx Instructions PO .COMPLEX 10/01/24 a dose pack (Medrol (John)) #21 ea celecoxib 200 mg capsule (Celebrex) 200 mg PO BID 30 d ays #60 caps 10/21/24 celecoxib 400 mg capsule (Celebrex) 400 mg PO BID #60 caps 11/18/24 metoprolol succinate 25 mg 12.5 mg (1/2 x 25 mg) PO DA ROSE MARIE 30 12/18/24 tablet,extended release 24 hr days #15 tabs nitrofurantoin 100 mg PO BID 5 days #10 cap s 12/18/24 monohydrate/macrocrystals 100 mg capsule (Macrobid) Allergies Allergy/AdvReac Type Severity Reaction Status Date / Time adhesive Allergy ALGY-Bliste Verified 11/18/24 10:54 r PFSH ED 2 PFS: Medical History (Updated 12/18/24 @ 00:58 by Eliana Tran MD) Lateral epicondylitis of elbow Migraine Lumbar disc disease Asthma Lumbar post-laminectomy syndrome Surgical History History of tubal ligation 11/2014: precedure done via umbilicus. Performed in [place], [place]. History of adenoidectomy Tonsillectomy and adenoidectomy done at the age of 19 History of eye surgery Strabismus 2010 History of lumbar surgery 07/27/2016 left L4-L5 reexploration. 06/2010 Left L4-L5 Family History Father Hypertension Diabetes Mother Heart disease Social History Smoking and tobacco/nicotine status: former use of tobacco/nicotine Alcohol intake: current Alcohol intake frequency: holidays/special occasions only Substance/Drug Use: never Marital status: Current occupational status: disabled Physical Exam 2 Narrative: EXAM NARRATIVE: Vital signs were reviewed. Patient is alert and oriented. Patient is breathing comfortably, no increased WOB or accessory muscle use. SpO2 is above 95% on RA. Patient has clear lungs b/l, no rhonchi, wheezing or crackles. No hypotension. +Mild tachycardia. Abdomen is soft, nondistended and nontender. No CVA tenderness w/percussion of the flanks. Patient is moving all extremities, no deformity or gross injury. No lower extremity edema or asymmetry. Course 2 Vital Signs: Vital signs: Vital Signs Temperature 98.0 F 12/17/24 19:32 Pulse Rate 100 12/17/24 23:30 Respiratory Rate 16 12/17/24 23:11 Blood Pressure 120/82 12/17/24 23:30 Pulse Oximetry 99 12/17/24 23:30 Oxygen Delivery Me thod Room Air 12/17/24 19:32 MDM - General Adult Medical Decision Making 39yo F w/cc of GI upset and diarrhea since she started taking Celecoxib. She also recently started taking Zepbound for weight loss. Differential diagnosis includes, but is limited to, adverse side effect of medication, gastritis with or without hemorrhage, pancreatitis, cholecystitis, gastroenteritis, urinary tract infection, pyelonephritis, appendicitis, other. On exam she is helically stable. She is mildly tachycardic and was treated with fluids and Zofran for nausea. Patient was evaluate CBC, CMP, lipase, UA and screen. Patient has a mildly elevated white blood cell count which is nonspecific. She is not anemic. Patient does not have any actionable electrolyte abnormalities and has normal kidney function, liver function and lipase. Imaging is not indicated as patient has a completely benign abdominal exam. UA shows hematuria, it is a bit contaminated but there is 1+ bacteria, 0 to 5 WBC and patient does admit to increased urinary urgency and frequency. Will treat w/macrobid for acute cystitis. After fluids, patient remains slightly tachycardic. She states she has had Tachycardia before but does not take any medications. I will start her on low-dose metoprolol. She will be advised to follow-up closely with her doctor. We also discussed stopping Celebrex as I feel that this may be the cause of her GI upset. At this time, patient is well- appearing, feels well enough to go home. She is appropriate for outpatient management. Patient was counseled on supportive care at home, given return precautions and discharged in stable condition with recommendation for outpatient follow-up with primary care nurse or doctor. Lab Data 12/17/24 22:01 12/17/24 22:01 Laboratory Results WBC 12.04 10^3/uL (3.29-11.43) H 12/17/24 22: RBC 4.77 10^6/uL (3.85-5.65) 12/17/24 22: Hgb 14.00 g/dL (11.27-16.99) 12/17/24 22: Hct 41.7 % (36-47) 12/17/24 22: MCV 87.4 fl (85-98) 12/17/24 22: MCH 29.4 pg (27-33) 12/17/24 22: MCHC 33.6 g/dL (30-55) 12/17/24 22: RDW 13.1 % (12.1-15.1) 12/17/24: Plt Count 301 10^3/cmm (157-399) 12/17/24 22: MPV 10.7 fL (7.4-10.4) H 12/17/24 22: Neut % (Auto) 57.2 % 12/17/24 22: Lymph % (Auto) 33.5 % 12/17/24 22: Schuyler % (Auto) 5.5 % 12/17/24 22: Eos % (Auto) 2.4 % 12/17/24 22: Baso % (Auto) 1.2 % 12/17/24 22: Neut # (Auto) 6.89 10^3/uL (1.8-7.7) 12/17/24 22: Lymph # (Auto) 4.0 10^3/uL (0.8-4.8) 12/17/24 22: Schuyler # (Auto) 0.7 10^3/uL (0.2-0.9) 12/17/24 22: Eos # (Auto) 0.3 10^3/uL (0.0-0.8) 12/17/24 22: Baso # (Auto) 0.1 10^3/uL (0.0-0.1) 12/17/24 22: Nucleated RBC % (auto) 0 % 12/17/24 22: Nucleated RBCs # 0.0 /100WBC 12/17/24 22: Sodium 140 mmol/L (136-145) 12/17/24 22: Potassium 3.6 mmol/L (3.5-5.1) 12/17/24 22: Chloride 104 mmol/L (98-107) 12/17/24 22:01 Carbon Dioxide 24 mmol/L (22-29) 12/17/24 22: Anion Gap 15.6 (5-19) 12/17/24 22: BUN 12 mg/dL (6-20) 12/17/24 22: Creatinine 0.7 mg/dL (0.5-0.9) 12/17/24 22: GFR Calculation 92.7 mL/min (90-130) 12/17/24 22: Glucose 92 mg/dL (65-115) 12/17/24 22: Calculated Osmolality 289 mOsm/kg (285-295) 12/17/24 22: Calcium 10.1 mg/dL (8.5-10.5) 12/17/24 22: Total Bilirubin 0.4 mg/dL (0.15-1.2) 12/17/24 22: AST 16 U/L (0-32) 12/17/24 22: ALT 14 U/L (0-33) 12/17/24 22: Alkaline Phosphatase 123 U/L (35-105) H 12/17/24 22:01 Total Protein 7.7 g/dL (6.6-8.7) 12/17/24 22: Albumin 4.8 g/dL (3.5-5.2) 12/17/24 22: Globulin 2.9 g/dL (1.3-4.6) 12/17/24 22: Lipase 22 U/L (13-60) 12/17/24 22: HCG, Qual Negative (Negative) 12/17/24 23:05 Urine Color Dark yellow (Yellow) A 12/17/24 23: Urine Appearance Cloudy (CLEAR) A 12/17/24 23: Urine pH 5.5 (5-7) 12/17/24 23: Ur Specific Limon 1.034 (1.005-1.030) H 12/17/24 23:05 Urine Protein 2+ (Negative) A 12/17/24 23:05 Urine Glucose (UA) Negative (Normal) 12/17/24 23: Urine Ketones 1+ (Negative) H 12/17/24 23:05 Urine Blood 2+ (Negative) A 12/17/24 23:05 Urine Nitrate Negative (Negative) 12/17/24 23:05 Urine Bilirubin Negative (Negative) 12/17/24 23:05 Urine Urobilinogen 1.0 mg/dL (Negative) 12/17/24 23:05 Ur Leukocyte Esterase Negative (Negative) 12/17/24 23:05 Urine RBC 21-50 /hpf (0-2) H 12/17/24 23:05 Urine WBC 0-5 /hpf (0-5) 12/17/24 23:05 Ur Squamous Epith Cells 6-10 /hpf (0-5) 12/17/24 23:05 Amorphous Sediment Not Reportable 12/17/24 23:05 Urine Bacteria 1+ /hpf (NONE) H 12/17/24 23:05 Hyaline Casts 4.95 /lpf 12/17/24 23:05 No radiology studies performed this visit Discharge Plan Discharge Patient Disposition: Home Clinical Impression: Stomach upset, Acute cystitis, Tachycardia Condition: Stable Prescriptions: New nitrofurantoin monohyd/m-cryst [Macrobid] 100 mg capsule 100 mg PO BID 5 Days Qty: 10 0RF Rx Instructions: must administer with a meal/food metoprolol succinate 25 mg tablet extended release 24 hr 12.5 mg PO DAILY 30 Days Qty: 15 0RF No Action Excedrin Migraine 250-250-65 mg tablet 2 tab PO Q6H PRN (Reason: Migraine Headache) albuterol sulfate 90 mcg/actuation HFA aerosol inhaler 2 puff inhalation Q6H PRN (Reason: Shortness Of Breath) quetiapine 50 mg tablet 50 mg PO .qhs celecoxib [Celebrex] 200 mg capsule 200 mg PO BID 30 Days Qty: 60 0RF hydrocodone-acetaminophen 5-325 mg tablet 1 tab PO Q6H 30 Days Qty: 120 0RF Zepbound 2.5 mg/0.5 mL pen injector SUBCUT celecoxib [Celebrex] 400 mg capsule 400 mg PO BID Qty: 60 0RF Rx Instructions: Take 400mg twice a day (DME) Bone Growth Stimulator See Rx Instructions .Route .MEDSUPPLY Qty: 1 0RF Rx Instructions: As directed hydrocodone-acetaminophen 10-325 mg tablet 1 tab PO Q4H 7 Days Qty: 42 0RF methocarbamol 500 mg tablet 500 mg PO Q8H PRN (Reason: muscle spasm) Qty: 30 0RF diclofenac sodium 75 mg tablet,delayed release (DR/EC) 75 mg PO BID PRN (Reason: pain) Qty: 30 0RF methylprednisolone [Medrol (John)] 4 mg tablets,dose pack See Rx Instructions .ROUTE .COMPLEX Qty: 21 0RF Rx Instructions: for 6 days Discharge Orders: Discharge ED (Routine); Ordered 12/18/24 Ordered By: Eliana Tran Referrals: Yessy Youssef PA [Primary Care Provider, Physicians Administrator Social Welfare] Patient Instructions: Urinary Tract Infection in Women (ED), Atrial Tachycardia (ED), Opioid Safety, Pain Management, Patient Portal & Krishna Instructions Activity Restrictions/Additional Instructions: Please discontinue taking celecoxib. This may be the cause of your GI upset. You have also been prescribed medication for urinary tract infection and bladder infection. Please take as prescribed. Additionally, you have been noted to have an elevated heart rate today. You have been started on metoprolol, this is a medication to lower your heart rate. Please follow-up with your primary care physician and talk to your primary care physician about evaluation with continuous heart monitoring and cardiology follow up/referral. If your condition worsens or additional concerns arise, please return promptly to the emergency department for reassessment. Follow up with your primary care doctor in one week. Print Language: Mongolian Coding Level of Care Code ED [place] for Aubrie Cardona
[2024-12-17] MEDS: ondansetron 2 mg/ML SDV 2 mL 4 MG IVP (23:10)
[2024-12-17 23:11] VITALS: BP 111/90; PULSE 86; RESP 16; O2SAT 98
[2024-12-17 23:19] LABS: HCG Qualitative Urine. Negative (Negative)
[2024-12-17 23:20] LABS: Glucose Urine UA Negative (Normal); Nitrate Urine Negative (Negative)
[2024-12-17 23:26] LABS: Add Urine Microscopic? YES
[2024-12-17 23:28] LABS: Specific Gravity, Urine 1.034 (1.005-1.030)
[2024-12-17 23:30] VITALS: BP 120/82; PULSE 100; O2SAT 99
[2024-12-18] VITALS: BP 118/90; PULSE 98; O2SAT 98
[2024-12-18 00:30] VITALS: BP 118/90; PULSE 108; O2SAT 98
[2024-12-18 01:00] VITALS: BP 115/8; PULSE 110; O2SAT 95
[2024-12-18] MEDS: nitrofurantoin SR (BID) 100 mg Capsule PO (01:27)
[2024-12-18] MEDS: metoprolol succinate ER (24 HR) 25 mg Tablet 12.5 MG PO (01:27)
[2024-12-18 01:46] VITALS: BP 115/89; PULSE 110; O2SAT 95
== END 2024-12-18 01:27 | disposition home or self-care (01) ==
PROVIDERS: Emergency Provider Emergency Medicine; PCP Physician Assistant
DX: R91.8 Other nonspecific abnormal finding of lung field (principal); N30.00 Acute cystitis without hematuria; R00.0 Tachycardia, unspecified; Z87.891 Personal history of nicotine dependence
CPT/HCPCS: 36415; 80053; 81001; 81025; 83690; 85025; 87086; 96361; 96374; 99284; J2405; J7030; J9999

== ENCOUNTER → 2024-12-30 10:16 | Outpatient (BNVA) | payer MEDICAID, SELFPAY | PROVIDERS: PCP Physician Assistant; Visit Provider Orthopaedic Surgery | DX: Z47.89 Encounter for other orthopedic aftercare (principal); Z98.1 Arthrodesis status; M54.9 Dorsalgia, unspecified | CPT/HCPCS: 99214 ==

== ENCOUNTER → 2025-01-28 10:30 | Outpatient (BNVA) | payer MEDICAID, SELFPAY | PROVIDERS: PCP Physician Assistant; Referring Provider Physician Assistant; Visit Provider Specialist | DX: G40.909 Epilepsy, unspecified, not intractable, without status epilepticus (principal) | CPT/HCPCS: 99204 ==

== ENCOUNTER 2025-01-29 09:35 | Emergency (ER) | payer MEDICAID, SELFPAY ==
[2025-01-29 09:43] VITALS: BP 110/78; PULSE 147; RESP 16; TEMP 36.6; O2SAT 97
--- NOTE | 2025-01-29 09:47 | ECG_ITS ---
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
--- OUTSIDE RECORDS SUMMARY | 2025-01-29 10:56 | XMS_ITS | Encounter Summary ---
Author Organization [facility] Address [address] [facility] [place] [address] Care Team Providers Care Hose Tubing Backer Name Role Phone Remberto Keith MD Primary Care Provider [phone] Encounter Details Date Type Department Care Team (Late st Contact Info) Description 09/27/2009 Emergency 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
--- OUTSIDE RECORDS SUMMARY | 2025-01-29 10:56 | XMS_ITS | Clinical Summary ---
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 Gender Identity Not on file Sexual Orientation Not on file Plan of Treatment Health Maintenance Due Date Last Done Comments DTAP/TDAP/TD VACCINES (1 - Tdap) 01/21/2003 HEPATITIS B VACCINES (1 of 3 - 19+ 3-dose series) 01/12 HPV/Cotest (21-29) 01/21/2005 CERVICAL CANCER SCREENING 01/21/2014 HPV/Cotest (30-65) 01/21/2014 PAP SMEAR 01/21/2014 BREAST CANCER SCREENING 2024 INFLUENZA VACCINE (#1) 2024 HPV VACCINES (No Doses Required) Completed Care Teams Freight Car Cleaner Relationship Specialty Start Date End Date Remberto Keith MD [address] [place] [phone] [facility] - General 04/16/15
--- OUTSIDE RECORDS SUMMARY | 2025-01-29 10:56 | XMS_ITS | Encounter Summary ---
Author Organization [facility] Address [address] [place] [address] Care Team Providers Care Telephone Order Supervisor Name Role Phone Remberto Keith MD Primary Care Provider [phone] Encounter Details Date Type Department Care Team (Late st Contact Info) Description 09/01/2009 Emergency [facility] Emergency Department [address] [place] [id number] Robbie [address] [address] [place] [address] Lumbago (Primary Dx) Social History Tobacco Use Types Packs/Day Years Used Date Smoking Tobacco: Never Assessed Comments Unknown Sex and Gender Information Value Date Recorded Sex Assigned at Not on file 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
--- OUTSIDE RECORDS SUMMARY | 2025-01-29 10:56 | XMS_ITS | Clinical Summary ---
Author Organization [facility] Address [address] [place] [address] Care Team Providers Care Addiction Psychiatrist Name Role Phone Remberto Keith MD Primary [...] as needed for Nausea/Emesis. 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
[2025-01-29 11:06] LABS: Hematocrit 43.9 % (36-47); Hemoglobin 14.80 g/dL (11.27-16.99); Mean Corpuscular HGB Conc 33.7 g/dL (30-55); Mean Corpuscular Hemoglobin 29.1 pg (27-33); Mean Corpuscular Volume 86.4 fl (85-98); Nucleated Red Blood Cells % 0 %; Platelet Count 323 10^3/cmm (157-399); Red Blood Count 5.08 10^6/uL (3.85-5.65); White Blood Count 12.24 10^3/uL (3.29-11.43)
--- NOTE | 2025-01-29 11:19 | ED_ITS ---
HPI - Arrhythmia/Palpitations 2 General: Chief Complaint: Arrhythmia/Palpitations Stated Complaint: Abn labs (sent by Brian) Time Seen by Provider: 01/29/25 10:56 Source: patient Mode of arrival: ambulatory Limitations: no limitations History of Present Illness: Patient is a 40-year-old female presents to ED today with a complaint that she has lightening on the inside of her body as well as some mild chest heaviness. She believes symptoms started after taking a 750 mg Keppra last night. She states this was the first dose of this medication. She states she was prescribed this by Dr. Torres for treatment of seizures. Patient arrives here tachycardic with heart rates in the 140s. She states this is not abnormal for her during doctor visits as she gets very anxious. She feels like her heart rates run normal at home. She has had prior evaluation for elevated heart rates including Holter monitor and echocardiogram about 4 years ago. These were reportedly normal. She did see Dr. Torres yesterday who ordered cardiac monitoring and echocardiogram. She states she was called today to schedule the echocardiogram. Patient does not complain of shortness of breath or difficulty breathing. She denies lightheadedness, dizziness, passing out episodes. Heartrate yesterday in the neurology clinic (per Dr. Torres documentation) was significantly elevated as well. MD complaint: heart racing Onset (ago): hour(s) Duration: constant Severity: moderate Associated symptoms: Reports anxiety; Deny nausea, pre-syncope, syncope or vomiting Related Data Home Medications ?Medication ?Instructions ?Recorded ?Confirmed [id number]-[id number]-[id number] 250 2 tab PO Q6H PRN Mi graine Headache 03/17/19 01/28/25 mg-250 mg-65 mg tablet (Excedrin Migraine) albuterol sulfate 90 mcg/actuation 2 puff inhalation Q 6H PRN 12/10/23 01/28/25 aerosol inhaler Shortness Of Breath quetiapine 50 mg tablet 50 mg PO .qhs 04/15/2401/28 tirzepatide (weight loss) 5 mg/0.5 5 mg SUBCUT Q7D 01/28/25 mL subcutaneous pen injector (Zepbound) Previous Rx's ?Medication ?Instructions ?Recorded Bone Growth Stimulator #1 ea 04/08/24 diclofenac sodium 75 mg 75 mg PO BID PRN pain #30 ta bs 10/01/24 tablet,delayed release methocarbamol 500 mg tablet 500 mg PO Q8H PRN muscle s pasm #30 10/01/24 tabs hydrocodone 5 mg-acetaminophen 325 1 tab PO Q6H pain 3 0 days #120 tabs 01/06/25 mg tablet levetiracetam 750 mg 1,500 mg (2 x 750 mg) PO CLYDE LY 90 01/28/25 tablet,extended release 24 hr days #180 tabs Allergies Allergy/AdvReac Type Severity Reaction Status Date / Time adhesive Allergy ALGY-Bliste Verified 01/29/25 09:51 r morphine AdvReac ADR-Confusi Verified 01/29/25 09:51 on Review of Systems 2 Const: Denies: fever(s), chills, body aches, fatigue or malaise Card: Reports: chest pain and palpitations (feels like HR is fast); Denies: irregular heart rhythm, edema, swelling of feet/ankles, lightheadedness, syncope, pre-syncope, dyspnea on exertion, orthopnea, leg pain with exertion or acrocyanosis Resp: Denies: dyspnea, productive cough or non-productive cough GI: Denies: abdominal pain, nausea or vomiting Musc: Denies: neck pain, back pain, extremity pain, extremity swelling, joint pain, joint swelling or joint redness Skin/Breast: Denies: rash Neuro: Denies: headache(s), numbness in extremities, weakness in extremities, sensory changes or dizziness Psych: Reports: anxiety PFSH ED 2 PFSH: Medical History Lateral epicondylitis of elbow Migraine Lumbar disc disease Asthma Lumbar post-laminectomy syndrome Surgical History History of tubal ligation 11/2014: precedure done via umbilicus. Performed in [place], [place]. History of adenoidectomy Tonsillectomy and adenoidectomy done at the age of 19 History of eye surgery Strabismus 2010 History of lumbar surgery 07/27/2016 left L4-L5 reexploration. 06/2010 Left L4-L5 Family History Father Hypertension Diabetes Mother Heart disease Social History Smoking and tobacco/nicotine status: former use of tobacco/nicotine Alcohol intake: current Alcohol intake frequency: holidays/special occasions only Substance/Drug Use: never Marital status: Current occupational status: disabled Physical Exam 2 Const: COMMON NORMALS: no acute distress, average body habitus, patient oriented x3, no limitations, healthy appearing, alert and well nourished G ENERAL APPEARANCE: cooperative and anxious HENMT: COMMON NORMALS: normocephalic and atraumatic HEAD & SCALP: normal to inspection, normocephalic and atraumatic Neck/C-Spine: COMMON NORMALS: full ROM, no lymphadenopathy, supple, no meningeal signs and no JVD Chest: COMMONS NORMALS: normal inspection of the chest and normal palpation of entire chest wall Resp: COMMON NORMALS: normal respiratory effort and clear to auscultation bilaterally AUSCULTATION: clear to auscultation bilaterally Cardio: COMMON NORMALS: no JVD and regular rhythm RATE: tachycardic R HYTHM: regular rhythm GI: COMMON NORMALS: Normal to inspection, nondistended, normoactive bowel sounds present, Soft to palpation, non-tender, No hepatosplenomegaly present and no masses PALPATION: Yes Soft to palpation and Yes No hepatosplenomegaly present : COMMON NORMALS: Yes no CVA tenderness BLADDER/KIDNEY EXAM: Yes no CVA tenderness Back/Pelvis: COMMON NORMALS: no CVA tenderness and thoracic and lumbar spine normal to inspection Extremity: COMMON NORMALS: normal to inspection, capillary refill normal, no clubbing, cyanosis or edema, no calf tenderness and no pedal edema GENERAL: Y es normal exam except as noted Neuro: YAKOV COMA SCALE: document GCS findings Yakov coma scale eye opening: Spontaneous Yakov coma scale verbal response: Orientated Yakov coma scale motor response: Obey commands Yakov coma scale total score: 15 COMMON NORMALS: patient oriented x3, moves all extremities, no focal motor deficits, no sensory deficits noted and gait normal SENSORIUM/ORIENTATION: Yes alert M ENINGEAL SIGNS: Yes no meningeal signs Skin: COMMON NORMALS: no rashes or lesions noted GENERAL SKIN EXAM: no rashes or lesions noted Course 2 Vital Signs: Vital signs: Vital Signs Temperature 97.8 F 01/29/25 09:43 Pulse Rate 100 01/29/25 12:49 Respiratory Rate 17 01/29/25 12:00 Blood Pressure 108/71 01/29/25 12:49 Pulse Oximetry 100 01/29/25 12:49 Oxygen Delivery Me thod Room Air 01/29/25 12:00 MDM - Arrhythmia/Palpitations Medical Decision Making Patient is here with a complaint of feeling like there is electricity running through her as well as a racing heart rate and some chest tightness. EKG showing sinus tachycardia with a rate in the 140s. Patient states this is secondary to whitecoat syndrome as it is always high when she is in doctor offices. She recently has had cardiac monitoring as well as an echocardiogram ordered as an outpatient. Troponin and BNP as well as CXR here are all unremarkable. She was given Ativan and her tachycardia significantly improved. Heart rate is now 100 during reevaluation. Remainder of her blood work is unremarkable. UA is grossly contaminated. She is not having any UTI-like symptoms. Patient will be allowed discharge at this time. Return precautions discussed. Differential Diagnosis Likely palpitations, anxiety, sinus tachycardia, artial fibrillation and supraventricular tachycardia Medical Records I reviewed the patient's medical records. Lab Data I reviewed the patient's lab results. 01/29/25 11:00 01/29/25 11:00 Radiology Impressions Chest X-Ray 01/29/25 11:33 Impression: Negative chest. Laboratory Results WBC 12.24 10^3/uL (3.29-11.43) H 01/29/25 11:00 RBC 5.08 10^6/uL (3.85-5.65) 01/29/25 11:00 Hgb 14.80 g/dL (11.27-16.99) 01/29/25 11:00 Hct 43.9 % (36-47) 01/29/25 11:00 MCV 86.4 fl (85-98) 01/29/25 11:00 MCH 29.1 pg (27-33) 01/29/25 11:00 MCHC 33.7 g/dL (30-55) 01/29/25 11:00 RDW 13.8 % (12.1-15.1) 01/29/25 11:00 Plt Count 323 10^3/cmm (157-399) 01/29/25 11:00 MPV 9.9 fL (7.4-10.4) 01/29/25 11:00 Neut % (Auto) 65.7 % 01/29/25 11:00 Lymph % (Auto) 24.2 % 01/29/25 11:00 [place] % (Auto) 6.0 % 01/29/25 11:00 Eos % (Auto) 2.9 % 01/29/25 11:00 Baso % (Auto) 0.8 % 01/29/25 11:00 Neut # (Auto) 8.04 10^3/uL (1.8-7.7) H 01/29/25 11:00 Lymph # (Auto) 3.0 10^3/uL (0.8-4.8) 01/29/25 11:00 [place] # (Auto) 0.7 10^3/uL (0.2-0.9) 01/29/25 11:00 Eos # (Auto) 0.4 10^3/uL (0.0-0.8) 01/29/25 11:00 Baso # (Auto) 0.1 10^3/uL (0.0-0.1) 01/29/25 11:00 Nucleated RBC % (auto) 0 % 01/29/25 11:00 Nucleated RBCs # 0.0 /100WBC 01/29/25 11:00 Sodium 137 mmol/L (136-145) 01/29/25 11:00 Potassium 4.1 mmol/L (3.5-5.1) 01/29/25 11:00 Chloride 104 mmol/L (98-107) 01/29/25 11:00 Carbon Dioxide 21 mmol/L (22-29) L 01/29/25 11:00 Anion Gap 16.1 (5-19) 01/29/25 11:00 BUN 14 mg/dL (6-20) 01/29/25 11:00 Creatinine 0.6 mg/dL (0.5-0.9) 01/29/25 11:00 GFR Calculation 110.2 mL/min (90-130) 01/29/25 11:00 Glucose 113 mg/dL (65-115) 01/29/25 11:00 Calculated Osmolality 285 mOsm/kg (285-295) 01/29/25 11:00 Calcium 9.5 mg/dL (8.5-10.5) 01/29/25 11:00 Total Bilirubin 0.4 mg/dL (0.15-1.2) 01/29/25 11:00 AST 19 U/L (0-32) 01/29/25 11:00 ALT 16 U/L (0-33) 01/29/25 11:00 Alkaline Phosphatase 118 U/L (35-105) H 01/29/25 11:00 Troponin T Baseline < 6 ng/L (0-10) 01/29/25 11:00 NT-Pro-B Natriuret Pep < 36 pg/mL (0-125) 01/29/25 11:00 Total Protein 7.2 g/dL (6.6-8.7) 01/29/25 11:00 Albumin 4.6 g/dL (3.5-5.2) 01/29/25 11:00 Globulin 2.6 g/dL (1.3-4.6) 01/29/25 11:00 TSH 1.80 uIU/mL (0.27-4.20) 01/29/25 11:00 Urine Color [place] (Yellow) A 01/29/25 11:05 Urine Appearance Cloudy (CLEAR) A 01/29/25 11:05 Urine pH 5.0 (5-7) 01/29/25 11:05 Ur Specific [place] 1.033 (1.005-1.030) H 01/29/25 11:05 Urine Protein 2+ (Negative) A 01/29/25 11:05 Urine Glucose (UA) Negative (Normal) 01/29/25 11:05 Urine Ketones Trace (Negative) 01/29/25 11:05 Urine Blood 2+ (Negative) A 01/29/25 11:05 Urine Nitrate Negative (Negative) 01/29/25 11:05 Urine Bilirubin Negative (Negative) 01/29/25 11:05 Urine Urobilinogen 1.0 mg/dL (Negative) 01/29/25 11:05 Ur Leukocyte Esterase 1+ (Negative) A 01/29/25 11:05 Urine RBC 3-5 /hpf (0-2) 01/29/25 11:05 Urine WBC 6-10 /hpf (0-5) 01/29/25 11:05 Ur Squamous Epith Cells 11-20 /hpf (0-5) H 01/29/25 11:05 Amorphous Sediment Not Reportable 01/29/25 11:05 Urine Bacteria 1+ /hpf (NONE) H 01/29/25 11:05 Hyaline Casts 4.52 /lpf 01/29/25 11:05 Urine Opiates Screen Negative ng/mL (Negative) 01/29/25 11:05 Ur Barbiturates Screen Negative ng/mL (Negative) 01/29/25 11:05 Ur Phencyclidine Scrn Negative ng/mL (Negative) 01/29/25 11:05 Ur Amphetamines Screen Negative ng/mL (Negative) 01/29/25 11:05 U Benzodiazepines Scrn Negative ng/mL (Negative) 01/29/25 11:05 Urine Cocaine Screen Negative ng/mL (Negative) 01/29/25 11:05 U Marijuana (THC) Screen Positive ng/mL (Negative) H 01/29/25 11:05 All radiology interpretation(s) finalized by discharge Discharge Plan Discharge Patient Disposition: Home Clinical Impression: Paroxysmal sinus tachycardia Condition: Stable Prescriptions: No Action Excedrin Migraine 250-250-65 mg tablet 2 tab PO Q6H PRN (Reason: Migraine Headache) albuterol sulfate 90 mcg/actuation HFA aerosol inhaler 2 puff inhalation Q6H PRN (Reason: Shortness Of Breath) quetiapine 50 mg tablet 50 mg PO .qhs Zepbound 5 mg/0.5 mL pen injector 5 mg SUBCUT Q7D levetiracetam 750 mg tablet extended release 24 hr 1,500 mg PO DAILY 90 Days Qty: 180 3RF Rx Instructions: Start 1 tab for 2 weeks, then 2 tabs thereafter (DME) Bone Growth Stimulator See Rx Instructions .Route .MEDSUPPLY Qty: 1 0RF Rx Instructions: As directed hydrocodone-acetaminophen 5-325 mg tablet 1 tab PO Q6H 30 Days Qty: 120 0RF methocarbamol 500 mg tablet 500 mg PO Q8H PRN (Reason: muscle spasm) Qty: 30 0RF diclofenac sodium 75 mg tablet,delayed release (DR/EC) 75 mg PO BID PRN (Reason: pain) Qty: 30 0RF Discharge Orders: Discharge ED (Routine); Ordered 01/29/25 Ordered By: Latosha Bianchi Referrals: Yessy Youssef PA [Primary Care Provider, [facility]] Patient Instructions: Patient Portal & Krishna Instructions Activity Restrictions/Additional Instructions: As we discussed, heart rate has came down after administration of Ativan. You have already been referred for cardiac monitoring and echocardiogram. Blood work here overall is unremarkable. Urine analysis was contaminated so cannot be cultured. Monitor for symptoms of a UTI including burning with urination, urinary frequency or urgency, lower abdominal/back pain, flank pain please follow-up with primary care or obtain urine analysis if these occur. As we discussed, I would like you to discuss with Dr. Torres about continuing your Keppra. Print Language: Bhutanese Coding Level of Care Code ED Retail Salesperson for Aubrie Cardona
--- NOTE | 2025-01-29 11:33 | XR_ITS ---
WS: [id number] Portable AP upright chest, 01/29/2025 Clinical Data: chest pain Comparison: Portable chest, 09/29/2021 Findings: No nodules, masses or effusions are seen. The heart is normal. The pulmonary vascularity is not increased. No pneumonia or pneumothorax is seen. There are monitor leads on the chest wall. XR/XR chest 1V portable [id number] Impression: Negative chest.
[2025-01-29] MEDS: LORazepam 2 mg/mL INJ 1 mL 1 MG IVP (11:39)
[2025-01-29 11:41] LABS: Alanine Aminotransferase 16 U/L (0-33); Albumin Level 4.6 g/dL (3.5-5.2); Alkaline Phosphatase 118 U/L (35-105); Anion Gap 16.1 (5-19); Aspartate Amino Transferase 19 U/L (0-32); Blood Urea Nitrogen 14 mg/dL (6-20); Calcium 9.5 mg/dL (8.5-10.5); Carbon Dioxide 21 mmol/L (22-29); Chloride 104 mmol/L (98-107); Globulin 2.6 g/dL (1.3-4.6); Glucose 113 mg/dL (65-115); NT Pro B Type Natriuretic Pept < 36 pg/mL (0-125); Osmolality Calculated 285 mOsm/kg (285-295); Potassium 4.1 mmol/L (3.5-5.1); Sodium 137 mmol/L (136-145); Thyroid Stimulating Hormone 1.80 uIU/mL (0.27-4.20); Total Protein 7.2 g/dL (6.6-8.7)
[2025-01-29 11:44] VITALS: BP 103/84; PULSE 110; O2SAT 97
[2025-01-29 11:51] LABS: Glucose Urine UA Negative (Normal); Nitrate Urine Negative (Negative)
[2025-01-29 11:53] LABS: Add Urine Microscopic? YES
[2025-01-29 11:57] LABS: PCP Screen Urine Negative (Negative)
[2025-01-29 12:00] VITALS: BP 103/74; PULSE 109; RESP 17; O2SAT 94
[2025-01-29 12:05] LABS: Specific Gravity, Urine 1.033 (1.005-1.030)
[2025-01-29 12:06] LABS: Troponin(5th) Baseline < 6 ng/L (0-10)
[2025-01-29 12:49] VITALS: BP 108/71; PULSE 100; O2SAT 100
== END 2025-01-29 12:50 | disposition home or self-care (01) ==
PROVIDERS: Emergency Provider Physician Assistant; PCP Physician Assistant
DX: I47.9 Paroxysmal tachycardia, unspecified (principal); Z87.891 Personal history of nicotine dependence; Z79.82 Long term (current) use of aspirin
CPT/HCPCS: 36415; 71045; 80053; 80306; 81001; 83880; 84443; 84484; 85025; 93005; 96361; 96374; 99285; J2060; J7030